=== PATIENT | female | born 1930 | race American Indian/Alaskan Native ===

== ENCOUNTER 2016-06-10 20:42 | Inpatient (IN) | payer MEDICARE ==
[2016-06-10] MEDS ORDERED: CATAPRES PO ONE (21:16)
[2016-06-10 22:54] LABS: Basophils % (Auto) 0.4 % (0.0-1.8); Eosinophils % (Auto) 1.1 % (0.0-4.3); Hematocrit 33.8 % (30.3-42.9); Hemoglobin 10.7 gm/dl (10.1-14.3); Mean Corpuscular HGB Conc 32 % (30-34); Mean Corpuscular Hemoglobin 29 pg (28-32); Mean Corpuscular Volume 91 fl (79-97); Platelet Count 465 K/mm3 (140-440); Red Cell Distribution Width 13.7 % (13.2-15.2); White Blood Count 15.8 K/mm3 (4.5-11.0)
[2016-06-10] MEDS ORDERED: NORCO 5/325 PO ONE (23:03)
--- NOTE | 2016-06-10 23:24 | Emergency Department Report ---
HPI - General Chief Complaint: Fall Time Seen by Provider: 06/10/16 22:55 - HPI HPI: Room 5 The patient is an 85-year-old female presenting with a chief complaint pain. The patient states she slipped and fell from standing 3 days ago. The patient was informed that she should not use slippers since her previous stroke. However 2 days ago the patient use slippers and lost her footing and fell landing on her left side. There was no loss of consciousness. Patient continues to complain of left back pain patient denies headache, neck pain, abdominal pain or chest pain. Patient denies pain in her extremities. The patient gives her pain a score of 8.5/10 Location: Left Back Duration: 3 days Quality: Pain Severity: 8.5/10 Modifying factors: Movement increases pain Context: [see above] Mode of transportation: [not driving] ED Past Medical Hx - Past Medical History Previous Medical History?: Yes Hx Hypertension: Yes Hx CVA: Yes (2012) - Surgical History Past Surgical History?: No - Family History Family history: no significant - Social History Smoking Status: Former Smoker (none 45 years) Substance Use Type: None ED Review of Systems ROS: Stated complaint: BACK PAIN Other details as noted in HPI Comment: All other systems reviewed and negative Constitutional: denies: chills, fever Eyes: denies: eye pain, eye discharge, vision change ENT: denies: ear pain, throat pain Respiratory: denies: cough, shortness of breath, wheezing Cardiovascular: denies: chest pain, palpitations Endocrine: no symptoms reported Gastrointestinal: denies: abdominal pain, nausea, diarrhea Genitourinary: denies: urgency, dysuria, discharge Musculoskeletal: back pain Skin: denies: rash, lesions Neurological: denies: headache, weakness, paresthesias Psychiatric: denies: anxiety, depression Hematological/Lymphatic: denies: easy bleeding, easy bruising Physical Exam - Physical Exam Vital Signs: Vital Signs 06/10/16 06/10/16 20:59 22:32 Temperature 98.4 F Pulse Rate 86 76 Respiratory 22 Rate Blood Pressure 201/86 181/70 O2 Sat by Pulse 96 Oximetry Physical Exam: GENERAL: The patient is well-developed well-nourished elderly female lying in the right lateral decubitus position appearing to be in moderate discomfort. [] HEENT: Normocephalic. Atraumatic. Extraocular motions are intact. Patient has moist mucous membranes. NECK: Supple. No cervical accident tenderness to palpation. No step-offs. CHEST/LUNGS: Clear to auscultation. There is no respiratory distress noted. HEART/CARDIOVASCULAR: Regular. There is no tachycardia. There is no gallop rub or murmur. ABDOMEN: Abdomen is soft, nontender. Patient has normal bowel sounds. There is no abdominal distention. SKIN: There is no rash. There is no edema. There is no diaphoresis. NEURO: The patient is awake, alert, and oriented. The patient is cooperative. The patient has normal speech MUSCULOSKELETAL: There is no axial thoracic tenderness to palpation. There is trace axial lumbar tenderness to palpation. Moderate left paraspinous low back tenderness to palpation. ED Course Vital Signs 06/10/16 06/10/16 20:59 22:32 Temperature 98.4 F Pulse Rate 86 76 Respiratory 22 Rate Blood Pressure 201/86 181/70 O2 Sat by Pulse 96 Oximetry - Reevaluation(s) Reevaluation #1: 06/11/16 01:48 Family states that they are unable to take care of the patient in this condition at home the patient's son who lives with her has to leave during the day for work and there is no one else able to care for her. - Consultations Consultation #1: 06/11/16 01:[address] Abebe- surgical intervention needed at this time. Patient needs bed rest and to be fitted for TLSO brace ED Medical Decision Making - Lab Data Result diagrams: 06/10/16 22:41 06/10/16 22:41 Laboratory Tests 06/10/16 06/10/16 22:41 22:41 WBC 15.8 H RBC 3.70 Hgb 10.7 Hct 33.8 MCV 91 MCH 29 MCHC 32 RDW 13.7 Plt Count 465 H Lymph % (Auto) 7.3 L Bacon % (Auto) 8.3 H Eos % (Auto) 1.1 Baso % (Auto) 0.4 Lymph # 1.1 L Bacon # 1.3 H Eos # 0.2 Baso # 0.1 Seg Neutrophils % 82.9 H Seg Neutrophils # 13.1 H Sodium 138 Potassium 4.1 Chloride 97.0 L Carbon Dioxide 21 L Anion Gap 24 BUN 41 H Creatinine 1.3 H Estimated GFR 47 BUN/Creatinine Ratio 31.53 Glucose 160 H Calcium 8.9 - Radiology Data Radiology results: report reviewed (lumbar spine x-ray, lt hip xray), image reviewed (lumbar spine x-ray, lt hip xray) interpreted by me: lumbar spine x-ray- severe degen changes lt hip xray- no acute fractures seen lumbar spine x-ray- her compression fractures of T12 and L1, Age indeterminate lt hip xray- no evidence of acute fractures - Differential Diagnosis lumbar strain, lumbar fracture Critical care attestation.: If time is entered above; I have spent that time in minutes in the direct care of this critically ill patient, excluding procedure time. ED Disposition Clinical Impression: Compression fracture of L1 lumbar vertebra, T12 compression fracture, Back pain , Inability to perform activities of daily living Disposition: OP ADMITTED IP TO THIS HOSP Is pt being admited?: Yes Does the pt Need Aspirin: Yes Condition: Fair Referrals: PRIMARY CARE, [Primary Care Provider] - 3-5 Days Time of Disposition: 01:52 (hospitalist notified)
[2016-06-11 01:06] LABS: BUN/Creatinine Ratio 31.53; Calcium 8.9 mg/dL (8.4-10.2); Potassium 4.1 mmol/L (3.6-5.0)
[2016-06-11] MEDS ORDERED: TORADOL IM ONE (01:07)
--- NOTE | 2016-06-11 01:23 | XRay Report ---
FINAL REPORT EXAM: XR HIP 2-3V LT HISTORY: pain after fall TECHNIQUE: AP view of the pelvis and additional coned view the left hip PRIORS: None. FINDINGS: The bones are diffusely demineralized. The left hip is normally aligned and there is no evidence of acute fracture or subluxation. Pelvic bones are intact. The right hip is normally aligned. There is degenerative disc disease of lower lumbar spine. The soft tissues are IMPRESSION: No evidence of acute fracture.
--- NOTE | 2016-06-11 01:27 | XRay Report ---
FINAL REPORT EXAM: XR SPINE LUMBOSACRAL 2-3V HISTORY: pain after fall TECHNIQUE: Three views of the lumbar spine PRIORS: None. FINDINGS: Bones are diffusely demineralized. There is multilevel advanced degenerative disc disease involving all lumbar levels. There is moderate loss of height of the T12 and L1 vertebral bodies consistent with age indeterminate compression fractures. The soft tissues are unremarkable. IMPRESSION: Moderate compression fractures of T12 and L1, age indeterminate.
[2016-06-11 02:21] LABS: Bacteria,Urine 2+ /HPF (Negative); Bilirubin,Urine NEG (Negative); Blood,Urine SM (Negative); Ketones,Urine TR mg/dL (Negative); Leukocyte Esterase,Urine LG (Negative); Mucus,Urine FEW /HPF; Nitrite,Urine NEG (Negative)
[2016-06-11] MEDS ORDERED: MILK OF MAGNESIA PO PRN (02:24)
[2016-06-11] MEDS ORDERED: DULCOLAX PR PRN (02:24)
[2016-06-11] MEDS ORDERED: TYLENOL PO PRN (02:24)
[2016-06-11] MEDS ORDERED: ZOFRAN IV PRN (02:24)
[2016-06-11 02:27] LABS: WBC,Urine > 182.0 /HPF (0.0-6.0)
[2016-06-11] MEDS ORDERED: APRESOLINE IV PRN (02:36)
--- NOTE | 2016-06-11 02:37 | History and Physical Report ---
History of Present Illness Date of examination: 06/11/16 History of present illness: 85-year-old woman with a history of hypertension, CVA comes emergency room status post fall on Tuesday. Patient now complains of back pain Daughter at bedside stated that she is having difficulty doing her ADLs and they're unable to care for her Patient denies chest pain, palpitation, shortness of breath, cough, abdominal pain, hematochezia, dysuria, frequency, focal weakness, dysarthria, fever chills , polydipsia polyuria, hot or cold intolerance, easy bruisability, or rash or bleeding from mucosal membrane, rhinorrhea, epistaxis, earache, tinnitus, blurry vision, eye discharge, anxiety, depression. Other review of systems negative PAST SURGICAL HISTORY:None SOCIAL HISTORY:Denies alcohol, tobacco and drugs FAMILY HISTORY:Hypertension Medications and Allergies Allergies Allergy/AdvReac Type Severity Reaction Status Date / Time No Known Allergies Allergy Verified 06/10/16 20:59 Home Medications Medication Instructions Recorded Confirmed Last Taken Type Amlodipine Bes/Olmesartan Med 1 tab PO DAILY 06/11/16 06/11/16 Unknown History [Arnaldo 10-20 mg] Oxybutynin [Ditropan] 5 mg PO DAILY 06/11/16 06/11/16 Unknown History Active Meds: Active Medications Acetaminophen (Tylenol) 650 mg PO Q4H PRN PRN Reason: Pain MILD(1-3)/Fever >100.5/ISAAC Bisacodyl (Dulcolax) 10 mg [place] QDAY PRN PRN Reason: Constipation unrelieved by MOM Enoxaparin Sodium (Lovenox) 30 mg SUB-Q QDAY PAULA Hydralazine HCl (Apresoline) 5 mg IV Q6HR PRN PRN Reason: Hypertension Magnesium Hydroxide (Milk Of Magnesia) 30 ml PO Q4H PRN PRN Reason: Constipation Ondansetron HCl (Zofran) 4 mg IV Q8H PRN PRN Reason: N/V unrelieved by Reglan Oxycodone/Acetaminophen (Percocet 5/325) 1 tab PO Q6H PRN PRN Reason: Pain, Moderate (4-6) Exam - Physical Exam Narrative exam: Gen. appearance: Patient lying in bed, no apparent distress HEENT: Normocephalic, atraumatic, pupils equally round and reactive to light, extraocular movement intact, and no sclericterus,. No JVD or thyromegaly or nodule,neck supple, no carotid bruit ,mucous membranes moist, no exudate or erythema Heart: S1, S2, regular rate and rhythm Lungs: Clear to auscultation bilaterally, breathing comfortable Abdomen: Positive bowel sounds, nontender, nondistended, no organomegaly Extremity: No edema, cyanosis, clubbing Skin: No rash, nodules, warm, dry Neuro: Oriented 3, uncoperative - Constitutional Vitals: Temp Pulse Resp BP Pulse Ox 98.4 F 85 20 124/43 97 06/10/16 20:59 06/11/16 01:30 06/11/16 02:23 06/11/16 01:30 06/11/16 02:23 Results - Labs CBC & Chem 7: 06/10/16 22:41 06/10/16 22:41 Labs: Abnormal lab results 06/10/16 06/10/16 06/11/16 Range/Units 22:41 22:41 01:06 WBC 15.8 H (4.5-11.0) K/mm3 Plt Count 465 H (140-440) K/mm3 Lymph % (Auto) 7.3 L (13.4-35.0) % [place] % (Auto) 8.3 H (0.0-7.3) % Lymph # 1.1 L (1.2-5.4) K/mm3 [place] # 1.3 H (0.0-0.8) K/mm3 Seg Neutrophils % 82.9 H (40.0-70.0) % Seg Neutrophils # 13.1 H (1.8-7.7) K/mm3 Chloride 97.0 L (98-107) mmol/L Carbon Dioxide 21 L (22-30) mmol/L BUN 41 H (7-17) mg/dL Creatinine 1.3 H (0.7-1.2) mg/dL Glucose 160 H (65-100) mg/dL Urine WBC (Auto) > 182.0 H (0.0-6.0) /HPF Assessment and Plan lumbar, hip xray T12/L1 compression fracture Acute fracture of of T!2/L1 UTI Renal insufficiency Hypertension uncontrolled H/o CVA Admit to medicine Start percocet, consult interventional radiology for possible kyphoplasty Start IV fluid, IV rocephin Start IV hydralazine as needed for blood pressure control Start dvt prophalaxis
[2016-06-11 08:17] LABS: Hematocrit 29.9 % (30.3-42.9); Hemoglobin 9.7 gm/dl (10.1-14.3); Mean Corpuscular HGB Conc 33 % (30-34); Mean Corpuscular Hemoglobin 29 pg (28-32); Mean Corpuscular Volume 90 fl (79-97); Platelet Count 430 K/mm3 (140-440); Red Blood Count 3.31 M/mm3 (3.65-5.03); Red Cell Distribution Width 14.3 % (13.2-15.2)
--- NOTE | 2016-06-11 08:26 | Admit Criteria Form ---
Admission Criteria Documentation: BACK PAIN Clinical Indications for Admission to Inpatient Care (Place 'X' for any and all applicable criteria): Admission is indicated for ANY ONE of the following (1)(2)(3)(4)(5)(6): [ X]I. Inpatient admission required rather than observation care (Also use Back Pain: Observation Care as appropriate) because of ANY ONE of the following [X ]a) Severe pain requiring acute inpatient management [ ]b) Immediate inpatient surgery [ ]c) Other condition, treatment or monitoring requiring inpatient admission [ ]II. Spine fracture with significant damage or threat of damage to vertebral column or spinal cord [ ]III. Progressive or severe neurologic deficit [ ]IV. Suspected spinal infection (e.g., epidural abscess, vertebral osteomyelitis)(10) [ ]V. Suspected cause requires inpatient treatment (eg, aortic dissection) [ ]. Cauda equina syndrome as indicated by ANY ONE of the following (9): [ ]a) Bowel dysfunction [ ]b) Bladder dysfunction [ ]c) Saddle anesthesia [ ]d) Neurologic abnormality suggesting cauda equina impingement Extended stay beyond goal length of stay may be needed for (3)(25): [ ]a) Spinal cord compression from stenosis, disk, or tumor (8)(9) [ ]b) Traumatic or pathologic vertebral fracture (33) [ ]c) Vertebral infection(10) [ ]d) Severe pain that is difficult to control [ ]e) Older patients(65 years or older) The original [facility] [employer] content created by [employer] has been revised. The portions of the content which have been revised are identified through the use of italic text or in bold, and [employer] [employer] [employer] has neither reviewed nor approved the modified material. All other unmodified content is copyright [employer]. Please see references footnoted in the original [facility] [employer] edition 2016 Admission Criteria Met: Yes
--- NOTE | 2016-06-11 09:56 | Progress Note ---
Assessment and Plan Assessment and plan: 1. Acute traumatic fracture of T12/L1 post fall- will consult orthopedics for further evaluation; cotn percocet for pain manx 2. Cystitis with microscopic hematuria with leukocytosis- will cont rocephin; urine c/s 3. Acute renal failure due to vasomotor nephropathy- cont IVF and monitor lytes and renal function 4. OLD CVA- supportive care; ASA 5. Benign HTN - fair controll- start home meds- amlodipine 6.DVT prophylaxis- lovenox History Interval history: f/u fracture T2/L1 post fall Patient seen at the bedside; no complaints; no pain in the lower back Hospitalist Physical - Constitutional Vitals: Temp Pulse Resp BP Pulse Ox 98.2 F 78 20 148/63 96 06/11/16 08:00 06/11/16 08:00 06/11/16 08:00 06/11/16 08:00 06/11/16 09:02 General appearance: Present: no acute distress, well-nourished - EENT Eyes: Present: PERRL, EOM intact. Absent: scleral icterus, conjunctival injection ENT: hearing intact, clear oral mucosa, no oropharyngeal erythema, no poor dentition - Neck Neck: Present: supple, normal ROM - Respiratory Respiratory effort: normal Respiratory: negative: diminished, rales, rhonchi, wheezing - Cardiovascular Rhythm: regular Heart Sounds: Present: S1 & S2. Absent: gallop - Extremities Extremities: no ischemia, pulses intact, pulses symmetrical, No edema Peripheral Pulses: within normal limits - Abdominal General gastrointestinal: soft, non-tender, non-distended, normal bowel sounds - Psychiatric Psychiatric: appropriate mood/affect, intact judgment & insight, cooperative - Neurologic Neurologic: CNII-XII intact, moves all extremities Results - Labs CBC & Chem 7: 06/11/16 08:09 06/10/16 22:41 Labs: Laboratory Last Values WBC 13.0 K/mm3 (4.5-11.0) H 06/11/16 08:09 RBC 3.31 M/mm3 (3.65-5.03) L 06/11/16 08:09 Hgb 9.7 gm/dl (10.1-14.3) L 06/11/16 08:09 Hct 29.9 % (30.3-42.9) L 06/11/16 08:09 MCV 90 fl (79-97) 06/11/16 08:09 MCH 29 pg (28-32) 06/11/16 08:09 MCHC 33 % (30-34) 06/11/16 08:09 RDW 14.3 % (13.2-15.2) 06/11/16 08:09 Plt Count 430 K/mm3 (140-440) 06/11/16 08:09 Lymph % (Auto) 7.3 % (13.4-35.0) L 06/10/16 22:41 Ward % (Auto) 8.3 % (0.0-7.3) H 06/10/16 22:41 Eos % (Auto) 1.1 % (0.0-4.3) 06/10/16 22:41 Baso % (Auto) 0.4 % (0.0-1.8) 06/10/16 22:41 Lymph # 1.1 K/mm3 (1.2-5.4) L 06/10/16 22:41 Ward # 1.3 K/mm3 (0.0-0.8) H 06/10/16 22:41 Eos # 0.2 K/mm3 (0.0-0.4) 06/10/16 22:41 Baso # 0.1 K/mm3 (0.0-0.1) 06/10/16 22:41 Seg Neutrophils % 82.9 % (40.0-70.0) H 06/10/16 22:41 Seg Neutrophils # 13.1 K/mm3 (1.8-7.7) H 06/10/16 22:41 Sodium 138 mmol/L (137-145) 06/10/16 22:41 Potassium 4.1 mmol/L (3.6-5.0) 06/10/16 22:41 Chloride 97.0 mmol/L (98-107) L 06/10/16 22:41 Carbon Dioxide 21 mmol/L (22-30) L 06/10/16 22:41 Anion Gap 24 mmol/L 06/10/16 22:41 BUN 41 mg/dL (7-17) H 06/10/16 22:41 Creatinine 1.3 mg/dL (0.7-1.2) H 06/10/16 22:41 Estimated GFR 47 ml/min 06/10/16 22:41 BUN/Creatinine Ratio 31.53 % 06/10/16 22:41 Glucose 160 mg/dL (65-100) H 06/10/16 22:41 Calcium 8.9 mg/dL (8.4-10.2) 06/10/16 22:41 Urine Color Jennifer (Yellow) 06/11/16 01:06 Urine Turbidity Turbid (Clear) 06/11/16 01:06 Urine pH 5.0 (5.0-7.0) 06/11/16 01:06 Ur Specific Nitro 1.023 (1.003-1.030) 06/11/16 01:06 Urine Protein 30 mg/dl mg/dL (Negative) 06/11/16 01:06 Urine Glucose (UA) Neg mg/dL (Negative) 06/11/16 01:06 Urine Ketones Tr mg/dL (Negative) 06/11/16 01:06 Urine Blood Sm (Negative) 06/11/16 01:06 Urine Nitrite Neg (Negative) 06/11/16 01:06 Urine Bilirubin Neg (Negative) 06/11/16 01:06 Urine Urobilinogen 2.0 mg/dL (<2.0) 06/11/16 01:06 Ur Leukocyte Esterase Lg (Negative) 06/11/16 01:06 Urine WBC (Auto) > 182.0 /HPF (0.0-6.0) H 06/11/16 01:06 Urine RBC (Auto) 26.0 /HPF (0.0-6.0) 06/11/16 01:06 U Epithel Cells (Auto) 5.0 /HPF (0-13.0) 06/11/16 01:06 Urine Bacteria (Auto) 2+ /HPF (Negative) 06/11/16 01:06 Urine WBC Clumps 3+ /HPF 06/11/16 01:06 Amorphous Crystals 1+ 06/11/16 01:06 Hyaline Casts 5 /LPF 06/11/16 01:06 Urine Mucus Few /HPF 06/11/16 01:06
[2016-06-11] MEDS ORDERED: NON-FORMULARY (Amlodipine Bes/Olmesartan Med [Azor 10-20 Mg] 1 TAB) PO SCH (10:15)
[2016-06-11] MEDS: D5/0.45NS 1,000 ML IV SCH (11:00)
--- NOTE | 2016-06-11 12:10 | Consultation ---
History of Present Illness - Reason for Consult Consult date: 06/11/16 T12/L1 compression fracture Requesting physician: YASEMIN MELVIN - History of Present Illness 85-year-old female who reports that she had a stroke 4 weeks ago resulting in severe right upper extremity paresis and mild right lower extremity weakness who presented to the emergency room and was found to have an age-indeterminate compression deformity with pain. According to the patient, she reports she fell 2 weeks ago and has been slowly improving over the course of the last 2 weeks with no pain currently. According to the emergency room note, he reports that she has had multiple falls recently and complained of pain when she was in the emergency room. Currently, the patient denies any back pain. On physical exam, when her spine is palpated, she reports no pain. Past History Past Medical History: hypertension, stroke Past Surgical History: Other (denies) Social history: denies: smoking, alcohol abuse, IV drug use Family history: hypertension Medications and Allergies Allergies Allergy/AdvReac Type Severity Reaction Status Date / Time No Known Allergies Allergy Verified 06/10/16 20:59 Home Medications Medication Instructions Recorded Confirmed Last Taken Type Amlodipine Bes/Olmesartan Med 1 tab PO DAILY 06/11/16 06/11/16 Unknown History [Arnaldo 10-20 mg] Oxybutynin [Ditropan] 5 mg PO DAILY 06/11/16 06/11/16 Unknown History Active Meds: Active Medications Acetaminophen (Tylenol) 650 mg PO Q4H PRN PRN Reason: Pain MILD(1-3)/Fever >100.5/ISAAC Bisacodyl (Dulcolax) 10 mg [place] QDAY PRN PRN Reason: Constipation unrelieved by MOM Enoxaparin Sodium (Lovenox) 30 mg SUB-Q QDAY PAULA Hydralazine HCl (Apresoline) 5 mg IV Q6HR PRN PRN Reason: Hypertension Ceftriaxone Sodium (Rocephin/Ns 1 Gm/50 Ml) 1 gm in 50 mls @ 100 mls/hr IV Q24H PAULA Dextrose/Sodium Chloride (D5/0.45ns) 1,000 mls @ 75 mls/hr IV DIRECT PAULA Magnesium Hydroxide (Milk Of Magnesia) 30 ml PO Q4H PRN PRN Reason: Constipation Miscellaneous Medication (Amlodipine Bes/Olmesartan Med [Arnaldo 10-20 Mg]) 1 tab PO DAILY [facility] Ondansetron HCl (Zofran) 4 mg IV Q8H PRN PRN Reason: N/V unrelieved by Reglan Oxybutynin Chloride (Ditropan) 5 mg PO DAILY [facility] Oxycodone/Acetaminophen (Percocet 5/325) 1 tab PO Q6H PRN PRN Reason: Pain, Moderate (4-6) Review of Systems All systems: negative (see HPI) Exam - Constitutional Vitals: Temp Pulse Resp BP Pulse Ox 98.2 F 78 20 148/63 96 06/11/16 08:00 06/11/16 08:00 06/11/16 08:00 06/11/16 08:00 06/11/16 09:02 General appearance: Present: no acute distress - Respiratory Respiratory effort: normal - Extremities Extremity abnormal: other (no tenderness along the cervical, thoracic, lumbar) - Abdominal General gastrointestinal: Present: soft - Musculoskeletal Musculoskeletal: right sided weakness, other (no pain when the spine is palpated ) - Neurologic Neurologic: focal deficits (RUE paralysis ; RLE mild paresis (4+/5)) Results - Labs CBC & Chem 7: 06/11/16 08:09 06/10/16 22:41 Labs: Abnormal lab results 06/11/16 Range/Units 08:09 WBC 13.0 H (4.5-11.0) K/mm3 RBC 3.31 L (3.65-5.03) M/mm3 Hgb 9.7 L (10.1-14.3) gm/dl Hct 29.9 L (30.3-42.9) % - Imaging and Cardiology Abdominal x-ray: report reviewed, image reviewed (lumbar) Assessment and Plan 85-year-old female with right-sided CVA and multiple falls since then with presentation to the emergency room with back pain which has since resolved. No pain on palpation of the spine. She has age indeterminate compression deformity noted on thoraco-lumbar spine films. Suspect compression deformity may be old given the lack of patient's symptoms on physical exam. Consider MRI of the lower thoracic and lumbar spine for further evaluation to determine acuity of compression fracture. Given her lack of pain, patient is not a candidate for kyphoplasty.
[2016-06-11] MEDS: PERCOCET 5/325 PO PRN ×2 (14:00→19:00)
[2016-06-11] MEDS: DITROPAN PO SCH (15:00)
[2016-06-11] MEDS: ROCEPHIN/NS 1 GM/50 ML 1 GM/50 ML BAG IV SCH (15:00)
[2016-06-11] MEDS: LOVENOX SUB-Q SCH (15:00)
--- NOTE | 2016-06-11 15:13 | Consultation ---
History of Present Illness - [facility] Consult date: 06/11/16 Consult reason: fracture History of present illness: 85 years old with mid back, upper lumbar pain. Family report she fell down several days ago, had been getting around at home after the fall with minimal discomfort, and had been slowly improving. She was seen in emergency room because of "pain" admitted with a diagnosis of compression fracture T12, L1. Past History Past Medical History: hypertension, stroke Past Surgical History: Other (denies) Social history: denies: smoking, alcohol abuse, IV drug use Family history: hypertension Medications and Allergies Allergies Allergy/AdvReac Type Severity Reaction Status Date / Time No Known Allergies Allergy Verified 06/10/16 20:59 Home Medications Medication Instructions Recorded Confirmed Last Taken Type Amlodipine Bes/Olmesartan Med 1 tab PO DAILY 06/11/16 06/11/16 Unknown History [Arnaldo 10-20 mg] Oxybutynin [Ditropan] 5 mg PO DAILY 06/11/16 06/11/16 Unknown History Active Meds: Active Medications Acetaminophen (Tylenol) 650 mg PO Q4H PRN PRN Reason: Pain MILD(1-3)/Fever >100.5/ISAAC Amlodipine Besylate (Norvasc) 10 mg PO DAILY PAULA Bisacodyl (Dulcolax) 10 mg [place] QDAY PRN PRN Reason: Constipation unrelieved by MOM Enoxaparin Sodium (Lovenox) 30 mg SUB-Q QDAY PAULA Hydralazine HCl (Apresoline) 5 mg IV Q6HR PRN PRN Reason: Hypertension Ceftriaxone Sodium (Rocephin/Ns 1 Gm/50 Ml) 1 gm in 50 mls @ 100 mls/hr IV Q24H PAULA Dextrose/Sodium Chloride (D5/0.45ns) 1,000 mls @ 75 mls/hr IV DIRECT PAULA Losartan Potassium (Cozaar) 50 mg PO QDAY PAULA Magnesium Hydroxide (Milk Of Magnesia) 30 ml PO Q4H PRN PRN Reason: Constipation Ondansetron HCl (Zofran) 4 mg IV Q8H PRN PRN Reason: N/V unrelieved by Reglan Oxybutynin Chloride (Ditropan) 5 mg PO DAILY PAULA Oxycodone/Acetaminophen (Percocet 5/325) 1 tab PO Q6H PRN PRN Reason: Pain, Moderate (4-6) Physical Examination - Fracture vertebral column Appearance: other (Increased thoracic kyphosis, degenerative scoliosis. No definite ecchymosis, discoloration of the thoracolumbar area. No definite point tenderness. Range of motion is severely limited and neurological examination is unremarkable. She moves around of bed without much expressed discomfort.) Assessment and Plan - Patient Problems (1) Compression fracture of L1 lumbar vertebra Current Visit: Yes Status: Acute Qualifiers: Encounter type: initial encounter Fracture type: F Fracture healing: F Plan to address problem: Decompression fracture may be few weeks old, as per family she had been getting around at home, gradually improving. Treatment options continue with symptomatic treatment, progressive amputation as tolerated and pain management, bracing, kyphoplasty discussed with. As symptoms are clinically improving family have decided to continue with nonoperative management. Because of her scoliosis and increased kyphosis she will not tolerate orthosis well. After discussion of fall distractors, the family has elected for symptomatic treatment , patient may be discharged with pain management, activities as tolerated, possibly will need LLUI/SNF placement. Wound (2) T12 compression fracture Current Visit: Yes Status: Acute Qualifiers: Encounter type: E Fracture healing: F
[2016-06-12] MEDS: PERCOCET 5/325 PO PRN ×3 (03:20→17:08)
[2016-06-12] MEDS ORDERED: ATIVAN IV ONE (03:56)
[2016-06-12 05:04] LABS: Basophils % (Auto) 0.6 % (0.0-1.8); Eosinophils % (Auto) 3.5 % (0.0-4.3); Hematocrit 32.1 % (30.3-42.9); Hemoglobin 10.3 gm/dl (10.1-14.3); Mean Corpuscular HGB Conc 32 % (30-34); Mean Corpuscular Hemoglobin 29 pg (28-32); Mean Corpuscular Volume 91 fl (79-97); Platelet Count 507 K/mm3 (140-440); Red Blood Count 3.54 M/mm3 (3.65-5.03); Red Cell Distribution Width 14.2 % (13.2-15.2); White Blood Count 10.8 K/mm3 (4.5-11.0)
[2016-06-12 05:07] LABS: Anion Gap 18 mmol/L; Blood Urea Nitrogen 33 mg/dL (7-17); Calcium 8.2 mg/dL (8.4-10.2); Carbon Dioxide 24 mmol/L (22-30); Glucose 188 mg/dL (65-100); Potassium 3.2 mmol/L (3.6-5.0); Sodium 139 mmol/L (137-145)
[2016-06-12] MEDS: ROCEPHIN/NS 1 GM/50 ML 1 GM/50 ML BAG IV SCH (07:35)
[2016-06-12] MEDS: D5/0.45NS 1,000 ML IV SCH (07:36)
[2016-06-12] MEDS: DITROPAN PO SCH ×2 (08:38→10:00)
[2016-06-12] MEDS: LOVENOX SUB-Q SCH ×2 (08:38→10:00)
--- NOTE | 2016-06-12 11:19 | Progress Note ---
Assessment and Plan Assessment and plan: 1. Acute traumatic fracture of T12/L1 post fall-ortho / IR consults noted; will cotn symptomatic [place]; for discharge to SNF when bed available, cotn percocet for pain manx 2. Cystitis with microscopic hematuria with resolving leukocytosis-cont IV rocephin; no urine c/s sent 3. Acute renal failure due to vasomotor nephropathy- improving; cont IVF and monitor lytes and renal function 4. OLD CVA- supportive care; ASA 5. Benign HTN - fair controll; cotn; amlodipine 6. DVT prophylaxis- lovenox For d/c SNF when bed available History Interval history: f/u fracture T2/L1 post fall Patient seen at the bedside; no complaints; no pain in the lower back Hospitalist Physical - Constitutional Vitals: Temp Pulse Resp BP Pulse Ox 97.4 F L 68 18 171/53 98 06/12/16 07:30 06/12/16 07:30 06/12/16 07:30 06/12/16 07:30 06/12/16 07:30 General appearance: Present: no acute distress - EENT Eyes: Present: PERRL, EOM intact. Absent: scleral icterus, conjunctival injection ENT: hearing intact, clear oral mucosa, no oropharyngeal erythema, no poor dentition - Neck Neck: Present: supple, normal ROM. Absent: enlarged thyroid, masses or JVD - Respiratory Respiratory effort: normal Respiratory: negative: diminished, rales, rhonchi, wheezing - Cardiovascular Rhythm: regular Heart Sounds: Present: S1 & S2. Absent: gallop - Extremities Extremities: no ischemia, pulses intact, pulses symmetrical, No edema Peripheral Pulses: within normal limits - Abdominal General gastrointestinal: soft, non-tender, non-distended, normal bowel sounds - Integumentary Integumentary: Present: clear - Psychiatric Psychiatric: appropriate mood/affect, intact judgment & insight, cooperative - Neurologic Neurologic: CNII-XII intact Results - Labs CBC & Chem 7: 06/12/16 04:22 06/12/16 04:22 Labs: Laboratory Last Values WBC 10.8 K/mm3 (4.5-11.0) 06/12/16 04:22 RBC 3.54 M/mm3 (3.65-5.03) L 06/12/16 04:22 Hgb 10.3 gm/dl (10.1-14.3) 06/12/16 04:22 Hct 32.1 % (30.3-42.9) 06/12/16 04:22 MCV 91 fl (79-97) 06/12/16 04:22 MCH 29 pg (28-32) 06/12/16 04:22 MCHC 32 % (30-34) 06/12/16 04:22 RDW 14.2 % (13.2-15.2) 06/12/16 04:22 Plt Count 507 K/mm3 (140-440) H 06/12/16 04:22 Lymph % (Auto) 13.2 % (13.4-35.0) L 06/12/16 04:22 [place] % (Auto) 9.3 % (0.0-7.3) H 06/12/16 04:22 Eos % (Auto) 3.5 % (0.0-4.3) 06/12/16 04:22 Baso % (Auto) 0.6 % (0.0-1.8) 06/12/16 04:22 Lymph # 1.4 K/mm3 (1.2-5.4) 06/12/16 04:22 [place] # 1.0 K/mm3 (0.0-0.8) H 06/12/16 04:22 Eos # 0.4 K/mm3 (0.0-0.4) 06/12/16 04:22 Baso # 0.1 K/mm3 (0.0-0.1) 06/12/16 04:22 Seg Neutrophils % 73.4 % (40.0-70.0) H 06/12/16 04:22 Seg Neutrophils # 7.9 K/mm3 (1.8-7.7) H 06/12/16 04:22 Sodium 139 mmol/L (137-145) 06/12/16 04:22 Potassium 3.2 mmol/L (3.6-5.0) L D 06/12/16 04:22 Chloride 100.0 mmol/L (98-107) 06/12/16 04:22 Carbon Dioxide 24 mmol/L (22-30) 06/12/16 04:22 Anion Gap 18 mmol/L 06/12/16 04:22 BUN 33 mg/dL (7-17) H 06/12/16 04:22 Creatinine 0.5 mg/dL (0.7-1.2) L D 06/12/16 04:22 Estimated GFR > 60 ml/min 06/12/16 04:22 BUN/Creatinine Ratio 66.00 % 06/12/16 04:22 Glucose 188 mg/dL (65-100) H 06/12/16 04:22 Calcium 8.2 mg/dL (8.4-10.2) L 06/12/16 04:22 Urine Color [place] (Yellow) 06/11/16 01:06 Urine Turbidity Turbid (Clear) 06/11/16 01:06 Urine pH 5.0 (5.0-7.0) 06/11/16 01:06 Ur Specific [place] 1.023 (1.003-1.030) 06/11/16 01:06 Urine Protein 30 mg/dl mg/dL (Negative) 06/11/16 01:06 Urine Glucose (UA) Neg mg/dL (Negative) 06/11/16 01:06 Urine Ketones Tr mg/dL (Negative) 06/11/16 01:06 Urine Blood Sm (Negative) 06/11/16 01:06 Urine Nitrite Neg (Negative) 06/11/16 01:06 Urine Bilirubin Neg (Negative) 06/11/16 01:06 Urine Urobilinogen 2.0 mg/dL (<2.0) 06/11/16 01:06 Ur Leukocyte Esterase Lg (Negative) 06/11/16 01:06 Urine WBC (Auto) > 182.0 /HPF (0.0-6.0) H 06/11/16 01:06 Urine RBC (Auto) 26.0 /HPF (0.0-6.0) 06/11/16 01:06 U Epithel Cells (Auto) 5.0 /HPF (0-13.0) 06/11/16 01:06 Urine Bacteria (Auto) 2+ /HPF (Negative) 06/11/16 01:06 Urine WBC Clumps 3+ /HPF 06/11/16 01:06 Amorphous Crystals 1+ 06/11/16 01:06 Hyaline Casts 5 /LPF 06/11/16 01:06 Urine Mucus Few /HPF 06/11/16 01:06
[2016-06-12] MEDS ORDERED: K-DUR PO ONE ×2 (11:22→15:00)
--- NOTE | 2016-06-12 12:06 | Consultation ---
History of Present Illness - HPI Consult date: 06/12/16 Past History Past Medical History: hypertension, stroke Past Surgical History: Other (denies) Social history: denies: smoking, alcohol abuse, IV drug use Family history: hypertension Medications and Allergies Allergies Allergy/AdvReac Type Severity Reaction Status Date / Time No Known Allergies Allergy Verified 06/10/16 20:59 Home Medications Medication Instructions Recorded Confirmed Last Taken Type Amlodipine Bes/Olmesartan Med 1 tab PO DAILY 06/11/16 06/11/16 Unknown History [Arnaldo 10-20 mg] Oxybutynin [Ditropan] 5 mg PO DAILY 06/11/16 06/11/16 Unknown History Active Meds: Active Medications Acetaminophen (Tylenol) 650 mg PO Q4H PRN PRN Reason: Pain MILD(1-3)/Fever >100.5/ISAAC Amlodipine Besylate (Norvasc) 10 mg PO DAILY [facility] Bisacodyl (Dulcolax) 10 mg SC QDAY PRN PRN Reason: Constipation unrelieved by MOM Enoxaparin Sodium (Lovenox) 30 mg SUB-Q QDAY [facility] Last Admin: 06/12/16 10:00 Dose: Not Given Hydralazine HCl (Apresoline) 5 mg IV Q6HR PRN PRN Reason: Hypertension Ceftriaxone Sodium (Rocephin/Ns 1 Gm/50 Ml) 1 gm in 50 mls @ 100 mls/hr IV Q24H [facility] Last Admin: 06/12/16 07:35 Dose: Not Given Dextrose/Sodium Chloride (D5/0.45ns) 1,000 mls @ 75 mls/hr IV DIRECT [facility] Last Admin: 06/12/16 07:36 Dose: 75 mls/hr Losartan Potassium (Cozaar) 50 mg PO QDAY [facility] Magnesium Hydroxide (Milk Of Magnesia) 30 ml PO Q4H PRN PRN Reason: Constipation Ondansetron HCl (Zofran) 4 mg IV Q8H PRN PRN Reason: N/V unrelieved by Reglan Oxybutynin Chloride (Ditropan) 5 mg PO DAILY [facility] Last Admin: 06/12/16 10:00 Dose: Not Given Oxycodone/Acetaminophen (Percocet 5/325) 1 tab PO Q6H PRN PRN Reason: Pain, Moderate (4-6) Last Admin: 06/12/16 11:45 Dose: 1 tab Assessment and Plan - Patient Problems (1) Compression fracture of L1 lumbar vertebra Current Visit: Yes Status: Acute Qualifiers: Encounter type: initial encounter Fracture type: F Fracture healing: F Plan to address problem: Compression fracture T12, L1, age undetermined. Patient's family report a fall in a possibly 2 weeks ago. Following this she was been getting around with minimal discomfort and had been progressively getting better.(As per the ER physician pain has been severe, unable to get around) In the hospital she appears comfortable, frequently changes position. This is because of the kyphotic deformity. Treatment options of continuing with nonoperative management,? Bracing discussed with. Because of kyphosis he may not be able to tolerate a brace. After kyphoplasty also discussed with, patient's family is not in agreement with the same. We'll continue with symptomatic treatment as she is clinically improving, she may be discharged to [facility]/SNF when bed available when medically stable. (2) T12 compression fracture Current Visit: Yes Status: Acute Qualifiers: Encounter type: E Fracture healing: F
[2016-06-12] MEDS: NORVASC PO SCH (17:45)
[2016-06-12] MEDS: COZAAR PO SCH (17:46)
[2016-06-13 04:49] LABS: Anion Gap 17 mmol/L; Blood Urea Nitrogen 17 mg/dL (7-17); Calcium 8.4 mg/dL (8.4-10.2); Carbon Dioxide 25 mmol/L (22-30); Chloride 99.7 mmol/L (98-107); Glucose 174 mg/dL (65-100); Potassium 4.2 mmol/L (3.6-5.0); Sodium 137 mmol/L (137-145)
[2016-06-13] MEDS: ROCEPHIN/NS 1 GM/50 ML 1 GM/50 ML BAG IV SCH (05:00)
[2016-06-13] MEDS: PERCOCET 5/325 PO PRN ×2 (11:45→17:45)
[2016-06-13] MEDS: NORVASC PO SCH (11:45)
[2016-06-13] MEDS: COZAAR PO SCH (11:45)
[2016-06-13] MEDS: LOVENOX SUB-Q SCH (11:45)
[2016-06-13] MEDS: DITROPAN PO SCH (11:45)
--- NOTE | 2016-06-13 13:27 | Progress Note ---
Assessment and Plan Assessment and plan: 1. Acute traumatic fracture of T12/L1 post fall-ortho / IR consults noted; will cotn symptomatic [place]; for discharge to SNF when bed available, cotn percocet for pain manx 2. Cystitis with microscopic hematuria with resolve leukocytosis-d/c IV rocephin- has received 3 days of therapy; no growth on urine c/s 3. Acute renal failure due to vasomotor nephropathy- resolved' d/c IVF 4. OLD CVA- supportive care; ASA 5. Benign HTN - fair controll; cotn; amlodipine 6. DVT prophylaxis- lovenox For d/c SNF when bed available History Interval history: f/u fracture T2/L1 post fall Patient seen at the bedside; c/o pain in the back Hospitalist Physical - Constitutional Vitals: Temp Pulse Resp BP Pulse Ox 98.1 F 83 16 201/80 98 06/13/16 08:00 06/13/16 08:00 06/13/16 08:00 06/13/16 08:00 06/13/16 08:00 General appearance: Present: no acute distress - EENT Eyes: Present: PERRL, EOM intact. Absent: scleral icterus, conjunctival injection ENT: hearing intact, clear oral mucosa, no oropharyngeal erythema, no poor dentition - Neck Neck: Present: supple, normal ROM. Absent: enlarged thyroid, masses or JVD - Respiratory Respiratory effort: normal Respiratory: negative: diminished, rales, rhonchi, wheezing - Cardiovascular Rhythm: regular Heart Sounds: Present: S1 & S2. Absent: gallop - Extremities Extremities: no ischemia, pulses intact, pulses symmetrical, No edema Peripheral Pulses: within normal limits - Abdominal General gastrointestinal: soft, non-tender, non-distended, normal bowel sounds - Integumentary Integumentary: Present: clear - Psychiatric Psychiatric: appropriate mood/affect, intact judgment & insight, cooperative - Neurologic Neurologic: CNII-XII intact, moves all extremities Results - Labs CBC & Chem 7: 06/12/16 04:22 06/13/16 03:42 Labs: Laboratory Last Values WBC 10.8 K/mm3 (4.5-11.0) 06/12/16 04:22 RBC 3.54 M/mm3 (3.65-5.03) L 06/12/16 04:22 Hgb 10.3 gm/dl (10.1-14.3) 06/12/16 04:22 Hct 32.1 % (30.3-42.9) 06/12/16 04:22 MCV 91 fl (79-97) 06/12/16 04:22 MCH 29 pg (28-32) 06/12/16 04:22 MCHC 32 % (30-34) 06/12/16 04:22 RDW 14.2 % (13.2-15.2) 06/12/16 04:22 Plt Count 507 K/mm3 (140-440) H 06/12/16 04:22 Lymph % (Auto) 13.2 % (13.4-35.0) L 06/12/16 04:22 [place] % (Auto) 9.3 % (0.0-7.3) H 06/12/16 04:22 Eos % (Auto) 3.5 % (0.0-4.3) 06/12/16 04:22 Baso % (Auto) 0.6 % (0.0-1.8) 06/12/16 04:22 Lymph # 1.4 K/mm3 (1.2-5.4) 06/12/16 04:22 [place] # 1.0 K/mm3 (0.0-0.8) H 06/12/16 04:22 Eos # 0.4 K/mm3 (0.0-0.4) 06/12/16 04:22 Baso # 0.1 K/mm3 (0.0-0.1) 06/12/16 04:22 Seg Neutrophils % 73.4 % (40.0-70.0) H 06/12/16 04:22 Seg Neutrophils # 7.9 K/mm3 (1.8-7.7) H 06/12/16 04:22 Sodium 137 mmol/L (137-145) 06/13/16 03:42 Potassium 4.2 mmol/L (3.6-5.0) D 06/13/16 03:42 Chloride 99.7 mmol/L (98-107) 06/13/16 03:42 Carbon Dioxide 25 mmol/L (22-30) 06/13/16 03:42 Anion Gap 17 mmol/L 06/13/16 03:42 BUN 17 mg/dL (7-17) 06/13/16 03:42 Creatinine 0.4 mg/dL (0.7-1.2) L 06/13/16 03:42 Estimated GFR > 60 ml/min 06/13/16 03:42 BUN/Creatinine Ratio 42.50 % 06/13/16 03:42 Glucose 174 mg/dL (65-100) H 06/13/16 03:42 Calcium 8.4 mg/dL (8.4-10.2) 06/13/16 03:42 Urine Color [place] (Yellow) 06/11/16 01:06 Urine Turbidity Turbid (Clear) 06/11/16 01:06 Urine pH 5.0 (5.0-7.0) 06/11/16 01:06 Ur Specific [place] 1.023 (1.003-1.030) 06/11/16 01:06 Urine Protein 30 mg/dl mg/dL (Negative) 06/11/16 01:06 Urine Glucose (UA) Neg mg/dL (Negative) 06/11/16 01:06 Urine Ketones Tr mg/dL (Negative) 06/11/16 01:06 Urine Blood Sm (Negative) 06/11/16 01:06 Urine Nitrite Neg (Negative) 06/11/16 01:06 Urine Bilirubin Neg (Negative) 06/11/16 01:06 Urine Urobilinogen 2.0 mg/dL (<2.0) 06/11/16 01:06 Ur Leukocyte Esterase Lg (Negative) 06/11/16 01:06 Urine WBC (Auto) > 182.0 /HPF (0.0-6.0) H 06/11/16 01:06 Urine RBC (Auto) 26.0 /HPF (0.0-6.0) 06/11/16 01:06 U Epithel Cells (Auto) 5.0 /HPF (0-13.0) 06/11/16 01:06 Urine Bacteria (Auto) 2+ /HPF (Negative) 06/11/16 01:06 Urine WBC Clumps 3+ /HPF 06/11/16 01:06 Amorphous Crystals 1+ 06/11/16 01:06 Hyaline Casts 5 /LPF 06/11/16 01:06 Urine Mucus Few /HPF 06/11/16 01:06
[2016-06-14] MEDS: LOVENOX SUB-Q SCH ×2 (08:47→10:00)
[2016-06-14] MEDS: NORVASC PO SCH ×2 (08:48→10:00)
[2016-06-14] MEDS: DITROPAN PO SCH ×2 (08:48→10:00)
[2016-06-14] MEDS: COZAAR PO SCH ×2 (08:49→10:00)
[2016-06-14] MEDS: PERCOCET 5/325 PO PRN ×2 (08:49→18:40)
--- NOTE | 2016-06-14 11:22 | Progress Note ---
Assessment and Plan Assessment and plan: 1. Acute traumatic fracture of T12/L1 post fall-ortho / IR consults noted; will cotn symptomatic [place]; for discharge to SNF when bed available, cotn percocet for pain manx 2. OLD CVA- supportive care; ASA 3. Benign HTN - fair controll; cotn; amlodipine 4. DVT prophylaxis- lovenox For d/c SNF when bed available History Interval history: f/u fracture T2/L1 post fall Patient seen at the bedside; c/o pain in the back Hospitalist Physical - Constitutional Vitals: Temp Pulse Resp BP Pulse Ox 98.2 F 79 18 191/77 99 06/14/16 08:05 06/14/16 08:49 06/14/16 08:05 06/14/16 08:49 06/14/16 08:05 General appearance: Present: no acute distress - EENT Eyes: Present: PERRL, EOM intact. Absent: scleral icterus, conjunctival injection ENT: hearing intact, clear oral mucosa, no oropharyngeal erythema, no poor dentition - Neck Neck: Present: supple, normal ROM. Absent: enlarged thyroid, masses or JVD - Respiratory Respiratory effort: normal Respiratory: negative: diminished, rales, rhonchi, wheezing - Cardiovascular Rhythm: regular Heart Sounds: Present: S1 & S2. Absent: gallop - Extremities Extremities: no ischemia, pulses intact, pulses symmetrical, No edema Peripheral Pulses: within normal limits - Abdominal General gastrointestinal: soft, non-tender, non-distended - Integumentary Integumentary: Present: clear - Psychiatric Psychiatric: appropriate mood/affect, cooperative - Neurologic Neurologic: CNII-XII intact, moves all extremities Results - Labs CBC & Chem 7: 06/12/16 04:22 06/13/16 03:42 Labs: Laboratory Last Values WBC 10.8 K/mm3 (4.5-11.0) 06/12/16 04:22 RBC 3.54 M/mm3 (3.65-5.03) L 06/12/16 04:22 Hgb 10.3 gm/dl (10.1-14.3) 06/12/16 04:22 Hct 32.1 % (30.3-42.9) 06/12/16 04:22 MCV 91 fl (79-97) 06/12/16 04:22 MCH 29 pg (28-32) 06/12/16 04:22 MCHC 32 % (30-34) 06/12/16 04:22 RDW 14.2 % (13.2-15.2) 06/12/16 04:22 Plt Count 507 K/mm3 (140-440) H 06/12/16 04:22 Lymph % (Auto) 13.2 % (13.4-35.0) L 06/12/16 04:22 [place] % (Auto) 9.3 % (0.0-7.3) H 06/12/16 04:22 Eos % (Auto) 3.5 % (0.0-4.3) 06/12/16 04:22 Baso % (Auto) 0.6 % (0.0-1.8) 06/12/16 04:22 Lymph # 1.4 K/mm3 (1.2-5.4) 06/12/16 04:22 [place] # 1.0 K/mm3 (0.0-0.8) H 06/12/16 04:22 Eos # 0.4 K/mm3 (0.0-0.4) 06/12/16 04:22 Baso # 0.1 K/mm3 (0.0-0.1) 06/12/16 04:22 Seg Neutrophils % 73.4 % (40.0-70.0) H 06/12/16 04:22 Seg Neutrophils # 7.9 K/mm3 (1.8-7.7) H 06/12/16 04:22 Sodium 137 mmol/L (137-145) 06/13/16 03:42 Potassium 4.2 mmol/L (3.6-5.0) D 06/13/16 03:42 Chloride 99.7 mmol/L (98-107) 06/13/16 03:42 Carbon Dioxide 25 mmol/L (22-30) 06/13/16 03:42 Anion Gap 17 mmol/L 06/13/16 03:42 BUN 17 mg/dL (7-17) 06/13/16 03:42 Creatinine 0.4 mg/dL (0.7-1.2) L 06/13/16 03:42 Estimated GFR > 60 ml/min 06/13/16 03:42 BUN/Creatinine Ratio 42.50 % 06/13/16 03:42 Glucose 174 mg/dL (65-100) H 06/13/16 03:42 Calcium 8.4 mg/dL (8.4-10.2) 06/13/16 03:42 Urine Color [place] (Yellow) 06/11/16 01:06 Urine Turbidity Turbid (Clear) 06/11/16 01:06 Urine pH 5.0 (5.0-7.0) 06/11/16 01:06 Ur Specific [place] 1.023 (1.003-1.030) 06/11/16 01:06 Urine Protein 30 mg/dl mg/dL (Negative) 06/11/16 01:06 Urine Glucose (UA) Neg mg/dL (Negative) 06/11/16 01:06 Urine Ketones Tr mg/dL (Negative) 06/11/16 01:06 Urine Blood Sm (Negative) 06/11/16 01:06 Urine Nitrite Neg (Negative) 06/11/16 01:06 Urine Bilirubin Neg (Negative) 06/11/16 01:06 Urine Urobilinogen 2.0 mg/dL (<2.0) 06/11/16 01:06 Ur Leukocyte Esterase Lg (Negative) 06/11/16 01:06 Urine WBC (Auto) > 182.0 /HPF (0.0-6.0) H 06/11/16 01:06 Urine RBC (Auto) 26.0 /HPF (0.0-6.0) 06/11/16 01:06 U Epithel Cells (Auto) 5.0 /HPF (0-13.0) 06/11/16 01:06 Urine Bacteria (Auto) 2+ /HPF (Negative) 06/11/16 01:06 Urine WBC Clumps 3+ /HPF 06/11/16 01:06 Amorphous Crystals 1+ 06/11/16 01:06 Hyaline Casts 5 /LPF 06/11/16 01:06 Urine Mucus Few /HPF 06/11/16 01:06
[2016-06-15] MEDS: PERCOCET 5/325 PO PRN ×4 (06:20→20:20)
--- NOTE | 2016-06-15 07:20 | Progress Note ---
Assessment and Plan alert orientated in mild pain s/p comp fx T12-L1 Waiting for disposition follow up as outpatient. Subjective Date of service: 06/15/16 Objective Vital signs: Vital Signs - 12hr 06/14/16 06/15/16 20:00 00:00 Temperature 98.7 F 98.8 F Pulse Rate 85 Pulse Rate [ 90 85 Left] Respiratory 20 20 Rate Blood Pressure 198/68 Blood Pressure 194/79 196/68 [Right Arm] O2 Sat by Pulse 97 98 Oximetry - Labs CBC & BMP: 06/12/16 04:22 06/13/16 03:42
[2016-06-15] MEDS: COZAAR PO SCH (10:25)
[2016-06-15] MEDS: NORVASC PO SCH (10:28)
[2016-06-15] MEDS: DITROPAN PO SCH (10:28)
[2016-06-15] MEDS: LOVENOX SUB-Q SCH (10:28)
--- NOTE | 2016-06-15 11:00 | Progress Note ---
Assessment and Plan Assessment and plan: 1. Acute traumatic fracture of T12/L1 post fall-ortho / IR consults noted; will cotn symptomatic [place]; for discharge to SNF when bed available, cotn percocet for pain manx 2. OLD CVA- supportive care; ASA 3. Benign HTN - fair controll; cotn; amlodipine 4. DVT prophylaxis- lovenox 5. Disposition. For d/c SNF when bed available History Interval history: Patient states her back pain is better. Hospitalist Physical - Constitutional Vitals: Temp Pulse Resp BP Pulse Ox 98 F 85 16 157/85 97 06/15/16 07:00 06/15/16 07:00 06/15/16 07:00 06/15/16 07:00 06/15/16 07:00 General appearance: Present: no acute distress - EENT Eyes: Present: PERRL, EOM intact ENT: hearing intact, clear oral mucosa, dentition normal - Neck Neck: Present: supple, normal ROM - Respiratory Respiratory effort: normal Respiratory: bilateral: CTA - Cardiovascular Rhythm: regular Heart Sounds: Present: S1 & S2. Absent: gallop, rub - Extremities Extremities: no ischemia, No edema, Full ROM - Abdominal General gastrointestinal: soft, non-tender, non-distended, normal bowel sounds - Integumentary Integumentary: Present: clear, warm, dry - Neurologic Neurologic: CNII-XII intact, moves all extremities Results - Labs CBC & Chem 7: 06/12/16 04:22 06/13/16 03:42 Labs: Laboratory Last Values WBC 10.8 K/mm3 (4.5-11.0) 06/12/16 04:22 RBC 3.54 M/mm3 (3.65-5.03) L 06/12/16 04:22 Hgb 10.3 gm/dl (10.1-14.3) 06/12/16 04:22 Hct 32.1 % (30.3-42.9) 06/12/16 04:22 MCV 91 fl (79-97) 06/12/16 04:22 MCH 29 pg (28-32) 06/12/16 04:22 MCHC 32 % (30-34) 06/12/16 04:22 RDW 14.2 % (13.2-15.2) 06/12/16 04:22 Plt Count 507 K/mm3 (140-440) H 06/12/16 04:22 Lymph % (Auto) 13.2 % (13.4-35.0) L 06/12/16 04:22 [place] % (Auto) 9.3 % (0.0-7.3) H 06/12/16 04:22 Eos % (Auto) 3.5 % (0.0-4.3) 06/12/16 04:22 Baso % (Auto) 0.6 % (0.0-1.8) 06/12/16 04:22 Lymph # 1.4 K/mm3 (1.2-5.4) 06/12/16 04:22 [place] # 1.0 K/mm3 (0.0-0.8) H 06/12/16 04:22 Eos # 0.4 K/mm3 (0.0-0.4) 06/12/16 04:22 Baso # 0.1 K/mm3 (0.0-0.1) 06/12/16 04:22 Seg Neutrophils % 73.4 % (40.0-70.0) H 06/12/16 04:22 Seg Neutrophils # 7.9 K/mm3 (1.8-7.7) H 06/12/16 04:22 Sodium 137 mmol/L (137-145) 06/13/16 03:42 Potassium 4.2 mmol/L (3.6-5.0) D 06/13/16 03:42 Chloride 99.7 mmol/L (98-107) 06/13/16 03:42 Carbon Dioxide 25 mmol/L (22-30) 06/13/16 03:42 Anion Gap 17 mmol/L 06/13/16 03:42 BUN 17 mg/dL (7-17) 06/13/16 03:42 Creatinine 0.4 mg/dL (0.7-1.2) L 06/13/16 03:42 Estimated GFR > 60 ml/min 06/13/16 03:42 BUN/Creatinine Ratio 42.50 % 06/13/16 03:42 Glucose 174 mg/dL (65-100) H 06/13/16 03:42 Calcium 8.4 mg/dL (8.4-10.2) 06/13/16 03:42 Urine Color [place] (Yellow) 06/11/16 01:06 Urine Turbidity Turbid (Clear) 06/11/16 01:06 Urine pH 5.0 (5.0-7.0) 06/11/16 01:06 Ur Specific [place] 1.023 (1.003-1.030) 06/11/16 01:06 Urine Protein 30 mg/dl mg/dL (Negative) 06/11/16 01:06 Urine Glucose (UA) Neg mg/dL (Negative) 06/11/16 01:06 Urine Ketones Tr mg/dL (Negative) 06/11/16 01:06 Urine Blood Sm (Negative) 06/11/16 01:06 Urine Nitrite Neg (Negative) 06/11/16 01:06 Urine Bilirubin Neg (Negative) 06/11/16 01:06 Urine Urobilinogen 2.0 mg/dL (<2.0) 06/11/16 01:06 Ur Leukocyte Esterase Lg (Negative) 06/11/16 01:06 Urine WBC (Auto) > 182.0 /HPF (0.0-6.0) H 06/11/16 01:06 Urine RBC (Auto) 26.0 /HPF (0.0-6.0) 06/11/16 01:06 U Epithel Cells (Auto) 5.0 /HPF (0-13.0) 06/11/16 01:06 Urine Bacteria (Auto) 2+ /HPF (Negative) 06/11/16 01:06 Urine WBC Clumps 3+ /HPF 06/11/16 01:06 Amorphous Crystals 1+ 06/11/16 01:06 Hyaline Casts 5 /LPF 06/11/16 01:06 Urine Mucus Few /HPF 06/11/16 01:06
[2016-06-15] MEDS: ATIVAN PO PRN (14:30)
[2016-06-16] MEDS: ATIVAN PO PRN (04:05)
[2016-06-16] MEDS: PERCOCET 5/325 PO PRN ×2 (04:25→19:45)
[2016-06-16] MEDS: NORVASC PO SCH (10:54)
[2016-06-16] MEDS: DITROPAN PO SCH (10:54)
[2016-06-16] MEDS: LOVENOX SUB-Q SCH (10:54)
[2016-06-16] MEDS: COZAAR PO SCH (10:54)
--- NOTE | 2016-06-16 12:19 | Discharge Summary ---
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 Family report she fell down several days ago, had been getting around at home after the fall with minimal discomfort, and had been slowly improving. She was seen in emergency room because of "pain" admitted with a diagnosis of compression fracture T12, L1. Patient was seen by orthopedists in consultation. Recommendations were for supportive care and rehabilitation placement. Other couple cases hospital stay include a cystitis with microscopic hematuria with leukocytosis that resolved. Patient received IV Rocephin and urine culture was found to be negative. Patient also had acute renal failure due to vasomotor nephropathy which resolved with IV fluid hydration. Case management was consulted and arranged for SNF placement. Patient will be discharged. Dedicated discharge time 35 minutes. [facility] Time spent for discharge: 35 - Discharge Diagnoses (1) Vasomotor nephropathy Status: Resolved (2) UTI (urinary tract infection) Status: Resolved Qualifiers: Urinary tract infection type: U Hematuria presence: H Indwelling urinary catheter type: I Encounter type: E (3) Back pain Status: Acute Qualifiers: Back pain location: B Chronicity: C Back pain laterality: B Sciatica presence: S Sciatica laterality: S (4) Compression fracture of L1 lumbar vertebra Status: Acute Qualifiers: Encounter type: initial encounter Fracture type: F Fracture healing: F (5) T12 compression fracture Status: Acute Qualifiers: Encounter type: E Fracture healing: F Core Measure Documentation - Palliative Care Palliative Care/ Comfort Measures: Not Applicable - Core Measures Any of the following diagnoses?: none Exam - Constitutional Vitals: Temp Pulse Resp BP Pulse Ox 97.9 F 87 18 144/63 98 06/16/16 08:00 06/16/16 08:00 06/16/16 08:00 06/16/16 08:00 06/16/16 08:00 General appearance: Present: no acute distress, well-nourished - EENT Eyes: Present: PERRL ENT: hearing intact, clear oral mucosa - Neck Neck: Present: supple, normal ROM - Respiratory Respiratory effort: normal Respiratory: bilateral: CTA - Cardiovascular Heart Sounds: Present: S1 & S2. Absent: rub, click - Extremities Extremities: pulses symmetrical, No edema Peripheral Pulses: within normal limits - Abdominal General gastrointestinal: Present: soft, non-tender, non-distended, normal bowel sounds Female genitourinary: Present: normal - Integumentary Integumentary: Present: clear, warm, dry - Musculoskeletal Musculoskeletal: gait normal, strength equal bilaterally - Psychiatric Psychiatric: appropriate mood/affect, intact judgment & insight - Neurologic Neurologic: CNII-XII intact, moves all extremities Plan Activity: no restrictions Weight Bearing Status: Weight Bear as Tolerated Diet: regular Follow up with: PRIMARY CARE, [Primary Care Provider] - 3-5 Days
[2016-06-16 16:53] VITALS: BP 120/60
== END 2016-06-16 19:50 | DRG 542 ==
LOC: ED 20:42 → 3A 06-11 02:24 → 2B-SURG 06-11 04:27
PROVIDERS: ADMIT Internal Medicine; ATTEND Hospitalist
DX: M80.08XA Age-related osteoporosis with current pathological fracture, vertebra(e), initial encounter for fracture (principal); N17.0 Acute kidney failure with tubular necrosis; I10 Essential (primary) hypertension; N30.91 Cystitis, unspecified with hematuria; W19.XXXA Unspecified fall, initial encounter; Y93.89 Activity, other specified; Y92.89 Other specified places as the place of occurrence of the external cause; Y99.8 Other external cause status; Z79.899 Other long term (current) drug therapy; Z86.73 Personal history of transient ischemic attack (TIA), and cerebral infarction without residual deficits; Z87.891 Personal history of nicotine dependence; Z82.49 Family history of ischemic heart disease and other diseases of the circulatory system
CPT/HCPCS: 36415; 72100; 80048; 81001; 85025; 85027; 87086; 96372; G8978-GP; G8979-GP; J0360; J0696; J1650; J1885; J2060

== ENCOUNTER 2016-07-09 20:05 | Inpatient (IN) | payer MEDICARE ==
[2016-07-09] MEDS ORDERED: NARCAN 2 MG/2 ML IV ONE ×2 (20:20→21:36)
[2016-07-09 20:52] LABS: Basophils % (Auto) 0.6 % (0.0-1.8); Eosinophils % (Auto) 3.5 % (0.0-4.3); Hemoglobin 11.3 gm/dl (10.1-14.3); Mean Corpuscular HGB Conc 31 % (30-34); Mean Corpuscular Hemoglobin 28 pg (28-32); Mean Corpuscular Volume 90 fl (79-97); Platelet Count 531 K/mm3 (140-440); Red Blood Count 3.99 M/mm3 (3.65-5.03); Red Cell Distribution Width 14.6 % (13.2-15.2)
[2016-07-09 21:03] LABS: INR 1.03 (0.87-1.13)
--- NOTE | 2016-07-09 21:13 | Cat Scan Report ---
FINAL REPORT PROCEDURE: CT HEAD/BRAIN WO CON TECHNIQUE: Computerized tomography of the head was performed without contrast material. HISTORY: ams COMPARISON: No prior studies are available for comparison. FINDINGS: Skull and scalp: Normal. Paranasal sinuses: Normal. Ventricles and subarachnoid spaces: Are prominent appropriate for patient's age. Cerebrum: No evidence of hemorrhage, acute infarction or mass . Cerebellum and brainstem: No evidence of hemorrhage, acute infarction or mass. Vasculature: Normal. Comments: None. IMPRESSION: Cerebral atrophy appropriate for patient's age No acute intracranial abnormality
[2016-07-09 21:14] LABS: Creatine Kinase MB 3.3 ng/mL (0.0-4.0)
[2016-07-09 21:16] LABS: Alanine Aminotransferase 8 units/L (7-56); Albumin 2.8 g/dL (3.9-5); Albumin/Globulin Ratio 0.7 %; Alkaline Phosphatase 101 units/L (35-129); Anion Gap 21 mmol/L; Bilirubin,Total 0.2 mg/dL (0.1-1.2); Blood Urea Nitrogen 30 mg/dL (7-17); Calcium 9.4 mg/dL (8.4-10.2); Carbon Dioxide 23 mmol/L (22-30); Chloride 101.7 mmol/L (98-107); Creatine Kinase 106 units/L (30-135); Glucose 142 mg/dL (65-100); Potassium 4.6 mmol/L (3.6-5.0); Sodium 141 mmol/L (137-145); Total Protein 7.1 g/dL (6.3-8.2)
--- NOTE | 2016-07-09 21:58 | Emergency Department Report ---
ED Altered Mental Status HPI - General Chief Complaint: Altered Mental Status Stated Complaint: UNRESPONSIVE/RESPIRATORY DISTRESS Time Seen by Provider: 07/09/16 20:20 Source: EMS, RN notes reviewed, old records reviewed Mode of arrival: Stretcher Limitations: Altered Mental Status, Physical Limitation - History of Present Illness Initial Comments: 86 female yo with a past medical history of CVA and hypertension presents to the hospital complaints of altered mental status. Patient was unresponsive at [facility] and therefore transported to the ER. Patient does not respond but is breathing without difficulty. She spontaneously moves all extremities. Narcan given upon patient arrival after medication review indicated that she takes morphine ER 15 mg twice a day last dose 9 AM patient also takes benzos chronically. After receiving 1 mg of Narcan patient was more responsive and sneezing intermittently. Still not alert enough to follow commands. Upon family arrival they state the patient has been diagnosed with a UTI and was placed on Cipro for the past 6 days. They also report decreased by mouth intake - Related Data Home Medications Medication Instructions Recorded Confirmed Last Taken Oxybutynin [Ditropan] 5 mg PO DAILY 06/11/16 06/11/16 Unknown Previous Rx's Medication Instructions Recorded Last Taken Type Losartan [Cozaar] 50 mg PO QDAY tablet 06/16/16 Unknown Rx amLODIPine [Norvasc] 10 mg PO DAILY tablet 06/16/16 Unknown Rx oxyCODONE /ACETAMINOPHEN [Percocet 1 tab PO Q4HR #20 tab 06/16/16 Unknown Rx 5/325] Allergies Allergy/AdvReac Type Severity Reaction Status Date / Time No Known Allergies Allergy Verified 06/10/16 20:59 ED Review of Systems ROS: Stated complaint: UNRESPONSIVE/RESPIRATORY DISTRESS Other details as noted in HPI ED Past Medical Hx - Past Medical History Previous Medical History?: Yes Hx Hypertension: Yes Hx CVA: Yes (2012) - Surgical History Past Surgical History?: No - Social History Smoking Status: Unknown if ever smoked - Medications Home Medications: Home Medications Medication Instructions Recorded Confirmed Last Taken Type Oxybutynin [Ditropan] 5 mg PO DAILY 06/11/16 06/11/16 Unknown History Losartan [Cozaar] 50 mg PO QDAY tablet 06/16/16 Unknown Rx amLODIPine [Norvasc] 10 mg PO DAILY tablet 06/16/16 Unknown Rx oxyCODONE /ACETAMINOPHEN [Percocet 1 tab PO Q4HR #20 tab 06/16/16 Unknown Rx 5/325] ED Physical Exam - General Limitations: Altered Mental Status, Physical Limitation - Other Other exam information: General: Limited by diminished mental status Head exam: Atraumatic, normocephalic Eyes exam: 2 mm pupils, left pupil irregular, minimally reactive ENT: Significant HI tongue and mucous membrane Neck exam: Normal inspection Respiratory exam: Clear to auscultation bilateral, no wheezes, rales, crackles Cardiovascular: Regular rate and rhythm Abdomen: Soft, nondistended, and nontender, with normal bowel sounds, no rebound, or guarding Extremity: Spontaneous movement of extremities Back: Normal Inspection Neurologic: Lethargic, moves all extremities, withdraws to pain, snoring Skin: Warm, dry, intact ED Course Vital Signs 07/09/16 07/09/16 20:16 22:19 Pulse Rate 88 58 L Respiratory 18 16 Rate Blood Pressure 118/61 Blood Pressure 118/61 108/38 [Right] O2 Sat by Pulse 99 95 Oximetry - Reevaluation(s) Reevaluation #1: 07/09/16 22:00 Patient received repeat dose of Narcan at this time because became more lethargic. Once again patient has repeated dose of sneezing with increased arousal after Narcan 1 mg however, mental status has not improved to baseline. ABG performed and does not reveal any acute abnormality. - Lab Data Result diagrams: 07/09/16 20:31 07/09/16 20:31 Lab Results 07/09/16 07/09/16 07/09/16 Range/Units 20:31 20:31 20:31 WBC 15.0 H (4.5-11.0) K/mm3 RBC 3.99 (3.65-5.03) M/mm3 Hgb 11.3 (10.1-14.3) gm/dl Hct 36.0 (30.3-42.9) % MCV 90 (79-97) fl MCH 28 (28-32) pg MCHC 31 (30-34) % RDW 14.6 (13.2-15.2) % Plt Count 531 H (140-440) K/mm3 Lymph % (Auto) 9.0 L (13.4-35.0) % [place] % (Auto) 5.9 (0.0-7.3) % Eos % (Auto) 3.5 (0.0-4.3) % Baso % (Auto) 0.6 (0.0-1.8) % Lymph # 1.4 (1.2-5.4) K/mm3 [place] # 0.9 H (0.0-0.8) K/mm3 Eos # 0.5 H (0.0-0.4) K/mm3 Baso # 0.1 (0.0-0.1) K/mm3 Seg Neutrophils % 81.0 H (40.0-70.0) % Seg Neutrophils # 12.2 H (1.8-7.7) K/mm3 PT 13.4 (12.2-14.9) Sec. INR 1.03 (0.87-1.13) Sodium 141 (137-145) mmol/L Potassium 4.6 (3.6-5.0) mmol/L Chloride 101.7 (98-107) mmol/L Carbon Dioxide 23 (22-30) mmol/L Anion Gap 21 mmol/L BUN 30 H (7-17) mg/dL Creatinine 2.4 H (0.7-1.2) mg/dL Estimated GFR 23 ml/min BUN/Creatinine Ratio 12.50 % Glucose 142 H (65-100) mg/dL Calcium 9.4 (8.4-10.2) mg/dL Total Bilirubin 0.2 (0.1-1.2) mg/dL AST 14 (5-40) units/L ALT 8 (7-56) units/L Alkaline Phosphatase 101 (35-129) units/L Ammonia (25-60) umol/L Total Creatine Kinase 106 (30-135) units/L CK-MB (CK-2) 3.3 (0.0-4.0) ng/mL CK-MB (CK-2) Rel Index 3.1 (0-4) Troponin T < 0.010 (0.00-0.029) ng/mL Total Protein 7.1 (6.3-8.2) g/dL Albumin 2.8 L (3.9-5) g/dL Albumin/Globulin Ratio 0.7 % TSH (0.270-4.200) mlU/mL Free T4 (0.76-1.46) ng/dL Urine Color (Yellow) Urine Turbidity (Clear) Urine pH (5.0-7.0) Ur Specific [place] (1.003-1.030) Urine Protein (Negative) mg/dL Urine Glucose (UA) (Negative) mg/dL Urine Ketones (Negative) mg/dL Urine Blood (Negative) Urine Nitrite (Negative) Urine Bilirubin (Negative) Urine Urobilinogen (<2.0) mg/dL Ur Leukocyte Esterase (Negative) Urine WBC (Auto) (0.0-6.0) /HPF Urine RBC (Auto) (0.0-6.0) /HPF U Epithel Cells (Auto) (0-13.0) /HPF Urine Bacteria (Auto) (Negative) /HPF Urine Mucus /HPF 07/09/16 07/09/16 07/09/16 Range/Units 20:31 20:31 22:19 WBC (4.5-11.0) K/mm3 RBC (3.65-5.03) M/mm3 Hgb (10.1-14.3) gm/dl Hct (30.3-42.9) % MCV (79-97) fl MCH (28-32) pg MCHC (30-34) % RDW (13.2-15.2) % Plt Count (140-440) K/mm3 Lymph % (Auto) (13.4-35.0) % [place] % (Auto) (0.0-7.3) % Eos % (Auto) (0.0-4.3) % Baso % (Auto) (0.0-1.8) % Lymph # (1.2-5.4) K/mm3 [place] # (0.0-0.8) K/mm3 Eos # (0.0-0.4) K/mm3 Baso # (0.0-0.1) K/mm3 Seg Neutrophils % (40.0-70.0) % Seg Neutrophils # (1.8-7.7) K/mm3 PT (12.2-14.9) Sec. INR (0.87-1.13) Sodium (137-145) mmol/L Potassium (3.6-5.0) mmol/L Chloride (98-107) mmol/L Carbon Dioxide (22-30) mmol/L Anion Gap mmol/L BUN (7-17) mg/dL Creatinine (0.7-1.2) mg/dL Estimated GFR ml/min BUN/Creatinine Ratio % Glucose (65-100) mg/dL Calcium (8.4-10.2) mg/dL Total Bilirubin (0.1-1.2) mg/dL AST (5-40) units/L ALT (7-56) units/L Alkaline Phosphatase (35-129) units/L Ammonia 48.0 (25-60) umol/L Total Creatine Kinase (30-135) units/L CK-MB (CK-2) (0.0-4.0) ng/mL CK-MB (CK-2) Rel Index (0-4) Troponin T (0.00-0.029) ng/mL Total Protein (6.3-8.2) g/dL Albumin (3.9-5) g/dL Albumin/Globulin Ratio % TSH 1.240 (0.270-4.200) mlU/mL Free T4 1.40 (0.76-1.46) ng/dL Urine Color Jennifer (Yellow) Urine Turbidity Turbid (Clear) Urine pH 6.0 (5.0-7.0) Ur Specific [place] 1.016 (1.003-1.030) Urine Protein 30 mg/dl (Negative) mg/dL Urine Glucose (UA) 50 (Negative) mg/dL Urine Ketones Neg (Negative) mg/dL Urine Blood Sm (Negative) Urine Nitrite Neg (Negative) Urine Bilirubin Neg (Negative) Urine Urobilinogen < 2.0 (<2.0) mg/dL Ur Leukocyte Esterase Lg (Negative) Urine WBC (Auto) 164.0 H (0.0-6.0) /HPF Urine RBC (Auto) 33.0 (0.0-6.0) /HPF U Epithel Cells (Auto) 5.0 (0-13.0) /HPF Urine Bacteria (Auto) 4+ (Negative) /HPF Urine Mucus 3+ /HPF - EKG Data -: EKG Interpreted by Me (nsr lat t wve inv rate 75) When compared to previous EKG there are: no significant change (comnpared to 04/04) - Radiology Data Radiology results: image reviewed - Medical Decision Making Plan to admit patient to hospital for further treatment of UTI and acute renal sufficiency. Rocephin and IV fluids initiated she received multiple doses of Narcan with temporary increase in squeezing and activity however, patient does not wake up to baseline - Differential Diagnosis UTI, encephalopathy, opiate overdose, CVA, ICH Critical Care Time: No Critical care attestation.: If time is entered above; I have spent that time in minutes in the direct care of this critically ill patient, excluding procedure time. ED Disposition Clinical Impression: UTI (urinary tract infection), Acute renal insufficiency, Altered mental status , Chronic narcotic use Disposition: OP ADMITTED IP TO THIS HOSP Is pt being admited?: Yes Condition: Stable Time of Disposition: 22:28 (Dr. Rodriguez/hospitalist)
[2016-07-09 22:05] LABS: Bacteria,Urine 4+ /HPF (Negative); Bilirubin,Urine NEG (Negative); Blood,Urine SM (Negative); Ketones,Urine NEG (Negative); Leukocyte Esterase,Urine LG (Negative); Mucus,Urine 3+ /HPF; Nitrite,Urine NEG (Negative); Urobilinogen,Urine < 2.0 mg/dL (<2.0)
[2016-07-09] MEDS ORDERED: ROCEPHIN/NS 1 GM/50 ML 1 GM/50 ML BAG IV ONE (22:18)
[2016-07-09] MEDS ORDERED: NACL 0.9% 1000 ML 1,000 ML IV ONE (22:18)
--- NOTE | 2016-07-09 22:28 | XRay Report ---
FINAL REPORT PROCEDURE: XR CHEST 1V AP TECHNIQUE: Chest radiograph anteroposterior view. CPT 73584 HISTORY: resp depression COMPARISON: No prior studies are available for comparison. FINDINGS: This study is limited due to suboptimal inspiration. Heart: Cardiac size is upper limit of normal. Mediastinum/Vessels: Normal. Lungs/Pleural space: There is moderate elevation of right hemidiaphragm with atelectatic changes in the right middle lobe. Bilateral pleural spaces are clear. Bony thorax: No acute osseous abnormality. Life support devices: None. IMPRESSION: Atelectatic changes right middle lobe. Any underlying infiltrates cannot be excluded. A two view chest study is recommended whenever the patient's condition permits.
--- NOTE | 2016-07-09 22:50 | History and Physical Report ---
History of Present Illness Date of examination: 07/09/16 History of present illness: 85-year-old woman with a history of hypertension, CVA with right sode weakness, chronuic back pain was sent from the [facility] for unresponsiveness. Family at bedside states that the patient has been on antibiotic for UTI. The patient is on morphine for pain, she was given narcan X2 without any change in mental status. A review of system is unavailable PAST SURGICAL HISTORY:bladder tack, cataract SOCIAL HISTORY:Denies alcohol, tobacco and drugs FAMILY HISTORY:Hypertension Medications and Allergies Allergies Allergy/AdvReac Type Severity Reaction Status Date / Time No Known Allergies Allergy Verified 06/10/16 20:59 Home Medications Medication Instructions Recorded Confirmed Last Taken Type Oxybutynin [Ditropan] 5 mg PO DAILY 06/11/16 07/09/16 Unknown History Famotidine [Pepcid] 20 mg PO DAILY tablet 07/21/16 Unknown Rx Insulin NPH/Regular [NovoLIN 70/30] 12 unit SUB-Q BIDDIAB units 07/21/16 Unknown Rx Ipratropium/Albuterol Sulfate 1 ampul IH Q6HRT ampul.neb 07/21/16 Unknown Rx [Duoneb 0.5 mg-3 mg/3 ml Soln] amLODIPine [Norvasc] 10 mg FEEDTUBE QDAY tablet 07/21/16 Unknown Rx Active Meds: Active Medications Sodium Chloride (Nacl 0.9% 1000 Ml) 1,000 mls @ 125 mls/hr IV ONCE ONE Stop: 07/10/16 06:17 Last Admin: 07/09/16 22:36 Dose: 125 mls/hr Exam - Physical Exam Narrative exam: Gen. appearance: Patient lying in bed, no apparent distress HEENT: Normocephalic, atraumatic, pupils equally round and reactive to light, unable to do do extraocular movement, and no sclericterus,. No JVD or thyromegaly or nodule,neck supple, no carotid bruit ,mucous membranes dry, no exudate or erythema Heart: S1, S2, regular rate and rhythm Lungs: Clear to auscultation bilaterally, breathing comfortable Abdomen: Positive bowel sounds, nontender, nondistended, no organomegaly Extremity: No edema, cyanosis, clubbing Skin: No rash, nodules, warm, dry Neuro: - Constitutional Vitals: Temp Pulse Resp BP Pulse Ox 58 L 16 111/41 95 07/09/16 22:19 07/09/16 22:46 07/09/16 22:46 07/09/16 22:46 Results - Labs CBC & Chem 7: 07/20/16 06:06 07/20/16 06:06 Labs: Abnormal lab results 07/09/16 07/09/16 07/09/16 Range/Units 20:31 20:31 22:19 WBC 15.0 H (4.5-11.0) K/mm3 Plt Count 531 H (140-440) K/mm3 Lymph % (Auto) 9.0 L (13.4-35.0) % [place] # 0.9 H (0.0-0.8) K/mm3 Eos # 0.5 H (0.0-0.4) K/mm3 Seg Neutrophils % 81.0 H (40.0-70.0) % Seg Neutrophils # 12.2 H (1.8-7.7) K/mm3 BUN 30 H (7-17) mg/dL Creatinine 2.4 H (0.7-1.2) mg/dL Glucose 142 H (65-100) mg/dL Albumin 2.8 L (3.9-5) g/dL Urine WBC (Auto) 164.0 H (0.0-6.0) /HPF - Imaging and Cardiology EKG: image reviewed Chest x-ray: report reviewed CT Scan - head: report reviewed Assessment and Plan Altered mental Status UTI ARF H/o CVA BAck pain, chronic Admit to medicine Start IV fluid, Rocephin Follow cultures, start dvt prophalaxi Continue appropiate outpatient medications
[2016-07-09] MEDS ORDERED: TYLENOL PO PRN (23:05)
[2016-07-09] MEDS ORDERED: DULCOLAX PR PRN (23:05)
[2016-07-09] MEDS ORDERED: ZOFRAN IV PRN (23:05)
[2016-07-09] MEDS ORDERED: NACL 0.9% 1000 ML 1,000 ML IV SCH (23:45)
[2016-07-10 08:05] LABS: Basophils % (Auto) 0.3 % (0.0-1.8); Eosinophils % (Auto) 2.9 % (0.0-4.3); Hematocrit 31.6 % (30.3-42.9); Mean Corpuscular HGB Conc 32 % (30-34); Mean Corpuscular Hemoglobin 28 pg (28-32); Mean Corpuscular Volume 89 fl (79-97); Platelet Count 484 K/mm3 (140-440); Red Blood Count 3.53 M/mm3 (3.65-5.03); Red Cell Distribution Width 14.3 % (13.2-15.2); White Blood Count 14.5 K/mm3 (4.5-11.0)
[2016-07-10 08:31] LABS: BUN/Creatinine Ratio 10.64; Calcium 8.7 mg/dL (8.4-10.2); Chloride 109.2 mmol/L (98-107); Potassium 4.6 mmol/L (3.6-5.0)
--- NOTE | 2016-07-10 08:53 | Progress Note ---
Assessment and Plan Assessment and plan: --Acute respiratory distress With the irregular breathing pattern Slightly improved, will obtain chest x-ray, BiPAP, ABG Pulmonary consultation, transfer to ICU for close observation --Unresponsiveness/metabolic encephalopathy Multifactorial, probably medication induced, received Narcan in the ER Additional Narcan if needed, neuro checks, CT head negative for acute intracranial abnormality neuro workup if no improvement Also check serial cardiac enzymes and EKG to rule out cardiac causes --Acute renal failure probably secondary to acute tubular necrosis IV hydration, closely monitor renal function, avoid nephrotoxic medications, consider nephrology evaluation if needed --Hypernatremia, We'll change IV fluids to D5W and closely monitor --Sepsis secondary to urinary tract infection Patient has history of recurrent UTI, IV antibiotics, IV fluids, follow cultures --Hypertension Well-controlled, continue current management --History of CVA with right-sided residual weakness Supportive care, physical therapy occupational therapy when patient is more stable --DVT prophylaxis, with Lovenox --CODE STATUS; I discussed extensively with the son patient's condition treatment plan and recent events, requested full CODE STATUS Will transfer the patient to ICU for close observation and further evaluation and management as needed I discussed the case with track production engineer Dr. Ye, patient's nurse as well as the charge nurse Critical care time 32 minutes History Interval history: Patient was admitted last night with unresponsiveness status post Narcan 2 with no improvement, urinary tract infection and recent history of compression fracture of spine, in halfway for rehabilitation Today patient was unresponsive, with irregular breathing and bradycardia, rapid response was called, patient was placed on BiPAP Respirations slightly improved, remained unresponsive to deep stimuli. I discussed the case with her son about advanced directives and plan of care, he requested full CODE STATUS On examination, asymptomatic unresponsive Vital signs reviewed, breathing slightly improved Hospitalist Physical - Constitutional Vitals: Temp Pulse Resp BP Pulse Ox 98.0 F 55 L 14 104/46 97 07/10/16 07:40 07/10/16 07:40 07/10/16 07:40 07/10/16 07:40 07/10/16 07:40 General appearance: Present: mild distress, other (unresponsive to deep stimuli) - EENT Eyes: Present: PERRL, EOM intact - Neck Neck: Present: supple. Absent: enlarged thyroid, masses or JVD - Respiratory Respiratory effort: other (irregular) Respiratory: bilateral: diminished, negative: rales, rhonchi, wheezing - Cardiovascular Rhythm: regular Heart Sounds: Present: S1 & S2 - Extremities Extremities: no ischemia, pulses intact, No edema - Abdominal General gastrointestinal: soft, non-tender, non-distended, normal bowel sounds - Integumentary Integumentary: Present: clear, warm - Psychiatric Psychiatric: other (unresponsive) - Neurologic Neurologic: other (unresponsive) Results - Labs CBC & Chem 7: 07/10/16 06:48 07/10/16 06:48 Labs: Laboratory Last Values WBC 14.5 K/mm3 (4.5-11.0) H 07/10/16 06:48 RBC 3.53 M/mm3 (3.65-5.03) L 07/10/16 06:48 Hgb 10.0 gm/dl (10.1-14.3) L 07/10/16 06:48 Hct 31.6 % (30.3-42.9) 07/10/16 06:48 MCV 89 fl (79-97) 07/10/16 06:48 MCH 28 pg (28-32) 07/10/16 06:48 MCHC 32 % (30-34) 07/10/16 06:48 RDW 14.3 % (13.2-15.2) 07/10/16 06:48 Plt Count 484 K/mm3 (140-440) H 07/10/16 06:48 Lymph % (Auto) 12.0 % (13.4-35.0) L 07/10/16 06:48 [place] % (Auto) 7.4 % (0.0-7.3) H 07/10/16 06:48 Eos % (Auto) 2.9 % (0.0-4.3) 07/10/16 06:48 Baso % (Auto) 0.3 % (0.0-1.8) 07/10/16 06:48 Lymph # 1.7 K/mm3 (1.2-5.4) 07/10/16 06:48 [place] # 1.1 K/mm3 (0.0-0.8) H 07/10/16 06:48 Eos # 0.4 K/mm3 (0.0-0.4) 07/10/16 06:48 Baso # 0.0 K/mm3 (0.0-0.1) 07/10/16 06:48 Seg Neutrophils % 77.4 % (40.0-70.0) H 07/10/16 06:48 Seg Neutrophils # 11.2 K/mm3 (1.8-7.7) H 07/10/16 06:48 PT 13.4 Sec. (12.2-14.9) 07/09/16 20:31 INR 1.03 (0.87-1.13) 07/09/16 20:31 Sodium 148 mmol/L (137-145) H 07/10/16 06:48 Potassium 4.6 mmol/L (3.6-5.0) 07/10/16 06:48 Chloride 109.2 mmol/L (98-107) H 07/10/16 06:48 Carbon Dioxide 25 mmol/L (22-30) 07/10/16 06:48 Anion Gap 18 mmol/L 07/10/16 06:48 BUN 33 mg/dL (7-17) H 07/10/16 06:48 Creatinine 3.1 mg/dL (0.7-1.2) H 07/10/16 06:48 Estimated GFR 17 ml/min 07/10/16 06:48 BUN/Creatinine Ratio 10.64 % 07/10/16 06:48 Glucose 111 mg/dL (65-100) H 07/10/16 06:48 Calcium 8.7 mg/dL (8.4-10.2) 07/10/16 06:48 Total Bilirubin 0.2 mg/dL (0.1-1.2) 07/09/16 20:31 AST 14 units/L (5-40) 07/09/16 20:31 ALT 8 units/L (7-56) 07/09/16 20:31 Alkaline Phosphatase 101 units/L (35-129) 07/09/16 20:31 Ammonia 48.0 umol/L (25-60) 07/09/16 20:31 Total Creatine Kinase 106 units/L (30-135) 07/09/16 20:31 CK-MB (CK-2) 3.3 ng/mL (0.0-4.0) 07/09/16 20:31 CK-MB (CK-2) Rel Index 3.1 (0-4) 07/09/16 20:31 Troponin T < 0.010 ng/mL (0.00-0.029) 07/09/16 20:31 Total Protein 7.1 g/dL (6.3-8.2) 07/09/16 20:31 Albumin 2.8 g/dL (3.9-5) L 07/09/16 20: Albumin/Globulin Ratio 0.7 % 07/09/16 20: TSH 1.240 mlU/mL (0.270-4.200) 07/09/16 20: Free T4 1.40 ng/dL (0.76-1.46) 07/09/16 20:31 Urine Color Jennifer (Yellow) 07/09/16 22:19 Urine Turbidity Turbid (Clear) 07/09/16 22: Urine pH 6.0 (5.0-7.0) 07/09/16 22: Ur Specific [place] 1.016 (1.003-1.030) 07/09/16 22: Urine Protein 30 mg/dl mg/dL (Negative) 07/09/16 22:19 Urine Glucose (UA) 50 mg/dL (Negative) 07/09/16 22: Urine Ketones Neg mg/dL (Negative) 07/09/16 22: Urine Blood Sm (Negative) 07/09/16 22: Urine Nitrite Neg (Negative) 07/09/16 22:19 Urine Bilirubin Neg (Negative) 07/09/16 22: Urine Urobilinogen < 2.0 mg/dL (<2.0) 07/09/16 22: Ur Leukocyte Esterase Lg (Negative) 07/09/16 22: Urine WBC (Auto) 164.0 /HPF (0.0-6.0) H 07/09/16 22: Urine RBC (Auto) 33.0 /HPF (0.0-6.0) 07/09/16 22: U Epithel Cells (Auto) 5.0 /HPF (0-13.0) 07/09/16 22:19 Urine Bacteria (Auto) 4+ /HPF (Negative) 07/09/16 22:19 Urine Mucus 3+ /HPF 07/09/16 22:19
[2016-07-10] MEDS: LOVENOX SUB-Q SCH (09:10)
--- NOTE | 2016-07-10 09:26 | XRay Report ---
Single view chest: Compared to 07/09/16. History: Respiratory distress. Unresponsiveness. Findings: Cardiomegaly. Trachea is midline. The skull or segmental atelectasis right mid/lower lobe. No significant interval change. Impression: No significant abnormality
[2016-07-10] MEDS: D5/0.45NS 1,000 ML IV SCH ×2 (10:15→20:15)
[2016-07-10 10:36] LABS: Creatine Kinase MB 5.6 ng/mL (0.0-4.0)
[2016-07-10] MEDS ORDERED: NARCAN 0.4 MG/1 ML ONE (11:24)
[2016-07-10] MEDS ORDERED: SUBLIMAZE ONE (11:42)
[2016-07-10] MEDS ORDERED: AMIDATE IV ONE ×2 (11:53→12:00)
[2016-07-10] MEDS ORDERED: VASELINE LIP THERAPY TP PRN (11:56)
[2016-07-10] MEDS ORDERED: ARTIFICIAL TEARS OPHTH OINT OU PRN (11:56)
[2016-07-10] MEDS ORDERED: VERSED IV ONE (12:00)
[2016-07-10] MEDS ORDERED: NACL 0.9% 500 ML IV SCH (12:00)
[2016-07-10] MEDS ORDERED: SIMPLE SYRUP FEEDTUBE PRN ×2 (12:16)
[2016-07-10] MEDS ORDERED: PANCREAZE DR 10,500 UNIT FEEDTUBE PRN (12:16)
[2016-07-10] MEDS ORDERED: SODIUM BICARBONATE FEEDTUBE PRN (12:16)
--- NOTE | 2016-07-10 12:21 | Consultation ---
History of Present Illness Consult date: 07/10/16 Requesting physician: WES PIRES Reason for consult: other (acute respiratory failure) History of present illness: 86 female, admitted from a snf secondary to altered mental status and difficulty in breathing. Documented by EMS GCS of 6. Was on floor til this am when she required bipap therapy. Brought to ICU and is currently stuporous to comatose. Requires intubation. Called Son and He conferenced in her sister and they agree with intubation. Attempted narcan prior to intubation but no response. Family feels that patient is this way from over medication from snf. She is also in renal failure. Past History Past Medical History: other (unable to obtain secondary to mental status) Past Surgical History: Other (unable to obtain) Social history: other (unable to obtain) Family history: other (unable to obtain) Medications and Allergies Allergies Allergy/AdvReac Type Severity Reaction Status Date / Time No Known Allergies Allergy Verified 06/10/16 20:59 Home Medications Medication Instructions Recorded Confirmed Last Taken Type Oxybutynin [Ditropan] 5 mg PO DAILY 06/11/16 07/09/16 Unknown History Losartan [Cozaar] 50 mg PO QDAY tablet 06/16/16 07/09/16 Unknown Rx amLODIPine [Norvasc] 10 mg PO DAILY tablet 06/16/16 07/09/16 Unknown Rx Morphine 15 mg PO BID 07/09/16 07/09/16 Unknown History Active Meds: Active Medications Acetaminophen (Tylenol) 650 mg PO Q4H PRN PRN Reason: Pain MILD(1-3)/Fever >100.5/ISAAC Bisacodyl (Dulcolax) 10 mg UT QDAY PRN PRN Reason: Constipation unrelieved by MOM Enoxaparin Sodium (Lovenox) 30 mg SUB-Q QDAY PAULA Last Admin: 07/10/16 09:10 Dose: 30 mg Hydrophilic Ointment (Vaseline Lip Therapy) 1 applic TP Q2HR PRN PRN Reason: Dry Lips Ceftriaxone Sodium (Rocephin/Ns 1 Gm/50 Ml) 1 gm in 50 mls @ 100 mls/hr IV Q24H PAULA Dextrose/Sodium Chloride (D5/0.45ns) 1,000 mls @ 100 mls/hr IV DIRECT PAULA Last Admin: 07/10/16 10:15 Dose: 100 mls/hr Multi-Ingred Cream/Lotion/Oil/Oint (Artificial Tears Ophth Oint) 1 applic OU Q4HR PRN PRN Reason: Dry Eye(s) Ondansetron HCl (Zofran) 4 mg IV Q8H PRN PRN Reason: N/V unrelieved by Reglan Sodium Chloride (Nacl 0.9% 500 Ml) 1 ml IV DIRECT PAULA Review of Systems ROS unobtainable: due to endotracheal tube, due to mental status Physical Examination Vital signs: Vital Signs Pulse Resp BP Pulse Ox 88 20 118/61 99 07/09/16 20:16 07/09/16 20:16 07/09/16 20:16 07/09/16 20:16 General appearance: no acute distress, comatose Eyes: non-icteric ENT: other (dry, mouth open, edentuolus) Neck: supple Ascultation: Bilateral: clear Percussion: Bilateral: not dull Tactile fremitus: Bilateral: normal Cardiovascular: regular rate and rhythm Gastrointestinal: normoactive bowel sounds Extremities: no cyanosis, no edema, other (contracted) Results - Laboratory Findings CBC and BMP: 07/10/16 06:48 07/10/16 06:48 PT/INR, D-dimer PT 13.4 Sec. (12.2-14.9) 07/09/16 20:31 INR 1.03 (0.87-1.13) 07/09/16 20:31 Abnormal lab findings: Abnormal Labs 07/10/16 07/10/16 07/10/16 06:48 06:48 08:55 WBC 14.5 H RBC 3.53 L Hgb 10.0 L Plt Count 484 H Lymph % (Auto) 12.0 L [place] % (Auto) 7.4 H [place] # 1.1 H Seg Neutrophils % 77.4 H Seg Neutrophils # 11.2 H Sodium 148 H Chloride 109.2 H BUN 33 H Creatinine 3.1 H Glucose 111 H Total Creatine Kinase 334 H CK-MB (CK-2) 5.6 H - Diagnostic Findings Chest x-ray: image reviewed (small lung volumes but clear) Assessment and Plan 86 y/o female with prolonged encephalopathy, now with acute renal failure and acute respiratory failure requiring mechanical ventilation. 1. Elective intubation, successful, CXR done and ET tube adequate. ABG in 30 minutes. 2. No sedation 3. Needs renal consult for renal failure, and likely more hydration 4. Dirty urine, could have UTI. Agree with empiric therapy and will continue to monitor. Overall prognosis is guarded to poor given advanced age and multisystem organ failure. CCT 31 minutes.
--- NOTE | 2016-07-10 13:17 | XRay Report ---
Flatplate of abdomen: History: Dobbhoff placement. Findings: The distal Dobbhoff feeding tube is coiled up in the stomach with the tip pointing in the fundus pointing at the GE junction. The feeding tube should be withdrawn approximately 5-6 cm. Impression: Findings as detailed above.
--- NOTE | 2016-07-10 13:19 | XRay Report ---
Single view chest: Compared to 07/10/16. History: ET tube placement. Findings: Borderline cardiomegaly. Trachea is midline. Tip of endotracheal tube is just above the level of the edis. Should be withdrawn approximately 1.5 cm. Right basilar/segmental middle lobe atelectasis or infiltrate. No pneumothorax. Impression: Findings as detailed above.
[2016-07-10] MEDS: ROCEPHIN/NS 1 GM/50 ML 1 GM/50 ML BAG IV SCH (21:24)
[2016-07-10] MEDS: NORVASC FEEDTUBE SCH (21:24)
[2016-07-10] MEDS: COZAAR FEEDTUBE SCH (21:25)
[2016-07-11 05:12] LABS: Basophils % (Auto) 0.4 % (0.0-1.8); Eosinophils % (Auto) 5.2 % (0.0-4.3); Hematocrit 30.6 % (30.3-42.9); Hemoglobin 9.7 gm/dl (10.1-14.3); Mean Corpuscular HGB Conc 32 % (30-34); Mean Corpuscular Hemoglobin 28 pg (28-32); Mean Corpuscular Volume 88 fl (79-97); Platelet Count 442 K/mm3 (140-440); Red Blood Count 3.49 M/mm3 (3.65-5.03); Red Cell Distribution Width 14.5 % (13.2-15.2); White Blood Count 11.6 K/mm3 (4.5-11.0)
[2016-07-11 05:36] LABS: Alanine Aminotransferase 9 units/L (7-56); Albumin 2.3 g/dL (3.9-5); Albumin/Globulin Ratio 0.7 %; Alkaline Phosphatase 80 units/L (35-129); Anion Gap 18 mmol/L; BUN/Creatinine Ratio 9.72; Bilirubin,Total 0.2 mg/dL (0.1-1.2); Blood Urea Nitrogen 36 mg/dL (7-17); Carbon Dioxide 20 mmol/L (22-30); Chloride 105.2 mmol/L (98-107); Glucose 238 mg/dL (65-100); Magnesium 1.7 mg/dL (1.7-2.3); Potassium 4.1 mmol/L (3.6-5.0); Sodium 139 mmol/L (137-145); Total Protein 5.8 g/dL (6.3-8.2)
[2016-07-11 05:39] LABS: Bilirubin,Direct < 0.2 mg/dL (0-0.2)
[2016-07-11] MEDS: D5/0.45NS 1,000 ML IV SCH ×2 (06:27→17:16)
--- NOTE | 2016-07-11 10:05 | XRay Report ---
AP CHEST: HISTORY: Followup respiratory failure Lines and support devices are unchanged since yesterday's exam. Heart size and pulmonary vascularity remain within normal limits. Atelectatic changes at the right lung base are again noted. Otherwise, the lungs are clear. No new acute process is appreciated. IMPRESSION: No change.
[2016-07-11] MEDS: NOVOLOG SUB-Q SCH ×3 (10:15→17:14)
[2016-07-11] MEDS: LOVENOX SUB-Q SCH (10:15)
[2016-07-11] MEDS: NORVASC FEEDTUBE SCH (10:16)
[2016-07-11] MEDS: COZAAR FEEDTUBE SCH (10:16)
--- NOTE | 2016-07-11 11:48 | Progress Note ---
Assessment and Plan 86 y/o female with prolonged encephalopathy, now with acute renal failure and acute respiratory failure requiring mechanical ventilation. 1. Continue mechanical ventilatory support 2. No sedation 3. Consulted renal today. Ordered ultrasound and urine sodium as well as urine cr 4. Can continue empiric abx. Need to address hard stop date. Total of 7 days. Overall prognosis is guarded to poor given advanced age and multisystem organ failure. CCT 31 minutes. Subjective Date of service: 07/11/16 Interval history: No acute events. slightly, only slightly more awake. Opens eyes at least to tactile stimuli. Breathes over the vent at times. No family at bedside. Cr is worse today. Objective Vital Signs - 12hr 07/10/16 07/11/16 07/11/16 23:50 00:00 00:10 Temperature 99.6 F Pulse Rate 62 62 61 Respiratory 18 18 18 Rate Blood Pressure 159/55 159/55 162/54 O2 Sat by Pulse 100 100 100 Oximetry 07/11/16 07/11/16 07/11/16 00:14 00:20 00:30 Temperature Pulse Rate 62 62 61 Respiratory 18 18 18 Rate Blood Pressure 162/54 162/54 162/54 O2 Sat by Pulse 100 100 100 Oximetry 07/11/16 07/11/16 07/11/16 00:40 00:50 01:00 Temperature Pulse Rate 62 62 63 Respiratory 18 18 18 Rate Blood Pressure 157/52 157/52 157/52 O2 Sat by Pulse 100 100 100 Oximetry 07/11/16 07/11/16 07/11/16 01:05 01:10 01:20 Temperature Pulse Rate 62 62 63 Respiratory 18 18 Rate Blood Pressure 151/53 151/53 O2 Sat by Pulse 100 100 100 Oximetry 07/11/16 07/11/16 07/11/16 01:21 01:30 01:40 Temperature Pulse Rate 63 63 62 Respiratory 18 18 Rate Blood Pressure 151/53 151/53 151/53 O2 Sat by Pulse 100 100 100 Oximetry 07/11/16 07/11/16 07/11/16 01:50 02:00 02:10 Temperature Pulse Rate 63 62 62 Respiratory 18 18 18 Rate Blood Pressure 151/53 156/53 156/53 O2 Sat by Pulse 100 99 100 Oximetry 07/11/16 07/11/16 07/11/16 02:20 02:30 02:40 Temperature Pulse Rate 75 64 65 Respiratory 22 16 18 Rate Blood Pressure 156/53 168/72 168/72 O2 Sat by Pulse 99 96 99 Oximetry 07/11/16 07/11/16 07/11/16 02:50 03:00 03:10 Temperature Pulse Rate 63 63 63 Respiratory 18 18 18 Rate Blood Pressure 168/72 168/72 162/57 O2 Sat by Pulse 100 100 100 Oximetry 07/11/16 07/11/16 07/11/16 03:20 03:30 03:40 Temperature Pulse Rate 62 61 61 Respiratory 18 18 18 Rate Blood Pressure 162/57 162/57 161/60 O2 Sat by Pulse 100 100 100 Oximetry 07/11/16 07/11/16 07/11/16 03:50 04:00 04:10 Temperature 100.1 F H Pulse Rate 61 60 61 Respiratory 18 18 18 Rate Blood Pressure 161/60 156/58 156/58 O2 Sat by Pulse 100 100 100 Oximetry 07/11/16 07/11/16 07/11/16 04:15 04:20 04:30 Temperature Pulse Rate 61 67 64 Respiratory 18 18 Rate Blood Pressure 156/58 156/58 O2 Sat by Pulse 100 100 100 Oximetry 07/11/16 07/11/16 07/11/16 04:40 04:50 05:00 Temperature Pulse Rate 63 63 63 Respiratory 18 18 18 Rate Blood Pressure 167/60 167/60 167/60 O2 Sat by Pulse 100 100 100 Oximetry 07/11/16 07/11/16 07/11/16 05:10 05:20 05:23 Temperature Pulse Rate 62 63 61 Respiratory 18 18 Rate Blood Pressure 157/54 157/54 157/54 O2 Sat by Pulse 100 100 100 Oximetry 07/11/16 07/11/16 07/11/16 05:30 05:40 05:50 Temperature Pulse Rate 61 62 62 Respiratory 16 16 16 Rate Blood Pressure 154/56 154/56 154/56 O2 Sat by Pulse 99 100 100 Oximetry 07/11/16 07/11/16 07/11/16 06:00 06:10 06:20 Temperature Pulse Rate 61 62 62 Respiratory 16 16 16 Rate Blood Pressure 154/54 154/54 154/54 O2 Sat by Pulse 99 100 100 Oximetry 07/11/16 07/11/16 07/11/16 06:30 06:40 08:00 Temperature 99.8 F H Pulse Rate 61 60 Respiratory 16 16 Rate Blood Pressure 155/55 155/55 O2 Sat by Pulse 99 100 Oximetry 07/11/16 07/11/16 09:38 10:16 Temperature Pulse Rate 60 74 Respiratory Rate Blood Pressure 157/54 157/57 O2 Sat by Pulse 99 Oximetry Constitutional: no acute distress, comatose Eyes: non-icteric ENT: other (dry, mouth open, edentuolus, orally intubated) Neck: supple Ascultation: Bilateral: clear Percussion: Bilateral: not dull Cardiovascular: regular rate and rhythm Gastrointestinal: normoactive bowel sounds Extremities: no cyanosis, no edema, other (contracted) Neurologic: unable to assess CBC and BMP: 07/11/16 04:31 07/11/16 04:31 ABG, PT/INR, D-dimer: PT/INR, D-dimer PT 13.4 Sec. (12.2-14.9) 07/09/16 20:31 INR 1.03 (0.87-1.13) 07/09/16 20:31 Abnormal lab findings: Abnormal Labs 07/10/16 07/10/16 07/10/16 06:48 06:48 08:55 WBC 14.5 H RBC 3.53 L Hgb 10.0 L Plt Count 484 H Lymph % (Auto) 12.0 L Mcdonald % (Auto) 7.4 H Eos % (Auto) Lymph # Mcdonald # 1.1 H Eos # Seg Neutrophils % 77.4 H Seg Neutrophils # 11.2 H Sodium 148 H Chloride 109.2 H Carbon Dioxide BUN 33 H Creatinine 3.1 H Glucose 111 H Hemoglobin A1c Calcium Total Creatine Kinase 334 H CK-MB (CK-2) 5.6 H Total Protein Albumin Urine WBC (Auto) 07/10/16 07/11/16 07/11/16 13:10 04:31 04:31 WBC 11.6 H RBC 3.49 L Hgb 9.7 L Plt Count 442 H Lymph % (Auto) 9.8 L Mcdonald % (Auto) 9.5 H Eos % (Auto) 5.2 H Lymph # 1.1 L Mcdonald # 1.1 H Eos # 0.6 H Seg Neutrophils % 75.1 H Seg Neutrophils # 8.7 H Sodium Chloride Carbon Dioxide 20 L BUN 36 H Creatinine 3.7 H Glucose 238 H Hemoglobin A1c Calcium 8.0 L Total Creatine Kinase CK-MB (CK-2) Total Protein 5.8 L Albumin 2.3 L Urine WBC (Auto) 164.0 H 07/11/16 04:31 WBC RBC Hgb Plt Count Lymph % (Auto) Mcdonald % (Auto) Eos % (Auto) Lymph # Mcdonald # Eos # Seg Neutrophils % Seg Neutrophils # Sodium Chloride Carbon Dioxide BUN Creatinine Glucose Hemoglobin A1c 8.8 H Calcium Total Creatine Kinase CK-MB (CK-2) Total Protein Albumin Urine WBC (Auto) Chest x-ray: image reviewed (clear, no acute disease)
--- NOTE | 2016-07-11 12:51 | Consultation ---
History of Present Illness - Reason for Consult Consult date: 07/11/16 acute renal failure Requesting physician: SAROJ LILLY - History of Present Illness 86 female, admitted from a longterm secondary to altered mental status and difficulty in breathing. Documented by EMS GCS of 6. Was on floor till yesterday am when she required bipap therapy. Brought to ICU and intubated. Renal consultation is requested because of worsening renal function. Patient is currently intubated. On 25% FiO2. Unable to get any history from her Past History Past Medical History: other (unable to obtain ) Past Surgical History: Other (unable to obtain) Social history: other (unable to obtain) Family history: other (unable to obtain) Medications and Allergies Allergies Allergy/AdvReac Type Severity Reaction Status Date / Time No Known Allergies Allergy Verified 06/10/16 20:59 Home Medications Medication Instructions Recorded Confirmed Last Taken Type Oxybutynin [Ditropan] 5 mg PO DAILY 06/11/16 07/09/16 Unknown History Losartan [Cozaar] 50 mg PO QDAY tablet 06/16/16 07/09/16 Unknown Rx amLODIPine [Norvasc] 10 mg PO DAILY tablet 06/16/16 07/09/16 Unknown Rx Morphine 15 mg PO BID 07/09/16 07/09/16 Unknown History Active Meds: Active Medications Acetaminophen (Tylenol) 650 mg PO Q4H PRN PRN Reason: Pain MILD(1-3)/Fever >100.5/ISAAC Amlodipine Besylate (Norvasc) 10 mg FEEDTUBE QDAY [facility] Last Admin: 07/11/16 10:16 Dose: 10 mg Lipase/Protease/Amylase (Pancrebassem Dr 10,500 Unit) 1 each FEEDTUBE PRN PRN PRN Reason: For Clogged Feeding Tube Bisacodyl (Dulcolax) 10 mg [place] QDAY PRN PRN Reason: Constipation unrelieved by MOM Enoxaparin Sodium (Lovenox) 30 mg SUB-Q QDAY [facility] Last Admin: 07/11/16 10:15 Dose: 30 mg Hydrophilic Ointment (Vaseline Lip Therapy) 1 applic TP Q2HR PRN PRN Reason: Dry Lips Ceftriaxone Sodium (Rocephin/Ns 1 Gm/50 Ml) 1 gm in 50 mls @ 100 mls/hr IV Q24H [facility] Stop: 07/16/16 22:29 Last Admin: 07/10/16 21:24 Dose: 100 mls/hr Dextrose/Sodium Chloride (D5/0.45ns) 1,000 mls @ 150 mls/hr IV DIRECT PAULA Last Infusion: 07/11/16 11:00 Dose: 150 mls/hr Insulin Aspart (Novolog) 0 units SUB-Q Q6HR PAUL[facility] PRN Reason: Protocol Last Admin: 07/11/16 12:37 Dose: 4 units Multi-Ingred Cream/Lotion/Oil/Oint (Artificial Tears Ophth Oint) 1 applic OU Q4HR PRN PRN Reason: Dry Eye(s) Ondansetron HCl (Zofran) 4 mg IV Q8H PRN PRN Reason: N/V unrelieved by Reglan Simple Syrup (Simple Syrup) 15 ml FEEDTUBE PRN PRN PRN Reason: Hypoglycemia Simple Syrup (Simple Syrup) 30 ml FEEDTUBE PRN PRN PRN Reason: Hypoglycemia Sodium Bicarbonate (Sodium Bicarbonate) 325 mg FEEDTUBE PRN PRN PRN Reason: For Clogged Feeding Tube Sodium Chloride (Nacl 0.9% 500 Ml) 1 ml IV DIRECT PAULA Review of Systems ROS unobtainable: due to mental status Exam - Vital Signs Vital signs: Vital Signs Pulse Resp BP Pulse Ox 88 20 118/61 99 07/09/16 20:16 07/09/16 20:16 07/09/16 20:16 07/09/16 20:16 - General Appearance General appearance: well-developed, well-nourished, appears stated age, intubated EENT: PERRL, mucous membranes moist Neck: Present: neck supple, trachea midline. Absent: JVD/HJR, Masses Respiratory: Clear to Ascultation Heart: regular, normal heart rate Gastrointestinal: Present: normal, normoactive bowel sounds Integumentary: no rash, warm and dry Neurologic: no focal deficit, alert and oriented x3 Results - Lab Results 07/11/16 04:31 07/11/16 04:31 Most recent lab results Calcium 8.0 mg/dL (8.4-10.2) L 07/11/16 04:31 Magnesium 1.7 mg/dL (1.7-2.3) 07/11/16 04:31 Assessment and Plan Impression * Acute renal failure. May be prerenal. However due need to consider progression to ATN * Respiratory failure * Hypertension * Chronic back pain * Diabetes * Pyuria Recommendations * Patient's urine shows 1+ dipstick protein as well as pyuria * Agree with checking a fractional excretion of sodium as well as a renal ultrasound * Continue IV hydration * Shall check urine for eosinophils also * Continue empiric antibiotics * Patient's renal function was normal last month. However her creatinine was 2.4 on admission and it has gone up to 3.7 now * Monitor patient's fluid status and electrolytes closely * Avoid nephrotoxins * Shall continue her lisinopril for now * Thank you very much for the consultation. Shall follow along with you
[2016-07-11 13:20] LABS: Sodium, Urine 10 mEq/L
--- NOTE | 2016-07-11 16:16 | Progress Note ---
Assessment and Plan Assessment and plan: --Acute respiratory failure, status post intubation Continue ventilatory support, nebulizers, IV steroids, IV antibiotics Pulmonary following --Sepsis secondary to urinary tract infection New current antibiotics, follow cultures --Acute renal failure probably prerenal versus ATN Gentle hydration closely monitor renal function, avoid nephrotoxic medications Nephrology consultation --Hypertension: Moderate control, continue current antihypertensives and when necessary medications --Toxic metabolic encephalopathy at the time of admission Multifactorial, continue supportive care --Multiorgan failure, advanced age, poor prognosis Discussed with family requested full code --full CODE STATUS --Type 2 diabetes mellitus moderate control Accu-Chek sliding scale coverage and ADA diet and insulin, hemoglobin A1c 8.8 We will add 7030 Novolin long-acting insulin --DVT prophylaxis with Lovenox Closely monitor the patient and adjust the management as needed, consults noted and appreciated Critical care time 31 minutes History Interval history: Patient seen and evaluated medical records reviewed No new events reported by the nursing staff, labs revealed worsening renal function Patient is orally intubated on ventilator support and sedated Not in acute distress, vital signs reviewed Hospitalist Physical - Constitutional Vitals: Temp Pulse Resp BP Pulse Ox 99.8 F H 64 16 155/56 97 07/11/16 08:00 07/11/16 11:44 07/11/16 11:40 07/11/16 11:44 07/11/16 12:01 General appearance: Present: no acute distress, well-nourished, other (orally intubated on ventilatory support) - EENT Eyes: Present: PERRL - Neck Neck: Present: supple - Respiratory Respiratory effort: normal Respiratory: bilateral: diminished, rhonchi (occasional), negative: rales, wheezing - Cardiovascular Rhythm: regular Heart Sounds: Present: S1 & S2 - Extremities Extremities: no ischemia, pulses intact, pulses symmetrical Peripheral Pulses: within normal limits - Abdominal General gastrointestinal: soft, non-tender, non-distended, normal bowel sounds - Integumentary Integumentary: Present: clear, warm - Psychiatric Psychiatric: appropriate mood/affect, cooperative - Neurologic Neurologic: CNII-XII intact, moves all extremities Results - Labs CBC & Chem 7: 07/12/16 04:00 07/12/16 04:00 Labs: Laboratory Last Values WBC 11.6 K/mm3 (4.5-11.0) H 07/11/16 04:31 RBC 3.49 M/mm3 (3.65-5.03) L 07/11/16 04:31 Hgb 9.7 gm/dl (10.1-14.3) L 07/11/16 04:31 Hct 30.6 % (30.3-42.9) 07/11/16 04:31 MCV 88 fl (79-97) 07/11/16 04:31 MCH 28 pg (28-32) 07/11/16 04:31 MCHC 32 % (30-34) 07/11/16 04:31 RDW 14.5 % (13.2-15.2) 07/11/16 04:31 Plt Count 442 K/mm3 (140-440) H 07/11/16 04:31 Lymph % (Auto) 9.8 % (13.4-35.0) L 07/11/16 04:31 Lucas % (Auto) 9.5 % (0.0-7.3) H 07/11/16 04:31 Eos % (Auto) 5.2 % (0.0-4.3) H 07/11/16 04:31 Baso % (Auto) 0.4 % (0.0-1.8) 07/11/16 04:31 Lymph # 1.1 K/mm3 (1.2-5.4) L 07/11/16 04:31 Lucas # 1.1 K/mm3 (0.0-0.8) H 07/11/16 04:31 Eos # 0.6 K/mm3 (0.0-0.4) H 07/11/16 04:31 Baso # 0.1 K/mm3 (0.0-0.1) 07/11/16 04:31 Seg Neutrophils % 75.1 % (40.0-70.0) H 07/11/16 04:31 Seg Neutrophils # 8.7 K/mm3 (1.8-7.7) H 07/11/16 04:31 PT 13.4 Sec. (12.2-14.9) 07/09/16 20:31 INR 1.03 (0.87-1.13) 07/09/16 20:31 Sodium 139 mmol/L (137-145) D 07/11/16 04:31 Potassium 4.1 mmol/L (3.6-5.0) 07/11/16 04:31 Chloride 105.2 mmol/L (98-107) 07/11/16 04:31 Carbon Dioxide 20 mmol/L (22-30) L 07/11/16 04:31 Anion Gap 18 mmol/L 07/11/16 04:31 BUN 36 mg/dL (7-17) H 07/11/16 04:31 Creatinine 3.7 mg/dL (0.7-1.2) H 07/11/16 04:31 Estimated GFR 14 ml/min 07/11/16 04:31 BUN/Creatinine Ratio 9.72 % 07/11/16 04:31 Glucose 238 mg/dL (65-100) H 07/11/16 04:31 Hemoglobin A1c 8.8 % (4-6) H 07/11/16 04:31 Calcium 8.0 mg/dL (8.4-10.2) L 07/11/16 04:31 Magnesium 1.7 mg/dL (1.7-2.3) 07/11/16 04:31 Total Bilirubin 0.2 mg/dL (0.1-1.2) 07/11/16 04:31 Direct Bilirubin < 0.2 mg/dL (0-0.2) 07/11/16 04:31 Indirect Bilirubin 0.0 mg/dL 07/11/16 04:31 AST 21 units/L (5-40) 07/11/16 04:31 ALT 9 units/L (7-56) 07/11/16 04:31 Alkaline Phosphatase 80 units/L (35-129) 07/11/16 04:31 Ammonia 48.0 umol/L (25-60) 07/09/16 20:31 Total Creatine Kinase 334 units/L (30-135) H 07/10/16 08:55 CK-MB (CK-2) 5.6 ng/mL (0.0-4.0) H 07/10/16 08:55 CK-MB (CK-2) Rel Index 1.6 (0-4) 07/10/16 08:55 Troponin T 0.016 ng/mL (0.00-0.029) 07/10/16 08:55 Total Protein 5.8 g/dL (6.3-8.2) L 07/11/16 04:31 Albumin 2.3 g/dL (3.9-5) L 07/11/16 04:31 Albumin/Globulin Ratio 0.7 % 07/11/16 04:31 TSH 1.240 mlU/mL (0.270-4.200) 07/09/16 20:31 Free T4 1.40 ng/dL (0.76-1.46) 07/09/16 20:31 Urine Color Jennifer (Yellow) 07/10/16 13:10 Urine Turbidity Turbid (Clear) 07/10/16 13:10 Urine pH 6.0 (5.0-7.0) 07/10/16 13:10 Ur Specific [place] 1.016 (1.003-1.030) 07/10/16 13:10 Urine Protein 30 mg/dl mg/dL (Negative) 07/10/16 13:10 Urine Glucose (UA) 50 mg/dL (Negative) 07/10/16 13:10 Urine Ketones Neg mg/dL (Negative) 07/10/16 13:10 Urine Blood Sm (Negative) 07/10/16 13:10 Urine Nitrite Neg (Negative) 07/10/16 13:10 Urine Bilirubin Neg (Negative) 07/10/16 13:10 Urine Urobilinogen < 2.0 mg/dL (<2.0) 07/10/16 13:10 Ur Leukocyte Esterase Lg (Negative) 07/10/16 13:10 Urine WBC (Auto) 164.0 /HPF (0.0-6.0) H 07/10/16 13:10 Urine RBC (Auto) 33.0 /HPF (0.0-6.0) 07/10/16 13:10 U Epithel Cells (Auto) 5.0 /HPF (0-13.0) 07/10/16 13:10 Urine Bacteria (Auto) 4+ /HPF (Negative) 07/10/16 13:10 Urine Mucus 3+ /HPF 07/10/16 13:10 Urine Creatinine < 4.2 mg/dL (0.1-20.0) 07/11/16 13:03 Urine Sodium 10 mEq/L 07/11/16 13:03
[2016-07-11] MEDS: ROCEPHIN/NS 1 GM/50 ML 1 GM/50 ML BAG IV SCH (21:57)
[2016-07-12] MEDS: D5/0.45NS 1,000 ML IV SCH ×3 (00:20→18:28)
[2016-07-12] MEDS: NOVOLOG SUB-Q SCH ×4 (01:11→18:39)
[2016-07-12] MEDS ORDERED: VERSED/NS 100MG/100ML 100 MG/100 ML BAG IV SCH (02:00)
[2016-07-12 06:03] LABS: Basophils % (Auto) 0.3 % (0.0-1.8); Eosinophils % (Auto) 0.4 % (0.0-4.3); Hematocrit 28.9 % (30.3-42.9); Hemoglobin 9.3 gm/dl (10.1-14.3); Mean Corpuscular HGB Conc 32 % (30-34); Mean Corpuscular Hemoglobin 28 pg (28-32); Mean Corpuscular Volume 86 fl (79-97); Platelet Count 437 K/mm3 (140-440); Red Blood Count 3.36 M/mm3 (3.65-5.03); Red Cell Distribution Width 14.2 % (13.2-15.2); White Blood Count 15.9 K/mm3 (4.5-11.0)
[2016-07-12 06:06] LABS: BUN/Creatinine Ratio 10.57; Calcium 8.4 mg/dL (8.4-10.2); Chloride 101.4 mmol/L (98-107); Potassium 4.1 mmol/L (3.6-5.0)
--- NOTE | 2016-07-12 08:38 | XRay Report ---
AP CHEST: HISTORY: Followup respiratory failure. Lines and tubes remain in good position since yesterday's exam. No significant change in the bibasilar atelectatic changes is demonstrated. The upper lung zones remain clear. Heart and mediastinal structures are within normal limits. No new acute process. IMPRESSION: No change.
[2016-07-12] MEDS: NORVASC FEEDTUBE SCH (09:00)
[2016-07-12] MEDS ORDERED: APRESOLINE IV ONE (09:30)
--- NOTE | 2016-07-12 09:39 | Progress Note ---
Assessment and Plan Impression * Acute renal failure. May be prerenal. However due need to consider progression to ATN * Respiratory failure * Hypertension * Chronic back pain * Diabetes * Pyuria Recommendations * She most likely has a prerenal component. Her urine sodium is 10 * Patient's urine shows 1+ dipstick protein as well as pyuria * Continue IV hydration. Her renal function seems to be improving. Urine output is also picking up * Follow-up results of urine for eosinophils also * Continue empiric antibiotics * Patient's renal function was normal last month. However her creatinine was 2.4 on admission * Monitor patient's fluid status and electrolytes closely * Avoid nephrotoxins * Shall keep her off her lisinopril for now Subjective Date of service: 07/12/16 Interval history: Patient remains on the ventilator. Currently on 30% FiO2. Opens eyes. Objective - Vital Signs Vital signs: Vital Signs - 12hr 07/11/16 07/11/16 07/11/16 21:36 21:40 21:50 Temperature Pulse Rate 132 H 114 H 121 H Pulse Rate [ From Monitor] Respiratory 16 15 Rate Blood Pressure 143/89 143/89 143/89 O2 Sat by Pulse 97 96 96 Oximetry 07/11/16 07/11/16 07/11/16 22:00 22:10 22:20 Temperature Pulse Rate 90 136 H 115 H Pulse Rate [ From Monitor] Respiratory 16 29 H 23 Rate Blood Pressure 118/49 118/49 118/49 O2 Sat by Pulse 97 98 97 Oximetry 07/11/16 07/11/16 07/11/16 22:30 22:40 22:50 Temperature Pulse Rate 80 123 H 140 H Pulse Rate [ From Monitor] Respiratory 16 22 30 H Rate Blood Pressure 115/48 115/48 115/48 O2 Sat by Pulse 98 98 97 Oximetry 07/11/16 07/11/16 07/11/16 23:00 23:10 23:20 Temperature Pulse Rate 128 H 109 H 130 H Pulse Rate [ From Monitor] Respiratory 19 15 31 H Rate Blood Pressure 115/48 170/106 170/106 O2 Sat by Pulse 95 97 97 Oximetry 07/11/16 07/11/16 07/11/16 23:30 23:40 23:50 Temperature Pulse Rate 130 H 121 H 84 Pulse Rate [ From Monitor] Respiratory 27 H 29 H 16 Rate Blood Pressure 179/87 179/87 179/87 O2 Sat by Pulse 97 96 97 Oximetry 07/12/16 07/12/16 07/12/16 00:00 00:10 00:20 Temperature Pulse Rate 119 H 130 H 111 H Pulse Rate [ 95 H From Monitor] Respiratory 18 30 H 20 Rate Blood Pressure 179/73 179/73 179/73 O2 Sat by Pulse 98 98 96 Oximetry 07/12/16 07/12/16 07/12/16 00:30 00:40 00:50 Temperature Pulse Rate 81 114 H 116 H Pulse Rate [ From Monitor] Respiratory 16 23 26 H Rate Blood Pressure 118/51 118/51 118/51 O2 Sat by Pulse 97 97 97 Oximetry 07/12/16 07/12/16 07/12/16 01:00 01:10 01:20 Temperature Pulse Rate 107 H 114 H 89 Pulse Rate [ From Monitor] Respiratory 23 23 16 Rate Blood Pressure 118/51 161/67 161/67 O2 Sat by Pulse 97 96 96 Oximetry 07/12/16 07/12/16 07/12/16 01:30 01:40 01:50 Temperature Pulse Rate 87 105 H 105 H Pulse Rate [ From Monitor] Respiratory 16 21 26 H Rate Blood Pressure 150/52 150/52 150/52 O2 Sat by Pulse 96 97 97 Oximetry 07/12/16 07/12/16 07/12/16 02:00 02:10 02:20 Temperature Pulse Rate 111 H 114 H 115 H Pulse Rate [ From Monitor] Respiratory 24 33 H 26 H Rate Blood Pressure 150/52 147/45 147/45 O2 Sat by Pulse 96 97 97 Oximetry 07/12/16 07/12/16 07/12/16 02:30 02:40 02:50 Temperature Pulse Rate 78 113 H 103 H Pulse Rate [ From Monitor] Respiratory 16 30 H 24 Rate Blood Pressure 159/51 159/51 159/51 O2 Sat by Pulse 97 97 98 Oximetry 07/12/16 07/12/16 07/12/16 03:00 03:10 03:20 Temperature Pulse Rate 142 H 102 H 96 H Pulse Rate [ From Monitor] Respiratory 26 H 37 H 25 H Rate Blood Pressure 159/51 161/53 161/53 O2 Sat by Pulse 97 97 96 Oximetry 07/12/16 07/12/16 07/12/16 03:30 03:40 03:50 Temperature Pulse Rate 71 72 77 Pulse Rate [ From Monitor] Respiratory 16 16 16 Rate Blood Pressure 161/53 120/50 120/50 O2 Sat by Pulse 99 100 Oximetry 07/12/16 07/12/16 07/12/16 04:00 04:10 04:20 Temperature Pulse Rate 81 75 76 Pulse Rate [ 82 From Monitor] Respiratory 16 16 16 Rate Blood Pressure 160/66 160/66 160/66 O2 Sat by Pulse 99 100 100 Oximetry 07/12/16 07/12/16 07/12/16 04:30 04:40 04:50 Temperature Pulse Rate 85 84 79 Pulse Rate [ From Monitor] Respiratory 27 H 15 22 Rate Blood Pressure 158/66 158/66 158/66 O2 Sat by Pulse 99 100 Oximetry 07/12/16 07/12/16 07/12/16 05:00 05:10 05:20 Temperature Pulse Rate 80 78 75 Pulse Rate [ From Monitor] Respiratory 18 20 18 Rate Blood Pressure 160/66 152/53 152/53 O2 Sat by Pulse 99 99 100 Oximetry 07/12/16 07/12/16 07/12/16 05:22 05:30 05:40 Temperature Pulse Rate 76 71 71 Pulse Rate [ From Monitor] Respiratory 16 16 Rate Blood Pressure 152/53 129/46 129/46 O2 Sat by Pulse 98 100 Oximetry 07/12/16 07/12/16 07/12/16 05:50 06:00 06:10 Temperature Pulse Rate 72 89 98 H Pulse Rate [ From Monitor] Respiratory 16 15 25 H Rate Blood Pressure 129/46 159/95 159/95 O2 Sat by Pulse 100 100 100 Oximetry 07/12/16 07/12/16 07/12/16 06:20 06:30 06:40 Temperature Pulse Rate 96 H 91 H 96 H Pulse Rate [ From Monitor] Respiratory 26 H 23 20 Rate Blood Pressure 159/95 159/95 180/58 O2 Sat by Pulse 100 100 100 Oximetry 07/12/16 07/12/16 07/12/16 06:50 07:00 07:10 Temperature Pulse Rate 80 85 94 H Pulse Rate [ From Monitor] Respiratory 20 20 18 Rate Blood Pressure 180/58 183/58 154/71 O2 Sat by Pulse 100 100 100 Oximetry 07/12/16 07/12/16 07/12/16 07:20 07:30 07:37 Temperature Pulse Rate 91 H 80 80 Pulse Rate [ From Monitor] Respiratory 18 19 Rate Blood Pressure 154/71 159/55 159/55 O2 Sat by Pulse 100 100 100 Oximetry 07/12/16 07/12/16 07/12/16 07:42 07:49 07:54 Temperature 99.8 F H Pulse Rate 80 Pulse Rate [ 79 From Monitor] Respiratory 23 26 H Rate Blood Pressure 159/55 O2 Sat by Pulse 100 Oximetry 07/12/16 09:01 Temperature Pulse Rate 91 H Pulse Rate [ From Monitor] Respiratory 21 Rate Blood Pressure 169/68 O2 Sat by Pulse 95 Oximetry - General Appearance General appearance: well-developed, well-nourished, appears stated age, intubated EENT: PERRL, mucous membranes moist Neck: no JVD, no thyromegaly, no carotid bruit, supple Respiratory: Present: Clear to Ascultation Cardiology: regular, normal heart rate, S1S2, no murmurs Gastrointestinal: normal, normoactive bowel sounds Integumentary: other (no edema) - Lab 07/12/16 04:00 07/12/16 04:00 Most recent lab results Calcium 8.4 mg/dL (8.4-10.2) 07/12/16 04:00 Magnesium 1.7 mg/dL (1.7-2.3) 07/11/16 04:31 Urine Creatinine < 4.2 mg/dL (0.1-20.0) 07/11/16 13:03 Urine Sodium 10 mEq/L 07/11/16 13:03
[2016-07-12] MEDS: PEPCID IV SCH (09:47)
[2016-07-12] MEDS: LOVENOX SUB-Q SCH (09:47)
--- NOTE | 2016-07-12 09:50 | Ultrasound Report ---
ULTRASOUND RENAL INDICATION: Renal failure. COMPARISON: None similar. FINDINGS: Renal sonography suggests top normal/borderline increased renal cortical echogenicity. Grossly preserved contours. No hydronephrosis. Right kidney measures 11.2 x 4.4 x 5.5 cm with cortical thickness of 1.3 cm. A 1.5 x 1.3 x 1.7 cm right renal cortical hypoechoic focus noted, image 14. A 1.1 cm right upper renal simple appearing cortical cyst was also noted on February 2009 CT. Left kidney estimated at 10.9 x 5.2 x 4.6 cm with cortical thickness of 1.6 cm. Urinary bladder decompressed by an indwelling Echevarria catheter, suboptimally assessed. CONCLUSION: No acute renal sonographic abnormality with findings, as above. Thank you for the opportunity to participate in this patient's care.
[2016-07-12] MEDS ORDERED: PEPCID PO SCH (10:00)
[2016-07-12 10:13] LABS: ISTAT Base Excess -1; ISTAT HCO3 24.5; ISTAT PCO2 46.6 (35-45); ISTAT PO2 142 (80-105); ISTAT SO2 99; ISTAT TCO2 26
[2016-07-12 10:13] LABS: ISTAT Base Excess -2; ISTAT HCO3 21.2; ISTAT PCO2 28.3 (35-45); ISTAT PH 7.482 (7.35-7.45); ISTAT PO2 102 (80-105); ISTAT SO2 98; ISTAT TCO2 22
[2016-07-12 10:15] LABS: ISTAT Base Excess 1; ISTAT HCO3 26.2; ISTAT PCO2 45.6 (35-45); ISTAT PH 7.367 (7.35-7.45); ISTAT PO2 121 (80-105); ISTAT SO2 99; ISTAT TCO2 28
[2016-07-12 10:18] LABS: ISTAT Base Excess -4; ISTAT HCO3 23.7; ISTAT PCO2 54.1 (35-45); ISTAT PH 7.249 (7.35-7.45); ISTAT PO2 91 (80-105); ISTAT SO2 95; ISTAT TCO2 25
[2016-07-12 10:19] LABS: ISTAT Base Excess -4; ISTAT HCO3 20.4; ISTAT PCO2 29.5 (35-45); ISTAT PH 7.449 (7.35-7.45); ISTAT PO2 67 (80-105); ISTAT SO2 94; ISTAT TCO2 21
[2016-07-12 10:20] LABS: ISTAT Base Excess -1; ISTAT HCO3 23.2; ISTAT PCO2 33.2 (35-45); ISTAT PH 7.452 (7.35-7.45); ISTAT PO2 74 (80-105); ISTAT SO2 96; ISTAT TCO2 24
--- NOTE | 2016-07-12 10:42 | XRay Report ---
SUPINE KUB: History: High residuals, pain. Findings: Limited exam with motion. A feeding tube is coiled in the proximal stomach with its tip near the GE junction. The bowel gas pattern is nonspecific. There is no evidence for obstruction or large free air. Normal stool in the colon. IMPRESSION: Unremarkable exam.
--- NOTE | 2016-07-12 11:52 | Progress Note ---
Assessment and Plan 86 y/o female with prolonged encephalopathy, now with acute renal failure and acute respiratory failure requiring mechanical ventilation. 1. attempt extubation 2. No sedation should be ordered until seen by family. Patient was intubated for airway protection and hypercapnea secondary to hypoventilation from encephalopathy. I have discontinued the versed that was ordered. 3. Abx for a total of 7 days 4. With successful extubation, can transfer back to the floor later this afternoon. 5. Renal function being monitored by nephrology. Appears to be prerenal CCT 31 minutes. Subjective Date of service: 07/12/16 Interval history: patient more awake today. Not following commands but awake enough it appears to be extubated Objective Vital Signs - 12hr 07/11/16 07/12/16 07/12/16 23:50 00:00 00:10 Temperature Pulse Rate 84 119 H 130 H Pulse Rate [ 95 H From Monitor] Respiratory 16 18 30 H Rate Blood Pressure 179/87 179/73 179/73 O2 Sat by Pulse 97 98 98 Oximetry 07/12/16 07/12/16 07/12/16 00:20 00:30 00:40 Temperature Pulse Rate 111 H 81 114 H Pulse Rate [ From Monitor] Respiratory 20 16 23 Rate Blood Pressure 179/73 118/51 118/51 O2 Sat by Pulse 96 97 97 Oximetry 07/12/16 07/12/16 07/12/16 00:50 01:00 01:10 Temperature Pulse Rate 116 H 107 H 114 H Pulse Rate [ From Monitor] Respiratory 26 H 23 23 Rate Blood Pressure 118/51 118/51 161/67 O2 Sat by Pulse 97 97 96 Oximetry 07/12/16 07/12/16 07/12/16 01:20 01:30 01:40 Temperature Pulse Rate 89 87 105 H Pulse Rate [ From Monitor] Respiratory 16 16 21 Rate Blood Pressure 161/67 150/52 150/52 O2 Sat by Pulse 96 96 97 Oximetry 07/12/16 07/12/16 07/12/16 01:50 02:00 02:10 Temperature Pulse Rate 105 H 111 H 114 H Pulse Rate [ From Monitor] Respiratory 26 H 24 33 H Rate Blood Pressure 150/52 150/52 147/45 O2 Sat by Pulse 97 96 97 Oximetry 07/12/16 07/12/16 07/12/16 02:20 02:30 02:40 Temperature Pulse Rate 115 H 78 113 H Pulse Rate [ From Monitor] Respiratory 26 H 16 30 H Rate Blood Pressure 147/45 159/51 159/51 O2 Sat by Pulse 97 97 97 Oximetry 07/12/16 07/12/16 07/12/16 02:50 03:00 03:10 Temperature Pulse Rate 103 H 142 H 102 H Pulse Rate [ From Monitor] Respiratory 24 26 H 37 H Rate Blood Pressure 159/51 159/51 161/53 O2 Sat by Pulse 98 97 97 Oximetry 07/12/16 07/12/16 07/12/16 03:20 03:30 03:40 Temperature Pulse Rate 96 H 71 72 Pulse Rate [ From Monitor] Respiratory 25 H 16 16 Rate Blood Pressure 161/53 161/53 120/50 O2 Sat by Pulse 96 99 Oximetry 07/12/16 07/12/16 07/12/16 03:50 04:00 04:10 Temperature Pulse Rate 77 81 75 Pulse Rate [ 82 From Monitor] Respiratory 16 16 16 Rate Blood Pressure 120/50 160/66 160/66 O2 Sat by Pulse 100 99 100 Oximetry 07/12/16 07/12/16 07/12/16 04:20 04:30 04:40 Temperature Pulse Rate 76 85 84 Pulse Rate [ From Monitor] Respiratory 16 27 H 15 Rate Blood Pressure 160/66 158/66 158/66 O2 Sat by Pulse 100 99 Oximetry 07/12/16 07/12/16 07/12/16 04:50 05:00 05:10 Temperature Pulse Rate 79 80 78 Pulse Rate [ From Monitor] Respiratory 22 18 20 Rate Blood Pressure 158/66 160/66 152/53 O2 Sat by Pulse 100 99 99 Oximetry 07/12/16 07/12/16 07/12/16 05:20 05:22 05:30 Temperature Pulse Rate 75 76 71 Pulse Rate [ From Monitor] Respiratory 18 16 Rate Blood Pressure 152/53 152/53 129/46 O2 Sat by Pulse 100 98 Oximetry 07/12/16 07/12/16 07/12/16 05:40 05:50 06:00 Temperature Pulse Rate 71 72 89 Pulse Rate [ From Monitor] Respiratory 16 16 15 Rate Blood Pressure 129/46 129/46 159/95 O2 Sat by Pulse 100 100 100 Oximetry 07/12/16 07/12/16 07/12/16 06:10 06:20 06:30 Temperature Pulse Rate 98 H 96 H 91 H Pulse Rate [ From Monitor] Respiratory 25 H 26 H 23 Rate Blood Pressure 159/95 159/95 159/95 O2 Sat by Pulse 100 100 100 Oximetry 07/12/16 07/12/16 07/12/16 06:40 06:50 07:00 Temperature Pulse Rate 96 H 80 85 Pulse Rate [ From Monitor] Respiratory 20 20 20 Rate Blood Pressure 180/58 180/58 183/58 O2 Sat by Pulse 100 100 100 Oximetry 07/12/16 07/12/16 07/12/16 07:10 07:20 07:30 Temperature Pulse Rate 94 H 91 H 80 Pulse Rate [ From Monitor] Respiratory 18 18 19 Rate Blood Pressure 154/71 154/71 159/55 O2 Sat by Pulse 100 100 100 Oximetry 07/12/16 07/12/16 07/12/16 07:37 07:40 07:42 Temperature Pulse Rate 80 79 Pulse Rate [ 79 From Monitor] Respiratory 16 23 Rate Blood Pressure 159/55 159/55 O2 Sat by Pulse 100 100 Oximetry 07/12/16 07/12/16 07/12/16 07:49 07:50 07:54 Temperature 99.8 F H Pulse Rate 80 78 Pulse Rate [ From Monitor] Respiratory 26 H 27 H Rate Blood Pressure 159/55 159/55 O2 Sat by Pulse 100 100 Oximetry 07/12/16 07/12/16 07/12/16 08:00 08:10 08:20 Temperature Pulse Rate 82 87 102 H Pulse Rate [ From Monitor] Respiratory 13 17 26 H Rate Blood Pressure 164/57 164/57 164/57 O2 Sat by Pulse 98 97 99 Oximetry 07/12/16 07/12/16 07/12/16 08:30 08:40 08:50 Temperature Pulse Rate 117 H 110 H 98 H Pulse Rate [ From Monitor] Respiratory 32 H 34 H 20 Rate Blood Pressure 164/57 164/54 164/54 O2 Sat by Pulse 99 98 97 Oximetry 07/12/16 07/12/16 07/12/16 09:00 09:01 09:10 Temperature Pulse Rate 93 H 91 H 92 H Pulse Rate [ From Monitor] Respiratory 14 21 21 Rate Blood Pressure 164/54 169/68 164/54 O2 Sat by Pulse 97 95 97 Oximetry 07/12/16 07/12/16 07/12/16 09:20 09:26 09:30 Temperature Pulse Rate 108 H 116 H Pulse Rate [ From Monitor] Respiratory 28 H 23 Rate Blood Pressure 164/54 164/54 O2 Sat by Pulse 96 96 100 Oximetry 07/12/16 07/12/16 07/12/16 09:40 09:48 09:50 Temperature Pulse Rate 100 H 91 H 117 H Pulse Rate [ From Monitor] Respiratory 20 25 H Rate Blood Pressure 167/53 167/53 167/53 O2 Sat by Pulse 97 95 Oximetry 07/12/16 07/12/16 07/12/16 10:00 10:10 10:20 Temperature Pulse Rate 97 H 110 H 99 H Pulse Rate [ From Monitor] Respiratory 14 22 18 Rate Blood Pressure 167/53 156/70 156/70 O2 Sat by Pulse 92 93 89 Oximetry 07/12/16 07/12/16 07/12/16 10:30 10:40 10:50 Temperature Pulse Rate 105 H 103 H 108 H Pulse Rate [ From Monitor] Respiratory 19 22 20 Rate Blood Pressure 156/70 158/69 158/69 O2 Sat by Pulse 92 91 94 Oximetry 07/12/16 07/12/16 11:00 11:10 Temperature Pulse Rate 114 H Pulse Rate [ From Monitor] Respiratory 29 H Rate Blood Pressure 158/69 182/68 O2 Sat by Pulse 93 92 Oximetry Constitutional: no acute distress, appears uncomfortable Eyes: non-icteric ENT: other (dry, mouth open, edentuolus, orally intubated) Neck: supple Ascultation: Bilateral: clear Percussion: Bilateral: not dull Tactile fremitus: Bilateral: normal Cardiovascular: regular rate and rhythm Gastrointestinal: normoactive bowel sounds Extremities: no cyanosis, no edema, other (contracted) Neurologic: unable to assess CBC and BMP: 07/12/16 04:00 07/12/16 04:00 ABG, PT/INR, D-dimer: ABG POC ABG pH 7.452 (7.35-7.45) H 07/12/16 09:10 POC ABG pCO2 33.2 (35-45) L 07/12/16 09:10 POC ABG pO2 74 (80-105) L 07/12/16 09:10 POC ABG HCO3 23.2 07/12/16 09:10 POC ABG Total CO2 24 07/12/16 09:10 POC ABG O2 Sat 96 07/12/16 09:10 PT/INR, D-dimer PT 13.4 Sec. (12.2-14.9) 07/09/16 20:31 INR 1.03 (0.87-1.13) 07/09/16 20:31 Abnormal lab findings: Abnormal Labs 07/10/16 07/10/16 07/10/16 06:22 06:48 06:48 WBC 14.5 H RBC 3.53 L Hgb 10.0 L Hct Plt Count 484 H Lymph % (Auto) 12.0 L [place] % (Auto) 7.4 H Eos % (Auto) Lymph # [place] # 1.1 H Eos # Seg Neutrophils % 77.4 H Seg Neutrophils # 11.2 H POC ABG pH POC ABG pCO2 POC ABG pO2 Sodium 148 H Chloride 109.2 H Carbon Dioxide BUN 33 H Creatinine 3.1 H Glucose 111 H POC Glucose 132 H Hemoglobin A1c Calcium Total Creatine Kinase CK-MB (CK-2) Total Protein Albumin Urine WBC (Auto) 07/10/16 07/10/16 07/10/16 08:06 08:18 08:55 WBC RBC Hgb Hct Plt Count Lymph % (Auto) [place] % (Auto) Eos % (Auto) Lymph # [place] # Eos # Seg Neutrophils % Seg Neutrophils # POC ABG pH 7.249 L POC ABG pCO2 54.1 H POC ABG pO2 Sodium Chloride Carbon Dioxide BUN Creatinine Glucose POC Glucose 141 H Hemoglobin A1c Calcium Total Creatine Kinase 334 H CK-MB (CK-2) 5.6 H Total Protein Albumin Urine WBC (Auto) 07/10/16 07/10/16 07/11/16 13:03 13:10 04:31 WBC 11.6 H RBC 3.49 L Hgb 9.7 L Hct Plt Count 442 H Lymph % (Auto) 9.8 L [place] % (Auto) 9.5 H Eos % (Auto) 5.2 H Lymph # 1.1 L [place] # 1.1 H Eos # 0.6 H Seg Neutrophils % 75.1 H Seg Neutrophils # 8.7 H POC ABG pH 7.330 L POC ABG pCO2 46.6 H POC ABG pO2 142 H Sodium Chloride Carbon Dioxide BUN Creatinine Glucose POC Glucose Hemoglobin A1c Calcium Total Creatine Kinase CK-MB (CK-2) Total Protein Albumin Urine WBC (Auto) 164.0 H 07/11/16 07/11/16 07/11/16 04:31 04:31 05:21 WBC RBC Hgb Hct Plt Count Lymph % (Auto) [place] % (Auto) Eos % (Auto) Lymph # [place] # Eos # Seg Neutrophils % Seg Neutrophils # POC ABG pH 7.482 H POC ABG pCO2 28.3 L POC ABG pO2 Sodium Chloride Carbon Dioxide 20 L BUN 36 H Creatinine 3.7 H Glucose 238 H POC Glucose Hemoglobin A1c 8.8 H Calcium 8.0 L Total Creatine Kinase CK-MB (CK-2) Total Protein 5.8 L Albumin 2.3 L Urine WBC (Auto) 07/11/16 07/11/16 07/11/16 08:19 11:51 17:04 WBC RBC Hgb Hct Plt Count Lymph % (Auto) [place] % (Auto) Eos % (Auto) Lymph # [place] # Eos # Seg Neutrophils % Seg Neutrophils # POC ABG pH POC ABG pCO2 POC ABG pO2 Sodium Chloride Carbon Dioxide BUN Creatinine Glucose POC Glucose 375 H 247 H 134 H Hemoglobin A1c Calcium Total Creatine Kinase CK-MB (CK-2) Total Protein Albumin Urine WBC (Auto) 07/11/16 07/12/16 07/12/16 20:24 00:36 04:00 WBC 15.9 H RBC 3.36 L Hgb 9.3 L Hct 28.9 L Plt Count Lymph % (Auto) 6.6 L [place] % (Auto) 10.2 H Eos % (Auto) Lymph # 1.1 L [place] # 1.6 H Eos # Seg Neutrophils % 82.5 H Seg Neutrophils # 13.1 H POC ABG pH POC ABG pCO2 POC ABG pO2 Sodium Chloride Carbon Dioxide BUN Creatinine Glucose POC Glucose 262 H 183 H Hemoglobin A1c Calcium Total Creatine Kinase CK-MB (CK-2) Total Protein Albumin Urine WBC (Auto) 07/12/16 07/12/16 07/12/16 04:00 05:22 06:18 WBC RBC Hgb Hct Plt Count Lymph % (Auto) [place] % (Auto) Eos % (Auto) Lymph # [place] # Eos # Seg Neutrophils % Seg Neutrophils # POC ABG pH POC ABG pCO2 29.5 L POC ABG pO2 67 L Sodium Chloride Carbon Dioxide 20 L BUN 37 H Creatinine 3.5 H Glucose 112 H POC Glucose 124 H Hemoglobin A1c Calcium Total Creatine Kinase CK-MB (CK-2) Total Protein Albumin Urine WBC (Auto) 07/12/16 09:10 WBC RBC Hgb Hct Plt Count Lymph % (Auto) [place] % (Auto) Eos % (Auto) Lymph # [place] # Eos # Seg Neutrophils % Seg Neutrophils # POC ABG pH 7.452 H POC ABG pCO2 33.2 L POC ABG pO2 74 L Sodium Chloride Carbon Dioxide BUN Creatinine Glucose POC Glucose Hemoglobin A1c Calcium Total Creatine Kinase CK-MB (CK-2) Total Protein Albumin Urine WBC (Auto)
--- NOTE | 2016-07-12 14:55 | Admit Criteria Form ---
Admission Criteria Documentation: URINARY COMPLICATIONS Clinical Indications for Inpatient Care (Place 'X' for any and all applicable criteria): Ongoing inpatient care may be indicated for urinary complications with ANY ONE of the following: [ ]I. Urinary tract infection requiring inpatient care as indicated by ANY ONE of the following(8)(19)(20): [ ]a) Severe symptoms (eg, high fever, severe pain) [ ]b) Vomiting or dehydration requiring ongoing inpatient care [ ]c) IV antibiotic needs that cannot be managed at lower level of care [ ]d) Hemodynamic instability [ ]e) Obstruction of collecting system by stone or tumor [ ]II. Urinary retention requiring drainage or surgery (3)(4)(5)(17)(18) [X ]III. Renal failure (Use Renal Failure Criteria for further information.) [ ]IV. Oliguria(30) [ ]V. Post obstructive diuresis requiring close monitoring of urine output and intravenous compensation for excessive fluid losses(33) Extended stay beyond goal length of stay for primary condition may be needed until ALL of the following are present(3)(4)(5)(8): [ ]a) Renal function (creatinine) at baseline, or daily decreases in creatinine consistent with renal function return [ ]b) Voiding adequately or with urinary catheter or percutaneous suprapubic tube and management regimen in place that is performable at lower level of care. [ ]c) Urine output adequate [ ]d) Fever absent or resolving [ ]e) Infection absent or treatable at next level of care The original [employer] content created by [employer] has been revised. The portions of the content which have been revised are identified through the use of italic text or in bold, and [facility] has neither reviewed nor approved the modified material. All other unmodified content is copyright [employer] Please see references footnoted in the original [facility] edition 2016 Admission Criteria Met: Yes
--- NOTE | 2016-07-12 15:47 | XRay Report ---
SUPINE KUB: History: feeding tube placement. The abdominal gas pattern is unremarkable. No masses or organomegaly is identified and there is no gross evidence of free air or fluid. No significant soft tissue calcifications are noted. The feeding tube is coiled in the fundus of the stomach. No change since earlier today at 1031 hours. IMPRESSION: Normal study.
--- NOTE | 2016-07-12 16:14 | Progress Note ---
Assessment and Plan Assessment and plan: --Acute respiratory failure, status post intubation Successfully extubated, continue oxygen titrated to O2 sats more than 90% nebulizers, IV antibiotics supportive care Continue tube feeding --Sepsis secondary to urinary tract infection Stress negative to date, continue antibiotics total 7 days --Acute renal failure probably prerenal versus ATN Creatinine level is trending down, nephrology following Gentle hydration closely monitor renal function, avoid nephrotoxic medications --Type 2 diabetes mellitus moderate control Accu-Chek sliding scale coverage and ADA diet and insulin, hemoglobin A1c 8.8 We will add 7030 Novolin long-acting insulin --Hypertension: Moderate control, continue current antihypertensives and when necessary medications --Toxic metabolic encephalopathy at the time of admission Multifactorial, continue supportive care --Multiorgan failure, advanced age, poor prognosis Patient's symptoms significantly improved now extubated --full CODE STATUS --DVT prophylaxis with Lovenox Physical therapy occupational therapy, DC planning. Case management We'll transfer the patient out of ICU late this evening or a.m. if stable Critical care time 31 minutes History Interval history: Patient seen and evaluated medical records reviewed Patient was successfully extubated, receiving [place] feeds Mild agitation, not in acute distress Vital signs reviewed Hospitalist Physical - Constitutional Vitals: Temp Pulse Resp BP Pulse Ox 98.5 F 115 H 16 191/51 94 07/12/16 15:56 07/12/16 14:10 07/12/16 14:10 07/12/16 14:10 07/12/16 14:10 General appearance: Present: no acute distress, well-nourished, other ( extubated / mild agitation) - EENT Eyes: Present: PERRL, EOM intact - Neck Neck: Present: supple, normal ROM - Respiratory Respiratory effort: normal Respiratory: bilateral: diminished, rhonchi (occasional), negative: rales, wheezing - Cardiovascular Rhythm: regular Heart Sounds: Present: S1 & S2 - Extremities Extremities: no ischemia, pulses intact, pulses symmetrical Peripheral Pulses: within normal limits - Abdominal General gastrointestinal: soft, non-tender, non-distended, normal bowel sounds - Integumentary Integumentary: Present: clear, warm - Psychiatric Psychiatric: agitated, other (confused) - Neurologic Neurologic: moves all extremities Results - Labs CBC & Chem 7: 07/12/16 04:00 07/12/16 04:00 Labs: Laboratory Last Values WBC 15.9 K/mm3 (4.5-11.0) H 07/12/16 04:00 RBC 3.36 M/mm3 (3.65-5.03) L 07/12/16 04:00 Hgb 9.3 gm/dl (10.1-14.3) L 07/12/16 04:00 Hct 28.9 % (30.3-42.9) L 07/12/16 04:00 MCV 86 fl (79-97) 07/12/16 04:00 MCH 28 pg (28-32) 07/12/16 04:00 MCHC 32 % (30-34) 07/12/16 04:00 RDW 14.2 % (13.2-15.2) 07/12/16 04:00 Plt Count 437 K/mm3 (140-440) 07/12/16 04:00 Lymph % (Auto) 6.6 % (13.4-35.0) L 07/12/16 04:00 [place] % (Auto) 10.2 % (0.0-7.3) H 07/12/16 04:00 Eos % (Auto) 0.4 % (0.0-4.3) 07/12/16 04:00 Baso % (Auto) 0.3 % (0.0-1.8) 07/12/16 04:00 Lymph # 1.1 K/mm3 (1.2-5.4) L 07/12/16 04:00 [place] # 1.6 K/mm3 (0.0-0.8) H 07/12/16 04:00 Eos # 0.1 K/mm3 (0.0-0.4) 07/12/16 04:00 Baso # 0.1 K/mm3 (0.0-0.1) 07/12/16 04:00 Seg Neutrophils % 82.5 % (40.0-70.0) H 07/12/16 04:00 Seg Neutrophils # 13.1 K/mm3 (1.8-7.7) H 07/12/16 04:00 PT 13.4 Sec. (12.2-14.9) 07/09/16 20:31 INR 1.03 (0.87-1.13) 07/09/16 20:31 POC ABG pH 7.452 (7.35-7.45) H 07/12/16 09:10 POC ABG pCO2 33.2 (35-45) L 07/12/16 09:10 POC ABG pO2 74 (80-105) L 07/12/16 09:10 POC ABG HCO3 23.2 07/12/16 09:10 POC ABG Total CO2 24 07/12/16 09:10 POC ABG O2 Sat 96 07/12/16 09:10 POC ABG Base Excess -1 07/12/16 09:10 FiO2 30 % 07/12/16 09:10 Sodium 137 mmol/L (137-145) 07/12/16 04:00 Potassium 4.1 mmol/L (3.6-5.0) 07/12/16 04:00 Chloride 101.4 mmol/L (98-107) 07/12/16 04:00 Carbon Dioxide 20 mmol/L (22-30) L 07/12/16 04:00 Anion Gap 20 mmol/L 07/12/16 04:00 BUN 37 mg/dL (7-17) H 07/12/16 04:00 Creatinine 3.5 mg/dL (0.7-1.2) H 07/12/16 04:00 Estimated GFR 15 ml/min 07/12/16 04:00 BUN/Creatinine Ratio 10.57 % 07/12/16 04:00 Glucose 112 mg/dL (65-100) H 07/12/16 04:00 POC Glucose 209 (70-105) H 07/12/16 11:49 Hemoglobin A1c 8.8 % (4-6) H 07/11/16 04:31 Calcium 8.4 mg/dL (8.4-10.2) 07/12/16 04:00 Magnesium 1.7 mg/dL (1.7-2.3) 07/11/16 04:31 Total Bilirubin 0.2 mg/dL (0.1-1.2) 07/11/16 04:31 Direct Bilirubin < 0.2 mg/dL (0-0.2) 07/11/16 04:31 Indirect Bilirubin 0.0 mg/dL 07/11/16 04:31 AST 21 units/L (5-40) 07/11/16 04:31 ALT 9 units/L (7-56) 07/11/16 04:31 Alkaline Phosphatase 80 units/L (35-129) 07/11/16 04:31 Ammonia 48.0 umol/L (25-60) 07/09/16 20:31 Total Creatine Kinase 334 units/L (30-135) H 07/10/16 08:55 CK-MB (CK-2) 5.6 ng/mL (0.0-4.0) H 07/10/16 08:55 CK-MB (CK-2) Rel Index 1.6 (0-4) 07/10/16 08:55 Troponin T 0.016 ng/mL (0.00-0.029) 07/10/16 08:55 Total Protein 5.8 g/dL (6.3-8.2) L 07/11/16 04:31 Albumin 2.3 g/dL (3.9-5) L 07/11/16 04:31 Albumin/Globulin Ratio 0.7 % 07/11/16 04:31 TSH 1.240 mlU/mL (0.270-4.200) 07/09/16 20:31 Free T4 1.40 ng/dL (0.76-1.46) 07/09/16 20:31 Urine Color [place] (Yellow) 07/10/16 13:10 Urine Turbidity Turbid (Clear) 07/10/16 13:10 Urine pH 6.0 (5.0-7.0) 07/10/16 13:10 Ur Specific [place] 1.016 (1.003-1.030) 07/10/16 13:10 Urine Protein 30 mg/dl mg/dL (Negative) 07/10/16 13:10 Urine Glucose (UA) 50 mg/dL (Negative) 07/10/16 13:10 Urine Ketones Neg mg/dL (Negative) 07/10/16 13:10 Urine Blood Sm (Negative) 07/10/16 13:10 Urine Nitrite Neg (Negative) 07/10/16 13:10 Urine Bilirubin Neg (Negative) 07/10/16 13:10 Urine Urobilinogen < 2.0 mg/dL (<2.0) 07/10/16 13:10 Ur Leukocyte Esterase Lg (Negative) 07/10/16 13:10 Urine WBC (Auto) 164.0 /HPF (0.0-6.0) H 07/10/16 13:10 Urine RBC (Auto) 33.0 /HPF (0.0-6.0) 07/10/16 13:10 U Epithel Cells (Auto) 5.0 /HPF (0-13.0) 07/10/16 13:10 Urine Bacteria (Auto) 4+ /HPF (Negative) 07/10/16 13:10 Urine Mucus 3+ /HPF 07/10/16 13:10 Urine Creatinine < 4.2 mg/dL (0.1-20.0) 07/11/16 13:03 Urine Sodium 10 mEq/L 07/11/16 13:03
[2016-07-12] MEDS: APRESOLINE IV PRN (18:39)
[2016-07-13] MEDS: D5/0.45NS 1,000 ML IV SCH (01:07)
[2016-07-13 05:28] LABS: Hematocrit 30.3 % (30.3-42.9); Hemoglobin 9.7 gm/dl (10.1-14.3); Mean Corpuscular HGB Conc 32 % (30-34); Mean Corpuscular Hemoglobin 28 pg (28-32); Mean Corpuscular Volume 86 fl (79-97); Platelet Count 529 K/mm3 (140-440); Red Blood Count 3.52 M/mm3 (3.65-5.03); Red Cell Distribution Width 14.7 % (13.2-15.2)
[2016-07-13] MEDS: ROCEPHIN/NS 1 GM/50 ML 1 GM/50 ML BAG IV SCH ×2 (05:49→23:16)
[2016-07-13] MEDS: NOVOLOG SUB-Q SCH ×5 (05:49→19:30)
[2016-07-13 05:57] LABS: BUN/Creatinine Ratio 14.09; Calcium 7.9 mg/dL (8.4-10.2); Chloride 99.4 mmol/L (98-107); Magnesium 1.3 mg/dL (1.7-2.3); Potassium 3.7 mmol/L (3.6-5.0)
[2016-07-13 06:01] LABS: White Blood Count 21.1 K/mm3 (4.5-11.0)
[2016-07-13 07:19] LABS: Basophils % (Manual) 0 % (0.0-1.8); Blastocytes % (Manual) 0 %; Eosinophils % (Manual) 0 % (0.0-4.3)
[2016-07-13 07:20] LABS: Anisocytosis 1+; Diff Status Complete; Hypersegmented Neutrophils Few; Platelet Estimate Appears Increased
--- NOTE | 2016-07-13 08:33 | Progress Note ---
Assessment and Plan Impression * Acute renal failure. May be prerenal. However due need to consider progression to ATN * Respiratory failure * Hypertension * Chronic back pain * Diabetes * Pyuria Recommendations * She most likely has a prerenal component. Her urine sodium is 10 * Patient's urine shows 1+ dipstick protein as well as pyuria * Renal function is improving. Urine output is better. Continue IV hydration. Shall reduce the rate of IV fluid * Follow-up results of urine for eosinophils also * Continue empiric antibiotics * Patient's renal function was normal last month. However her creatinine was 2.4 on admission * Monitor patient's fluid status and electrolytes closely * Avoid nephrotoxins * Shall keep her off her lisinopril for now Subjective Date of service: 07/13/16 Interval history: Patient has been extubated. Currently on a face mask. Objective - Vital Signs Vital signs: Vital Signs - 12hr 07/12/16 07/12/16 07/12/16 20:40 20:50 21:00 Temperature Pulse Rate 137 H 118 H 112 H Respiratory 15 13 20 Rate Blood Pressure 143/66 143/66 143/66 O2 Sat by Pulse 93 91 91 Oximetry 07/12/16 07/12/16 07/12/16 21:10 21:20 21:30 Temperature Pulse Rate 129 H 124 H 111 H Respiratory 22 15 20 Rate Blood Pressure 170/90 170/90 170/90 O2 Sat by Pulse 95 94 94 Oximetry 07/12/16 07/12/16 07/12/16 21:35 21:40 21:50 Temperature Pulse Rate 122 H 111 H Respiratory 19 22 Rate Blood Pressure 129/62 129/62 O2 Sat by Pulse 95 94 93 Oximetry 07/12/16 07/12/16 07/12/16 22:00 22:10 22:20 Temperature Pulse Rate 140 H 117 H 122 H Respiratory 16 14 24 Rate Blood Pressure 129/62 129/49 129/49 O2 Sat by Pulse 93 93 93 Oximetry 07/12/16 07/12/16 07/12/16 22:30 22:40 22:50 Temperature Pulse Rate 106 H 116 H 101 H Respiratory 17 20 32 H Rate Blood Pressure 144/55 144/55 144/55 O2 Sat by Pulse 91 90 92 Oximetry 07/12/16 07/12/16 07/12/16 23:00 23:10 23:20 Temperature Pulse Rate 101 H 112 H 103 H Respiratory 25 H 27 H 21 Rate Blood Pressure 144/55 129/46 129/46 O2 Sat by Pulse 91 92 92 Oximetry 07/12/16 07/12/16 07/12/16 23:30 23:40 23:42 Temperature 99.2 F Pulse Rate 103 H 101 H Respiratory 22 23 Rate Blood Pressure 129/46 127/60 O2 Sat by Pulse 94 95 Oximetry 07/12/16 07/13/16 07/13/16 23:50 00:00 00:10 Temperature Pulse Rate 103 H 102 H 103 H Respiratory 24 23 22 Rate Blood Pressure 127/60 127/60 145/58 O2 Sat by Pulse 95 95 94 Oximetry 07/13/16 07/13/16 07/13/16 00:20 00:30 00:40 Temperature Pulse Rate 100 H 112 H 107 H Respiratory 13 20 19 Rate Blood Pressure 145/58 145/58 152/61 O2 Sat by Pulse 93 94 94 Oximetry 07/13/16 07/13/16 07/13/16 00:50 01:00 01:10 Temperature Pulse Rate 105 H 115 H 102 H Respiratory 19 23 21 Rate Blood Pressure 152/61 152/61 153/64 O2 Sat by Pulse 96 96 96 Oximetry 07/13/16 07/13/16 07/13/16 01:20 01:30 01:40 Temperature Pulse Rate 101 H 114 H 107 H Respiratory 14 19 15 Rate Blood Pressure 153/64 153/64 162/58 O2 Sat by Pulse 97 97 97 Oximetry 07/13/16 07/13/16 07/13/16 01:50 02:00 02:10 Temperature Pulse Rate 122 H 106 H 101 H Respiratory 19 13 18 Rate Blood Pressure 162/58 162/58 169/70 O2 Sat by Pulse 97 97 97 Oximetry 07/13/16 07/13/16 07/13/16 02:20 02:30 02:40 Temperature Pulse Rate 111 H 123 H 114 H Respiratory 26 H 25 H 18 Rate Blood Pressure 169/70 169/70 169/70 O2 Sat by Pulse 97 94 94 Oximetry 07/13/16 07/13/16 07/13/16 02:50 03:00 03:10 Temperature Pulse Rate 113 H 120 H 123 H Respiratory 20 20 18 Rate Blood Pressure 169/70 169/70 149/57 O2 Sat by Pulse 94 95 96 Oximetry 03/07/13/16 07/13/16 03:20 03:30 03:40 Temperature Pulse Rate 111 H 105 H 133 H Respiratory 23 23 19 Rate Blood Pressure 149/57 149/57 153/49 O2 Sat by Pulse 95 95 95 Oximetry 07/13/16 07/13/16 07/13/16 03:50 04:00 04:10 Temperature Pulse Rate 124 H 115 H 114 H Respiratory 15 19 19 Rate Blood Pressure 153/49 150/75 154/62 O2 Sat by Pulse 95 95 96 Oximetry 07/13/16 07/13/16 07/13/16 04:20 04:25 04:30 Temperature 98.4 F Pulse Rate 100 H 107 H Respiratory 23 20 Rate Blood Pressure 154/62 154/59 O2 Sat by Pulse 96 95 Oximetry 07/13/16 07/13/16 07/13/16 04:40 04:50 05:00 Temperature Pulse Rate 139 H 119 H 120 H Respiratory 19 22 24 Rate Blood Pressure 154/59 154/59 154/59 O2 Sat by Pulse 95 93 Oximetry - General Appearance General appearance: well-developed, well-nourished, appears stated age EENT: PERRL, mucous membranes moist Neck: no JVD, no thyromegaly, no carotid bruit, supple Respiratory: Present: Ronchi (bilateral scattered rhonchi) Cardiology: regular, normal heart rate Gastrointestinal: normal, normoactive bowel sounds Integumentary: other (no edema) - Lab 07/13/16 04:45 07/13/16 04:45 Most recent lab results Calcium 7.9 mg/dL (8.4-10.2) L 07/13/16 04:45 Magnesium 1.3 mg/dL (1.7-2.3) L 07/13/16 04:45 Urine Creatinine < 4.2 mg/dL (0.1-20.0) 07/11/16 13:03 Urine Sodium 10 mEq/L 07/11/16 13:03
[2016-07-13] MEDS ORDERED: XANAX PO ONE (08:58)
[2016-07-13] MEDS ORDERED: MAGNESIUM SULFATE 4GM/100ML 4 GM/100 ML BAG IV ONE (09:00)
--- NOTE | 2016-07-13 09:50 | XRay Report ---
AP CHEST: HISTORY: Followup respiratory failure The patient has been extubated. Mild bibasilar atelectatic changes have nearly resolved. The lungs are generally clear. No pleural effusion or pneumothorax. Heart size is within normal limits The feeding tube is unchanged since yesterday's exam. IMPRESSION: No acute process.
[2016-07-13] MEDS: LOVENOX SUB-Q SCH (10:30)
--- NOTE | 2016-07-13 11:29 | Progress Note ---
Assessment and Plan Acute respiratory failure. Patient extubated yesterday and currently on oxygen support Chest congestion, possibly aspiration bronchitis at this point. X-ray showed elevation of the right hemidiaphragm may be minimal infiltrate at left base. Report pending. WBC still high Narcotic overdose. Some tachycardia. Pupillary reflex adequate. Need to monitor for withdrawal symptoms Recommendations Continue broad-spectrum antibiotics. Nebulizer treatment Mild sedation with narcotics as needed No family available for case discussion. Critical care time with 31 minutes in [id number] evaluation and coordination of care Subjective Date of service: 07/13/16 Principal diagnosis: acute respiratory failure, narcotic overdose, AMS Interval history: No shortness of breath at this time. Still confused Objective Vital Signs - 12hr 07/12/16 07/12/16 07/12/16 23:30 23:40 23:42 Temperature 99.2 F Pulse Rate 103 H 101 H Respiratory 22 23 Rate Blood Pressure 129/46 127/60 O2 Sat by Pulse 94 95 Oximetry 07/12/16 07/13/16 07/13/16 23:50 00:00 00:10 Temperature Pulse Rate 103 H 102 H 103 H Respiratory 24 23 22 Rate Blood Pressure 127/60 127/60 145/58 O2 Sat by Pulse 95 95 94 Oximetry 07/13/16 07/13/16 07/13/16 00:20 00:30 00:40 Temperature Pulse Rate 100 H 112 H 107 H Respiratory 13 20 19 Rate Blood Pressure 145/58 145/58 152/61 O2 Sat by Pulse 93 94 94 Oximetry 07/13/16 07/13/16 07/13/16 00:50 01:00 01:10 Temperature Pulse Rate 105 H 115 H 102 H Respiratory 19 23 21 Rate Blood Pressure 152/61 152/61 153/64 O2 Sat by Pulse 96 96 96 Oximetry 07/13/16 07/13/16 07/13/16 01:20 01:30 01:40 Temperature Pulse Rate 101 H 114 H 107 H Respiratory 14 19 15 Rate Blood Pressure 153/64 153/64 162/58 O2 Sat by Pulse 97 97 97 Oximetry 07/13/16 07/13/16 07/13/16 01:50 02:00 02:10 Temperature Pulse Rate 122 H 106 H 101 H Respiratory 19 13 18 Rate Blood Pressure 162/58 162/58 169/70 O2 Sat by Pulse 97 97 97 Oximetry 07/13/16 07/13/16 07/13/16 02:20 02:30 02:40 Temperature Pulse Rate 111 H 123 H 114 H Respiratory 26 H 25 H 18 Rate Blood Pressure 169/70 169/70 169/70 O2 Sat by Pulse 97 94 94 Oximetry 07/13/16 07/13/16 07/13/16 02:50 03:00 03:10 Temperature Pulse Rate 113 H 120 H 123 H Respiratory 20 20 18 Rate Blood Pressure 169/70 169/70 149/57 O2 Sat by Pulse 94 95 96 Oximetry 07/13/16 07/13/16 07/13/16 03:20 03:30 03:40 Temperature Pulse Rate 111 H 105 H 133 H Respiratory 23 23 19 Rate Blood Pressure 149/57 149/57 153/49 O2 Sat by Pulse 95 95 95 Oximetry 07/13/16 07/13/16 07/13/16 03:50 04:00 04:10 Temperature Pulse Rate 124 H 115 H 114 H Respiratory 15 19 19 Rate Blood Pressure 153/49 150/75 154/62 O2 Sat by Pulse 95 95 96 Oximetry 07/13/16 07/13/16 07/13/16 04:20 04:25 04:30 Temperature 98.4 F Pulse Rate 100 H 107 H Respiratory 23 20 Rate Blood Pressure 154/62 154/59 O2 Sat by Pulse 96 95 Oximetry 07/13/16 07/13/16 07/13/16 04:40 04:50 05:00 Temperature Pulse Rate 139 H 119 H 120 H Respiratory 19 22 24 Rate Blood Pressure 154/59 154/59 154/59 O2 Sat by Pulse 95 93 Oximetry 07/13/16 07/13/16 07/13/16 05:10 05:20 05:30 Temperature Pulse Rate 126 H 112 H 118 H Respiratory 20 22 23 Rate Blood Pressure 155/56 155/56 155/56 O2 Sat by Pulse 94 95 97 Oximetry 07/13/16 07/13/16 07/13/16 05:40 05:50 06:00 Temperature Pulse Rate 122 H 132 H 131 H Respiratory 22 17 23 Rate Blood Pressure 150/63 150/63 150/63 O2 Sat by Pulse 97 97 97 Oximetry 07/13/16 07/13/16 07/13/16 06:10 06:20 06:30 Temperature Pulse Rate 118 H 115 H 124 H Respiratory 23 20 22 Rate Blood Pressure 176/65 176/65 176/65 O2 Sat by Pulse 97 97 Oximetry 07/13/16 07/13/16 07/13/16 06:40 06:50 07:00 Temperature Pulse Rate 119 H 131 H 125 H Respiratory 26 H 27 H 28 H Rate Blood Pressure 154/85 154/85 154/85 O2 Sat by Pulse 96 96 96 Oximetry 07/13/16 07/13/16 07/13/16 07:10 07:20 07:30 Temperature Pulse Rate 114 H 131 H 140 H Respiratory 24 30 H 30 H Rate Blood Pressure 178/76 178/76 178/76 O2 Sat by Pulse 95 95 96 Oximetry 07/13/16 07/13/16 07/13/16 07:40 07:50 08:00 Temperature Pulse Rate 130 H 110 H 115 H Respiratory 30 H 25 H 26 H Rate Blood Pressure 136/71 136/71 136/71 O2 Sat by Pulse 97 97 97 Oximetry 07/13/16 07/13/16 07/13/16 08:10 08:20 08:30 Temperature Pulse Rate 133 H 134 H 121 H Respiratory 23 24 24 Rate Blood Pressure 148/55 148/55 148/55 O2 Sat by Pulse 98 98 98 Oximetry 07/13/16 09:00 Temperature 98.4 F Pulse Rate Respiratory Rate Blood Pressure O2 Sat by Pulse Oximetry Constitutional: no acute distress, alert, appears uncomfortable Eyes: non-icteric Neck: supple Ascultation: Bilateral: rhonchi (sporadic otherwise clear) Percussion: Bilateral: not dull Tactile fremitus: Bilateral: normal Cardiovascular: regular rate and rhythm, other (tachycardic) Gastrointestinal: normoactive bowel sounds Extremities: no cyanosis, no edema, other (contracted) Neurologic: unable to assess CBC and BMP: 07/13/16 04:45 07/13/16 04:45 ABG, PT/INR, D-dimer: ABG POC ABG pH 7.452 (7.35-7.45) H 07/12/16 09:10 POC ABG pCO2 33.2 (35-45) L 07/12/16 09:10 POC ABG pO2 74 (80-105) L 07/12/16 09:10 POC ABG HCO3 23.2 07/12/16 09:10 POC ABG Total CO2 24 07/12/16 09:10 POC ABG O2 Sat 96 07/12/16 09:10 PT/INR, D-dimer PT 13.4 Sec. (12.2-14.9) 07/09/16 20:31 INR 1.03 (0.87-1.13) 07/09/16 20:31 Abnormal lab findings: Abnormal Labs 07/10/16 07/10/16 07/10/16 06:22 06:48 06:48 WBC 14.5 H RBC 3.53 L Hgb 10.0 L Hct Plt Count 484 H Lymph % (Auto) 12.0 L [place] % (Auto) 7.4 H Eos % (Auto) Lymph # [place] # 1.1 H Eos # Seg Neutrophils % 77.4 H Seg Neuts % (Manual) Lymphocytes % (Manual) Monocytes % (Manual) Seg Neutrophils # 11.2 H Seg Neutrophils # Man Monocytes # (Manual) POC ABG pH POC ABG pCO2 POC ABG pO2 Sodium 148 H Chloride 109.2 H Carbon Dioxide BUN 33 H Creatinine 3.1 H Glucose 111 H POC Glucose 132 H Hemoglobin A1c Calcium Magnesium Total Creatine Kinase CK-MB (CK-2) Total Protein Albumin Urine WBC (Auto) 07/10/16 07/10/16 07/10/16 08:06 08:18 08:55 WBC RBC Hgb Hct Plt Count Lymph % (Auto) [place] % (Auto) Eos % (Auto) Lymph # [place] # Eos # Seg Neutrophils % Seg Neuts % (Manual) Lymphocytes % (Manual) Monocytes % (Manual) Seg Neutrophils # Seg Neutrophils # Man Monocytes # (Manual) POC ABG pH 7.249 L POC ABG pCO2 54.1 H POC ABG pO2 Sodium Chloride Carbon Dioxide BUN Creatinine Glucose POC Glucose 141 H Hemoglobin A1c Calcium Magnesium Total Creatine Kinase 334 H CK-MB (CK-2) 5.6 H Total Protein Albumin Urine WBC (Auto) 07/10/16 07/10/16 07/11/16 13:03 13:10 04:31 WBC 11.6 H RBC 3.49 L Hgb 9.7 L Hct Plt Count 442 H Lymph % (Auto) 9.8 L [place] % (Auto) 9.5 H Eos % (Auto) 5.2 H Lymph # 1.1 L [place] # 1.1 H Eos # 0.6 H Seg Neutrophils % 75.1 H Seg Neuts % (Manual) Lymphocytes % (Manual) Monocytes % (Manual) Seg Neutrophils # 8.7 H Seg Neutrophils # Man Monocytes # (Manual) POC ABG pH 7.330 L POC ABG pCO2 46.6 H POC ABG pO2 142 H Sodium Chloride Carbon Dioxide BUN Creatinine Glucose POC Glucose Hemoglobin A1c Calcium Magnesium Total Creatine Kinase CK-MB (CK-2) Total Protein Albumin Urine WBC (Auto) 164.0 H 07/11/16 07/11/16 07/11/16 04:31 04:31 05:21 WBC RBC Hgb Hct Plt Count Lymph % (Auto) [place] % (Auto) Eos % (Auto) Lymph # [place] # Eos # Seg Neutrophils % Seg Neuts % (Manual) Lymphocytes % (Manual) Monocytes % (Manual) Seg Neutrophils # Seg Neutrophils # Man Monocytes # (Manual) POC ABG pH 7.482 H POC ABG pCO2 28.3 L POC ABG pO2 Sodium Chloride Carbon Dioxide 20 L BUN 36 H Creatinine 3.7 H Glucose 238 H POC Glucose Hemoglobin A1c 8.8 H Calcium 8.0 L Magnesium Total Creatine Kinase CK-MB (CK-2) Total Protein 5.8 L Albumin 2.3 L Urine WBC (Auto) 07/11/16 07/11/16 07/11/16 08:19 11:51 17:04 WBC RBC Hgb Hct Plt Count Lymph % (Auto) [place] % (Auto) Eos % (Auto) Lymph # [place] # Eos # Seg Neutrophils % Seg Neuts % (Manual) Lymphocytes % (Manual) Monocytes % (Manual) Seg Neutrophils # Seg Neutrophils # Man Monocytes # (Manual) POC ABG pH POC ABG pCO2 POC ABG pO2 Sodium Chloride Carbon Dioxide BUN Creatinine Glucose POC Glucose 375 H 247 H 134 H Hemoglobin A1c Calcium Magnesium Total Creatine Kinase CK-MB (CK-2) Total Protein Albumin Urine WBC (Auto) 07/11/16 07/12/16 07/12/16 20:24 00:36 04:00 WBC 15.9 H RBC 3.36 L Hgb 9.3 L Hct 28.9 L Plt Count Lymph % (Auto) 6.6 L [place] % (Auto) 10.2 H Eos % (Auto) Lymph # 1.1 L [place] # 1.6 H Eos # Seg Neutrophils % 82.5 H Seg Neuts % (Manual) Lymphocytes % (Manual) Monocytes % (Manual) Seg Neutrophils # 13.1 H Seg Neutrophils # Man Monocytes # (Manual) POC ABG pH POC ABG pCO2 POC ABG pO2 Sodium Chloride Carbon Dioxide BUN Creatinine Glucose POC Glucose 262 H 183 H Hemoglobin A1c Calcium Magnesium Total Creatine Kinase CK-MB (CK-2) Total Protein Albumin Urine WBC (Auto) 07/12/16 07/12/16 07/12/16 04:00 05:22 06:18 WBC RBC Hgb Hct Plt Count Lymph % (Auto) [place] % (Auto) Eos % (Auto) Lymph # [place] # Eos # Seg Neutrophils % Seg Neuts % (Manual) Lymphocytes % (Manual) Monocytes % (Manual) Seg Neutrophils # Seg Neutrophils # Man Monocytes # (Manual) POC ABG pH POC ABG pCO2 29.5 L POC ABG pO2 67 L Sodium Chloride Carbon Dioxide 20 L BUN 37 H Creatinine 3.5 H Glucose 112 H POC Glucose 124 H Hemoglobin A1c Calcium Magnesium Total Creatine Kinase CK-MB (CK-2) Total Protein Albumin Urine WBC (Auto) 07/12/16 07/12/16 07/12/16 09:10 09:23 11:49 WBC RBC Hgb Hct Plt Count Lymph % (Auto) [place] % (Auto) Eos % (Auto) Lymph # [place] # Eos # Seg Neutrophils % Seg Neuts % (Manual) Lymphocytes % (Manual) Monocytes % (Manual) Seg Neutrophils # Seg Neutrophils # Man Monocytes # (Manual) POC ABG pH 7.452 H POC ABG pCO2 33.2 L POC ABG pO2 74 L Sodium Chloride Carbon Dioxide BUN Creatinine Glucose POC Glucose 162 H 209 H Hemoglobin A1c Calcium Magnesium Total Creatine Kinase CK-MB (CK-2) Total Protein Albumin Urine WBC (Auto) 07/12/16 07/12/16 07/13/16 17:45 23:25 04:45 WBC 21.1 H RBC 3.52 L Hgb 9.7 L Hct Plt Count 529 H Lymph % (Auto) [place] % (Auto) Eos % (Auto) Lymph # [place] # Eos # Seg Neutrophils % Seg Neuts % (Manual) 75.0 H Lymphocytes % (Manual) 11.0 L Monocytes % (Manual) 8.0 H Seg Neutrophils # Seg Neutrophils # Man 15.8 H Monocytes # (Manual) 1.7 H POC ABG pH POC ABG pCO2 POC ABG pO2 Sodium Chloride Carbon Dioxide BUN Creatinine Glucose POC Glucose 126 H 151 H Hemoglobin A1c Calcium Magnesium Total Creatine Kinase CK-MB (CK-2) Total Protein Albumin Urine WBC (Auto) 07/13/16 07/13/16 07/13/16 04:45 06:02 06:09 WBC RBC Hgb Hct Plt Count Lymph % (Auto) [place] % (Auto) Eos % (Auto) Lymph # [place] # Eos # Seg Neutrophils % Seg Neuts % (Manual) Lymphocytes % (Manual) Monocytes % (Manual) Seg Neutrophils # Seg Neutrophils # Man Monocytes # (Manual) POC ABG pH POC ABG pCO2 POC ABG pO2 Sodium 134 L Chloride Carbon Dioxide 21 L BUN 31 H Creatinine 2.2 H Glucose 230 H POC Glucose 267 H 257 H Hemoglobin A1c Calcium 7.9 L Magnesium 1.3 L Total Creatine Kinase CK-MB (CK-2) Total Protein Albumin Urine WBC (Auto)
[2016-07-13] MEDS: NORVASC FEEDTUBE SCH (11:31)
[2016-07-13] MEDS: PEPCID IV SCH (11:31)
--- NOTE | 2016-07-13 13:21 | Progress Note ---
Assessment and Plan Assessment and plan: --Metabolic encephalopathy Severe confusion and agitation Haldol as needed, supportive care --Leukocytosis; Patient has recurrent UTI, chest x-ray suspicious for pneumonia Add Levaquin to the regimen Follow cultures --Acute respiratory failure, status post intubation Continue nebulizers ,oxygen titrated to O2 sats to 1 than 90% --Sepsis secondary to urinary tract infection Cultures negative to date, continue antibiotics total 7 days --Acute renal failure probably prerenal versus ATN Trending down, management per nephrology --Type 2 diabetes mellitus moderate control Accu-Chek sliding scale coverage and ADA diet and insulin, hemoglobin A1c 8.8 We will add 7030 Novolin long-acting insulin --Hypertension: Moderate control, continue current antihypertensives and when necessary medications --Dementia, supportive care --full CODE STATUS --DVT prophylaxis with Lovenox Physical therapy occupational therapy, We'll transfer the patient out of ICU to telemetry DC planning. Case management History Interval history: Patient seen and evaluated in her room in ICU medical records reviewed Was extubated yesterday, has been agitated and confused, on Ventimask oxygen saturating well Receiving [place]obbhoff feeding No new events reported by the nursing staff Patient is afebrile in mild distress secondary to agitation and confusion Hospitalist Physical - Constitutional Vitals: Temp Pulse Resp BP Pulse Ox 99.3 F 145 H 24 148/55 96 07/13/16 12:00 07/13/16 11:31 07/13/16 08:30 07/13/16 08:30 07/13/16 12:20 General appearance: Present: no acute distress, well-nourished, other (agitated and confused) - EENT Eyes: Present: PERRL, EOM intact - Neck Neck: Present: supple, normal ROM - Respiratory Respiratory effort: normal Respiratory: bilateral: diminished, rhonchi, negative: rales, wheezing - Cardiovascular Rhythm: regular Heart Sounds: Present: S1 & S2 (tachycardia) - Extremities Extremities: no ischemia, pulses intact Peripheral Pulses: within normal limits - Abdominal General gastrointestinal: soft, non-tender, non-distended, normal bowel sounds - Integumentary Integumentary: Present: clear, warm - Psychiatric Psychiatric: other (confused noncommunicative) - Neurologic Neurologic: moves all extremities Results - Labs CBC & Chem 7: 07/13/16 04:45 07/13/16 04:45 Labs: Laboratory Last Values WBC 21.1 K/mm3 (4.5-11.0) H 07/13/16 04:45 RBC 3.52 M/mm3 (3.65-5.03) L 07/13/16 04:45 Hgb 9.7 gm/dl (10.1-14.3) L 07/13/16 04:45 Hct 30.3 % (30.3-42.9) 07/13/16 04:45 MCV 86 fl (79-97) 07/13/16 04:45 MCH 28 pg (28-32) 07/13/16 04:45 MCHC 32 % (30-34) 07/13/16 04:45 RDW 14.7 % (13.2-15.2) 07/13/16 04:45 Plt Count 529 K/mm3 (140-440) H 07/13/16 04:45 Lymph % (Auto) 6.6 % (13.4-35.0) L 07/12/16 04:00 [place] % (Auto) 10.2 % (0.0-7.3) H 07/12/16 04:00 Eos % (Auto) 0.4 % (0.0-4.3) 07/12/16 04:00 Baso % (Auto) 0.3 % (0.0-1.8) 07/12/16 04:00 Lymph # 1.1 K/mm3 (1.2-5.4) L 07/12/16 04:00 [place] # 1.6 K/mm3 (0.0-0.8) H 07/12/16 04:00 Eos # 0.1 K/mm3 (0.0-0.4) 07/12/16 04:00 Baso # 0.1 K/mm3 (0.0-0.1) 07/12/16 04:00 Add Manual Diff Complete 07/13/16 04:45 Total Counted 100 07/13/16 04:45 Seg Neutrophils % 82.5 % (40.0-70.0) H 07/12/16 04:00 Seg Neuts % (Manual) 75.0 % (40.0-70.0) H 07/13/16 04:45 Band Neutrophils % 3.0 % 07/13/16 04:45 Lymphocytes % (Manual) 11.0 % (13.4-35.0) L 07/13/16 04:45 Reactive Lymphs % (Man) 0 % 07/13/16 04:45 Monocytes % (Manual) 8.0 % (0.0-7.3) H 07/13/16 04:45 Eosinophils % (Manual) 0 % (0.0-4.3) 07/13/16 04:45 Basophils % (Manual) 0 % (0.0-1.8) 07/13/16 04:45 Metamyelocytes % 3.0 % 07/13/16 04:45 Myelocytes % 0 % 07/13/16 04:45 Promyelocytes % 0 % 07/13/16 04:45 Blast Cells % 0 % 07/13/16 04:45 Nucleated RBC % Not Reportable 07/13/16 04:45 Seg Neutrophils # 13.1 K/mm3 (1.8-7.7) H 07/12/16 04:00 Seg Neutrophils # Man 15.8 K/mm3 (1.8-7.7) H 07/13/16 04:45 Band Neutrophils # 0.6 K/mm3 07/13/16 04:45 Lymphocytes # (Manual) 2.3 K/mm3 (1.2-5.4) 07/13/16 04:45 Abs React Lymphs (Man) 0.0 K/mm3 07/13/16 04:45 Monocytes # (Manual) 1.7 K/mm3 (0.0-0.8) H 07/13/16 04:45 Eosinophils # (Manual) 0.0 K/mm3 (0.0-0.4) 07/13/16 04:45 Basophils # (Manual) 0.0 K/mm3 (0.0-0.1) 07/13/16 04:45 Metamyelocytes # 0.6 K/mm3 07/13/16 04:45 Myelocytes # 0.0 K/mm3 07/13/16 04:45 Promyelocytes # 0.0 K/mm3 07/13/16 04:45 Blast Cells # 0.0 K/mm3 07/13/16 04:45 WBC Morphology Not Reportable 07/13/16 04:45 Hypersegmented Neuts Few 07/13/16 04:45 Hyposegmented Neuts Not Reportable 07/13/16 04:45 Hypogranular Neuts Not Reportable 07/13/16 04:45 Smudge Cells Not Reportable 07/13/16 04:45 Toxic Granulation Not Reportable 07/13/16 04:45 Toxic Vacuolation Not Reportable 07/13/16 04:45 Dohle Bodies Not Reportable 07/13/16 04:45 Pelger-Huet Anomaly Not Reportable 07/13/16 04:45 James Rods Not Reportable 07/13/16 04:45 Platelet Estimate Appears increased 07/13/16 04:45 Clumped Platelets Not Reportable 07/13/16 04:45 Plt Clumps, EDTA Not Reportable 07/13/16 04:45 Large Platelets Not Reportable 07/13/16 04:45 Giant Platelets Not Reportable 07/13/16 04:45 Platelet Satelliting Not Reportable 07/13/16 04:45 Plt Morphology Comment Not Reportable 07/13/16 04:45 RBC Morphology Not Reportable 07/13/16 04:45 Dimorphic RBCs Not Reportable 07/13/16 04:45 Polychromasia Not Reportable 07/13/16 04:45 Hypochromasia Not Reportable 07/13/16 04:45 Poikilocytosis Not Reportable 07/13/16 04:45 Anisocytosis 1+ 07/13/16 04:45 Microcytosis Not Reportable 07/13/16 04:45 Macrocytosis Not Reportable 07/13/16 04:45 Spherocytes Not Reportable 07/13/16 04:45 Pappenheimer Bodies Not Reportable 07/13/16 04:45 Sickle Cells Not Reportable 07/13/16 04:45 Target Cells Not Reportable 07/13/16 04:45 Tear Drop Cells Not Reportable 07/13/16 04:45 Ovalocytes Not Reportable 07/13/16 04:45 Helmet Cells Not Reportable 07/13/16 04:45 [place] Bodies Not Reportable 07/13/16 04:45 [place] Rings Not Reportable 07/13/16 04:45 Yolanda Cells Not Reportable 07/13/16 04:45 Bite Cells Not Reportable 07/13/16 04:45 Crenated Cell Not Reportable 07/13/16 04:45 Elliptocytes Not Reportable 07/13/16 04:45 Acanthocytes (Spur) Not Reportable 07/13/16 04:45 Rouleaux Not Reportable 07/13/16 04:45 Hemoglobin C Crystals Not Reportable 07/13/16 04:45 Schistocytes Not Reportable 07/13/16 04:45 Malaria parasites Not Reportable 07/13/16 04:45 [place] Bodies Not Reportable 07/13/16 04:45 Hem Pathologist Commnt No 07/13/16 04:45 PT 13.4 Sec. (12.2-14.9) 07/09/16 20:31 INR 1.03 (0.87-1.13) 07/09/16 20:31 POC ABG pH 7.452 (7.35-7.45) H 07/12/16 09:10 POC ABG pCO2 33.2 (35-45) L 07/12/16 09:10 POC ABG pO2 74 (80-105) L 07/12/16 09:10 POC ABG HCO3 23.2 07/12/16 09:10 POC ABG Total CO2 24 07/12/16 09:10 POC ABG O2 Sat 96 07/12/16 09:10 POC ABG Base Excess -1 07/12/16 09:10 FiO2 30 % 07/12/16 09:10 Sodium 134 mmol/L (137-145) L 07/13/16 04:45 Potassium 3.7 mmol/L (3.6-5.0) 07/13/16 04:45 Chloride 99.4 mmol/L (98-107) 07/13/16 04:45 Carbon Dioxide 21 mmol/L (22-30) L 07/13/16 04:45 Anion Gap 17 mmol/L 07/13/16 04:45 BUN 31 mg/dL (7-17) H 07/13/16 04:45 Creatinine 2.2 mg/dL (0.7-1.2) H 07/13/16 04:45 Estimated GFR 26 ml/min 07/13/16 04:45 BUN/Creatinine Ratio 14.09 % 07/13/16 04:45 Glucose 230 mg/dL (65-100) H 07/13/16 04:45 POC Glucose 257 (70-105) H 07/13/16 06:09 Hemoglobin A1c 8.8 % (4-6) H 07/11/16 04:31 Calcium 7.9 mg/dL (8.4-10.2) L 07/13/16 04:45 Magnesium 1.3 mg/dL (1.7-2.3) L 07/13/16 04:45 Total Bilirubin 0.2 mg/dL (0.1-1.2) 07/11/16 04:31 Direct Bilirubin < 0.2 mg/dL (0-0.2) 07/11/16 04:31 Indirect Bilirubin 0.0 mg/dL 07/11/16 04:31 AST 21 units/L (5-40) 07/11/16 04:31 ALT 9 units/L (7-56) 07/11/16 04:31 Alkaline Phosphatase 80 units/L (35-129) 07/11/16 04:31 Ammonia 48.0 umol/L (25-60) 07/09/16 20:31 Total Creatine Kinase 334 units/L (30-135) H 07/10/16 08:55 CK-MB (CK-2) 5.6 ng/mL (0.0-4.0) H 07/10/16 08:55 CK-MB (CK-2) Rel Index 1.6 (0-4) 07/10/16 08:55 Troponin T 0.016 ng/mL (0.00-0.029) 07/10/16 08:55 Total Protein 5.8 g/dL (6.3-8.2) L 07/11/16 04:31 Albumin 2.3 g/dL (3.9-5) L 07/11/16 04:31 Albumin/Globulin Ratio 0.7 % 07/11/16 04:31 TSH 1.240 mlU/mL (0.270-4.200) 07/09/16 20:31 Free T4 1.40 ng/dL (0.76-1.46) 07/09/16 20:31 Urine Color [place] (Yellow) 07/10/16 13:10 Urine Turbidity Turbid (Clear) 07/10/16 13:10 Urine pH 6.0 (5.0-7.0) 07/10/16 13:10 Ur Specific [place] 1.016 (1.003-1.030) 07/10/16 13:10 Urine Protein 30 mg/dl mg/dL (Negative) 07/10/16 13:10 Urine Glucose (UA) 50 mg/dL (Negative) 07/10/16 13:10 Urine Ketones Neg mg/dL (Negative) 07/10/16 13:10 Urine Blood Sm (Negative) 07/10/16 13:10 Urine Nitrite Neg (Negative) 07/10/16 13:10 Urine Bilirubin Neg (Negative) 07/10/16 13:10 Urine Urobilinogen < 2.0 mg/dL (<2.0) 07/10/16 13:10 Ur Leukocyte Esterase Lg (Negative) 07/10/16 13:10 Urine WBC (Auto) 164.0 /HPF (0.0-6.0) H 07/10/16 13:10 Urine RBC (Auto) 33.0 /HPF (0.0-6.0) 07/10/16 13:10 U Epithel Cells (Auto) 5.0 /HPF (0-13.0) 07/10/16 13:10 Urine Bacteria (Auto) 4+ /HPF (Negative) 07/10/16 13:10 Urine Mucus 3+ /HPF 07/10/16 13:10 Urine Creatinine < 4.2 mg/dL (0.1-20.0) 07/11/16 13:03 Urine Sodium 10 mEq/L 07/11/16 13:03
[2016-07-13] MEDS: LEVAQUIN 500MG/100ML 500 MG/100 ML BAG IV SCH (14:00)
[2016-07-14] MEDS: NOVOLOG SUB-Q SCH ×3 (00:55→17:46)
[2016-07-14] MEDS: D5/0.45NS 1,000 ML IV SCH (03:21)
[2016-07-14] MEDS: HALDOL IM PRN (05:00)
[2016-07-14 05:59] LABS: Basophils % (Auto) 0.2 % (0.0-1.8); Eosinophils % (Auto) 3.6 % (0.0-4.3); Hematocrit 30.6 % (30.3-42.9); Mean Corpuscular HGB Conc 33 % (30-34); Mean Corpuscular Hemoglobin 28 pg (28-32); Mean Corpuscular Volume 85 fl (79-97); Platelet Count 556 K/mm3 (140-440); Red Blood Count 3.61 M/mm3 (3.65-5.03); Red Cell Distribution Width 14.6 % (13.2-15.2); White Blood Count 16.9 K/mm3 (4.5-11.0)
[2016-07-14 06:13] LABS: BUN/Creatinine Ratio 16.92; Chloride 99.4 mmol/L (98-107)
[2016-07-14 06:14] LABS: Magnesium 1.9 mg/dL (1.7-2.3); Phosphorous 2.7 mg/dL (2.5-4.5)
--- NOTE | 2016-07-14 09:09 | Progress Note ---
Assessment and Plan Acute respiratory failure. On oxygen support,no distress or hypoxia.Controlled Pneumonia. f/u X-ray today with more ill define infiltrate Rt base +/_ diaphragm elevation. Report pending.On Levaquin Narcotic overdose. Recommendations Continue broad-spectrum antibiotics. Nebulizer treatment Aspiration precautions f/u WBC No family available for case discussion. Subjective Date of service: 07/14/16 Principal diagnosis: acute respiratory failure, narcotic overdose, AMS Interval history: Confused.No SOB.No cough? Objective Vital Signs - 12hr 07/13/16 07/13/16 07/13/16 21:06 22:00 23:00 Temperature Pulse Rate 122 H 92 H 113 H Respiratory 21 17 14 Rate Blood Pressure 156/124 97/60 158/59 O2 Sat by Pulse 98 97 99 Oximetry 07/14/16 07/14/16 07/14/16 00:00 01:00 02:00 Temperature 99.1 F Pulse Rate 101 H 89 89 Respiratory 22 20 20 Rate Blood Pressure 124/60 123/57 131/53 O2 Sat by Pulse 100 100 98 Oximetry 07/14/16 07/14/16 07/14/16 03:00 04:00 04:01 Temperature 98.9 F Pulse Rate 91 H 101 H Respiratory 13 24 Rate Blood Pressure 134/68 120/72 O2 Sat by Pulse 99 100 Oximetry 07/14/16 05:01 Temperature Pulse Rate Respiratory 17 Rate Blood Pressure 153/72 O2 Sat by Pulse 97 Oximetry Constitutional: no acute distress, alert, appears uncomfortable Eyes: non-icteric ENT: other (NGT in place) Neck: supple Ascultation: Bilateral: clear, rhonchi (sporadic otherwise clear) Percussion: Bilateral: not dull Tactile fremitus: Bilateral: normal Cardiovascular: regular rate and rhythm Gastrointestinal: normoactive bowel sounds, non-tender Extremities: no cyanosis, no edema Neurologic: other (talking,confused,not agitated) CBC and BMP: 07/14/16 05:28 07/14/16 05:28 ABG, PT/INR, D-dimer: ABG POC ABG pH 7.452 (7.35-7.45) H 07/12/16 09:10 POC ABG pCO2 33.2 (35-45) L 07/12/16 09:10 POC ABG pO2 74 (80-105) L 07/12/16 09:10 POC ABG HCO3 23.2 07/12/16 09:10 POC ABG Total CO2 24 07/12/16 09:10 POC ABG O2 Sat 96 07/12/16 09:10 PT/INR, D-dimer PT 13.4 Sec. (12.2-14.9) 07/09/16 20:31 INR 1.03 (0.87-1.13) 07/09/16 20:31 Abnormal lab findings: Abnormal Labs 07/10/16 07/10/16 07/10/16 06:22 06:48 06:48 WBC 14.5 H RBC 3.53 L Hgb 10.0 L Hct Plt Count 484 H Lymph % (Auto) 12.0 L [place] % (Auto) 7.4 H Eos % (Auto) Lymph # [place] # 1.1 H Eos # Seg Neutrophils % 77.4 H Seg Neuts % (Manual) Lymphocytes % (Manual) Monocytes % (Manual) Seg Neutrophils # 11.2 H Seg Neutrophils # Man Monocytes # (Manual) POC ABG pH POC ABG pCO2 POC ABG pO2 Sodium 148 H Chloride 109.2 H Carbon Dioxide BUN 33 H Creatinine 3.1 H Glucose 111 H POC Glucose 132 H Hemoglobin A1c Calcium Magnesium Total Creatine Kinase CK-MB (CK-2) Total Protein Albumin Urine WBC (Auto) 07/10/16 07/10/16 07/10/16 08:06 08:18 08:55 WBC RBC Hgb Hct Plt Count Lymph % (Auto) [place] % (Auto) Eos % (Auto) Lymph # [place] # Eos # Seg Neutrophils % Seg Neuts % (Manual) Lymphocytes % (Manual) Monocytes % (Manual) Seg Neutrophils # Seg Neutrophils # Man Monocytes # (Manual) POC ABG pH 7.249 L POC ABG pCO2 54.1 H POC ABG pO2 Sodium Chloride Carbon Dioxide BUN Creatinine Glucose POC Glucose 141 H Hemoglobin A1c Calcium Magnesium Total Creatine Kinase 334 H CK-MB (CK-2) 5.6 H Total Protein Albumin Urine WBC (Auto) 07/10/16 07/10/16 07/11/16 13:03 13:10 04:31 WBC 11.6 H RBC 3.49 L Hgb 9.7 L Hct Plt Count 442 H Lymph % (Auto) 9.8 L [place] % (Auto) 9.5 H Eos % (Auto) 5.2 H Lymph # 1.1 L [place] # 1.1 H Eos # 0.6 H Seg Neutrophils % 75.1 H Seg Neuts % (Manual) Lymphocytes % (Manual) Monocytes % (Manual) Seg Neutrophils # 8.7 H Seg Neutrophils # Man Monocytes # (Manual) POC ABG pH 7.330 L POC ABG pCO2 46.6 H POC ABG pO2 142 H Sodium Chloride Carbon Dioxide BUN Creatinine Glucose POC Glucose Hemoglobin A1c Calcium Magnesium Total Creatine Kinase CK-MB (CK-2) Total Protein Albumin Urine WBC (Auto) 164.0 H 07/11/16 07/11/16 07/11/16 04:31 04:31 05:21 WBC RBC Hgb Hct Plt Count Lymph % (Auto) [place] % (Auto) Eos % (Auto) Lymph # [place] # Eos # Seg Neutrophils % Seg Neuts % (Manual) Lymphocytes % (Manual) Monocytes % (Manual) Seg Neutrophils # Seg Neutrophils # Man Monocytes # (Manual) POC ABG pH 7.482 H POC ABG pCO2 28.3 L POC ABG pO2 Sodium Chloride Carbon Dioxide 20 L BUN 36 H Creatinine 3.7 H Glucose 238 H POC Glucose Hemoglobin A1c 8.8 H Calcium 8.0 L Magnesium Total Creatine Kinase CK-MB (CK-2) Total Protein 5.8 L Albumin 2.3 L Urine WBC (Auto) 07/11/16 07/11/16 07/11/16 08:19 11:51 17:04 WBC RBC Hgb Hct Plt Count Lymph % (Auto) [place] % (Auto) Eos % (Auto) Lymph # [place] # Eos # Seg Neutrophils % Seg Neuts % (Manual) Lymphocytes % (Manual) Monocytes % (Manual) Seg Neutrophils # Seg Neutrophils # Man Monocytes # (Manual) POC ABG pH POC ABG pCO2 POC ABG pO2 Sodium Chloride Carbon Dioxide BUN Creatinine Glucose POC Glucose 375 H 247 H 134 H Hemoglobin A1c Calcium Magnesium Total Creatine Kinase CK-MB (CK-2) Total Protein Albumin Urine WBC (Auto) 07/11/16 07/12/16 07/12/16 20:24 00:36 04:00 WBC 15.9 H RBC 3.36 L Hgb 9.3 L Hct 28.9 L Plt Count Lymph % (Auto) 6.6 L [place] % (Auto) 10.2 H Eos % (Auto) Lymph # 1.1 L [place] # 1.6 H Eos # Seg Neutrophils % 82.5 H Seg Neuts % (Manual) Lymphocytes % (Manual) Monocytes % (Manual) Seg Neutrophils # 13.1 H Seg Neutrophils # Man Monocytes # (Manual) POC ABG pH POC ABG pCO2 POC ABG pO2 Sodium Chloride Carbon Dioxide BUN Creatinine Glucose POC Glucose 262 H 183 H Hemoglobin A1c Calcium Magnesium Total Creatine Kinase CK-MB (CK-2) Total Protein Albumin Urine WBC (Auto) 07/12/16 07/12/16 07/12/16 04:00 05:22 06:18 WBC RBC Hgb Hct Plt Count Lymph % (Auto) [place] % (Auto) Eos % (Auto) Lymph # [place] # Eos # Seg Neutrophils % Seg Neuts % (Manual) Lymphocytes % (Manual) Monocytes % (Manual) Seg Neutrophils # Seg Neutrophils # Man Monocytes # (Manual) POC ABG pH POC ABG pCO2 29.5 L POC ABG pO2 67 L Sodium Chloride Carbon Dioxide 20 L BUN 37 H Creatinine 3.5 H Glucose 112 H POC Glucose 124 H Hemoglobin A1c Calcium Magnesium Total Creatine Kinase CK-MB (CK-2) Total Protein Albumin Urine WBC (Auto) 07/12/16 07/12/16 07/12/16 09:10 09:23 11:49 WBC RBC Hgb Hct Plt Count Lymph % (Auto) [place] % (Auto) Eos % (Auto) Lymph # [place] # Eos # Seg Neutrophils % Seg Neuts % (Manual) Lymphocytes % (Manual) Monocytes % (Manual) Seg Neutrophils # Seg Neutrophils # Man Monocytes # (Manual) POC ABG pH 7.452 H POC ABG pCO2 33.2 L POC ABG pO2 74 L Sodium Chloride Carbon Dioxide BUN Creatinine Glucose POC Glucose 162 H 209 H Hemoglobin A1c Calcium Magnesium Total Creatine Kinase CK-MB (CK-2) Total Protein Albumin Urine WBC (Auto) 07/12/16 07/12/16 07/13/16 17:45 23:25 04:45 WBC 21.1 H RBC 3.52 L Hgb 9.7 L Hct Plt Count 529 H Lymph % (Auto) [place] % (Auto) Eos % (Auto) Lymph # [place] # Eos # Seg Neutrophils % Seg Neuts % (Manual) 75.0 H Lymphocytes % (Manual) 11.0 L Monocytes % (Manual) 8.0 H Seg Neutrophils # Seg Neutrophils # Man 15.8 H Monocytes # (Manual) 1.7 H POC ABG pH POC ABG pCO2 POC ABG pO2 Sodium Chloride Carbon Dioxide BUN Creatinine Glucose POC Glucose 126 H 151 H Hemoglobin A1c Calcium Magnesium Total Creatine Kinase CK-MB (CK-2) Total Protein Albumin Urine WBC (Auto) 07/13/16 07/13/16 07/13/16 04:45 06:02 06:09 WBC RBC Hgb Hct Plt Count Lymph % (Auto) [place] % (Auto) Eos % (Auto) Lymph # [place] # Eos # Seg Neutrophils % Seg Neuts % (Manual) Lymphocytes % (Manual) Monocytes % (Manual) Seg Neutrophils # Seg Neutrophils # Man Monocytes # (Manual) POC ABG pH POC ABG pCO2 POC ABG pO2 Sodium 134 L Chloride Carbon Dioxide 21 L BUN 31 H Creatinine 2.2 H Glucose 230 H POC Glucose 267 H 257 H Hemoglobin A1c Calcium 7.9 L Magnesium 1.3 L Total Creatine Kinase CK-MB (CK-2) Total Protein Albumin Urine WBC (Auto) 07/13/16 07/13/16 07/13/16 07:31 11:51 18:17 WBC RBC Hgb Hct Plt Count Lymph % (Auto) [place] % (Auto) Eos % (Auto) Lymph # [place] # Eos # Seg Neutrophils % Seg Neuts % (Manual) Lymphocytes % (Manual) Monocytes % (Manual) Seg Neutrophils # Seg Neutrophils # Man Monocytes # (Manual) POC ABG pH POC ABG pCO2 POC ABG pO2 Sodium Chloride Carbon Dioxide BUN Creatinine Glucose POC Glucose 223 H 245 H 222 H Hemoglobin A1c Calcium Magnesium Total Creatine Kinase CK-MB (CK-2) Total Protein Albumin Urine WBC (Auto) 07/13/16 07/14/16 07/14/16 23:02 05:28 05:28 WBC 16.9 H RBC 3.61 L Hgb 10.0 L Hct Plt Count 556 H Lymph % (Auto) 6.6 L [place] % (Auto) 11.8 H Eos % (Auto) Lymph # 1.1 L [place] # 2.0 H Eos # 0.6 H Seg Neutrophils % 77.8 H Seg Neuts % (Manual) Lymphocytes % (Manual) Monocytes % (Manual) Seg Neutrophils # 13.2 H Seg Neutrophils # Man Monocytes # (Manual) POC ABG pH POC ABG pCO2 POC ABG pO2 Sodium Chloride Carbon Dioxide 21 L BUN 22 H Creatinine 1.3 H Glucose 145 H POC Glucose 221 H Hemoglobin A1c Calcium 8.0 L Magnesium Total Creatine Kinase CK-MB (CK-2) Total Protein Albumin Urine WBC (Auto) 07/14/16 05:48 WBC RBC Hgb Hct Plt Count Lymph % (Auto) [place] % (Auto) Eos % (Auto) Lymph # [place] # Eos # Seg Neutrophils % Seg Neuts % (Manual) Lymphocytes % (Manual) Monocytes % (Manual) Seg Neutrophils # Seg Neutrophils # Man Monocytes # (Manual) POC ABG pH POC ABG pCO2 POC ABG pO2 Sodium Chloride Carbon Dioxide BUN Creatinine Glucose POC Glucose 156 H Hemoglobin A1c Calcium Magnesium Total Creatine Kinase CK-MB (CK-2) Total Protein Albumin Urine WBC (Auto)
--- NOTE | 2016-07-14 09:13 | Progress Note ---
Assessment and Plan Impression * Acute renal failure. May be prerenal. However due need to consider progression to ATN * Respiratory failure * Hypertension * Chronic back pain * Diabetes * Pyuria Recommendations * She most likely has a prerenal component. Her urine sodium is 10 * Patient's urine shows 1+ dipstick protein as well as pyuria * Renal function is much better. Serum creatinine is down to 1.3. Urine output seems to be improving as well. Shall reduce the rate of IV fluid * Continue empiric antibiotics * Patient's renal function was normal last month. However her creatinine was 2.4 on admission * Monitor patient's fluid status and electrolytes closely * Avoid nephrotoxins * Shall keep her off her lisinopril for now * Today's electrolytes are still pending Subjective Date of service: 07/14/16 Principal diagnosis: acute respiratory failure, narcotic overdose, AMS Interval history: Patient is out of the ICU. It appears comfortable today. Receiving tube feeds via Dobbhoff tube. Continues to have a Echevarria at this time Objective - Vital Signs Vital signs: Vital Signs - 12hr 07/13/16 07/13/16 07/14/16 22:00 23:00 00:00 Temperature 99.1 F Pulse Rate 92 H 113 H 101 H Respiratory 17 14 22 Rate Blood Pressure 97/60 158/59 124/60 O2 Sat by Pulse 97 99 100 Oximetry 07/14/16 07/14/16 07/14/16 01:00 02:00 03:00 Temperature Pulse Rate 89 89 91 H Respiratory 20 20 13 Rate Blood Pressure 123/57 131/53 134/68 O2 Sat by Pulse 100 98 99 Oximetry 07/14/16 07/14/16 07/14/16 04:00 04:01 05:01 Temperature 98.9 F Pulse Rate 101 H Respiratory 24 17 Rate Blood Pressure 120/72 153/72 O2 Sat by Pulse 100 97 Oximetry - General Appearance General appearance: well-developed, well-nourished, appears stated age, other ( facemask in place) EENT: PERRL, mucous membranes moist Neck: no JVD, no thyromegaly, no carotid bruit, supple Respiratory: Present: Ronchi (bilateral scattered rhonchi) Cardiology: regular, normal heart rate Gastrointestinal: normal, normoactive bowel sounds Integumentary: other (no edema) - Lab 07/14/16 05:28 07/14/16 05:28 Most recent lab results Calcium 8.0 mg/dL (8.4-10.2) L 07/14/16 05:28 Phosphorus 2.7 mg/dL (2.5-4.5) 07/14/16 05:28 Magnesium 1.9 mg/dL (1.7-2.3) 07/14/16 05:28 Urine Creatinine < 4.2 mg/dL (0.1-20.0) 07/11/16 13:03 Urine Sodium 10 mEq/L 07/11/16 13:03
--- NOTE | 2016-07-14 10:12 | XRay Report ---
AP CHEST: HISTORY: Follow up respiratory failure Partial atelectasis has developed in the right middle and lower lobes. The right upper lobe and left lung remain generally clear. Heart size is stable. No large pleural effusion or pneumothorax has developed. Feeding tube remains in the same position. IMPRESSION: Increased atelectatic changes at the right lung base.
[2016-07-14] MEDS ORDERED: FLUARIX QUAD 2016-2017(36 MOS+) IM ONE (12:00)
[2016-07-14] MEDS ORDERED: PNEUMOVAX 23 IM ONE (12:00)
[2016-07-14] MEDS: PEPCID PO SCH (12:02)
[2016-07-14] MEDS: NORVASC FEEDTUBE SCH (12:02)
[2016-07-14] MEDS: LOVENOX SUB-Q SCH (12:03)
--- NOTE | 2016-07-14 17:15 | Progress Note ---
Assessment and Plan Assessment and plan: --Acute respiratory failure, status post extubation Continue nebulizers ,oxygen titrated to O2 sats to more than 90% --Metabolic encephalopathy significantly improved, mild confusion probably baseline --Leukocytosis; Patient has recurrent UTI, and pneumonia trending down --Sepsis secondary to urinary tract infection Cultures negative to date, continue antibiotics total 7 days --Dementia, supportive care --Acute renal failure probably prerenal versus ATN Trending down, management per nephrology --Type 2 diabetes mellitus moderate control Accu-Chek sliding scale coverage and ADA diet and insulin, hemoglobin A1c 8.8 We will add 7030 Novolin long-acting insulin --Hypertension: Moderate control, continue current antihypertensives and when necessary medications --full CODE STATUS --DVT prophylaxis with Lovenox Physical therapy occupational therapy, Possible discharge and transfer to snf facility in 1-2 days History Interval history: Patient seen and evaluated this morning in her room, medical records reviewed No new events reported by the nursing staff Patient is more alert, confused probably her baseline Not in acute distress, receiving Dobbhoff feeds Hospitalist Physical - Constitutional Vitals: Temp Pulse Resp BP Pulse Ox 99.2 F 20 L 20 164/68 95 07/14/16 08:35 07/14/16 08:35 07/14/16 08:35 07/14/16 08:35 07/14/16 08:35 General appearance: Present: no acute distress, well-nourished, other ( confused ) - EENT Eyes: Present: PERRL, EOM intact - Neck Neck: Present: supple, normal ROM - Respiratory Respiratory effort: normal Respiratory: bilateral: diminished, negative: rales, rhonchi, wheezing - Cardiovascular Rhythm: regular Heart Sounds: Present: S1 & S2 - Extremities Extremities: no ischemia, pulses intact, pulses symmetrical - Abdominal General gastrointestinal: soft, non-tender, non-distended, normal bowel sounds - Integumentary Integumentary: Present: clear, warm - Psychiatric Psychiatric: other (minimally communicative confused) - Neurologic Neurologic: moves all extremities Results - Labs CBC & Chem 7: 07/14/16 05:28 07/14/16 05:28 Labs: Laboratory Last Values WBC 16.9 K/mm3 (4.5-11.0) H 07/14/16 05:28 RBC 3.61 M/mm3 (3.65-5.03) L 07/14/16 05:28 Hgb 10.0 gm/dl (10.1-14.3) L 07/14/16 05:28 Hct 30.6 % (30.3-42.9) 07/14/16 05:28 MCV 85 fl (79-97) 07/14/16 05:28 MCH 28 pg (28-32) 07/14/16 05:28 MCHC 33 % (30-34) 07/14/16 05:28 RDW 14.6 % (13.2-15.2) 07/14/16 05:28 Plt Count 556 K/mm3 (140-440) H 07/14/16 05:28 Lymph % (Auto) 6.6 % (13.4-35.0) L 07/14/16 05:28 [place] % (Auto) 11.8 % (0.0-7.3) H 07/14/16 05:28 Eos % (Auto) 3.6 % (0.0-4.3) 07/14/16 05:28 Baso % (Auto) 0.2 % (0.0-1.8) 07/14/16 05:28 Lymph # 1.1 K/mm3 (1.2-5.4) L 07/14/16 05:28 [place] # 2.0 K/mm3 (0.0-0.8) H 07/14/16 05:28 Eos # 0.6 K/mm3 (0.0-0.4) H 07/14/16 05:28 Baso # 0.0 K/mm3 (0.0-0.1) 07/14/16 05:28 Add Manual Diff Complete 07/13/16 04:45 Total Counted 100 07/13/16 04:45 Seg Neutrophils % 77.8 % (40.0-70.0) H 07/14/16 05:28 Seg Neuts % (Manual) 75.0 % (40.0-70.0) H 07/13/16 04:45 Band Neutrophils % 3.0 % 07/13/16 04:45 Lymphocytes % (Manual) 11.0 % (13.4-35.0) L 07/13/16 04:45 Reactive Lymphs % (Man) 0 % 07/13/16 04:45 Monocytes % (Manual) 8.0 % (0.0-7.3) H 07/13/16 04:45 Eosinophils % (Manual) 0 % (0.0-4.3) 07/13/16 04:45 Basophils % (Manual) 0 % (0.0-1.8) 07/13/16 04:45 Metamyelocytes % 3.0 % 07/13/16 04:45 Myelocytes % 0 % 07/13/16 04:45 Promyelocytes % 0 % 07/13/16 04:45 Blast Cells % 0 % 07/13/16 04:45 Nucleated RBC % Not Reportable 07/13/16 04:45 Seg Neutrophils # 13.2 K/mm3 (1.8-7.7) H 07/14/16 05:28 Seg Neutrophils # Man 15.8 K/mm3 (1.8-7.7) H 07/13/16 04:45 Band Neutrophils # 0.6 K/mm3 07/13/16 04:45 Lymphocytes # (Manual) 2.3 K/mm3 (1.2-5.4) 07/13/16 04:45 Abs React Lymphs (Man) 0.0 K/mm3 07/13/16 04:45 Monocytes # (Manual) 1.7 K/mm3 (0.0-0.8) H 07/13/16 04:45 Eosinophils # (Manual) 0.0 K/mm3 (0.0-0.4) 07/13/16 04:45 Basophils # (Manual) 0.0 K/mm3 (0.0-0.1) 07/13/16 04:45 Metamyelocytes # 0.6 K/mm3 07/13/16 04:45 Myelocytes # 0.0 K/mm3 07/13/16 04:45 Promyelocytes # 0.0 K/mm3 07/13/16 04:45 Blast Cells # 0.0 K/mm3 07/13/16 04:45 WBC Morphology Not Reportable 07/13/16 04:45 Hypersegmented Neuts Few 07/13/16 04:45 Hyposegmented Neuts Not Reportable 07/13/16 04:45 Hypogranular Neuts Not Reportable 07/13/16 04:45 Smudge Cells Not Reportable 07/13/16 04:45 Toxic Granulation Not Reportable 07/13/16 04:45 Toxic Vacuolation Not Reportable 07/13/16 04:45 Dohle Bodies Not Reportable 07/13/16 04:45 Pelger-Huet Anomaly Not Reportable 07/13/16 04:45 James Rods Not Reportable 07/13/16 04:45 Platelet Estimate Appears increased 07/13/16 04:45 Clumped Platelets Not Reportable 07/13/16 04:45 Plt Clumps, EDTA Not Reportable 07/13/16 04:45 Large Platelets Not Reportable 07/13/16 04:45 Giant Platelets Not Reportable 07/13/16 04:45 Platelet Satelliting Not Reportable 07/13/16 04:45 Plt Morphology Comment Not Reportable 07/13/16 04:45 RBC Morphology Not Reportable 07/13/16 04:45 Dimorphic RBCs Not Reportable 07/13/16 04:45 Polychromasia Not Reportable 07/13/16 04:45 Hypochromasia Not Reportable 07/13/16 04:45 Poikilocytosis Not Reportable 07/13/16 04:45 Anisocytosis 1+ 07/13/16 04:45 Microcytosis Not Reportable 07/13/16 04:45 Macrocytosis Not Reportable 07/13/16 04:45 Spherocytes Not Reportable 07/13/16 04:45 Pappenheimer Bodies Not Reportable 07/13/16 04:45 Sickle Cells Not Reportable 07/13/16 04:45 Target Cells Not Reportable 07/13/16 04:45 Tear Drop Cells Not Reportable 07/13/16 04:45 Ovalocytes Not Reportable 07/13/16 04:45 Helmet Cells Not Reportable 07/13/16 04:[address] [place] Bodies Not Reportable 07/13/16 04:45 [place] Rings Not Reportable 07/13/16 04:45 Sophia Cells Not Reportable 07/13/16 04:45 Bite Cells Not Reportable 07/13/16 04:45 Crenated Cell Not Reportable 07/13/16 04:45 Elliptocytes Not Reportable 07/13/16 04:45 Acanthocytes (Spur) Not Reportable 07/13/16 04:45 Rouleaux Not Reportable 07/13/16 04:45 Hemoglobin C Crystals Not Reportable 07/13/16 04:45 Schistocytes Not Reportable 07/13/16 04:45 Malaria parasites Not Reportable 07/13/16 04:45 [place] Bodies Not Reportable 07/13/16 04:45 Hem Pathologist Commnt No 07/13/16 04:45 PT 13.4 Sec. (12.2-14.9) 07/09/16 20:31 INR 1.03 (0.87-1.13) 07/09/16 20:31 POC ABG pH 7.452 (7.35-7.45) H 07/12/16 09:10 POC ABG pCO2 33.2 (35-45) L 07/12/16 09:10 POC ABG pO2 74 (80-105) L 07/12/16 09:10 POC ABG HCO3 23.2 07/12/16 09:10 POC ABG Total CO2 24 07/12/16 09:10 POC ABG O2 Sat 96 07/12/16 09:10 POC ABG Base Excess -1 07/12/16 09:10 FiO2 30 % 07/12/16 09:10 Sodium 134 mmol/L (137-145) L 07/13/16 04:45 Potassium 3.7 mmol/L (3.6-5.0) 07/13/16 04:45 Chloride 99.4 mmol/L (98-107) 07/13/16 04:45 Carbon Dioxide 21 mmol/L (22-30) L 07/14/16 05:28 Anion Gap 18 mmol/L 07/14/16 05:28 BUN 22 mg/dL (7-17) H 07/14/16 05:28 Creatinine 1.3 mg/dL (0.7-1.2) H 07/14/16 05:28 Estimated GFR 47 ml/min 07/14/16 05:28 BUN/Creatinine Ratio 16.92 % 07/14/16 05:28 Glucose 145 mg/dL (65-100) H 07/14/16 05:28 POC Glucose 156 (70-105) H 07/14/16 05:48 Hemoglobin A1c 8.8 % (4-6) H 07/11/16 04:31 Calcium 8.0 mg/dL (8.4-10.2) L 07/14/16 05:28 Phosphorus 2.7 mg/dL (2.5-4.5) 07/14/16 05:28 Magnesium 1.9 mg/dL (1.7-2.3) 07/14/16 05:28 Total Bilirubin 0.2 mg/dL (0.1-1.2) 07/11/16 04:31 Direct Bilirubin < 0.2 mg/dL (0-0.2) 07/11/16 04:31 Indirect Bilirubin 0.0 mg/dL 07/11/16 04:31 AST 21 units/L (5-40) 07/11/16 04:31 ALT 9 units/L (7-56) 07/11/16 04:31 Alkaline Phosphatase 80 units/L (35-129) 07/11/16 04:31 Ammonia 48.0 umol/L (25-60) 07/09/16 20:31 Total Creatine Kinase 334 units/L (30-135) H 07/10/16 08:55 CK-MB (CK-2) 5.6 ng/mL (0.0-4.0) H 07/10/16 08:55 CK-MB (CK-2) Rel Index 1.6 (0-4) 07/10/16 08:55 Troponin T 0.016 ng/mL (0.00-0.029) 07/10/16 08:55 Total Protein 5.8 g/dL (6.3-8.2) L 07/11/16 04:31 Albumin 2.3 g/dL (3.9-5) L 07/11/16 04:31 Albumin/Globulin Ratio 0.7 % 07/11/16 04:31 TSH 1.240 mlU/mL (0.270-4.200) 07/09/16 20:31 Free T4 1.40 ng/dL (0.76-1.46) 07/09/16 20:31 Urine Color Jennifer (Yellow) 07/10/16 13:10 Urine Turbidity Turbid (Clear) 07/10/16 13:10 Urine pH 6.0 (5.0-7.0) 07/10/16 13:10 Ur Specific [place] 1.016 (1.003-1.030) 07/10/16 13:10 Urine Protein 30 mg/dl mg/dL (Negative) 07/10/16 13:10 Urine Glucose (UA) 50 mg/dL (Negative) 07/10/16 13:10 Urine Ketones Neg mg/dL (Negative) 07/10/16 13:10 Urine Blood Sm (Negative) 07/10/16 13:10 Urine Nitrite Neg (Negative) 07/10/16 13:10 Urine Bilirubin Neg (Negative) 07/10/16 13:10 Urine Urobilinogen < 2.0 mg/dL (<2.0) 07/10/16 13:10 Ur Leukocyte Esterase Lg (Negative) 07/10/16 13:10 Urine WBC (Auto) 164.0 /HPF (0.0-6.0) H 07/10/16 13:10 Urine RBC (Auto) 33.0 /HPF (0.0-6.0) 07/10/16 13:10 U Epithel Cells (Auto) 5.0 /HPF (0-13.0) 07/10/16 13:10 Urine Bacteria (Auto) 4+ /HPF (Negative) 07/10/16 13:10 Urine Mucus 3+ /HPF 07/10/16 13:10 Urine Eosinophils 1 (None Seen) 07/11/16 12:50 Urine Creatinine < 4.2 mg/dL (0.1-20.0) 07/11/16 13:03 Urine Sodium 10 mEq/L 07/11/16 13:03
[2016-07-14] MEDS: ROCEPHIN/NS 1 GM/50 ML 1 GM/50 ML BAG IV SCH (22:12)
[2016-07-15] MEDS: NOVOLOG SUB-Q SCH ×4 (02:53→19:33)
[2016-07-15] MEDS: D5/0.45NS 1,000 ML IV SCH (04:01)
[2016-07-15 07:49] LABS: Basophils % (Auto) 0.4 % (0.0-1.8); Hematocrit 29.1 % (30.3-42.9); Hemoglobin 9.2 gm/dl (10.1-14.3); Mean Corpuscular HGB Conc 32 % (30-34); Mean Corpuscular Hemoglobin 27 pg (28-32); Mean Corpuscular Volume 86 fl (79-97); Platelet Count 520 K/mm3 (140-440); Red Blood Count 3.39 M/mm3 (3.65-5.03); Red Cell Distribution Width 14.7 % (13.2-15.2); White Blood Count 13.3 K/mm3 (4.5-11.0)
[2016-07-15] MEDS: APRESOLINE IV PRN (07:50)
[2016-07-15 07:58] LABS: Anion Gap 16 mmol/L; BUN/Creatinine Ratio 26.25; Blood Urea Nitrogen 21 mg/dL (7-17); Calcium 7.8 mg/dL (8.4-10.2); Carbon Dioxide 21 mmol/L (22-30); Chloride 99.9 mmol/L (98-107); Glucose 162 mg/dL (65-100); Sodium 134 mmol/L (137-145)
[2016-07-15 08:07] LABS: Potassium 2.6 mmol/L (3.6-5.0)
--- NOTE | 2016-07-15 08:20 | Progress Note ---
Assessment and Plan Assessment and plan: --dysphagia/aspiration risk continue tube feeding, swallowing evaluation by speech and swallow Possible GI evaluation for possible pink Continue tube feeding per protocol --Severe hypokalemia Replenish per protocol and monitor levels, normal magnesium levels --Acute respiratory failure, status post extubation Continue nebulizers ,oxygen titrated to O2 sats to more than 90% --Metabolic encephalopathy significantly improved, mild confusion probably baseline --Leukocytosis; Patient has recurrent UTI, and pneumonia trending down --Sepsis secondary to urinary tract infection Cultures negative to date, continue antibiotics total 7 days --Dementia, supportive care --Acute renal failure probably prerenal versus ATN Resolved --Type 2 diabetes mellitus moderate control Accu-Chek sliding scale coverage and ADA diet and insulin, hemoglobin A1c 8.8 We will add 7030 Novolin long-acting insulin --Hypertension: Moderate control, continue current antihypertensives and when necessary medications --full CODE STATUS --DVT prophylaxis with Lovenox Follow swallow evaluation, possible GI consultation for possible PEG Physical therapy occupational therapy, DC planning once patient's nutrition access is secured History Interval history: Patient seen and evaluated medical records reviewed Patient is more alert, confused, on Dobbhoff feedings Awaiting speech and swallowing evaluation No new events reported by the nursing staff Hospitalist Physical - Constitutional Vitals: Temp Pulse Resp BP Pulse Ox 98.2 F 94 H 22 187/75 97 07/15/16 05:00 07/15/16 07:50 07/15/16 05:00 07/15/16 07:50 07/15/16 05:00 General appearance: Present: no acute distress, well-nourished, other ( confused ) - EENT Eyes: Present: PERRL, EOM intact - Neck Neck: Present: supple, normal ROM - Respiratory Respiratory effort: normal Respiratory: bilateral: diminished, negative: rales, rhonchi, wheezing - Cardiovascular Rhythm: regular Heart Sounds: Present: S1 & S2 - Extremities Extremities: no ischemia, pulses intact, pulses symmetrical Peripheral Pulses: within normal limits - Abdominal General gastrointestinal: soft, non-tender, non-distended, normal bowel sounds - Integumentary Integumentary: Present: clear, warm - Psychiatric Psychiatric: other (noncommunicative and confused) - Neurologic Neurologic: other (noncommunicative and confused) Results - Labs CBC & Chem 7: 07/15/16 06:34 07/15/16 06:34 Labs: Laboratory Last Values WBC 13.3 K/mm3 (4.5-11.0) H 07/15/16 06:34 RBC 3.39 M/mm3 (3.65-5.03) L 07/15/16 06:34 Hgb 9.2 gm/dl (10.1-14.3) L 07/15/16 06:34 Hct 29.1 % (30.3-42.9) L 07/15/16 06:34 MCV 86 fl (79-97) 07/15/16 06:34 MCH 27 pg (28-32) L 07/15/16 06:34 MCHC 32 % (30-34) 07/15/16 06:34 RDW 14.7 % (13.2-15.2) 07/15/16 06:34 Plt Count 520 K/mm3 (140-440) H 07/15/16 06:34 Lymph % (Auto) 9.0 % (13.4-35.0) L 07/15/16 06:34 [place] % (Auto) 10.9 % (0.0-7.3) H 07/15/16 06:34 Eos % (Auto) 6.0 % (0.0-4.3) H 07/15/16 06:34 Baso % (Auto) 0.4 % (0.0-1.8) 07/15/16 06:34 Lymph # 1.2 K/mm3 (1.2-5.4) 07/15/16 06:34 [place] # 1.5 K/mm3 (0.0-0.8) H 07/15/16 06:34 Eos # 0.8 K/mm3 (0.0-0.4) H 07/15/16 06:34 Baso # 0.1 K/mm3 (0.0-0.1) 07/15/16 06:34 Add Manual Diff Complete 07/13/16 04:45 Total Counted 100 07/13/16 04:45 Seg Neutrophils % 73.7 % (40.0-70.0) H 07/15/16 06:34 Seg Neuts % (Manual) 75.0 % (40.0-70.0) H 07/13/16 04:45 Band Neutrophils % 3.0 % 07/13/16 04:45 Lymphocytes % (Manual) 11.0 % (13.4-35.0) L 07/13/16 04:45 Reactive Lymphs % (Man) 0 % 07/13/16 04:45 Monocytes % (Manual) 8.0 % (0.0-7.3) H 07/13/16 04:45 Eosinophils % (Manual) 0 % (0.0-4.3) 07/13/16 04:45 Basophils % (Manual) 0 % (0.0-1.8) 07/13/16 04:45 Metamyelocytes % 3.0 % 07/13/16 04:45 Myelocytes % 0 % 07/13/16 04:45 Promyelocytes % 0 % 07/13/16 04:45 Blast Cells % 0 % 07/13/16 04:45 Nucleated RBC % Not Reportable 07/13/16 04:45 Seg Neutrophils # 9.8 K/mm3 (1.8-7.7) H 07/15/16 06:34 Seg Neutrophils # Man 15.8 K/mm3 (1.8-7.7) H 07/13/16 04:45 Band Neutrophils # 0.6 K/mm3 07/13/16 04:45 Lymphocytes # (Manual) 2.3 K/mm3 (1.2-5.4) 07/13/16 04:45 Abs React Lymphs (Man) 0.0 K/mm3 07/13/16 04:45 Monocytes # (Manual) 1.7 K/mm3 (0.0-0.8) H 07/13/16 04:45 Eosinophils # (Manual) 0.0 K/mm3 (0.0-0.4) 07/13/16 04:45 Basophils # (Manual) 0.0 K/mm3 (0.0-0.1) 07/13/16 04:45 Metamyelocytes # 0.6 K/mm3 07/13/16 04:45 Myelocytes # 0.0 K/mm3 07/13/16 04:45 Promyelocytes # 0.0 K/mm3 07/13/16 04:45 Blast Cells # 0.0 K/mm3 07/13/16 04:45 WBC Morphology Not Reportable 07/13/16 04:45 Hypersegmented Neuts Few 07/13/16 04:45 Hyposegmented Neuts Not Reportable 07/13/16 04:45 Hypogranular Neuts Not Reportable 07/13/16 04:45 Smudge Cells Not Reportable 07/13/16 04:45 Toxic Granulation Not Reportable 07/13/16 04:45 Toxic Vacuolation Not Reportable 07/13/16 04:45 Dohle Bodies Not Reportable 07/13/16 04:45 Pelger-Huet Anomaly Not Reportable 07/13/16 04:45 James Rods Not Reportable 07/13/16 04:45 Platelet Estimate Appears increased 07/13/16 04:45 Clumped Platelets Not Reportable 07/13/16 04:45 Plt Clumps, EDTA Not Reportable 07/13/16 04:45 Large Platelets Not Reportable 07/13/16 04:45 Giant Platelets Not Reportable 07/13/16 04:45 Platelet Satelliting Not Reportable 07/13/16 04:45 Plt Morphology Comment Not Reportable 07/13/16 04:45 RBC Morphology Not Reportable 07/13/16 04:45 Dimorphic RBCs Not Reportable 07/13/16 04:45 Polychromasia Not Reportable 07/13/16 04:45 Hypochromasia Not Reportable 07/13/16 04:45 Poikilocytosis Not Reportable 07/13/16 04:45 Anisocytosis 1+ 07/13/16 04:45 Microcytosis Not Reportable 07/13/16 04:45 Macrocytosis Not Reportable 07/13/16 04:45 Spherocytes Not Reportable 07/13/16 04:45 Pappenheimer Bodies Not Reportable 07/13/16 04:45 Sickle Cells Not Reportable 07/13/16 04:45 Target Cells Not Reportable 07/13/16 04:45 Tear Drop Cells Not Reportable 07/13/16 04:45 Ovalocytes Not Reportable 07/13/16 04:45 Helmet Cells Not Reportable 07/13/16 04:45 Mendoza-Escobares Bodies Not Reportable 07/13/16 04:45 [place] Rings Not Reportable 07/13/16 04:45 Casa Cells Not Reportable 07/13/16 04:45 Bite Cells Not Reportable 07/13/16 04:45 Crenated Cell Not Reportable 07/13/16 04:45 Elliptocytes Not Reportable 07/13/16 04:45 Acanthocytes (Spur) Not Reportable 07/13/16 04:45 Rouleaux Not Reportable 07/13/16 04:45 Hemoglobin C Crystals Not Reportable 07/13/16 04:45 Schistocytes Not Reportable 07/13/16 04:45 Malaria parasites Not Reportable 07/13/16 04:45 [place] Bodies Not Reportable 07/13/16 04:45 Hem Pathologist Commnt No 07/13/16 04:45 PT 13.4 Sec. (12.2-14.9) 07/09/16 20:31 INR 1.03 (0.87-1.13) 07/09/16 20:31 POC ABG pH 7.452 (7.35-7.45) H 07/12/16 09:10 POC ABG pCO2 33.2 (35-45) L 07/12/16 09:10 POC ABG pO2 74 (80-105) L 07/12/16 09:10 POC ABG HCO3 23.2 07/12/16 09:10 POC ABG Total CO2 24 07/12/16 09:10 POC ABG O2 Sat 96 07/12/16 09:10 POC ABG Base Excess -1 07/12/16 09:10 FiO2 30 % 07/12/16 09:10 Sodium 134 mmol/L (137-145) L 07/15/16 06:34 Potassium 2.6 mmol/L (3.6-5.0) L* 07/15/16 06:34 Chloride 99.9 mmol/L (98-107) 07/15/16 06:34 Carbon Dioxide 21 mmol/L (22-30) L 07/15/16 06:34 Anion Gap 16 mmol/L 07/15/16 06:34 BUN 21 mg/dL (7-17) H 07/15/16 06:34 Creatinine 0.8 mg/dL (0.7-1.2) 07/15/16 06:34 Estimated GFR > 60 ml/min 07/15/16 06:34 BUN/Creatinine Ratio 26.25 % 07/15/16 06:34 Glucose 162 mg/dL (65-100) H 07/15/16 06:34 POC Glucose 204 (70-105) H 07/15/16 02:45 Hemoglobin A1c 8.8 % (4-6) H 07/11/16 04:31 Calcium 7.8 mg/dL (8.4-10.2) L 07/15/16 06:34 Phosphorus 2.7 mg/dL (2.5-4.5) 07/14/16 05:28 Magnesium 1.7 mg/dL (1.7-2.3) 07/15/16 06:34 Total Bilirubin 0.2 mg/dL (0.1-1.2) 07/11/16 04:31 Direct Bilirubin < 0.2 mg/dL (0-0.2) 07/11/16 04:31 Indirect Bilirubin 0.0 mg/dL 07/11/16 04:31 AST 21 units/L (5-40) 07/11/16 04:31 ALT 9 units/L (7-56) 07/11/16 04:31 Alkaline Phosphatase 80 units/L (35-129) 07/11/16 04:31 Ammonia 48.0 umol/L (25-60) 07/09/16 20:31 Total Creatine Kinase 334 units/L (30-135) H 07/10/16 08:55 CK-MB (CK-2) 5.6 ng/mL (0.0-4.0) H 07/10/16 08:55 CK-MB (CK-2) Rel Index 1.6 (0-4) 07/10/16 08:55 Troponin T 0.016 ng/mL (0.00-0.029) 07/10/16 08:55 Total Protein 5.8 g/dL (6.3-8.2) L 07/11/16 04:31 Albumin 2.3 g/dL (3.9-5) L 07/11/16 04:31 Albumin/Globulin Ratio 0.7 % 07/11/16 04:31 TSH 1.240 mlU/mL (0.270-4.200) 07/09/16 20:31 Free T4 1.40 ng/dL (0.76-1.46) 07/09/16 20:31 Urine Color Jennifer (Yellow) 07/10/16 13:10 Urine Turbidity Turbid (Clear) 07/10/16 13:10 Urine pH 6.0 (5.0-7.0) 07/10/16 13:10 Ur Specific [place] 1.016 (1.003-1.030) 07/10/16 13:10 Urine Protein 30 mg/dl mg/dL (Negative) 07/10/16 13:10 Urine Glucose (UA) 50 mg/dL (Negative) 07/10/16 13:10 Urine Ketones Neg mg/dL (Negative) 07/10/16 13:10 Urine Blood Sm (Negative) 07/10/16 13:10 Urine Nitrite Neg (Negative) 07/10/16 13:10 Urine Bilirubin Neg (Negative) 07/10/16 13:10 Urine Urobilinogen < 2.0 mg/dL (<2.0) 07/10/16 13:10 Ur Leukocyte Esterase Lg (Negative) 07/10/16 13:10 Urine WBC (Auto) 164.0 /HPF (0.0-6.0) H 07/10/16 13:10 Urine RBC (Auto) 33.0 /HPF (0.0-6.0) 07/10/16 13:10 U Epithel Cells (Auto) 5.0 /HPF (0-13.0) 07/10/16 13:10 Urine Bacteria (Auto) 4+ /HPF (Negative) 07/10/16 13:10 Urine Mucus 3+ /HPF 07/10/16 13:10 Urine Eosinophils 1 (None Seen) 07/11/16 12:50 Urine Creatinine < 4.2 mg/dL (0.1-20.0) 07/11/16 13:03 Urine Sodium 10 mEq/L 07/11/16 13:03
--- NOTE | 2016-07-15 09:30 | XRay Report ---
Single view chest: Compared to 07/14/16. History: Followup respiratory failure. Findings: Normal cardiomediastinal silhouette. Trachea is midline. Pulmonary venous congestion with right pleural effusion. No significant interval change. Impression: No significant interval change.
--- NOTE | 2016-07-15 11:17 | Progress Note ---
Assessment and Plan Acute respiratory failure. On oxygen support,no distress .Some rhonchi Pneumonia. .Completing ABX Narcotic overdose. Dementia Recommendations Complete antibiotics. Nebulizer treatment Aspiration precautions Chest PT IS q 2-4 hr K+ replacement No family available for case discussion. Subjective Date of service: 07/15/16 Principal diagnosis: acute respiratory failure, narcotic overdose, AMS Interval history: No complains Objective Vital Signs - 12hr 07/15/16 07/15/16 07/15/16 00:00 05:00 07:50 Temperature 100.5 F H 98.2 F Pulse Rate 94 H Pulse Rate [ 56 L 94 H From Monitor] Respiratory 22 22 Rate Blood Pressure 187/75 Blood Pressure 156/66 187/75 [Right Arm] O2 Sat by Pulse 96 97 Oximetry Constitutional: no acute distress, alert Eyes: non-icteric Neck: supple Ascultation: Bilateral: clear, rhonchi (sporadic otherwise clear) Percussion: Bilateral: not dull Tactile fremitus: Bilateral: normal Cardiovascular: regular rate and rhythm Gastrointestinal: normoactive bowel sounds, non-tender Extremities: no cyanosis, no edema Neurologic: other (mildly confused,not agitated) CBC and BMP: 07/15/16 06:34 07/15/16 06:34 ABG, PT/INR, D-dimer: ABG POC ABG pH 7.452 (7.35-7.45) H 07/12/16 09:10 POC ABG pCO2 33.2 (35-45) L 07/12/16 09:10 POC ABG pO2 74 (80-105) L 07/12/16 09:10 POC ABG HCO3 23.2 07/12/16 09:10 POC ABG Total CO2 24 07/12/16 09:10 POC ABG O2 Sat 96 07/12/16 09:10 PT/INR, D-dimer PT 13.4 Sec. (12.2-14.9) 07/09/16 20:31 INR 1.03 (0.87-1.13) 07/09/16 20:31 Abnormal lab findings: Abnormal Labs 07/10/16 07/10/16 07/10/16 06:22 06:48 06:48 WBC 14.5 H RBC 3.53 L Hgb 10.0 L Hct MCH Plt Count 484 H Lymph % (Auto) 12.0 L [place] % (Auto) 7.4 H Eos % (Auto) Lymph # [place] # 1.1 H Eos # Seg Neutrophils % 77.4 H Seg Neuts % (Manual) Lymphocytes % (Manual) Monocytes % (Manual) Seg Neutrophils # 11.2 H Seg Neutrophils # Man Monocytes # (Manual) POC ABG pH POC ABG pCO2 POC ABG pO2 Sodium 148 H Potassium Chloride 109.2 H Carbon Dioxide BUN 33 H Creatinine 3.1 H Glucose 111 H POC Glucose 132 H Hemoglobin A1c Calcium Magnesium Total Creatine Kinase CK-MB (CK-2) Total Protein Albumin Urine WBC (Auto) 07/10/16 07/10/16 07/10/16 08:06 08:18 08:55 WBC RBC Hgb Hct MCH Plt Count Lymph % (Auto) [place] % (Auto) Eos % (Auto) Lymph # [place] # Eos # Seg Neutrophils % Seg Neuts % (Manual) Lymphocytes % (Manual) Monocytes % (Manual) Seg Neutrophils # Seg Neutrophils # Man Monocytes # (Manual) POC ABG pH 7.249 L POC ABG pCO2 54.1 H POC ABG pO2 Sodium Potassium Chloride Carbon Dioxide BUN Creatinine Glucose POC Glucose 141 H Hemoglobin A1c Calcium Magnesium Total Creatine Kinase 334 H CK-MB (CK-2) 5.6 H Total Protein Albumin Urine WBC (Auto) 07/10/16 07/10/16 07/11/16 13:03 13:10 04:31 WBC 11.6 H RBC 3.49 L Hgb 9.7 L Hct MCH Plt Count 442 H Lymph % (Auto) 9.8 L [place] % (Auto) 9.5 H Eos % (Auto) 5.2 H Lymph # 1.1 L [place] # 1.1 H Eos # 0.6 H Seg Neutrophils % 75.1 H Seg Neuts % (Manual) Lymphocytes % (Manual) Monocytes % (Manual) Seg Neutrophils # 8.7 H Seg Neutrophils # Man Monocytes # (Manual) POC ABG pH 7.330 L POC ABG pCO2 46.6 H POC ABG pO2 142 H Sodium Potassium Chloride Carbon Dioxide BUN Creatinine Glucose POC Glucose Hemoglobin A1c Calcium Magnesium Total Creatine Kinase CK-MB (CK-2) Total Protein Albumin Urine WBC (Auto) 164.0 H 07/11/16 07/11/16 07/11/16 04:31 04:31 05:21 WBC RBC Hgb Hct MCH Plt Count Lymph % (Auto) [place] % (Auto) Eos % (Auto) Lymph # [place] # Eos # Seg Neutrophils % Seg Neuts % (Manual) Lymphocytes % (Manual) Monocytes % (Manual) Seg Neutrophils # Seg Neutrophils # Man Monocytes # (Manual) POC ABG pH 7.482 H POC ABG pCO2 28.3 L POC ABG pO2 Sodium Potassium Chloride Carbon Dioxide 20 L BUN 36 H Creatinine 3.7 H Glucose 238 H POC Glucose Hemoglobin A1c 8.8 H Calcium 8.0 L Magnesium Total Creatine Kinase CK-MB (CK-2) Total Protein 5.8 L Albumin 2.3 L Urine WBC (Auto) 07/11/16 07/11/16 07/11/16 08:19 11:51 17:04 WBC RBC Hgb Hct MCH Plt Count Lymph % (Auto) [place] % (Auto) Eos % (Auto) Lymph # [place] # Eos # Seg Neutrophils % Seg Neuts % (Manual) Lymphocytes % (Manual) Monocytes % (Manual) Seg Neutrophils # Seg Neutrophils # Man Monocytes # (Manual) POC ABG pH POC ABG pCO2 POC ABG pO2 Sodium Potassium Chloride Carbon Dioxide BUN Creatinine Glucose POC Glucose 375 H 247 H 134 H Hemoglobin A1c Calcium Magnesium Total Creatine Kinase CK-MB (CK-2) Total Protein Albumin Urine WBC (Auto) 07/11/16 07/12/16 07/12/16 20:24 00:36 04:00 WBC 15.9 H RBC 3.36 L Hgb 9.3 L Hct 28.9 L MCH Plt Count Lymph % (Auto) 6.6 L [place] % (Auto) 10.2 H Eos % (Auto) Lymph # 1.1 L [place] # 1.6 H Eos # Seg Neutrophils % 82.5 H Seg Neuts % (Manual) Lymphocytes % (Manual) Monocytes % (Manual) Seg Neutrophils # 13.1 H Seg Neutrophils # Man Monocytes # (Manual) POC ABG pH POC ABG pCO2 POC ABG pO2 Sodium Potassium Chloride Carbon Dioxide BUN Creatinine Glucose POC Glucose 262 H 183 H Hemoglobin A1c Calcium Magnesium Total Creatine Kinase CK-MB (CK-2) Total Protein Albumin Urine WBC (Auto) 07/12/16 07/12/16 07/12/16 04:00 05:22 06:18 WBC RBC Hgb Hct MCH Plt Count Lymph % (Auto) [place] % (Auto) Eos % (Auto) Lymph # [place] # Eos # Seg Neutrophils % Seg Neuts % (Manual) Lymphocytes % (Manual) Monocytes % (Manual) Seg Neutrophils # Seg Neutrophils # Man Monocytes # (Manual) POC ABG pH POC ABG pCO2 29.5 L POC ABG pO2 67 L Sodium Potassium Chloride Carbon Dioxide 20 L BUN 37 H Creatinine 3.5 H Glucose 112 H POC Glucose 124 H Hemoglobin A1c Calcium Magnesium Total Creatine Kinase CK-MB (CK-2) Total Protein Albumin Urine WBC (Auto) 07/12/16 07/12/16 07/12/16 09:10 09:23 11:49 WBC RBC Hgb Hct MCH Plt Count Lymph % (Auto) [place] % (Auto) Eos % (Auto) Lymph # [place] # Eos # Seg Neutrophils % Seg Neuts % (Manual) Lymphocytes % (Manual) Monocytes % (Manual) Seg Neutrophils # Seg Neutrophils # Man Monocytes # (Manual) POC ABG pH 7.452 H POC ABG pCO2 33.2 L POC ABG pO2 74 L Sodium Potassium Chloride Carbon Dioxide BUN Creatinine Glucose POC Glucose 162 H 209 H Hemoglobin A1c Calcium Magnesium Total Creatine Kinase CK-MB (CK-2) Total Protein Albumin Urine WBC (Auto) 07/12/16 07/12/16 07/13/16 17:45 23:25 04:45 WBC 21.1 H RBC 3.52 L Hgb 9.7 L Hct MCH Plt Count 529 H Lymph % (Auto) [place] % (Auto) Eos % (Auto) Lymph # [place] # Eos # Seg Neutrophils % Seg Neuts % (Manual) 75.0 H Lymphocytes % (Manual) 11.0 L Monocytes % (Manual) 8.0 H Seg Neutrophils # Seg Neutrophils # Man 15.8 H Monocytes # (Manual) 1.7 H POC ABG pH POC ABG pCO2 POC ABG pO2 Sodium Potassium Chloride Carbon Dioxide BUN Creatinine Glucose POC Glucose 126 H 151 H Hemoglobin A1c Calcium Magnesium Total Creatine Kinase CK-MB (CK-2) Total Protein Albumin Urine WBC (Auto) 07/13/16 07/13/16 07/13/16 04:45 06:02 06:09 WBC RBC Hgb Hct MCH Plt Count Lymph % (Auto) [place] % (Auto) Eos % (Auto) Lymph # [place] # Eos # Seg Neutrophils % Seg Neuts % (Manual) Lymphocytes % (Manual) Monocytes % (Manual) Seg Neutrophils # Seg Neutrophils # Man Monocytes # (Manual) POC ABG pH POC ABG pCO2 POC ABG pO2 Sodium 134 L Potassium Chloride Carbon Dioxide 21 L BUN 31 H Creatinine 2.2 H Glucose 230 H POC Glucose 267 H 257 H Hemoglobin A1c Calcium 7.9 L Magnesium 1.3 L Total Creatine Kinase CK-MB (CK-2) Total Protein Albumin Urine WBC (Auto) 07/13/16 07/13/16 07/13/16 07:31 11:51 18:17 WBC RBC Hgb Hct MCH Plt Count Lymph % (Auto) [place] % (Auto) Eos % (Auto) Lymph # [place] # Eos # Seg Neutrophils % Seg Neuts % (Manual) Lymphocytes % (Manual) Monocytes % (Manual) Seg Neutrophils # Seg Neutrophils # Man Monocytes # (Manual) POC ABG pH POC ABG pCO2 POC ABG pO2 Sodium Potassium Chloride Carbon Dioxide BUN Creatinine Glucose POC Glucose 223 H 245 H 222 H Hemoglobin A1c Calcium Magnesium Total Creatine Kinase CK-MB (CK-2) Total Protein Albumin Urine WBC (Auto) 07/13/16 07/14/16 07/14/16 23:02 05:28 05:28 WBC 16.9 H RBC 3.61 L Hgb 10.0 L Hct MCH Plt Count 556 H Lymph % (Auto) 6.6 L [place] % (Auto) 11.8 H Eos % (Auto) Lymph # 1.1 L [place] # 2.0 H Eos # 0.6 H Seg Neutrophils % 77.8 H Seg Neuts % (Manual) Lymphocytes % (Manual) Monocytes % (Manual) Seg Neutrophils # 13.2 H Seg Neutrophils # Man Monocytes # (Manual) POC ABG pH POC ABG pCO2 POC ABG pO2 Sodium Potassium Chloride Carbon Dioxide 21 L BUN 22 H Creatinine 1.3 H Glucose 145 H POC Glucose 221 H Hemoglobin A1c Calcium 8.0 L Magnesium Total Creatine Kinase CK-MB (CK-2) Total Protein Albumin Urine WBC (Auto) 07/14/16 07/14/16 07/14/16 05:48 17:42 22:47 WBC RBC Hgb Hct MCH Plt Count Lymph % (Auto) [place] % (Auto) Eos % (Auto) Lymph # [place] # Eos # Seg Neutrophils % Seg Neuts % (Manual) Lymphocytes % (Manual) Monocytes % (Manual) Seg Neutrophils # Seg Neutrophils # Man Monocytes # (Manual) POC ABG pH POC ABG pCO2 POC ABG pO2 Sodium Potassium Chloride Carbon Dioxide BUN Creatinine Glucose POC Glucose 156 H 362 H 171 H Hemoglobin A1c Calcium Magnesium Total Creatine Kinase CK-MB (CK-2) Total Protein Albumin Urine WBC (Auto) 07/15/16 07/15/16 07/15/16 02:45 06:34 06:34 WBC 13.3 H RBC 3.39 L Hgb 9.2 L Hct 29.1 L MCH 27 L Plt Count 520 H Lymph % (Auto) 9.0 L [place] % (Auto) 10.9 H Eos % (Auto) 6.0 H Lymph # [place] # 1.5 H Eos # 0.8 H Seg Neutrophils % 73.7 H Seg Neuts % (Manual) Lymphocytes % (Manual) Monocytes % (Manual) Seg Neutrophils # 9.8 H Seg Neutrophils # Man Monocytes # (Manual) POC ABG pH POC ABG pCO2 POC ABG pO2 Sodium 134 L Potassium 2.6 L* Chloride Carbon Dioxide 21 L BUN 21 H Creatinine Glucose 162 H POC Glucose 204 H Hemoglobin A1c Calcium 7.8 L Magnesium Total Creatine Kinase CK-MB (CK-2) Total Protein Albumin Urine WBC (Auto) 07/15/16 06:42 WBC RBC Hgb Hct MCH Plt Count Lymph % (Auto) [place] % (Auto) Eos % (Auto) Lymph # [place] # Eos # Seg Neutrophils % Seg Neuts % (Manual) Lymphocytes % (Manual) Monocytes % (Manual) Seg Neutrophils # Seg Neutrophils # Man Monocytes # (Manual) POC ABG pH POC ABG pCO2 POC ABG pO2 Sodium Potassium Chloride Carbon Dioxide BUN Creatinine Glucose POC Glucose 164 H Hemoglobin A1c Calcium Magnesium Total Creatine Kinase CK-MB (CK-2) Total Protein Albumin Urine WBC (Auto)
[2016-07-15] MEDS: PEPCID PO SCH (11:52)
[2016-07-15] MEDS: NORVASC FEEDTUBE SCH (11:52)
[2016-07-15] MEDS: POTASSIUM CHLORIDE FEEDTUBE SCH ×2 (11:58→13:50)
[2016-07-15] MEDS: KCL 10MEQ/100ML 10 MEQ/100 ML BAG IV SCH ×2 (12:00→13:51)
[2016-07-15] MEDS: LOVENOX SUB-Q SCH (12:08)
[2016-07-15] MEDS: LEVAQUIN 500MG/100ML 500 MG/100 ML BAG IV SCH (13:49)
--- NOTE | 2016-07-15 16:42 | Progress Note ---
Assessment and Plan Impression * Acute renal failure. May be prerenal. However due need to consider progression to ATN * Respiratory failure * Hypertension * Chronic back pain * Diabetes * Pyuria Recommendations * She most likely has a prerenal component. Her urine sodium is 10 * Her renal function has improved significantly. Shall discontinue her IV fluid for now * Continue empiric antibiotics * Patient's renal function was normal last month. * Monitor patient's fluid status and electrolytes closely * Avoid nephrotoxins * Shall keep her off her lisinopril for now * Her serum potassium noted to be low. Shall replace. Her magnesium level is 1.7 * Shall follow her PRN * Discussed with patient's son at bedside Subjective Date of service: 07/15/16 Principal diagnosis: acute respiratory failure, narcotic overdose, AMS Interval history: Patient is comfortable today. It appears more alert. Currently receiving Dobbhoff tube feeding Objective - Vital Signs Vital signs: Vital Signs - 12hr 07/15/16 07/15/16 07/15/16 05:00 07:50 08:00 Temperature 98.2 F 99.3 F Pulse Rate 94 H Pulse Rate [ 94 H 77 From Monitor] Respiratory 22 16 Rate Blood Pressure 187/75 Blood Pressure 187/75 129/58 [Right Arm] O2 Sat by Pulse 97 98 Oximetry 07/15/16 07/15/16 11:30 11:52 Temperature 99.4 F Pulse Rate 72 Pulse Rate [ 141 H From Monitor] Respiratory 18 Rate Blood Pressure 134/88 Blood Pressure 124/75 [Right Arm] O2 Sat by Pulse 96 Oximetry - General Appearance General appearance: well-developed, well-nourished, appears stated age EENT: PERRL, mucous membranes moist Neck: no JVD Respiratory: Present: Ronchi (few scattered rhonchi) Cardiology: regular, normal heart rate, S1S2, no murmurs Gastrointestinal: normal, normoactive bowel sounds Integumentary: no rash, other (no edema) - Lab 07/15/16 06:34 07/15/16 06:34 Most recent lab results Calcium 7.8 mg/dL (8.4-10.2) L 07/15/16 06:34 Phosphorus 2.7 mg/dL (2.5-4.5) 07/14/16 05:28 Magnesium 1.7 mg/dL (1.7-2.3) 07/15/16 06:34 Urine Creatinine < 4.2 mg/dL (0.1-20.0) 07/11/16 13:03 Urine Sodium 10 mEq/L 07/11/16 13:03
[2016-07-15] MEDS: ROCEPHIN/NS 1 GM/50 ML 1 GM/50 ML BAG IV SCH (21:52)
[2016-07-16] MEDS: NOVOLOG SUB-Q SCH ×4 (01:03→19:47)
[2016-07-16 06:53] LABS: Anion Gap 16 mmol/L; BUN/Creatinine Ratio 25.71; Blood Urea Nitrogen 18 mg/dL (7-17); Calcium 8.3 mg/dL (8.4-10.2); Carbon Dioxide 22 mmol/L (22-30); Chloride 104.2 mmol/L (98-107); Glucose 156 mg/dL (65-100); Sodium 138 mmol/L (137-145)
--- NOTE | 2016-07-16 09:56 | Progress Note ---
Assessment and Plan acute kidney injury currently in remission monitor intake and output avoid nephrotoxic medication Monitor renal function periodically We will sign off the case please call if needed Subjective Principal diagnosis: acute respiratory failure, narcotic overdose, AMS Interval history: patient was seen today for follow-up on multiple renal related issues Does not appear to be in any acute distress renal function has improved Events of this hospitalization noted Objective - Vital Signs Vital signs: Vital Signs - 12hr 07/16/16 07/16/16 00:35 04:45 Temperature 98.5 F 99.5 F Pulse Rate [ 137 H 126 H Right Radial] Respiratory 18 20 Rate Blood Pressure 185/105 128/58 [Right Arm] O2 Sat by Pulse 98 97 Oximetry - General Appearance General appearance: appears stated age (elderly appearing female weak frail) EENT: mucous membranes moist Neck: no JVD Cardiology: regular (S1-S2 normal no S3-S4) Gastrointestinal: other (soft nontender abdomen) Integumentary: other (dry skin minimal edema) - Lab 07/17/16 00:48 07/17/16 05:28 Most recent lab results Calcium 8.3 mg/dL (8.4-10.2) L 07/16/16 06:03 Phosphorus 2.7 mg/dL (2.5-4.5) 07/14/16 05:28 Magnesium 1.7 mg/dL (1.7-2.3) 07/15/16 06:34 Urine Creatinine < 4.2 mg/dL (0.1-20.0) 07/11/16 13:03 Urine Sodium 10 mEq/L 07/11/16 13:03
[2016-07-16] MEDS: LOVENOX SUB-Q SCH (10:46)
[2016-07-16] MEDS: NORVASC FEEDTUBE SCH (10:46)
[2016-07-16] MEDS: PEPCID PO SCH (10:47)
[2016-07-16] MEDS ORDERED: LASIX IV ONE (11:00)
--- NOTE | 2016-07-16 11:05 | Progress Note ---
Assessment and Plan Acute respiratory failure. More congested today with some increasing breathing. No vomiting reported by nursing. Pneumonia. .Completing ABX. Chest x-ray are yesterday were not revealing other than mild vascular congestion pleural effusions Narcotic overdose. Dementia Recommendations Complete antibiotics. Nebulizer treatment Aspiration precautions Chest PT BNP Lasix 40 mg 1 Discussed with nurse to check residuals and maintain aspiration precautions. Consider holding by mouth feedings if significant residuals noted No family available for case discussion. Subjective Date of service: 07/16/16 Principal diagnosis: acute respiratory failure, narcotic overdose, AMS Interval history: No complaints of cough. Objective Vital Signs - 12hr 07/16/16 07/16/16 07/16/16 00:35 04:45 08:00 Temperature 98.5 F 99.5 F 98.8 F Pulse Rate [ 131 H From Monitor] Pulse Rate [ 137 H 126 H Right Radial] Respiratory 18 20 20 Rate Blood Pressure 185/105 128/58 140/63 [Right Arm] O2 Sat by Pulse 98 97 Oximetry 07/16/16 09:00 Temperature Pulse Rate [ From Monitor] Pulse Rate [ Right Radial] Respiratory Rate Blood Pressure [Right Arm] O2 Sat by Pulse 96 Oximetry Constitutional: no acute distress, alert Eyes: non-icteric ENT: other (NGT in place) Neck: supple Ascultation: Bilateral: clear, rhonchi (bilateral coarse) Percussion: Bilateral: not dull Tactile fremitus: Bilateral: normal Cardiovascular: regular rate and rhythm Gastrointestinal: normoactive bowel sounds, non-tender Extremities: no cyanosis, no edema Neurologic: other ( confused,not agitated) CBC and BMP: 07/15/16 06:34 07/16/16 06:03 ABG, PT/INR, D-dimer: ABG POC ABG pH 7.452 (7.35-7.45) H 07/12/16 09:10 POC ABG pCO2 33.2 (35-45) L 07/12/16 09:10 POC ABG pO2 74 (80-105) L 07/12/16 09:10 POC ABG HCO3 23.2 07/12/16 09:10 POC ABG Total CO2 24 07/12/16 09:10 POC ABG O2 Sat 96 07/12/16 09:10 PT/INR, D-dimer PT 13.4 Sec. (12.2-14.9) 07/09/16 20:31 INR 1.03 (0.87-1.13) 07/09/16 20:31 Abnormal lab findings: Abnormal Labs 07/10/16 07/10/16 07/10/16 06:22 06:48 06:48 WBC 14.5 H RBC 3.53 L Hgb 10.0 L Hct MCH Plt Count 484 H Lymph % (Auto) 12.0 L [place] % (Auto) 7.4 H Eos % (Auto) Lymph # [place] # 1.1 H Eos # Seg Neutrophils % 77.4 H Seg Neuts % (Manual) Lymphocytes % (Manual) Monocytes % (Manual) Seg Neutrophils # 11.2 H Seg Neutrophils # Man Monocytes # (Manual) POC ABG pH POC ABG pCO2 POC ABG pO2 Sodium 148 H Potassium Chloride 109.2 H Carbon Dioxide BUN 33 H Creatinine 3.1 H Glucose 111 H POC Glucose 132 H Hemoglobin A1c Calcium Magnesium Total Creatine Kinase CK-MB (CK-2) Total Protein Albumin Urine WBC (Auto) 07/10/16 07/10/16 07/10/16 08:06 08:18 08:55 WBC RBC Hgb Hct MCH Plt Count Lymph % (Auto) [place] % (Auto) Eos % (Auto) Lymph # [place] # Eos # Seg Neutrophils % Seg Neuts % (Manual) Lymphocytes % (Manual) Monocytes % (Manual) Seg Neutrophils # Seg Neutrophils # Man Monocytes # (Manual) POC ABG pH 7.249 L POC ABG pCO2 54.1 H POC ABG pO2 Sodium Potassium Chloride Carbon Dioxide BUN Creatinine Glucose POC Glucose 141 H Hemoglobin A1c Calcium Magnesium Total Creatine Kinase 334 H CK-MB (CK-2) 5.6 H Total Protein Albumin Urine WBC (Auto) 07/10/16 07/10/16 07/11/16 13:03 13:10 04:31 WBC 11.6 H RBC 3.49 L Hgb 9.7 L Hct MCH Plt Count 442 H Lymph % (Auto) 9.8 L [place] % (Auto) 9.5 H Eos % (Auto) 5.2 H Lymph # 1.1 L [place] # 1.1 H Eos # 0.6 H Seg Neutrophils % 75.1 H Seg Neuts % (Manual) Lymphocytes % (Manual) Monocytes % (Manual) Seg Neutrophils # 8.7 H Seg Neutrophils # Man Monocytes # (Manual) POC ABG pH 7.330 L POC ABG pCO2 46.6 H POC ABG pO2 142 H Sodium Potassium Chloride Carbon Dioxide BUN Creatinine Glucose POC Glucose Hemoglobin A1c Calcium Magnesium Total Creatine Kinase CK-MB (CK-2) Total Protein Albumin Urine WBC (Auto) 164.0 H 07/11/16 07/11/16 07/11/16 04:31 04:31 05:21 WBC RBC Hgb Hct MCH Plt Count Lymph % (Auto) [place] % (Auto) Eos % (Auto) Lymph # [place] # Eos # Seg Neutrophils % Seg Neuts % (Manual) Lymphocytes % (Manual) Monocytes % (Manual) Seg Neutrophils # Seg Neutrophils # Man Monocytes # (Manual) POC ABG pH 7.482 H POC ABG pCO2 28.3 L POC ABG pO2 Sodium Potassium Chloride Carbon Dioxide 20 L BUN 36 H Creatinine 3.7 H Glucose 238 H POC Glucose Hemoglobin A1c 8.8 H Calcium 8.0 L Magnesium Total Creatine Kinase CK-MB (CK-2) Total Protein 5.8 L Albumin 2.3 L Urine WBC (Auto) 07/11/16 07/11/16 07/11/16 08:19 11:51 17:04 WBC RBC Hgb Hct MCH Plt Count Lymph % (Auto) [place] % (Auto) Eos % (Auto) Lymph # [place] # Eos # Seg Neutrophils % Seg Neuts % (Manual) Lymphocytes % (Manual) Monocytes % (Manual) Seg Neutrophils # Seg Neutrophils # Man Monocytes # (Manual) POC ABG pH POC ABG pCO2 POC ABG pO2 Sodium Potassium Chloride Carbon Dioxide BUN Creatinine Glucose POC Glucose 375 H 247 H 134 H Hemoglobin A1c Calcium Magnesium Total Creatine Kinase CK-MB (CK-2) Total Protein Albumin Urine WBC (Auto) 07/11/16 07/12/16 07/12/16 20:24 00:36 04:00 WBC 15.9 H RBC 3.36 L Hgb 9.3 L Hct 28.9 L MCH Plt Count Lymph % (Auto) 6.6 L [place] % (Auto) 10.2 H Eos % (Auto) Lymph # 1.1 L [place] # 1.6 H Eos # Seg Neutrophils % 82.5 H Seg Neuts % (Manual) Lymphocytes % (Manual) Monocytes % (Manual) Seg Neutrophils # 13.1 H Seg Neutrophils # Man Monocytes # (Manual) POC ABG pH POC ABG pCO2 POC ABG pO2 Sodium Potassium Chloride Carbon Dioxide BUN Creatinine Glucose POC Glucose 262 H 183 H Hemoglobin A1c Calcium Magnesium Total Creatine Kinase CK-MB (CK-2) Total Protein Albumin Urine WBC (Auto) 07/12/16 07/12/16 07/12/16 04:00 05:22 06:18 WBC RBC Hgb Hct MCH Plt Count Lymph % (Auto) [place] % (Auto) Eos % (Auto) Lymph # [place] # Eos # Seg Neutrophils % Seg Neuts % (Manual) Lymphocytes % (Manual) Monocytes % (Manual) Seg Neutrophils # Seg Neutrophils # Man Monocytes # (Manual) POC ABG pH POC ABG pCO2 29.5 L POC ABG pO2 67 L Sodium Potassium Chloride Carbon Dioxide 20 L BUN 37 H Creatinine 3.5 H Glucose 112 H POC Glucose 124 H Hemoglobin A1c Calcium Magnesium Total Creatine Kinase CK-MB (CK-2) Total Protein Albumin Urine WBC (Auto) 07/12/16 07/12/16 07/12/16 09:10 09:23 11:49 WBC RBC Hgb Hct MCH Plt Count Lymph % (Auto) [place] % (Auto) Eos % (Auto) Lymph # [place] # Eos # Seg Neutrophils % Seg Neuts % (Manual) Lymphocytes % (Manual) Monocytes % (Manual) Seg Neutrophils # Seg Neutrophils # Man Monocytes # (Manual) POC ABG pH 7.452 H POC ABG pCO2 33.2 L POC ABG pO2 74 L Sodium Potassium Chloride Carbon Dioxide BUN Creatinine Glucose POC Glucose 162 H 209 H Hemoglobin A1c Calcium Magnesium Total Creatine Kinase CK-MB (CK-2) Total Protein Albumin Urine WBC (Auto) 07/12/16 07/12/16 07/13/16 17:45 23:25 04:45 WBC 21.1 H RBC 3.52 L Hgb 9.7 L Hct MCH Plt Count 529 H Lymph % (Auto) [place] % (Auto) Eos % (Auto) Lymph # [place] # Eos # Seg Neutrophils % Seg Neuts % (Manual) 75.0 H Lymphocytes % (Manual) 11.0 L Monocytes % (Manual) 8.0 H Seg Neutrophils # Seg Neutrophils # Man 15.8 H Monocytes # (Manual) 1.7 H POC ABG pH POC ABG pCO2 POC ABG pO2 Sodium Potassium Chloride Carbon Dioxide BUN Creatinine Glucose POC Glucose 126 H 151 H Hemoglobin A1c Calcium Magnesium Total Creatine Kinase CK-MB (CK-2) Total Protein Albumin Urine WBC (Auto) 07/13/16 07/13/16 07/13/16 04:45 06:02 06:09 WBC RBC Hgb Hct MCH Plt Count Lymph % (Auto) [place] % (Auto) Eos % (Auto) Lymph # [place] # Eos # Seg Neutrophils % Seg Neuts % (Manual) Lymphocytes % (Manual) Monocytes % (Manual) Seg Neutrophils # Seg Neutrophils # Man Monocytes # (Manual) POC ABG pH POC ABG pCO2 POC ABG pO2 Sodium 134 L Potassium Chloride Carbon Dioxide 21 L BUN 31 H Creatinine 2.2 H Glucose 230 H POC Glucose 267 H 257 H Hemoglobin A1c Calcium 7.9 L Magnesium 1.3 L Total Creatine Kinase CK-MB (CK-2) Total Protein Albumin Urine WBC (Auto) 07/13/16 07/13/16 07/13/16 07:31 11:51 18:17 WBC RBC Hgb Hct MCH Plt Count Lymph % (Auto) [place] % (Auto) Eos % (Auto) Lymph # [place] # Eos # Seg Neutrophils % Seg Neuts % (Manual) Lymphocytes % (Manual) Monocytes % (Manual) Seg Neutrophils # Seg Neutrophils # Man Monocytes # (Manual) POC ABG pH POC ABG pCO2 POC ABG pO2 Sodium Potassium Chloride Carbon Dioxide BUN Creatinine Glucose POC Glucose 223 H 245 H 222 H Hemoglobin A1c Calcium Magnesium Total Creatine Kinase CK-MB (CK-2) Total Protein Albumin Urine WBC (Auto) 07/13/16 07/14/16 07/14/16 23:02 05:28 05:28 WBC 16.9 H RBC 3.61 L Hgb 10.0 L Hct MCH Plt Count 556 H Lymph % (Auto) 6.6 L [place] % (Auto) 11.8 H Eos % (Auto) Lymph # 1.1 L [place] # 2.0 H Eos # 0.6 H Seg Neutrophils % 77.8 H Seg Neuts % (Manual) Lymphocytes % (Manual) Monocytes % (Manual) Seg Neutrophils # 13.2 H Seg Neutrophils # Man Monocytes # (Manual) POC ABG pH POC ABG pCO2 POC ABG pO2 Sodium Potassium Chloride Carbon Dioxide 21 L BUN 22 H Creatinine 1.3 H Glucose 145 H POC Glucose 221 H Hemoglobin A1c Calcium 8.0 L Magnesium Total Creatine Kinase CK-MB (CK-2) Total Protein Albumin Urine WBC (Auto) 07/14/16 07/14/16 07/14/16 05:48 17:42 22:47 WBC RBC Hgb Hct MCH Plt Count Lymph % (Auto) [place] % (Auto) Eos % (Auto) Lymph # [place] # Eos # Seg Neutrophils % Seg Neuts % (Manual) Lymphocytes % (Manual) Monocytes % (Manual) Seg Neutrophils # Seg Neutrophils # Man Monocytes # (Manual) POC ABG pH POC ABG pCO2 POC ABG pO2 Sodium Potassium Chloride Carbon Dioxide BUN Creatinine Glucose POC Glucose 156 H 362 H 171 H Hemoglobin A1c Calcium Magnesium Total Creatine Kinase CK-MB (CK-2) Total Protein Albumin Urine WBC (Auto) 07/15/16 07/15/16 07/15/16 02:45 06:34 06:34 WBC 13.3 H RBC 3.39 L Hgb 9.2 L Hct 29.1 L MCH 27 L Plt Count 520 H Lymph % (Auto) 9.0 L [place] % (Auto) 10.9 H Eos % (Auto) 6.0 H Lymph # [place] # 1.5 H Eos # 0.8 H Seg Neutrophils % 73.7 H Seg Neuts % (Manual) Lymphocytes % (Manual) Monocytes % (Manual) Seg Neutrophils # 9.8 H Seg Neutrophils # Man Monocytes # (Manual) POC ABG pH POC ABG pCO2 POC ABG pO2 Sodium 134 L Potassium 2.6 L* Chloride Carbon Dioxide 21 L BUN 21 H Creatinine Glucose 162 H POC Glucose 204 H Hemoglobin A1c Calcium 7.8 L Magnesium Total Creatine Kinase CK-MB (CK-2) Total Protein Albumin Urine WBC (Auto) 07/15/16 07/15/16 07/15/16 06:42 12:25 16:44 WBC RBC Hgb Hct MCH Plt Count Lymph % (Auto) [place] % (Auto) Eos % (Auto) Lymph # [place] # Eos # Seg Neutrophils % Seg Neuts % (Manual) Lymphocytes % (Manual) Monocytes % (Manual) Seg Neutrophils # Seg Neutrophils # Man Monocytes # (Manual) POC ABG pH POC ABG pCO2 POC ABG pO2 Sodium Potassium Chloride Carbon Dioxide BUN Creatinine Glucose POC Glucose 164 H 203 H 130 H Hemoglobin A1c Calcium Magnesium Total Creatine Kinase CK-MB (CK-2) Total Protein Albumin Urine WBC (Auto) 07/16/16 07/16/16 00:33 06:03 WBC RBC Hgb Hct MCH Plt Count Lymph % (Auto) [place] % (Auto) Eos % (Auto) Lymph # [place] # Eos # Seg Neutrophils % Seg Neuts % (Manual) Lymphocytes % (Manual) Monocytes % (Manual) Seg Neutrophils # Seg Neutrophils # Man Monocytes # (Manual) POC ABG pH POC ABG pCO2 POC ABG pO2 Sodium Potassium Chloride Carbon Dioxide BUN 18 H Creatinine Glucose 156 H POC Glucose 219 H Hemoglobin A1c Calcium 8.3 L Magnesium Total Creatine Kinase CK-MB (CK-2) Total Protein Albumin Urine WBC (Auto)
[2016-07-16] MEDS: PROVENTIL IH SCH ×3 (13:31→21:02)
--- NOTE | 2016-07-16 18:10 | Progress Note ---
Assessment and Plan Assessment and plan: --Dysphagia, aspiration risk per swallow evaluation Consult GI for possible PEG placement Had discussed the possibility of PEG placement with the son who agreed for the procedure --Toxic metabolic encephalopathy at the time of admission Multifactorial, continue supportive care --Acute respiratory failure, status post extubation Continue nasal cannula oxygen, nebulizers, supportive care --Sepsis secondary to urinary tract infection Cultures negative to date, continue antibiotics for total 10 days --Acute renal failure probably prerenal versus ATN Resolved, nephrology following --Type 2 diabetes mellitus moderate control Accu-Chek sliding scale coverage and ADA diet and insulin, hemoglobin A1c 8.8 We will add 7030 Novolin long-acting insulin --Hypertension: Moderate control, continue current antihypertensives and when necessary medications --full CODE STATUS --DVT prophylaxis with Lovenox Physical therapy occupational therapy, DC planning. Case management Patient will be discharged back to long-term after PEG placement Time of care discussed with the patient's son, her nurse as well as GI History Interval history: Patient seen and evaluated in her room this morning medical records reviewed Swallow evaluation revealed high risk for aspiration Patient is alert noncommunicative receiving [place] feeds No new events reported by the nursing staff Patient is stable not in acute distress, vital signs reviewed Hospitalist Physical - Constitutional Vitals: Temp Pulse Resp BP Pulse Ox 99.1 F 113 H 18 152/77 97 07/16/16 16:00 07/16/16 16:46 07/16/16 16:46 07/16/16 16:00 07/16/16 16:00 General appearance: Present: no acute distress, well-nourished - EENT Eyes: Present: PERRL, EOM intact - Neck Neck: Present: supple, normal ROM - Respiratory Respiratory effort: normal Respiratory: bilateral: diminished, rhonchi (scanty), negative: rales, wheezing - Cardiovascular Rhythm: regular Heart Sounds: Present: S1 & S2 - Extremities Extremities: no ischemia, pulses intact, pulses symmetrical Peripheral Pulses: within normal limits - Abdominal General gastrointestinal: soft, non-tender, non-distended, normal bowel sounds - Integumentary Integumentary: Present: clear, warm - Psychiatric Psychiatric: appropriate mood/affect, cooperative - Neurologic Neurologic: CNII-XII intact, moves all extremities Results - Labs CBC & Chem 7: 07/15/16 06:34 07/16/16 06:03 Labs: Laboratory Last Values WBC 13.3 K/mm3 (4.5-11.0) H 07/15/16 06:34 RBC 3.39 M/mm3 (3.65-5.03) L 07/15/16 06:34 Hgb 9.2 gm/dl (10.1-14.3) L 07/15/16 06:34 Hct 29.1 % (30.3-42.9) L 07/15/16 06:34 MCV 86 fl (79-97) 07/15/16 06:34 MCH 27 pg (28-32) L 07/15/16 06:34 MCHC 32 % (30-34) 07/15/16 06:34 RDW 14.7 % (13.2-15.2) 07/15/16 06:34 Plt Count 520 K/mm3 (140-440) H 07/15/16 06:34 Lymph % (Auto) 9.0 % (13.4-35.0) L 07/15/16 06:34 [place] % (Auto) 10.9 % (0.0-7.3) H 07/15/16 06:34 Eos % (Auto) 6.0 % (0.0-4.3) H 07/15/16 06:34 Baso % (Auto) 0.4 % (0.0-1.8) 07/15/16 06:34 Lymph # 1.2 K/mm3 (1.2-5.4) 07/15/16 06:34 [place] # 1.5 K/mm3 (0.0-0.8) H 07/15/16 06:34 Eos # 0.8 K/mm3 (0.0-0.4) H 07/15/16 06:34 Baso # 0.1 K/mm3 (0.0-0.1) 07/15/16 06:34 Add Manual Diff Complete 07/13/16 04:45 Total Counted 100 07/13/16 04:45 Seg Neutrophils % 73.7 % (40.0-70.0) H 07/15/16 06:34 Seg Neuts % (Manual) 75.0 % (40.0-70.0) H 07/13/16 04:45 Band Neutrophils % 3.0 % 07/13/16 04:45 Lymphocytes % (Manual) 11.0 % (13.4-35.0) L 07/13/16 04:45 Reactive Lymphs % (Man) 0 % 07/13/16 04:45 Monocytes % (Manual) 8.0 % (0.0-7.3) H 07/13/16 04:45 Eosinophils % (Manual) 0 % (0.0-4.3) 07/13/16 04:45 Basophils % (Manual) 0 % (0.0-1.8) 07/13/16 04:45 Metamyelocytes % 3.0 % 07/13/16 04:45 Myelocytes % 0 % 07/13/16 04:45 Promyelocytes % 0 % 07/13/16 04:45 Blast Cells % 0 % 07/13/16 04:45 Nucleated RBC % Not Reportable 07/13/16 04:45 Seg Neutrophils # 9.8 K/mm3 (1.8-7.7) H 07/15/16 06:34 Seg Neutrophils # Man 15.8 K/mm3 (1.8-7.7) H 07/13/16 04:45 Band Neutrophils # 0.6 K/mm3 07/13/16 04:45 Lymphocytes # (Manual) 2.3 K/mm3 (1.2-5.4) 07/13/16 04:45 Abs React Lymphs (Man) 0.0 K/mm3 07/13/16 04:45 Monocytes # (Manual) 1.7 K/mm3 (0.0-0.8) H 07/13/16 04:45 Eosinophils # (Manual) 0.0 K/mm3 (0.0-0.4) 07/13/16 04:45 Basophils # (Manual) 0.0 K/mm3 (0.0-0.1) 07/13/16 04:45 Metamyelocytes # 0.6 K/mm3 07/13/16 04:45 Myelocytes # 0.0 K/mm3 07/13/16 04:45 Promyelocytes # 0.0 K/mm3 07/13/16 04:45 Blast Cells # 0.0 K/mm3 07/13/16 04:45 WBC Morphology Not Reportable 07/13/16 04:45 Hypersegmented Neuts Few 07/13/16 04:45 Hyposegmented Neuts Not Reportable 07/13/16 04:45 Hypogranular Neuts Not Reportable 07/13/16 04:45 Smudge Cells Not Reportable 07/13/16 04:45 Toxic Granulation Not Reportable 07/13/16 04:45 Toxic Vacuolation Not Reportable 07/13/16 04:45 Dohle Bodies Not Reportable 07/13/16 04:45 Pelger-Huet Anomaly Not Reportable 07/13/16 04:45 James Rods Not Reportable 07/13/16 04:45 Platelet Estimate Appears increased 07/13/16 04:45 Clumped Platelets Not Reportable 07/13/16 04:45 Plt Clumps, EDTA Not Reportable 07/13/16 04:45 Large Platelets Not Reportable 07/13/16 04:45 Giant Platelets Not Reportable 07/13/16 04:45 Platelet Satelliting Not Reportable 07/13/16 04:45 Plt Morphology Comment Not Reportable 07/13/16 04:45 RBC Morphology Not Reportable 07/13/16 04:45 Dimorphic RBCs Not Reportable 07/13/16 04:45 Polychromasia Not Reportable 07/13/16 04:45 Hypochromasia Not Reportable 07/13/16 04:45 Poikilocytosis Not Reportable 07/13/16 04:45 Anisocytosis 1+ 07/13/16 04:45 Microcytosis Not Reportable 07/13/16 04:45 Macrocytosis Not Reportable 07/13/16 04:45 Spherocytes Not Reportable 07/13/16 04:45 Pappenheimer Bodies Not Reportable 07/13/16 04:45 Sickle Cells Not Reportable 07/13/16 04:45 Target Cells Not Reportable 07/13/16 04:45 Tear Drop Cells Not Reportable 07/13/16 04:45 Ovalocytes Not Reportable 07/13/16 04:45 Helmet Cells Not Reportable 07/13/16 04:45 [place] Bodies Not Reportable 07/13/16 04:45 [place] Rings Not Reportable 07/13/16 04:45 [place] Cells Not Reportable 07/13/16 04:45 Bite Cells Not Reportable 07/13/16 04:45 Crenated Cell Not Reportable 07/13/16 04:45 Elliptocytes Not Reportable 07/13/16 04:45 Acanthocytes (Spur) Not Reportable 07/13/16 04:45 Rouleaux Not Reportable 07/13/16 04:45 Hemoglobin C Crystals Not Reportable 07/13/16 04:45 Schistocytes Not Reportable 07/13/16 04:45 Malaria parasites Not Reportable 07/13/16 04:45 [place] Bodies Not Reportable 07/13/16 04:45 Hem Pathologist Commnt No 07/13/16 04:45 PT 13.4 Sec. (12.2-14.9) 07/09/16 20:31 INR 1.03 (0.87-1.13) 07/09/16 20:31 POC ABG pH 7.452 (7.35-7.45) H 07/12/16 09:10 POC ABG pCO2 33.2 (35-45) L 07/12/16 09:10 POC ABG pO2 74 (80-105) L 07/12/16 09:10 POC ABG HCO3 23.2 07/12/16 09:10 POC ABG Total CO2 24 07/12/16 09:10 POC ABG O2 Sat 96 07/12/16 09:10 POC ABG Base Excess -1 07/12/16 09:10 FiO2 30 % 07/12/16 09:10 Sodium 138 mmol/L (137-145) 07/16/16 06:03 Potassium 4.0 mmol/L (3.6-5.0) D 07/16/16 06:03 Chloride 104.2 mmol/L (98-107) 07/16/16 06:03 Carbon Dioxide 22 mmol/L (22-30) 07/16/16 06:03 Anion Gap 16 mmol/L 07/16/16 06:03 BUN 18 mg/dL (7-17) H 07/16/16 06:03 Creatinine 0.7 mg/dL (0.7-1.2) 07/16/16 06:03 Estimated GFR > 60 ml/min 07/16/16 06:03 BUN/Creatinine Ratio 25.71 % 07/16/16 06:03 Glucose 156 mg/dL (65-100) H 07/16/16 06:03 POC Glucose 146 (70-105) H 07/16/16 16:13 Hemoglobin A1c 8.8 % (4-6) H 07/11/16 04:31 Calcium 8.3 mg/dL (8.4-10.2) L 07/16/16 06:03 Phosphorus 2.7 mg/dL (2.5-4.5) 07/14/16 05:28 Magnesium 1.7 mg/dL (1.7-2.3) 07/15/16 06:34 Total Bilirubin 0.2 mg/dL (0.1-1.2) 07/11/16 04:31 Direct Bilirubin < 0.2 mg/dL (0-0.2) 07/11/16 04:31 Indirect Bilirubin 0.0 mg/dL 07/11/16 04:31 AST 21 units/L (5-40) 07/11/16 04:31 ALT 9 units/L (7-56) 07/11/16 04:31 Alkaline Phosphatase 80 units/L (35-129) 07/11/16 04:31 Ammonia 48.0 umol/L (25-60) 07/09/16 20:31 Total Creatine Kinase 334 units/L (30-135) H 07/10/16 08:55 CK-MB (CK-2) 5.6 ng/mL (0.0-4.0) H 07/10/16 08:55 CK-MB (CK-2) Rel Index 1.6 (0-4) 07/10/16 08:55 Troponin T 0.016 ng/mL (0.00-0.029) 07/10/16 08:55 NT-Pro-B Natriuret Pep 2802 pg/mL (0-900) H 07/16/16 06:30 Total Protein 5.8 g/dL (6.3-8.2) L 07/11/16 04:31 Albumin 2.3 g/dL (3.9-5) L 07/11/16 04:31 Albumin/Globulin Ratio 0.7 % 07/11/16 04:31 TSH 1.240 mlU/mL (0.270-4.200) 07/09/16 20:31 Free T4 1.40 ng/dL (0.76-1.46) 07/09/16 20:31 Urine Color Jennifer (Yellow) 07/10/16 13:10 Urine Turbidity Turbid (Clear) 07/10/16 13:10 Urine pH 6.0 (5.0-7.0) 07/10/16 13:10 Ur Specific [place] 1.016 (1.003-1.030) 07/10/16 13:10 Urine Protein 30 mg/dl mg/dL (Negative) 07/10/16 13:10 Urine Glucose (UA) 50 mg/dL (Negative) 07/10/16 13:10 Urine Ketones Neg mg/dL (Negative) 07/10/16 13:10 Urine Blood Sm (Negative) 07/10/16 13:10 Urine Nitrite Neg (Negative) 07/10/16 13:10 Urine Bilirubin Neg (Negative) 07/10/16 13:10 Urine Urobilinogen < 2.0 mg/dL (<2.0) 07/10/16 13:10 Ur Leukocyte Esterase Lg (Negative) 07/10/16 13:10 Urine WBC (Auto) 164.0 /HPF (0.0-6.0) H 07/10/16 13:10 Urine RBC (Auto) 33.0 /HPF (0.0-6.0) 07/10/16 13:10 U Epithel Cells (Auto) 5.0 /HPF (0-13.0) 07/10/16 13:10 Urine Bacteria (Auto) 4+ /HPF (Negative) 07/10/16 13:10 Urine Mucus 3+ /HPF 07/10/16 13:10 Urine Eosinophils 1 (None Seen) 07/11/16 12:50 Urine Creatinine < 4.2 mg/dL (0.1-20.0) 07/11/16 13:03 Urine Sodium 10 mEq/L 07/11/16 13:03
--- NOTE | 2016-07-16 18:11 | Consultation ---
History of Present Illness - Reason for Consult Consult date: 07/16/16 - History of Present Illness See Dictated note. Past History Past Medical History: other (unable to obtain ) Past Surgical History: Other (unable to obtain) Social history: other (unable to obtain) Family history: other (unable to obtain) Medications and Allergies Allergies Allergy/AdvReac Type Severity Reaction Status Date / Time No Known Allergies Allergy Verified 06/10/16 20:59 Home Medications Medication Instructions Recorded Confirmed Last Taken Type Oxybutynin [Ditropan] 5 mg PO DAILY 06/11/16 07/09/16 Unknown History Losartan [Cozaar] 50 mg PO QDAY tablet 06/16/16 07/09/16 Unknown Rx amLODIPine [Norvasc] 10 mg PO DAILY tablet 06/16/16 07/09/16 Unknown Rx Morphine 15 mg PO BID 07/09/16 07/09/16 Unknown History Active Meds: Active Medications Acetaminophen (Tylenol) 650 mg PO Q4H PRN PRN Reason: Pain MILD(1-3)/Fever >100.5/ISAAC Last Admin: 07/14/16 22:11 Dose: 650 mg Albuterol (Proventil) 2.5 mg IH QIDRT [facility] Last Admin: 07/16/16 16:32 Dose: 2.5 mg Amlodipine Besylate (Norvasc) 10 mg FEEDTUBE QDAY [facility] Last Admin: 07/16/16 10:46 Dose: 10 mg Lipase/Protease/Amylase (Pancreaze Dr 10,500 Unit) 1 each FEEDTUBE PRN PRN PRN Reason: For Clogged Feeding Tube Bisacodyl (Dulcolax) 10 mg NE QDAY PRN PRN Reason: Constipation unrelieved by MOM Enoxaparin Sodium (Lovenox) 40 mg SUB-Q QDAY@1000 [facility] Last Admin: 07/16/16 10:46 Dose: 40 mg Famotidine (Pepcid) 20 mg PO DAILY [facility] Last Admin: 07/16/16 10:47 Dose: 20 mg Haloperidol Lactate (Haldol) 2 mg IM Q6H PRN PRN Reason: Agitation Last Admin: 07/14/16 05:00 Dose: 2 mg Hydralazine HCl (Apresoline) 10 mg IV Q4HR PRN PRN Reason: Hypertension Last Admin: 07/15/16 07:50 Dose: 10 mg Hydrophilic Ointment (Vaseline Lip Therapy) 1 applic TP Q2HR PRN PRN Reason: Dry Lips Ceftriaxone Sodium (Rocephin/Ns 1 Gm/50 Ml) 1 gm in 50 mls @ 100 mls/hr IV Q24H [facility] Stop: 07/16/16 22:29 Last Admin: 07/15/16 21:52 Dose: 100 mls/hr Levofloxacin/Dextrose (Levaquin 500mg/100ml) 500 mg in 100 mls @ 100 mls/hr IV Q48H [facility]UL[facility] PRN Reason: Protocol Last Admin: 07/15/16 13:49 Dose: 100 mls/hr Insulin Aspart (Novolog) 0 units SUB-Q Q6HR [facility] PRN Reason: Protocol Last Admin: 07/16/16 14:23 Dose: Not Given Insulin Human Isoph/Insulin Regular (Novolin 70/30) 12 unit SUB-Q BIDDIAB [facility] Last Admin: 07/16/16 12:39 Dose: 12 unit Multi-Ingred Cream/Lotion/Oil/Oint (Artificial Tears Ophth Oint) 1 applic OU Q4HR PRN PRN Reason: Dry Eye(s) Simple Syrup (Simple Syrup) 15 ml FEEDTUBE PRN PRN PRN Reason: Hypoglycemia Simple Syrup (Simple Syrup) 30 ml FEEDTUBE PRN PRN PRN Reason: Hypoglycemia Sodium Bicarbonate (Sodium Bicarbonate) 325 mg FEEDTUBE PRN PRN PRN Reason: For Clogged Feeding Tube Sodium Chloride (Nacl 0.9% 500 Ml) 1 ml IV DIRECT PAULA Exam - Constitutional Vitals: Temp Pulse Resp BP Pulse Ox 99.1 F 113 H 18 152/77 97 07/16/16 16:00 07/16/16 16:46 07/16/16 16:46 07/16/16 16:00 07/16/16 16:00 Results - Labs CBC & Chem 7: 07/15/16 06:34 07/16/16 06:03 Labs: Abnormal lab results 07/16/16 07/16/16 07/16/16 Range/Units 00:33 06:03 06:30 BUN 18 H (7-17) mg/dL Glucose 156 H (65-100) mg/dL POC Glucose 219 H (70-105) Calcium 8.3 L (8.4-10.2) mg/dL NT-Pro-B Natriuret Pep 2802 H (0-900) pg/mL 07/16/16 07/16/16 Range/Units 12:12 16:13 BUN (7-17) mg/dL Glucose (65-100) mg/dL POC Glucose 247 H 146 H (70-105) Calcium (8.4-10.2) mg/dL NT-Pro-B Natriuret Pep (0-900) pg/mL Assessment and Plan Pt adm with AMS and respiratory and renal failure, now extubated and improving. Per Speech Therapy yesterday, not currently a candidate for po feeding. Asked to see for possible G-tube placement. Plan - Will do PEG placement once pt stable from Respiratory standpoint. Also, awaiting final Speech Path recommendations.
[2016-07-16] MEDS: ROCEPHIN/NS 1 GM/50 ML 1 GM/50 ML BAG IV SCH (21:49)
[2016-07-17] MEDS: NOVOLOG SUB-Q SCH ×4 (01:14→18:19)
[2016-07-17 01:19] LABS: Basophils % (Auto) 0.9 % (0.0-1.8); Eosinophils % (Auto) 3.9 % (0.0-4.3); Hemoglobin 8.8 gm/dl (10.1-14.3); Mean Corpuscular HGB Conc 33 % (30-34); Mean Corpuscular Hemoglobin 28 pg (28-32); Mean Corpuscular Volume 85 fl (79-97); Platelet Count 590 K/mm3 (140-440); Red Blood Count 3.18 M/mm3 (3.65-5.03); Red Cell Distribution Width 14.6 % (13.2-15.2); White Blood Count 13.5 K/mm3 (4.5-11.0)
[2016-07-17 01:28] LABS: INR 1.1 (0.87-1.13)
[2016-07-17 01:40] LABS: Alanine Aminotransferase 12 units/L (7-56); Albumin 1.9 g/dL (3.9-5); Albumin/Globulin Ratio 0.5 %; Alkaline Phosphatase 73 units/L (35-129); Anion Gap 16 mmol/L; Bilirubin,Total < 0.2 mg/dL (0.1-1.2); Blood Urea Nitrogen 21 mg/dL (7-17); Calcium 8.2 mg/dL (8.4-10.2); Carbon Dioxide 24 mmol/L (22-30); Chloride 102.4 mmol/L (98-107); Glucose 95 mg/dL (65-100); Potassium 3.6 mmol/L (3.6-5.0); Sodium 139 mmol/L (137-145); Total Protein 5.8 g/dL (6.3-8.2)
--- NOTE | 2016-07-17 03:17 | Consultation ---
REASON FOR CONSULTATION: G-tube placement. REFERRING PHYSICIAN: Cyndee Singh MD HISTORY OF PRESENT ILLNESS: The patient is an 86-year-old group home resident with a past medical history of CVA, who was brought into the hospital unresponsive. She had been getting morphine as well as benzodiazepines apparently at the group home. Here in the hospital, she developed acute respiratory and renal failure and was intubated on 07/10/2016. She did well and was extubated on 07/12/2016. She has had diminished mental status, although with her dementia and was not able to pass a speech evaluation for safe swallowing, possibly due to the altered mental status. Because of this, GI consultation is obtained for G-tube placement. The patient's metabolic encephalopathy has improved and she had leukocytosis, which is improving. Her renal parameters have improved as well. Currently, she is on a Ventimask and responds to verbal stimuli and tries to answer, but speech is limited. ALLERGIES: No known drug allergies. MEDICATIONS: At the group home, was on morphine, amlodipine, oxybutynin, and losartan. Currently, she is on medications as reviewed in the chart including Lovenox. PAST MEDICAL HISTORY: She has a history of; 1. Dementia and CVA. 2. Hypertension. 3. Bladder tack. FAMILY HISTORY: Per chart is noncontributory. SOCIAL HISTORY: She lives in a group home. There is no history noted of tobacco or ethanol usage. REVIEW OF SYSTEMS: Unobtainable. PHYSICAL EXAMINATION: GENERAL: This is an elderly black female lying in bed with a Ventimask on, who looks to voice and is able to respond with a few words. She does not appear to admit to any distress. VITAL SIGNS: Her temperature is 99.1, pulse 113, blood pressure 152/77, respirations are labored. HEENT: Pupils are round and reactive. Oropharynx is clear. LUNGS: Show coarse fast breath sounds bilaterally. CARDIAC: Tachycardic with no extra heart sounds. ABDOMEN: Soft with good bowel sounds, no organomegaly or tenderness to palpation. RECTAL: Deferred. EXTREMITIES: Reveal no edema. LABORATORY DATA: White count is 13.3, hemoglobin 9.2, hematocrit 29.1, MCV of 86, platelet count of 520,000. Sodium 138, potassium 4.0, chloride 105, bicarbonate 22, BUN 18, creatinine 0.7, glucose 156. IMPRESSION: Oropharyngeal dysphagia -- based on speech path evaluation yesterday, notes that the patient exhibits severe oropharyngeal dysphagia. They saw no clear signs of aspiration, but they were concerned about silent aspiration. There was notation that patient may need a long-term means of nutrition. PLAN: We will plan on upper endoscopy with G-tube placement early next week if the patient remains stable from respiratory standpoint. I did attempt to call the son, but he did not answer, in order to explain the situation and get consent. JOB# [id number] HRC/NTS
[2016-07-17 06:41] LABS: Anion Gap 17 mmol/L; Blood Urea Nitrogen 21 mg/dL (7-17); Calcium 8.2 mg/dL (8.4-10.2); Carbon Dioxide 23 mmol/L (22-30); Chloride 102.4 mmol/L (98-107); Glucose 161 mg/dL (65-100); Sodium 138 mmol/L (137-145)
[2016-07-17] MEDS: PROVENTIL IH SCH ×2 (08:18→11:14)
[2016-07-17] MEDS: NORVASC FEEDTUBE SCH (10:32)
[2016-07-17] MEDS: LOVENOX SUB-Q SCH (10:32)
[2016-07-17] MEDS: PEPCID PO SCH (10:33)
--- NOTE | 2016-07-17 12:51 | Gastroenterology Progress Note ---
Assessment and Plan GI: for possible peg placement Tuesday if cleared per team - continue other meds and diet -will follow Subjective Date of service: 07/17/16 Principal diagnosis: acute respiratory failure, narcotic overdose, AMS Interval history: - no problems overnight per staff Objective - Constitutional Vitals: Temp Pulse Resp BP Pulse Ox 99.2 F 104 H 17 144/111 92 07/17/16 09:34 07/17/16 11:33 07/17/16 11:33 07/17/16 09:34 07/17/16 09:34 General appearance: no acute distress - EENT Eyes: PERRL - Respiratory Respiratory: bilateral: rhonchi - Cardiovascular Rhythm: regular Heart Sounds: Present: S1 & S2 - Gastrointestinal General gastrointestinal: Present: soft, non-tender - Labs CBC & Chem 7: 07/17/16 00:48 07/17/16 05:28 Labs: Laboratory Results - last 24 hr 07/16/16 07/16/16 07/17/16 12:12 16:13 00:48 WBC 13.5 H RBC 3.18 L Hgb 8.8 L Hct 27.0 L MCV 85 MCH 28 MCHC 33 RDW 14.6 Plt Count 590 H Lymph % (Auto) 9.0 L [place] % (Auto) 10.0 H Eos % (Auto) 3.9 Baso % (Auto) 0.9 Lymph # 1.2 [place] # 1.3 H Eos # 0.5 H Baso # 0.1 Seg Neutrophils % 76.2 H Seg Neutrophils # 10.3 H PT INR Sodium Potassium Chloride Carbon Dioxide Anion Gap BUN Creatinine Estimated GFR BUN/Creatinine Ratio Glucose POC Glucose 247 H 146 H Calcium Total Bilirubin AST ALT Alkaline Phosphatase Total Protein Albumin Albumin/Globulin Ratio 07/17/16 07/17/16 07/17/16 00:48 00:48 01:14 WBC RBC Hgb Hct MCV MCH MCHC RDW Plt Count Lymph % (Auto) [place] % (Auto) Eos % (Auto) Baso % (Auto) Lymph # [place] # Eos # Baso # Seg Neutrophils % Seg Neutrophils # PT 14.1 INR 1.10 Sodium 139 Potassium 3.6 Chloride 102.4 Carbon Dioxide 24 Anion Gap 16 BUN 21 H Creatinine 0.6 L Estimated GFR > 60 BUN/Creatinine Ratio 35.00 Glucose 95 POC Glucose 96 Calcium 8.2 L Total Bilirubin < 0.2 AST 20 ALT 12 Alkaline Phosphatase 73 Total Protein 5.8 L Albumin 1.9 L Albumin/Globulin Ratio 0.5 07/17/16 07/17/16 05:28 07:15 WBC RBC Hgb Hct MCV MCH MCHC RDW Plt Count Lymph % (Auto) [place] % (Auto) Eos % (Auto) Baso % (Auto) Lymph # [place] # Eos # Baso # Seg Neutrophils % Seg Neutrophils # PT INR Sodium 138 Potassium 4.0 Chloride 102.4 Carbon Dioxide 23 Anion Gap 17 BUN 21 H Creatinine 0.6 L Estimated GFR > 60 BUN/Creatinine Ratio 35.00 Glucose 161 H POC Glucose 176 H Calcium 8.2 L Total Bilirubin AST ALT Alkaline Phosphatase Total Protein Albumin Albumin/Globulin Ratio
[2016-07-17] MEDS: LEVAQUIN 500MG/100ML 500 MG/100 ML BAG IV SCH (15:00)
[2016-07-17] MEDS: DUONEB 0.5 MG-3 MG/3 ML SOLN IH SCH ×2 (15:02→20:46)
--- NOTE | 2016-07-17 15:37 | Progress Note ---
Assessment and Plan Assessment and plan: --Dysphagia/failed swallow evaluation PEG placement motto per GI Patient is medically stable for the procedure --Toxic metabolic encephalopathy Back to baseline --Recurrent UTI, cultures negative to date Continue current medications --Acute renal failure/resolved -- severe protein calorie malnutrition, nutrition supplements, supportive care --Type 2 diabetes mellitus, moderate control Continue Accu-Chek sliding scale coverage long-acting insulin A1c 8.8 --Hypertension well-controlled --DVT prophylaxis: Hold Lovenox for the procedure Will use SCDs --Full CODE STATUS DC planning. Case management, patient can be discharge and transfer to nursing home facility after PEG If stable Patient is medically stable, no contraindication for PEG I discussed patient's condition treatment plan with the patient's son over the phone yesterday History Interval history: No new events reported by the nursing staff Patient looks better alert and awake and noncommunicative Possible PEG placement tomorrow per GI Hospitalist Physical - Constitutional Vitals: Temp Pulse Resp BP Pulse Ox 97.6 F 103 H 18 143/65 99 07/17/16 13:42 07/17/16 13:42 07/17/16 13:42 07/17/16 13:42 07/17/16 13:42 General appearance: Present: no acute distress, well-nourished - EENT Eyes: Present: PERRL, EOM intact - Neck Neck: Present: supple, normal ROM - Respiratory Respiratory effort: normal Respiratory: bilateral: diminished, rhonchi (occasional), negative: wheezing - Cardiovascular Rhythm: regular Heart Sounds: Present: S1 & S2 - Extremities Extremities: no ischemia, pulses intact, pulses symmetrical Peripheral Pulses: within normal limits - Abdominal General gastrointestinal: soft, non-tender, non-distended, normal bowel sounds - Integumentary Integumentary: Present: clear, warm - Psychiatric Psychiatric: other (noncommunicative confused) - Neurologic Neurologic: other (noncommunicative confused) Results - Labs CBC & Chem 7: 07/17/16 00:48 07/17/16 05:28 Labs: Laboratory Last Values WBC 13.5 K/mm3 (4.5-11.0) H 07/17/16 00:48 RBC 3.18 M/mm3 (3.65-5.03) L 07/17/16 00:48 Hgb 8.8 gm/dl (10.1-14.3) L 07/17/16 00:48 Hct 27.0 % (30.3-42.9) L 07/17/16 00:48 MCV 85 fl (79-97) 07/17/16 00:48 MCH 28 pg (28-32) 07/17/16 00:48 MCHC 33 % (30-34) 07/17/16 00:48 RDW 14.6 % (13.2-15.2) 07/17/16 00:48 Plt Count 590 K/mm3 (140-440) H 07/17/16 00:48 Lymph % (Auto) 9.0 % (13.4-35.0) L 07/17/16 00:48 [place] % (Auto) 10.0 % (0.0-7.3) H 07/17/16 00:48 Eos % (Auto) 3.9 % (0.0-4.3) 07/17/16 00:48 Baso % (Auto) 0.9 % (0.0-1.8) 07/17/16 00:48 Lymph # 1.2 K/mm3 (1.2-5.4) 07/17/16 00:48 [place] # 1.3 K/mm3 (0.0-0.8) H 07/17/16 00:48 Eos # 0.5 K/mm3 (0.0-0.4) H 07/17/16 00:48 Baso # 0.1 K/mm3 (0.0-0.1) 07/17/16 00:48 Add Manual Diff Complete 07/13/16 04:45 Total Counted 100 07/13/16 04:45 Seg Neutrophils % 76.2 % (40.0-70.0) H 07/17/16 00:48 Seg Neuts % (Manual) 75.0 % (40.0-70.0) H 07/13/16 04:45 Band Neutrophils % 3.0 % 07/13/16 04:45 Lymphocytes % (Manual) 11.0 % (13.4-35.0) L 07/13/16 04:45 Reactive Lymphs % (Man) 0 % 07/13/16 04:45 Monocytes % (Manual) 8.0 % (0.0-7.3) H 07/13/16 04:45 Eosinophils % (Manual) 0 % (0.0-4.3) 07/13/16 04:45 Basophils % (Manual) 0 % (0.0-1.8) 07/13/16 04:45 Metamyelocytes % 3.0 % 07/13/16 04:45 Myelocytes % 0 % 07/13/16 04:45 Promyelocytes % 0 % 07/13/16 04:45 Blast Cells % 0 % 07/13/16 04:45 Nucleated RBC % Not Reportable 07/13/16 04:45 Seg Neutrophils # 10.3 K/mm3 (1.8-7.7) H 07/17/16 00:48 Seg Neutrophils # Man 15.8 K/mm3 (1.8-7.7) H 07/13/16 04:45 Band Neutrophils # 0.6 K/mm3 07/13/16 04:45 Lymphocytes # (Manual) 2.3 K/mm3 (1.2-5.4) 07/13/16 04:45 Abs React Lymphs (Man) 0.0 K/mm3 07/13/16 04:45 Monocytes # (Manual) 1.7 K/mm3 (0.0-0.8) H 07/13/16 04:45 Eosinophils # (Manual) 0.0 K/mm3 (0.0-0.4) 07/13/16 04:45 Basophils # (Manual) 0.0 K/mm3 (0.0-0.1) 07/13/16 04:45 Metamyelocytes # 0.6 K/mm3 07/13/16 04:45 Myelocytes # 0.0 K/mm3 07/13/16 04:45 Promyelocytes # 0.0 K/mm3 07/13/16 04:45 Blast Cells # 0.0 K/mm3 07/13/16 04:45 WBC Morphology Not Reportable 07/13/16 04:45 Hypersegmented Neuts Few 07/13/16 04:45 Hyposegmented Neuts Not Reportable 07/13/16 04:45 Hypogranular Neuts Not Reportable 07/13/16 04:45 Smudge Cells Not Reportable 07/13/16 04:45 Toxic Granulation Not Reportable 07/13/16 04:45 Toxic Vacuolation Not Reportable 07/13/16 04:45 Dohle Bodies Not Reportable 07/13/16 04:45 Pelger-Huet Anomaly Not Reportable 07/13/16 04:45 James Rods Not Reportable 07/13/16 04:45 Platelet Estimate Appears increased 07/13/16 04:45 Clumped Platelets Not Reportable 07/13/16 04:45 Plt Clumps, EDTA Not Reportable 07/13/16 04:45 Large Platelets Not Reportable 07/13/16 04:45 Giant Platelets Not Reportable 07/13/16 04:45 Platelet Satelliting Not Reportable 07/13/16 04:45 Plt Morphology Comment Not Reportable 07/13/16 04:45 RBC Morphology Not Reportable 07/13/16 04:45 Dimorphic RBCs Not Reportable 07/13/16 04:45 Polychromasia Not Reportable 07/13/16 04:45 Hypochromasia Not Reportable 07/13/16 04:45 Poikilocytosis Not Reportable 07/13/16 04:45 Anisocytosis 1+ 07/13/16 04:45 Microcytosis Not Reportable 07/13/16 04:45 Macrocytosis Not Reportable 07/13/16 04:45 Spherocytes Not Reportable 07/13/16 04:45 Pappenheimer Bodies Not Reportable 07/13/16 04:45 Sickle Cells Not Reportable 07/13/16 04:45 Target Cells Not Reportable 07/13/16 04:45 Tear Drop Cells Not Reportable 07/13/16 04:45 Ovalocytes Not Reportable 07/13/16 04:45 Helmet Cells Not Reportable 07/13/16 04:45 [place] Bodies Not Reportable 07/13/16 04:45 [place] Rings Not Reportable 07/13/16 04:45 [place] Cells Not Reportable 07/13/16 04:45 Bite Cells Not Reportable 07/13/16 04:45 Crenated Cell Not Reportable 07/13/16 04:45 Elliptocytes Not Reportable 07/13/16 04:45 Acanthocytes (Spur) Not Reportable 07/13/16 04:45 Rouleaux Not Reportable 07/13/16 04:45 Hemoglobin C Crystals Not Reportable 07/13/16 04:45 Schistocytes Not Reportable 07/13/16 04:45 Malaria parasites Not Reportable 07/13/16 04:45 [place] Bodies Not Reportable 07/13/16 04:45 Hem Pathologist Commnt No 07/13/16 04:45 PT 14.1 Sec. (12.2-14.9) 07/17/16 00:48 INR 1.10 (0.87-1.13) 07/17/16 00:48 POC ABG pH 7.452 (7.35-7.45) H 07/12/16 09:10 POC ABG pCO2 33.2 (35-45) L 07/12/16 09:10 POC ABG pO2 74 (80-105) L 07/12/16 09:10 POC ABG HCO3 23.2 07/12/16 09:10 POC ABG Total CO2 24 07/12/16 09:10 POC ABG O2 Sat 96 07/12/16 09:10 POC ABG Base Excess -1 07/12/16 09:10 FiO2 30 % 07/12/16 09:10 Sodium 138 mmol/L (137-145) 07/17/16 05:28 Potassium 4.0 mmol/L (3.6-5.0) 07/17/16 05:28 Chloride 102.4 mmol/L (98-107) 07/17/16 05:28 Carbon Dioxide 23 mmol/L (22-30) 07/17/16 05:28 Anion Gap 17 mmol/L 07/17/16 05:28 BUN 21 mg/dL (7-17) H 07/17/16 05:28 Creatinine 0.6 mg/dL (0.7-1.2) L 07/17/16 05:28 Estimated GFR > 60 ml/min 07/17/16 05:28 BUN/Creatinine Ratio 35.00 % 07/17/16 05:28 Glucose 161 mg/dL (65-100) H 07/17/16 05:28 POC Glucose 176 (70-105) H 07/17/16 07:15 Hemoglobin A1c 8.8 % (4-6) H 07/11/16 04:31 Calcium 8.2 mg/dL (8.4-10.2) L 07/17/16 05:28 Phosphorus 2.7 mg/dL (2.5-4.5) 07/14/16 05:28 Magnesium 1.7 mg/dL (1.7-2.3) 07/15/16 06:34 Total Bilirubin < 0.2 mg/dL (0.1-1.2) 07/17/16 00:48 Direct Bilirubin < 0.2 mg/dL (0-0.2) 07/11/16 04:31 Indirect Bilirubin 0.0 mg/dL 07/11/16 04:31 AST 20 units/L (5-40) 07/17/16 00:48 ALT 12 units/L (7-56) 07/17/16 00:48 Alkaline Phosphatase 73 units/L (35-129) 07/17/16 00:48 Ammonia 48.0 umol/L (25-60) 07/09/16 20:31 Total Creatine Kinase 334 units/L (30-135) H 07/10/16 08:55 CK-MB (CK-2) 5.6 ng/mL (0.0-4.0) H 07/10/16 08:55 CK-MB (CK-2) Rel Index 1.6 (0-4) 07/10/16 08:55 Troponin T 0.016 ng/mL (0.00-0.029) 07/10/16 08:55 NT-Pro-B Natriuret Pep 2802 pg/mL (0-900) H 07/16/16 06:30 Total Protein 5.8 g/dL (6.3-8.2) L 07/17/16 00:48 Albumin 1.9 g/dL (3.9-5) L 07/17/16 00:48 Albumin/Globulin Ratio 0.5 % 07/17/16 00:48 TSH 1.240 mlU/mL (0.270-4.200) 07/09/16 20:31 Free T4 1.40 ng/dL (0.76-1.46) 07/09/16 20:31 Urine Color Jennifer (Yellow) 07/10/16 13:10 Urine Turbidity Turbid (Clear) 07/10/16 13:10 Urine pH 6.0 (5.0-7.0) 07/10/16 13:10 Ur Specific [place] 1.016 (1.003-1.030) 07/10/16 13:10 Urine Protein 30 mg/dl mg/dL (Negative) 07/10/16 13:10 Urine Glucose (UA) 50 mg/dL (Negative) 07/10/16 13:10 Urine Ketones Neg mg/dL (Negative) 07/10/16 13:10 Urine Blood Sm (Negative) 07/10/16 13:10 Urine Nitrite Neg (Negative) 07/10/16 13:10 Urine Bilirubin Neg (Negative) 07/10/16 13:10 Urine Urobilinogen < 2.0 mg/dL (<2.0) 07/10/16 13:10 Ur Leukocyte Esterase Lg (Negative) 07/10/16 13:10 Urine WBC (Auto) 164.0 /HPF (0.0-6.0) H 07/10/16 13:10 Urine RBC (Auto) 33.0 /HPF (0.0-6.0) 07/10/16 13:10 U Epithel Cells (Auto) 5.0 /HPF (0-13.0) 07/10/16 13:10 Urine Bacteria (Auto) 4+ /HPF (Negative) 07/10/16 13:10 Urine Mucus 3+ /HPF 07/10/16 13:10 Urine Eosinophils 1 (None Seen) 07/11/16 12:50 Urine Creatinine < 4.2 mg/dL (0.1-20.0) 07/11/16 13:03 Urine Sodium 10 mEq/L 07/11/16 13:03
--- NOTE | 2016-07-17 17:30 | Progress Note ---
Assessment and Plan Imp: 1. Probable RLL aspiration pneumonia 2. Volume depletion 3. Metabolic encephalopathy, better 4. HARISH, better 5. Acute respiratory failure, hypoxia and hypercapnea 6. Oropharyngeal dysphagia Rec: 1. Cont. Levaquin given clinical improvement pulm-frost; f/u CXR periodically 2. HOB elevated/aspiration precautions 3. Replace NG or DHT 4. Awaiting PEG 5. Monitor closely No family present Subjective Date of service: 07/17/16 Principal diagnosis: acute respiratory failure, narcotic overdose, AMS Interval history: No events. NG tube came out. She is awake, alert, and conversant. Denies SOB, chest pain. Has an adequate cough. No other complaints. Active Medications Acetaminophen (Tylenol) 650 mg PO Q4H PRN PRN Reason: Pain MILD(1-3)/Fever >100.5/ISAAC Last Admin: 07/14/16 22:11 Dose: 650 mg Albuterol/Ipratropium (Duoneb 0.5 Mg-3 Mg/3 Ml Soln) 1 ampul IH Q6HRT [facility] Last Admin: 07/17/16 15:02 Dose: Not Given Amlodipine Besylate (Norvasc) 10 mg FEEDTUBE QDAY [facility] Last Admin: 07/17/16 10:32 Dose: 10 mg Lipase/Protease/Amylase (Pancreaze Dr 10,500 Unit) 1 each FEEDTUBE PRN PRN PRN Reason: For Clogged Feeding Tube Bisacodyl (Dulcolax) 10 mg UT QDAY PRN PRN Reason: Constipation unrelieved by MOM Famotidine (Pepcid) 20 mg PO DAILY [facility] Last Admin: 07/17/16 10:33 Dose: 20 mg Haloperidol Lactate (Haldol) 2 mg IM Q6H PRN PRN Reason: Agitation Last Admin: 07/14/16 05:00 Dose: 2 mg Hydralazine HCl (Apresoline) 10 mg IV Q4HR PRN PRN Reason: Hypertension Last Admin: 07/15/16 07:50 Dose: 10 mg Hydrophilic Ointment (Vaseline Lip Therapy) 1 applic TP Q2HR PRN PRN Reason: Dry Lips Levofloxacin/Dextrose (Levaquin 500mg/100ml) 500 mg in 100 mls @ 100 mls/hr IV Q48H PAULA PRN Reason: Protocol Last Admin: 07/15/16 13:49 Dose: 100 mls/hr Insulin Aspart (Novolog) 0 units SUB-Q Q6HR PAULA PRN Reason: Protocol Last Admin: 07/17/16 07:57 Dose: 3 units Insulin Human Isoph/Insulin Regular (Novolin 70/30) 12 unit SUB-Q BIDDIAB PAULA Last Admin: 07/17/16 10:38 Dose: 12 unit Multi-Ingred Cream/Lotion/Oil/Oint (Artificial Tears Ophth Oint) 1 applic OU Q4HR PRN PRN Reason: Dry Eye(s) Simple Syrup (Simple Syrup) 15 ml FEEDTUBE PRN PRN PRN Reason: Hypoglycemia Simple Syrup (Simple Syrup) 30 ml FEEDTUBE PRN PRN PRN Reason: Hypoglycemia Sodium Bicarbonate (Sodium Bicarbonate) 325 mg FEEDTUBE PRN PRN PRN Reason: For Clogged Feeding Tube Sodium Chloride (Nacl 0.9% 500 Ml) 1 ml IV DIRECT PAULA Objective Vital Signs - 12hr 07/17/16 07/17/16 07/17/16 08:18 08:28 08:36 Temperature Pulse Rate Pulse Rate [ 106 H 109 H Anterior Bilateral Throughout] Pulse Rate [ Left Radial] Pulse Rate [ Right Radial] Respiratory Rate Respiratory 18 18 Rate [Anterior Bilateral Throughout] Blood Pressure [Right Arm] O2 Sat by Pulse 96 Oximetry 07/17/16 07/17/16 07/17/16 09:34 10:32 11:16 Temperature 99.2 F Pulse Rate 124 H Pulse Rate [ 101 H Anterior Bilateral Throughout] Pulse Rate [ Left Radial] Pulse Rate [ 116 H Right Radial] Respiratory 18 Rate Respiratory 17 Rate [Anterior Bilateral Throughout] Blood Pressure 144/111 [Right Arm] O2 Sat by Pulse 92 Oximetry 07/17/16 07/17/16 11:33 13:42 Temperature 97.6 F Pulse Rate Pulse Rate [ 104 H Anterior Bilateral Throughout] Pulse Rate [ 103 H Left Radial] Pulse Rate [ Right Radial] Respiratory 18 Rate Respiratory 17 Rate [Anterior Bilateral Throughout] Blood Pressure 143/65 [Right Arm] O2 Sat by Pulse 99 Oximetry Constitutional: no acute distress, alert Eyes: non-icteric Neck: supple Effort: normal Ascultation: Bilateral: clear Cardiovascular: other (mildly tachy, RR; no mrg) Gastrointestinal: normoactive bowel sounds, non-tender Extremities: no cyanosis, no edema, pink and warm Neurologic: other (confused, not agitated, awake) Psychiatric: mood appropriate, affect normal CBC and BMP: 07/17/16 00:48 07/17/16 05:28 ABG, PT/INR, D-dimer: ABG POC ABG pH 7.452 (7.35-7.45) H 07/12/16 09:10 POC ABG pCO2 33.2 (35-45) L 07/12/16 09:10 POC ABG pO2 74 (80-105) L 07/12/16 09:10 POC ABG HCO3 23.2 07/12/16 09:10 POC ABG Total CO2 24 07/12/16 09:10 POC ABG O2 Sat 96 07/12/16 09:10 PT/INR, D-dimer PT 14.1 Sec. (12.2-14.9) 07/17/16 00:48 INR 1.10 (0.87-1.13) 07/17/16 00:48 Abnormal lab findings: Abnormal Labs 07/10/16 07/10/16 07/10/16 06:22 06:48 06:48 WBC 14.5 H RBC 3.53 L Hgb 10.0 L Hct MCH Plt Count 484 H Lymph % (Auto) 12.0 L Emmons % (Auto) 7.4 H Eos % (Auto) Lymph # Emmons # 1.1 H Eos # Seg Neutrophils % 77.4 H Seg Neuts % (Manual) Lymphocytes % (Manual) Monocytes % (Manual) Seg Neutrophils # 11.2 H Seg Neutrophils # Man Monocytes # (Manual) POC ABG pH POC ABG pCO2 POC ABG pO2 Sodium 148 H Potassium Chloride 109.2 H Carbon Dioxide BUN 33 H Creatinine 3.1 H Glucose 111 H POC Glucose 132 H Hemoglobin A1c Calcium Magnesium Total Creatine Kinase CK-MB (CK-2) NT-Pro-B Natriuret Pep Total Protein Albumin Urine WBC (Auto) 07/10/16 07/10/16 07/10/16 08:06 08:18 08:55 WBC RBC Hgb Hct MCH Plt Count Lymph % (Auto) Emmons % (Auto) Eos % (Auto) Lymph # Emmons # Eos # Seg Neutrophils % Seg Neuts % (Manual) Lymphocytes % (Manual) Monocytes % (Manual) Seg Neutrophils # Seg Neutrophils # Man Monocytes # (Manual) POC ABG pH 7.249 L POC ABG pCO2 54.1 H POC ABG pO2 Sodium Potassium Chloride Carbon Dioxide BUN Creatinine Glucose POC Glucose 141 H Hemoglobin A1c Calcium Magnesium Total Creatine Kinase 334 H CK-MB (CK-2) 5.6 H NT-Pro-B Natriuret Pep Total Protein Albumin Urine WBC (Auto) 07/10/16 07/10/16 07/11/16 13:03 13:10 04:31 WBC 11.6 H RBC 3.49 L Hgb 9.7 L Hct MCH Plt Count 442 H Lymph % (Auto) 9.8 L Emmons % (Auto) 9.5 H Eos % (Auto) 5.2 H Lymph # 1.1 L Emmons # 1.1 H Eos # 0.6 H Seg Neutrophils % 75.1 H Seg Neuts % (Manual) Lymphocytes % (Manual) Monocytes % (Manual) Seg Neutrophils # 8.7 H Seg Neutrophils # Man Monocytes # (Manual) POC ABG pH 7.330 L POC ABG pCO2 46.6 H POC ABG pO2 142 H Sodium Potassium Chloride Carbon Dioxide BUN Creatinine Glucose POC Glucose Hemoglobin A1c Calcium Magnesium Total Creatine Kinase CK-MB (CK-2) NT-Pro-B Natriuret Pep Total Protein Albumin Urine WBC (Auto) 164.0 H 07/11/16 07/11/16 07/11/16 04:31 04:31 05:21 WBC RBC Hgb Hct MCH Plt Count Lymph % (Auto) Emmons % (Auto) Eos % (Auto) Lymph # Emmons # Eos # Seg Neutrophils % Seg Neuts % (Manual) Lymphocytes % (Manual) Monocytes % (Manual) Seg Neutrophils # Seg Neutrophils # Man Monocytes # (Manual) POC ABG pH 7.482 H POC ABG pCO2 28.3 L POC ABG pO2 Sodium Potassium Chloride Carbon Dioxide 20 L BUN 36 H Creatinine 3.7 H Glucose 238 H POC Glucose Hemoglobin A1c 8.8 H Calcium 8.0 L Magnesium Total Creatine Kinase CK-MB (CK-2) NT-Pro-B Natriuret Pep Total Protein 5.8 L Albumin 2.3 L Urine WBC (Auto) 07/11/16 07/11/16 07/11/16 08:19 11:51 17:04 WBC RBC Hgb Hct MCH Plt Count Lymph % (Auto) Emmons % (Auto) Eos % (Auto) Lymph # Emmons # Eos # Seg Neutrophils % Seg Neuts % (Manual) Lymphocytes % (Manual) Monocytes % (Manual) Seg Neutrophils # Seg Neutrophils # Man Monocytes # (Manual) POC ABG pH POC ABG pCO2 POC ABG pO2 Sodium Potassium Chloride Carbon Dioxide BUN Creatinine Glucose POC Glucose 375 H 247 H 134 H Hemoglobin A1c Calcium Magnesium Total Creatine Kinase CK-MB (CK-2) NT-Pro-B Natriuret Pep Total Protein Albumin Urine WBC (Auto) 07/11/16 07/12/16 07/12/16 20:24 00:36 04:00 WBC 15.9 H RBC 3.36 L Hgb 9.3 L Hct 28.9 L MCH Plt Count Lymph % (Auto) 6.6 L Emmons % (Auto) 10.2 H Eos % (Auto) Lymph # 1.1 L Emmons # 1.6 H Eos # Seg Neutrophils % 82.5 H Seg Neuts % (Manual) Lymphocytes % (Manual) Monocytes % (Manual) Seg Neutrophils # 13.1 H Seg Neutrophils # Man Monocytes # (Manual) POC ABG pH POC ABG pCO2 POC ABG pO2 Sodium Potassium Chloride Carbon Dioxide BUN Creatinine Glucose POC Glucose 262 H 183 H Hemoglobin A1c Calcium Magnesium Total Creatine Kinase CK-MB (CK-2) NT-Pro-B Natriuret Pep Total Protein Albumin Urine WBC (Auto) 07/12/16 07/12/16 07/12/16 04:00 05:22 06:18 WBC RBC Hgb Hct MCH Plt Count Lymph % (Auto) Emmons % (Auto) Eos % (Auto) Lymph # Emmons # Eos # Seg Neutrophils % Seg Neuts % (Manual) Lymphocytes % (Manual) Monocytes % (Manual) Seg Neutrophils # Seg Neutrophils # Man Monocytes # (Manual) POC ABG pH POC ABG pCO2 29.5 L POC ABG pO2 67 L Sodium Potassium Chloride Carbon Dioxide 20 L BUN 37 H Creatinine 3.5 H Glucose 112 H POC Glucose 124 H Hemoglobin A1c Calcium Magnesium Total Creatine Kinase CK-MB (CK-2) NT-Pro-B Natriuret Pep Total Protein Albumin Urine WBC (Auto) 07/12/16 07/12/16 07/12/16 09:10 09:23 11:49 WBC RBC Hgb Hct MCH Plt Count Lymph % (Auto) Emmons % (Auto) Eos % (Auto) Lymph # Emmons # Eos # Seg Neutrophils % Seg Neuts % (Manual) Lymphocytes % (Manual) Monocytes % (Manual) Seg Neutrophils # Seg Neutrophils # Man Monocytes # (Manual) POC ABG pH 7.452 H POC ABG pCO2 33.2 L POC ABG pO2 74 L Sodium Potassium Chloride Carbon Dioxide BUN Creatinine Glucose POC Glucose 162 H 209 H Hemoglobin A1c Calcium Magnesium Total Creatine Kinase CK-MB (CK-2) NT-Pro-B Natriuret Pep Total Protein Albumin Urine WBC (Auto) 07/12/16 07/12/16 07/13/16 17:45 23:25 04:45 WBC 21.1 H RBC 3.52 L Hgb 9.7 L Hct MCH Plt Count 529 H Lymph % (Auto) Emmons % (Auto) Eos % (Auto) Lymph # Emmons # Eos # Seg Neutrophils % Seg Neuts % (Manual) 75.0 H Lymphocytes % (Manual) 11.0 L Monocytes % (Manual) 8.0 H Seg Neutrophils # Seg Neutrophils # Man 15.8 H Monocytes # (Manual) 1.7 H POC ABG pH POC ABG pCO2 POC ABG pO2 Sodium Potassium Chloride Carbon Dioxide BUN Creatinine Glucose POC Glucose 126 H 151 H Hemoglobin A1c Calcium Magnesium Total Creatine Kinase CK-MB (CK-2) NT-Pro-B Natriuret Pep Total Protein Albumin Urine WBC (Auto) 07/13/16 07/13/16 07/13/16 04:45 06:02 06:09 WBC RBC Hgb Hct MCH Plt Count Lymph % (Auto) Emmons % (Auto) Eos % (Auto) Lymph # Emmons # Eos # Seg Neutrophils % Seg Neuts % (Manual) Lymphocytes % (Manual) Monocytes % (Manual) Seg Neutrophils # Seg Neutrophils # Man Monocytes # (Manual) POC ABG pH POC ABG pCO2 POC ABG pO2 Sodium 134 L Potassium Chloride Carbon Dioxide 21 L BUN 31 H Creatinine 2.2 H Glucose 230 H POC Glucose 267 H 257 H Hemoglobin A1c Calcium 7.9 L Magnesium 1.3 L Total Creatine Kinase CK-MB (CK-2) NT-Pro-B Natriuret Pep Total Protein Albumin Urine WBC (Auto) 07/13/16 07/13/16 07/13/16 07:31 11:51 18:17 WBC RBC Hgb Hct MCH Plt Count Lymph % (Auto) Emmons % (Auto) Eos % (Auto) Lymph # Emmons # Eos # Seg Neutrophils % Seg Neuts % (Manual) Lymphocytes % (Manual) Monocytes % (Manual) Seg Neutrophils # Seg Neutrophils # Man Monocytes # (Manual) POC ABG pH POC ABG pCO2 POC ABG pO2 Sodium Potassium Chloride Carbon Dioxide BUN Creatinine Glucose POC Glucose 223 H 245 H 222 H Hemoglobin A1c Calcium Magnesium Total Creatine Kinase CK-MB (CK-2) NT-Pro-B Natriuret Pep Total Protein Albumin Urine WBC (Auto) 07/13/16 07/14/16 07/14/16 23:02 05:28 05:28 WBC 16.9 H RBC 3.61 L Hgb 10.0 L Hct MCH Plt Count 556 H Lymph % (Auto) 6.6 L Emmons % (Auto) 11.8 H Eos % (Auto) Lymph # 1.1 L Emmons # 2.0 H Eos # 0.6 H Seg Neutrophils % 77.8 H Seg Neuts % (Manual) Lymphocytes % (Manual) Monocytes % (Manual) Seg Neutrophils # 13.2 H Seg Neutrophils # Man Monocytes # (Manual) POC ABG pH POC ABG pCO2 POC ABG pO2 Sodium Potassium Chloride Carbon Dioxide 21 L BUN 22 H Creatinine 1.3 H Glucose 145 H POC Glucose 221 H Hemoglobin A1c Calcium 8.0 L Magnesium Total Creatine Kinase CK-MB (CK-2) NT-Pro-B Natriuret Pep Total Protein Albumin Urine WBC (Auto) 07/14/16 07/14/16 07/14/16 05:48 17:42 22:47 WBC RBC Hgb Hct MCH Plt Count Lymph % (Auto) Emmons % (Auto) Eos % (Auto) Lymph # Emmons # Eos # Seg Neutrophils % Seg Neuts % (Manual) Lymphocytes % (Manual) Monocytes % (Manual) Seg Neutrophils # Seg Neutrophils # Man Monocytes # (Manual) POC ABG pH POC ABG pCO2 POC ABG pO2 Sodium Potassium Chloride Carbon Dioxide BUN Creatinine Glucose POC Glucose 156 H 362 H 171 H Hemoglobin A1c Calcium Magnesium Total Creatine Kinase CK-MB (CK-2) NT-Pro-B Natriuret Pep Total Protein Albumin Urine WBC (Auto) 07/15/16 07/15/16 07/15/16 02:45 06:34 06:34 WBC 13.3 H RBC 3.39 L Hgb 9.2 L Hct 29.1 L MCH 27 L Plt Count 520 H Lymph % (Auto) 9.0 L Emmons % (Auto) 10.9 H Eos % (Auto) 6.0 H Lymph # Emmons # 1.5 H Eos # 0.8 H Seg Neutrophils % 73.7 H Seg Neuts % (Manual) Lymphocytes % (Manual) Monocytes % (Manual) Seg Neutrophils # 9.8 H Seg Neutrophils # Man Monocytes # (Manual) POC ABG pH POC ABG pCO2 POC ABG pO2 Sodium 134 L Potassium 2.6 L* Chloride Carbon Dioxide 21 L BUN 21 H Creatinine Glucose 162 H POC Glucose 204 H Hemoglobin A1c Calcium 7.8 L Magnesium Total Creatine Kinase CK-MB (CK-2) NT-Pro-B Natriuret Pep Total Protein Albumin Urine WBC (Auto) 07/15/16 07/15/16 07/15/16 06:42 12:25 16:44 WBC RBC Hgb Hct MCH Plt Count Lymph % (Auto) Emmons % (Auto) Eos % (Auto) Lymph # Emmons # Eos # Seg Neutrophils % Seg Neuts % (Manual) Lymphocytes % (Manual) Monocytes % (Manual) Seg Neutrophils # Seg Neutrophils # Man Monocytes # (Manual) POC ABG pH POC ABG pCO2 POC ABG pO2 Sodium Potassium Chloride Carbon Dioxide BUN Creatinine Glucose POC Glucose 164 H 203 H 130 H Hemoglobin A1c Calcium Magnesium Total Creatine Kinase CK-MB (CK-2) NT-Pro-B Natriuret Pep Total Protein Albumin Urine WBC (Auto) 07/16/16 07/16/16 07/16/16 00:33 06:03 06:30 WBC RBC Hgb Hct MCH Plt Count Lymph % (Auto) Emmons % (Auto) Eos % (Auto) Lymph # Emmons # Eos # Seg Neutrophils % Seg Neuts % (Manual) Lymphocytes % (Manual) Monocytes % (Manual) Seg Neutrophils # Seg Neutrophils # Man Monocytes # (Manual) POC ABG pH POC ABG pCO2 POC ABG pO2 Sodium Potassium Chloride Carbon Dioxide BUN 18 H Creatinine Glucose 156 H POC Glucose 219 H Hemoglobin A1c Calcium 8.3 L Magnesium Total Creatine Kinase CK-MB (CK-2) NT-Pro-B Natriuret Pep 2802 H Total Protein Albumin Urine WBC (Auto) 07/16/16 07/16/16 07/17/16 12:12 16:13 00:48 WBC 13.5 H RBC 3.18 L Hgb 8.8 L Hct 27.0 L MCH Plt Count 590 H Lymph % (Auto) 9.0 L Emmons % (Auto) 10.0 H Eos % (Auto) Lymph # Emmons # 1.3 H Eos # 0.5 H Seg Neutrophils % 76.2 H Seg Neuts % (Manual) Lymphocytes % (Manual) Monocytes % (Manual) Seg Neutrophils # 10.3 H Seg Neutrophils # Man Monocytes # (Manual) POC ABG pH POC ABG pCO2 POC ABG pO2 Sodium Potassium Chloride Carbon Dioxide BUN Creatinine Glucose POC Glucose 247 H 146 H Hemoglobin A1c Calcium Magnesium Total Creatine Kinase CK-MB (CK-2) NT-Pro-B Natriuret Pep Total Protein Albumin Urine WBC (Auto) 07/17/16 07/17/16 07/17/16 00:48 05:28 07:15 WBC RBC Hgb Hct MCH Plt Count Lymph % (Auto) Emmons % (Auto) Eos % (Auto) Lymph # Emmons # Eos # Seg Neutrophils % Seg Neuts % (Manual) Lymphocytes % (Manual) Monocytes % (Manual) Seg Neutrophils # Seg Neutrophils # Man Monocytes # (Manual) POC ABG pH POC ABG pCO2 POC ABG pO2 Sodium Potassium Chloride Carbon Dioxide BUN 21 H 21 H Creatinine 0.6 L 0.6 L Glucose 161 H POC Glucose 176 H Hemoglobin A1c Calcium 8.2 L 8.2 L Magnesium Total Creatine Kinase CK-MB (CK-2) NT-Pro-B Natriuret Pep Total Protein 5.8 L Albumin 1.9 L Urine WBC (Auto) Chest x-ray: report reviewed, image reviewed (RLL infiltrate)
--- NOTE | 2016-07-17 20:02 | XRay Report ---
FINAL REPORT PROCEDURE: Abdomen. TECHNIQUE: Portable AP view. HISTORY: New Dobhoff tube placement. COMPARISON: No prior studies are available for comparison. FINDINGS: The bowel gas pattern is normal. A Dobhoff feeding tube terminates near the 1st portion of the duodenum. The soft tissues are unremarkable. The regional skeleton appears intact. IMPRESSION: Satisfactory Dobhoff tube placement.
[2016-07-18] MEDS: DUONEB 0.5 MG-3 MG/3 ML SOLN IH SCH ×4 (01:18→20:07)
[2016-07-18] MEDS: NOVOLOG SUB-Q SCH ×3 (06:00→18:20)
[2016-07-18 07:04] LABS: Basophils % (Auto) 0.4 % (0.0-1.8); Eosinophils % (Auto) 5.9 % (0.0-4.3); Hematocrit 26.1 % (30.3-42.9); Hemoglobin 8.4 gm/dl (10.1-14.3); Mean Corpuscular HGB Conc 32 % (30-34); Mean Corpuscular Hemoglobin 28 pg (28-32); Mean Corpuscular Volume 85 fl (79-97); Platelet Count 566 K/mm3 (140-440); Red Blood Count 3.06 M/mm3 (3.65-5.03); Red Cell Distribution Width 14.9 % (13.2-15.2); White Blood Count 12.9 K/mm3 (4.5-11.0)
[2016-07-18 07:26] LABS: Anion Gap 16 mmol/L; Blood Urea Nitrogen 16 mg/dL (7-17); Calcium 8.1 mg/dL (8.4-10.2); Carbon Dioxide 27 mmol/L (22-30); Chloride 100.1 mmol/L (98-107); Glucose 163 mg/dL (65-100); Potassium 3.6 mmol/L (3.6-5.0); Sodium 139 mmol/L (137-145)
--- NOTE | 2016-07-18 08:15 | Progress Note ---
Assessment and Plan Assessment and plan: --Dysphagia/failed swallow evaluation PEG placement tomorrow per GI Medically stable for the procedure --Toxic metabolic encephalopathy Back to baseline --Recurrent UTI, cultures negative to date Continue current medications --Acute renal failure/resolved -- severe protein calorie malnutrition, nutrition supplements, supportive care --Type 2 diabetes mellitus, moderate control Continue Accu-Chek sliding scale coverage long-acting insulin A1c 8.8 --Hypertension well-controlled --DVT prophylaxis: Hold Lovenox for the procedure Will use SCDs --Full CODE STATUS DC planning. Case management, patient can be discharge and transfer to senior care facility after PEG If stable Patient is medically stable, no contraindication for PEG I discussed patient's condition treatment plan with the patient's son over the phone yesterday History Interval history: Patient seen and evaluated in her room this morning medical records reviewed Patient is alert and awake and noncommunicative not in acute distress Scheduled for PEG tube placement tomorrow No new events reported by the nursing staff Hospitalist Physical - Constitutional Vitals: Temp Pulse Resp BP Pulse Ox 98.1 F 76 18 157/68 98 07/18/16 04:00 07/18/16 07:12 07/18/16 07:12 07/18/16 04:00 07/18/16 04:00 General appearance: Present: no acute distress, well-nourished - EENT Eyes: Present: PERRL, EOM intact - Neck Neck: Present: supple, normal ROM - Respiratory Respiratory effort: normal Respiratory: bilateral: diminished, rhonchi (occasional), negative: rales - Cardiovascular Rhythm: regular Heart Sounds: Present: S1 & S2 - Extremities Extremities: no ischemia, pulses intact, pulses symmetrical Peripheral Pulses: within normal limits - Abdominal General gastrointestinal: soft, non-tender, non-distended, normal bowel sounds - Integumentary Integumentary: Present: clear, warm - Psychiatric Psychiatric: other (noncommunicative, confused) - Neurologic Neurologic: CNII-XII intact, moves all extremities Results - Labs CBC & Chem 7: 07/18/16 06:09 07/18/16 06:09 Labs: Laboratory Last Values WBC 12.9 K/mm3 (4.5-11.0) H 07/18/16 06:09 RBC 3.06 M/mm3 (3.65-5.03) L 07/18/16 06:09 Hgb 8.4 gm/dl (10.1-14.3) L 07/18/16 06:09 Hct 26.1 % (30.3-42.9) L 07/18/16 06:09 MCV 85 fl (79-97) 07/18/16 06:09 MCH 28 pg (28-32) 07/18/16 06:09 MCHC 32 % (30-34) 07/18/16 06:09 RDW 14.9 % (13.2-15.2) 07/18/16 06:09 Plt Count 566 K/mm3 (140-440) H 07/18/16 06:09 Lymph % (Auto) 7.1 % (13.4-35.0) L 07/18/16 06:09 [place] % (Auto) 8.5 % (0.0-7.3) H 07/18/16 06:09 Eos % (Auto) 5.9 % (0.0-4.3) H 07/18/16 06:09 Baso % (Auto) 0.4 % (0.0-1.8) 07/18/16 06:09 Lymph # 0.9 K/mm3 (1.2-5.4) L 07/18/16 06:09 [place] # 1.1 K/mm3 (0.0-0.8) H 07/18/16 06:09 Eos # 0.8 K/mm3 (0.0-0.4) H 07/18/16 06:09 Baso # 0.1 K/mm3 (0.0-0.1) 07/18/16 06:09 Add Manual Diff Complete 07/13/16 04:45 Total Counted 100 07/13/16 04:45 Seg Neutrophils % 78.1 % (40.0-70.0) H 07/18/16 06:09 Seg Neuts % (Manual) 75.0 % (40.0-70.0) H 07/13/16 04:45 Band Neutrophils % 3.0 % 07/13/16 04:45 Lymphocytes % (Manual) 11.0 % (13.4-35.0) L 07/13/16 04:45 Reactive Lymphs % (Man) 0 % 07/13/16 04:45 Monocytes % (Manual) 8.0 % (0.0-7.3) H 07/13/16 04:45 Eosinophils % (Manual) 0 % (0.0-4.3) 07/13/16 04:45 Basophils % (Manual) 0 % (0.0-1.8) 07/13/16 04:45 Metamyelocytes % 3.0 % 07/13/16 04:45 Myelocytes % 0 % 07/13/16 04:45 Promyelocytes % 0 % 07/13/16 04:45 Blast Cells % 0 % 07/13/16 04:45 Nucleated RBC % Not Reportable 07/13/16 04:45 Seg Neutrophils # 10.0 K/mm3 (1.8-7.7) H 07/18/16 06:09 Seg Neutrophils # Man 15.8 K/mm3 (1.8-7.7) H 07/13/16 04:45 Band Neutrophils # 0.6 K/mm3 07/13/16 04:45 Lymphocytes # (Manual) 2.3 K/mm3 (1.2-5.4) 07/13/16 04:45 Abs React Lymphs (Man) 0.0 K/mm3 07/13/16 04:45 Monocytes # (Manual) 1.7 K/mm3 (0.0-0.8) H 07/13/16 04:45 Eosinophils # (Manual) 0.0 K/mm3 (0.0-0.4) 07/13/16 04:45 Basophils # (Manual) 0.0 K/mm3 (0.0-0.1) 07/13/16 04:45 Metamyelocytes # 0.6 K/mm3 07/13/16 04:45 Myelocytes # 0.0 K/mm3 07/13/16 04:45 Promyelocytes # 0.0 K/mm3 07/13/16 04:45 Blast Cells # 0.0 K/mm3 07/13/16 04:45 WBC Morphology Not Reportable 07/13/16 04:45 Hypersegmented Neuts Few 07/13/16 04:45 Hyposegmented Neuts Not Reportable 07/13/16 04:45 Hypogranular Neuts Not Reportable 07/13/16 04:45 Smudge Cells Not Reportable 07/13/16 04:45 Toxic Granulation Not Reportable 07/13/16 04:45 Toxic Vacuolation Not Reportable 07/13/16 04:45 Dohle Bodies Not Reportable 07/13/16 04:45 Pelger-Huet Anomaly Not Reportable 07/13/16 04:45 James Rods Not Reportable 07/13/16 04:45 Platelet Estimate Appears increased 07/13/16 04:45 Clumped Platelets Not Reportable 07/13/16 04:45 Plt Clumps, EDTA Not Reportable 07/13/16 04:45 Large Platelets Not Reportable 07/13/16 04:45 Giant Platelets Not Reportable 07/13/16 04:45 Platelet Satelliting Not Reportable 07/13/16 04:45 Plt Morphology Comment Not Reportable 07/13/16 04:45 RBC Morphology Not Reportable 07/13/16 04:45 Dimorphic RBCs Not Reportable 07/13/16 04:45 Polychromasia Not Reportable 07/13/16 04:45 Hypochromasia Not Reportable 07/13/16 04:45 Poikilocytosis Not Reportable 07/13/16 04:45 Anisocytosis 1+ 07/13/16 04:45 Microcytosis Not Reportable 07/13/16 04:45 Macrocytosis Not Reportable 07/13/16 04:45 Spherocytes Not Reportable 07/13/16 04:45 Pappenheimer Bodies Not Reportable 07/13/16 04:45 Sickle Cells Not Reportable 07/13/16 04:45 Target Cells Not Reportable 07/13/16 04:45 Tear Drop Cells Not Reportable 07/13/16 04:45 Ovalocytes Not Reportable 07/13/16 04:45 Helmet Cells Not Reportable 07/13/16 04:45 [place] Bodies Not Reportable 07/13/16 04:45 [place] Rings Not Reportable 07/13/16 04:45 [place] Cells Not Reportable 07/13/16 04:45 Bite Cells Not Reportable 07/13/16 04:45 Crenated Cell Not Reportable 07/13/16 04:45 Elliptocytes Not Reportable 07/13/16 04:45 Acanthocytes (Spur) Not Reportable 07/13/16 04:45 Rouleaux Not Reportable 07/13/16 04:45 Hemoglobin C Crystals Not Reportable 07/13/16 04:45 Schistocytes Not Reportable 07/13/16 04:45 Malaria parasites Not Reportable 07/13/16 04:45 [place] Bodies Not Reportable 07/13/16 04:45 Hem Pathologist Commnt No 07/13/16 04:45 PT 14.1 Sec. (12.2-14.9) 07/17/16 00:48 INR 1.10 (0.87-1.13) 07/17/16 00:48 POC ABG pH 7.452 (7.35-7.45) H 07/12/16 09:10 POC ABG pCO2 33.2 (35-45) L 07/12/16 09:10 POC ABG pO2 74 (80-105) L 07/12/16 09:10 POC ABG HCO3 23.2 07/12/16 09:10 POC ABG Total CO2 24 07/12/16 09:10 POC ABG O2 Sat 96 07/12/16 09:10 POC ABG Base Excess -1 07/12/16 09:10 FiO2 30 % 07/12/16 09:10 Sodium 139 mmol/L (137-145) 07/18/16 06:09 Potassium 3.6 mmol/L (3.6-5.0) 07/18/16 06:09 Chloride 100.1 mmol/L (98-107) 07/18/16 06:09 Carbon Dioxide 27 mmol/L (22-30) 07/18/16 06:09 Anion Gap 16 mmol/L 07/18/16 06:09 BUN 16 mg/dL (7-17) 07/18/16 06:09 Creatinine 0.5 mg/dL (0.7-1.2) L 07/18/16 06:09 Estimated GFR > 60 ml/min 07/18/16 06:09 BUN/Creatinine Ratio 32.00 % 07/18/16 06:09 Glucose 163 mg/dL (65-100) H 07/18/16 06:09 POC Glucose 114 (70-105) H 07/17/16 23:29 Hemoglobin A1c 8.8 % (4-6) H 07/11/16 04:31 Calcium 8.1 mg/dL (8.4-10.2) L 07/18/16 06:09 Phosphorus 2.7 mg/dL (2.5-4.5) 07/14/16 05:28 Magnesium 1.7 mg/dL (1.7-2.3) 07/15/16 06:34 Total Bilirubin < 0.2 mg/dL (0.1-1.2) 07/17/16 00:48 Direct Bilirubin < 0.2 mg/dL (0-0.2) 07/11/16 04:31 Indirect Bilirubin 0.0 mg/dL 07/11/16 04:31 AST 20 units/L (5-40) 07/17/16 00:48 ALT 12 units/L (7-56) 07/17/16 00:48 Alkaline Phosphatase 73 units/L (35-129) 07/17/16 00:48 Ammonia 48.0 umol/L (25-60) 07/09/16 20:31 Total Creatine Kinase 334 units/L (30-135) H 07/10/16 08:55 CK-MB (CK-2) 5.6 ng/mL (0.0-4.0) H 07/10/16 08:55 CK-MB (CK-2) Rel Index 1.6 (0-4) 07/10/16 08:55 Troponin T 0.016 ng/mL (0.00-0.029) 07/10/16 08:55 NT-Pro-B Natriuret Pep 2802 pg/mL (0-900) H 07/16/16 06:30 Total Protein 5.8 g/dL (6.3-8.2) L 07/17/16 00:48 Albumin 1.9 g/dL (3.9-5) L 07/17/16 00:48 Albumin/Globulin Ratio 0.5 % 07/17/16 00:48 TSH 1.240 mlU/mL (0.270-4.200) 07/09/16 20:31 Free T4 1.40 ng/dL (0.76-1.46) 07/09/16 20:31 Urine Color Jennifer (Yellow) 07/10/16 13:10 Urine Turbidity Turbid (Clear) 07/10/16 13:10 Urine pH 6.0 (5.0-7.0) 07/10/16 13:10 Ur Specific [place] 1.016 (1.003-1.030) 07/10/16 13:10 Urine Protein 30 mg/dl mg/dL (Negative) 07/10/16 13:10 Urine Glucose (UA) 50 mg/dL (Negative) 07/10/16 13:10 Urine Ketones Neg mg/dL (Negative) 07/10/16 13:10 Urine Blood Sm (Negative) 07/10/16 13:10 Urine Nitrite Neg (Negative) 07/10/16 13:10 Urine Bilirubin Neg (Negative) 07/10/16 13:10 Urine Urobilinogen < 2.0 mg/dL (<2.0) 07/10/16 13:10 Ur Leukocyte Esterase Lg (Negative) 07/10/16 13:10 Urine WBC (Auto) 164.0 /HPF (0.0-6.0) H 07/10/16 13:10 Urine RBC (Auto) 33.0 /HPF (0.0-6.0) 07/10/16 13:10 U Epithel Cells (Auto) 5.0 /HPF (0-13.0) 07/10/16 13:10 Urine Bacteria (Auto) 4+ /HPF (Negative) 07/10/16 13:10 Urine Mucus 3+ /HPF 07/10/16 13:10 Urine Eosinophils 1 (None Seen) 07/11/16 12:50 Urine Creatinine < 4.2 mg/dL (0.1-20.0) 07/11/16 13:03 Urine Sodium 10 mEq/L 07/11/16 13:03
[2016-07-18] MEDS: PEPCID PO SCH (10:28)
[2016-07-18] MEDS: NORVASC FEEDTUBE SCH (10:28)
--- NOTE | 2016-07-18 12:11 | Event Note ---
Date: 07/18/16 - no changes overnight - will plan for EGD/PEG in am
--- NOTE | 2016-07-18 17:09 | Progress Note ---
Assessment and Plan Imp: 1. Probable RLL aspiration pneumonia 2. Volume depletion 3. Metabolic encephalopathy, better 4. HARISH, better 5. Acute respiratory failure, hypoxia and hypercapnea 6. Oropharyngeal dysphagia Rec: 1. Cont. Levaquin given clinical improvement pulm-frost; f/u CXR periodically 2. HOB elevated/aspiration precautions 3. NPO except per feeding tube; awaiting PEG 4. On 5L NC w/ sat of 97%; need to wean to keep 88% or above 5. Monitor closely No family present Subjective Date of service: 07/18/16 Principal diagnosis: acute respiratory failure, narcotic overdose, AMS Interval history: No events. DHT in place. She is awake, alert, and conversant. Denies SOB, chest pain. Has an adequate cough. No other complaints. Active Medications Acetaminophen (Tylenol) 650 mg PO Q4H PRN PRN Reason: Pain MILD(1-3)/Fever >100.5/ISAAC Last Admin: 07/14/16 22:11 Dose: 650 mg Albuterol/Ipratropium (Duoneb 0.5 Mg-3 Mg/3 Ml Soln) 1 ampul IH Q6HRT [facility] Last Admin: 07/18/16 13:43 Dose: 1 ampul Amlodipine Besylate (Norvasc) 10 mg FEEDTUBE QDAY [facility] Last Admin: 07/18/16 10:28 Dose: 10 mg Lipase/Protease/Amylase (Pancreaze Dr 10,500 Unit) 1 each FEEDTUBE PRN PRN PRN Reason: For Clogged Feeding Tube Bisacodyl (Dulcolax) 10 mg SD QDAY PRN PRN Reason: Constipation unrelieved by MOM Famotidine (Pepcid) 20 mg PO DAILY [facility] Last Admin: 07/18/16 10:28 Dose: 20 mg Haloperidol Lactate (Haldol) 2 mg IM Q6H PRN PRN Reason: Agitation Last Admin: 07/14/16 05:00 Dose: 2 mg Hydralazine HCl (Apresoline) 10 mg IV Q4HR PRN PRN Reason: Hypertension Last Admin: 07/15/16 07:50 Dose: 10 mg Hydrophilic Ointment (Vaseline Lip Therapy) 1 applic TP Q2HR PRN PRN Reason: Dry Lips Levofloxacin/Dextrose (Levaquin 500mg/100ml) 500 mg in 100 mls @ 100 mls/hr IV Q48H PAULA PRN Reason: Protocol Last Admin: 07/17/16 15:00 Dose: 100 mls/hr Insulin Aspart (Novolog) 0 units SUB-Q Q6HR PAULA PRN Reason: Protocol Last Admin: 07/18/16 00:00 Dose: Not Given Insulin Human Isoph/Insulin Regular (Novolin 70/30) 12 unit SUB-Q BIDDIAB PAULA Last Admin: 07/18/16 10:25 Dose: 12 unit Multi-Ingred Cream/Lotion/Oil/Oint (Artificial Tears Ophth Oint) 1 applic OU Q4HR PRN PRN Reason: Dry Eye(s) Simple Syrup (Simple Syrup) 15 ml FEEDTUBE PRN PRN PRN Reason: Hypoglycemia Simple Syrup (Simple Syrup) 30 ml FEEDTUBE PRN PRN PRN Reason: Hypoglycemia Sodium Bicarbonate (Sodium Bicarbonate) 325 mg FEEDTUBE PRN PRN PRN Reason: For Clogged Feeding Tube Sodium Chloride (Nacl 0.9% 500 Ml) 1 ml IV DIRECT PAULA Objective Vital Signs - 12hr 07/18/16 07/18/16 07/18/16 07:12 07:27 08:00 Temperature 98.1 F Pulse Rate [ 76 78 Anterior Bilateral Throughout] Pulse Rate [ 101 H Apical] Respiratory 18 Rate Respiratory 18 18 Rate [Anterior Bilateral Throughout] Blood Pressure 149/70 [Right Arm] O2 Sat by Pulse 96 Oximetry 07/18/16 07/18/16 07/18/16 08:59 13:44 13:59 Temperature Pulse Rate [ 94 H 96 H Anterior Bilateral Throughout] Pulse Rate [ Apical] Respiratory Rate Respiratory 20 20 Rate [Anterior Bilateral Throughout] Blood Pressure [Right Arm] O2 Sat by Pulse 97 Oximetry Constitutional: no acute distress, alert Eyes: non-icteric ENT: other (NGT in place) Neck: supple Effort: normal Ascultation: Bilateral: clear Cardiovascular: other (mildly tachy, RR; no mrg) Gastrointestinal: normoactive bowel sounds, non-tender Extremities: no cyanosis, no edema, pink and warm Neurologic: other (awake, alert, R hemiplegia) Psychiatric: mood appropriate, affect normal CBC and BMP: 07/18/16 06:09 07/18/16 06:09 ABG, PT/INR, D-dimer: ABG POC ABG pH 7.452 (7.35-7.45) H 07/12/16 09:10 POC ABG pCO2 33.2 (35-45) L 07/12/16 09:10 POC ABG pO2 74 (80-105) L 07/12/16 09:10 POC ABG HCO3 23.2 07/12/16 09:10 POC ABG Total CO2 24 07/12/16 09:10 POC ABG O2 Sat 96 07/12/16 09:10 PT/INR, D-dimer PT 14.1 Sec. (12.2-14.9) 07/17/16 00:48 INR 1.10 (0.87-1.13) 07/17/16 00:48 Abnormal lab findings: Abnormal Labs 07/10/16 07/10/16 07/10/16 06:22 06:48 06:48 WBC 14.5 H RBC 3.53 L Hgb 10.0 L Hct MCH Plt Count 484 H Lymph % (Auto) 12.0 L [place] % (Auto) 7.4 H Eos % (Auto) Lymph # [place] # 1.1 H Eos # Seg Neutrophils % 77.4 H Seg Neuts % (Manual) Lymphocytes % (Manual) Monocytes % (Manual) Seg Neutrophils # 11.2 H Seg Neutrophils # Man Monocytes # (Manual) POC ABG pH POC ABG pCO2 POC ABG pO2 Sodium 148 H Potassium Chloride 109.2 H Carbon Dioxide BUN 33 H Creatinine 3.1 H Glucose 111 H POC Glucose 132 H Hemoglobin A1c Calcium Magnesium Total Creatine Kinase CK-MB (CK-2) NT-Pro-B Natriuret Pep Total Protein Albumin Urine WBC (Auto) 07/10/16 07/10/16 07/10/16 08:06 08:18 08:55 WBC RBC Hgb Hct MCH Plt Count Lymph % (Auto) [place] % (Auto) Eos % (Auto) Lymph # [place] # Eos # Seg Neutrophils % Seg Neuts % (Manual) Lymphocytes % (Manual) Monocytes % (Manual) Seg Neutrophils # Seg Neutrophils # Man Monocytes # (Manual) POC ABG pH 7.249 L POC ABG pCO2 54.1 H POC ABG pO2 Sodium Potassium Chloride Carbon Dioxide BUN Creatinine Glucose POC Glucose 141 H Hemoglobin A1c Calcium Magnesium Total Creatine Kinase 334 H CK-MB (CK-2) 5.6 H NT-Pro-B Natriuret Pep Total Protein Albumin Urine WBC (Auto) 07/10/16 07/10/16 07/11/16 13:03 13:10 04:31 WBC 11.6 H RBC 3.49 L Hgb 9.7 L Hct MCH Plt Count 442 H Lymph % (Auto) 9.8 L [place] % (Auto) 9.5 H Eos % (Auto) 5.2 H Lymph # 1.1 L [place] # 1.1 H Eos # 0.6 H Seg Neutrophils % 75.1 H Seg Neuts % (Manual) Lymphocytes % (Manual) Monocytes % (Manual) Seg Neutrophils # 8.7 H Seg Neutrophils # Man Monocytes # (Manual) POC ABG pH 7.330 L POC ABG pCO2 46.6 H POC ABG pO2 142 H Sodium Potassium Chloride Carbon Dioxide BUN Creatinine Glucose POC Glucose Hemoglobin A1c Calcium Magnesium Total Creatine Kinase CK-MB (CK-2) NT-Pro-B Natriuret Pep Total Protein Albumin Urine WBC (Auto) 164.0 H 07/11/16 07/11/16 07/11/16 04:31 04:31 05:21 WBC RBC Hgb Hct MCH Plt Count Lymph % (Auto) [place] % (Auto) Eos % (Auto) Lymph # [place] # Eos # Seg Neutrophils % Seg Neuts % (Manual) Lymphocytes % (Manual) Monocytes % (Manual) Seg Neutrophils # Seg Neutrophils # Man Monocytes # (Manual) POC ABG pH 7.482 H POC ABG pCO2 28.3 L POC ABG pO2 Sodium Potassium Chloride Carbon Dioxide 20 L BUN 36 H Creatinine 3.7 H Glucose 238 H POC Glucose Hemoglobin A1c 8.8 H Calcium 8.0 L Magnesium Total Creatine Kinase CK-MB (CK-2) NT-Pro-B Natriuret Pep Total Protein 5.8 L Albumin 2.3 L Urine WBC (Auto) 07/11/16 07/11/16 07/11/16 08:19 11:51 17:04 WBC RBC Hgb Hct MCH Plt Count Lymph % (Auto) [place] % (Auto) Eos % (Auto) Lymph # [place] # Eos # Seg Neutrophils % Seg Neuts % (Manual) Lymphocytes % (Manual) Monocytes % (Manual) Seg Neutrophils # Seg Neutrophils # Man Monocytes # (Manual) POC ABG pH POC ABG pCO2 POC ABG pO2 Sodium Potassium Chloride Carbon Dioxide BUN Creatinine Glucose POC Glucose 375 H 247 H 134 H Hemoglobin A1c Calcium Magnesium Total Creatine Kinase CK-MB (CK-2) NT-Pro-B Natriuret Pep Total Protein Albumin Urine WBC (Auto) 07/11/16 07/12/16 07/12/16 20:24 00:36 04:00 WBC 15.9 H RBC 3.36 L Hgb 9.3 L Hct 28.9 L MCH Plt Count Lymph % (Auto) 6.6 L [place] % (Auto) 10.2 H Eos % (Auto) Lymph # 1.1 L [place] # 1.6 H Eos # Seg Neutrophils % 82.5 H Seg Neuts % (Manual) Lymphocytes % (Manual) Monocytes % (Manual) Seg Neutrophils # 13.1 H Seg Neutrophils # Man Monocytes # (Manual) POC ABG pH POC ABG pCO2 POC ABG pO2 Sodium Potassium Chloride Carbon Dioxide BUN Creatinine Glucose POC Glucose 262 H 183 H Hemoglobin A1c Calcium Magnesium Total Creatine Kinase CK-MB (CK-2) NT-Pro-B Natriuret Pep Total Protein Albumin Urine WBC (Auto) 07/12/16 07/12/16 07/12/16 04:00 05:22 06:18 WBC RBC Hgb Hct MCH Plt Count Lymph % (Auto) [place] % (Auto) Eos % (Auto) Lymph # [place] # Eos # Seg Neutrophils % Seg Neuts % (Manual) Lymphocytes % (Manual) Monocytes % (Manual) Seg Neutrophils # Seg Neutrophils # Man Monocytes # (Manual) POC ABG pH POC ABG pCO2 29.5 L POC ABG pO2 67 L Sodium Potassium Chloride Carbon Dioxide 20 L BUN 37 H Creatinine 3.5 H Glucose 112 H POC Glucose 124 H Hemoglobin A1c Calcium Magnesium Total Creatine Kinase CK-MB (CK-2) NT-Pro-B Natriuret Pep Total Protein Albumin Urine WBC (Auto) 07/12/16 07/12/16 07/12/16 09:10 09:23 11:49 WBC RBC Hgb Hct MCH Plt Count Lymph % (Auto) [place] % (Auto) Eos % (Auto) Lymph # [place] # Eos # Seg Neutrophils % Seg Neuts % (Manual) Lymphocytes % (Manual) Monocytes % (Manual) Seg Neutrophils # Seg Neutrophils # Man Monocytes # (Manual) POC ABG pH 7.452 H POC ABG pCO2 33.2 L POC ABG pO2 74 L Sodium Potassium Chloride Carbon Dioxide BUN Creatinine Glucose POC Glucose 162 H 209 H Hemoglobin A1c Calcium Magnesium Total Creatine Kinase CK-MB (CK-2) NT-Pro-B Natriuret Pep Total Protein Albumin Urine WBC (Auto) 07/12/16 07/12/16 07/13/16 17:45 23:25 04:45 WBC 21.1 H RBC 3.52 L Hgb 9.7 L Hct MCH Plt Count 529 H Lymph % (Auto) [place] % (Auto) Eos % (Auto) Lymph # [place] # Eos # Seg Neutrophils % Seg Neuts % (Manual) 75.0 H Lymphocytes % (Manual) 11.0 L Monocytes % (Manual) 8.0 H Seg Neutrophils # Seg Neutrophils # Man 15.8 H Monocytes # (Manual) 1.7 H POC ABG pH POC ABG pCO2 POC ABG pO2 Sodium Potassium Chloride Carbon Dioxide BUN Creatinine Glucose POC Glucose 126 H 151 H Hemoglobin A1c Calcium Magnesium Total Creatine Kinase CK-MB (CK-2) NT-Pro-B Natriuret Pep Total Protein Albumin Urine WBC (Auto) 07/13/16 07/13/16 07/13/16 04:45 06:02 06:09 WBC RBC Hgb Hct MCH Plt Count Lymph % (Auto) [place] % (Auto) Eos % (Auto) Lymph # [place] # Eos # Seg Neutrophils % Seg Neuts % (Manual) Lymphocytes % (Manual) Monocytes % (Manual) Seg Neutrophils # Seg Neutrophils # Man Monocytes # (Manual) POC ABG pH POC ABG pCO2 POC ABG pO2 Sodium 134 L Potassium Chloride Carbon Dioxide 21 L BUN 31 H Creatinine 2.2 H Glucose 230 H POC Glucose 267 H 257 H Hemoglobin A1c Calcium 7.9 L Magnesium 1.3 L Total Creatine Kinase CK-MB (CK-2) NT-Pro-B Natriuret Pep Total Protein Albumin Urine WBC (Auto) 07/13/16 07/13/16 07/13/16 07:31 11:51 18:17 WBC RBC Hgb Hct MCH Plt Count Lymph % (Auto) [place] % (Auto) Eos % (Auto) Lymph # [place] # Eos # Seg Neutrophils % Seg Neuts % (Manual) Lymphocytes % (Manual) Monocytes % (Manual) Seg Neutrophils # Seg Neutrophils # Man Monocytes # (Manual) POC ABG pH POC ABG pCO2 POC ABG pO2 Sodium Potassium Chloride Carbon Dioxide BUN Creatinine Glucose POC Glucose 223 H 245 H 222 H Hemoglobin A1c Calcium Magnesium Total Creatine Kinase CK-MB (CK-2) NT-Pro-B Natriuret Pep Total Protein Albumin Urine WBC (Auto) 07/13/16 07/14/16 07/14/16 23:02 05:28 05:28 WBC 16.9 H RBC 3.61 L Hgb 10.0 L Hct MCH Plt Count 556 H Lymph % (Auto) 6.6 L [place] % (Auto) 11.8 H Eos % (Auto) Lymph # 1.1 L [place] # 2.0 H Eos # 0.6 H Seg Neutrophils % 77.8 H Seg Neuts % (Manual) Lymphocytes % (Manual) Monocytes % (Manual) Seg Neutrophils # 13.2 H Seg Neutrophils # Man Monocytes # (Manual) POC ABG pH POC ABG pCO2 POC ABG pO2 Sodium Potassium Chloride Carbon Dioxide 21 L BUN 22 H Creatinine 1.3 H Glucose 145 H POC Glucose 221 H Hemoglobin A1c Calcium 8.0 L Magnesium Total Creatine Kinase CK-MB (CK-2) NT-Pro-B Natriuret Pep Total Protein Albumin Urine WBC (Auto) 07/14/16 07/14/16 07/14/16 05:48 17:42 22:47 WBC RBC Hgb Hct MCH Plt Count Lymph % (Auto) [place] % (Auto) Eos % (Auto) Lymph # [place] # Eos # Seg Neutrophils % Seg Neuts % (Manual) Lymphocytes % (Manual) Monocytes % (Manual) Seg Neutrophils # Seg Neutrophils # Man Monocytes # (Manual) POC ABG pH POC ABG pCO2 POC ABG pO2 Sodium Potassium Chloride Carbon Dioxide BUN Creatinine Glucose POC Glucose 156 H 362 H 171 H Hemoglobin A1c Calcium Magnesium Total Creatine Kinase CK-MB (CK-2) NT-Pro-B Natriuret Pep Total Protein Albumin Urine WBC (Auto) 07/15/16 07/15/16 07/15/16 02:45 06:34 06:34 WBC 13.3 H RBC 3.39 L Hgb 9.2 L Hct 29.1 L MCH 27 L Plt Count 520 H Lymph % (Auto) 9.0 L [place] % (Auto) 10.9 H Eos % (Auto) 6.0 H Lymph # [place] # 1.5 H Eos # 0.8 H Seg Neutrophils % 73.7 H Seg Neuts % (Manual) Lymphocytes % (Manual) Monocytes % (Manual) Seg Neutrophils # 9.8 H Seg Neutrophils # Man Monocytes # (Manual) POC ABG pH POC ABG pCO2 POC ABG pO2 Sodium 134 L Potassium 2.6 L* Chloride Carbon Dioxide 21 L BUN 21 H Creatinine Glucose 162 H POC Glucose 204 H Hemoglobin A1c Calcium 7.8 L Magnesium Total Creatine Kinase CK-MB (CK-2) NT-Pro-B Natriuret Pep Total Protein Albumin Urine WBC (Auto) 07/15/16 07/15/16 07/15/16 06:42 12:25 16:44 WBC RBC Hgb Hct MCH Plt Count Lymph % (Auto) [place] % (Auto) Eos % (Auto) Lymph # [place] # Eos # Seg Neutrophils % Seg Neuts % (Manual) Lymphocytes % (Manual) Monocytes % (Manual) Seg Neutrophils # Seg Neutrophils # Man Monocytes # (Manual) POC ABG pH POC ABG pCO2 POC ABG pO2 Sodium Potassium Chloride Carbon Dioxide BUN Creatinine Glucose POC Glucose 164 H 203 H 130 H Hemoglobin A1c Calcium Magnesium Total Creatine Kinase CK-MB (CK-2) NT-Pro-B Natriuret Pep Total Protein Albumin Urine WBC (Auto) 07/16/16 07/16/16 07/16/16 00:33 06:03 06:30 WBC RBC Hgb Hct MCH Plt Count Lymph % (Auto) [place] % (Auto) Eos % (Auto) Lymph # [place] # Eos # Seg Neutrophils % Seg Neuts % (Manual) Lymphocytes % (Manual) Monocytes % (Manual) Seg Neutrophils # Seg Neutrophils # Man Monocytes # (Manual) POC ABG pH POC ABG pCO2 POC ABG pO2 Sodium Potassium Chloride Carbon Dioxide BUN 18 H Creatinine Glucose 156 H POC Glucose 219 H Hemoglobin A1c Calcium 8.3 L Magnesium Total Creatine Kinase CK-MB (CK-2) NT-Pro-B Natriuret Pep 2802 H Total Protein Albumin Urine WBC (Auto) 07/16/16 07/16/16 07/17/16 12:12 16:13 00:48 WBC 13.5 H RBC 3.18 L Hgb 8.8 L Hct 27.0 L MCH Plt Count 590 H Lymph % (Auto) 9.0 L [place] % (Auto) 10.0 H Eos % (Auto) Lymph # [place] # 1.3 H Eos # 0.5 H Seg Neutrophils % 76.2 H Seg Neuts % (Manual) Lymphocytes % (Manual) Monocytes % (Manual) Seg Neutrophils # 10.3 H Seg Neutrophils # Man Monocytes # (Manual) POC ABG pH POC ABG pCO2 POC ABG pO2 Sodium Potassium Chloride Carbon Dioxide BUN Creatinine Glucose POC Glucose 247 H 146 H Hemoglobin A1c Calcium Magnesium Total Creatine Kinase CK-MB (CK-2) NT-Pro-B Natriuret Pep Total Protein Albumin Urine WBC (Auto) 07/17/16 07/17/16 07/17/16 00:48 05:28 07:15 WBC RBC Hgb Hct MCH Plt Count Lymph % (Auto) [place] % (Auto) Eos % (Auto) Lymph # [place] # Eos # Seg Neutrophils % Seg Neuts % (Manual) Lymphocytes % (Manual) Monocytes % (Manual) Seg Neutrophils # Seg Neutrophils # Man Monocytes # (Manual) POC ABG pH POC ABG pCO2 POC ABG pO2 Sodium Potassium Chloride Carbon Dioxide BUN 21 H 21 H Creatinine 0.6 L 0.6 L Glucose 161 H POC Glucose 176 H Hemoglobin A1c Calcium 8.2 L 8.2 L Magnesium Total Creatine Kinase CK-MB (CK-2) NT-Pro-B Natriuret Pep Total Protein 5.8 L Albumin 1.9 L Urine WBC (Auto) 07/17/16 07/17/16 07/18/16 12:52 23:29 06:09 WBC RBC Hgb Hct MCH Plt Count Lymph % (Auto) [place] % (Auto) Eos % (Auto) Lymph # [place] # Eos # Seg Neutrophils % Seg Neuts % (Manual) Lymphocytes % (Manual) Monocytes % (Manual) Seg Neutrophils # Seg Neutrophils # Man Monocytes # (Manual) POC ABG pH POC ABG pCO2 POC ABG pO2 Sodium Potassium Chloride Carbon Dioxide BUN Creatinine 0.5 L Glucose 163 H POC Glucose 162 H 114 H Hemoglobin A1c Calcium 8.1 L Magnesium Total Creatine Kinase CK-MB (CK-2) NT-Pro-B Natriuret Pep Total Protein Albumin Urine WBC (Auto) 07/18/16 07/18/16 07/18/16 06:09 08:25 13:13 WBC 12.9 H RBC 3.06 L Hgb 8.4 L Hct 26.1 L MCH Plt Count 566 H Lymph % (Auto) 7.1 L [place] % (Auto) 8.5 H Eos % (Auto) 5.9 H Lymph # 0.9 L [place] # 1.1 H Eos # 0.8 H Seg Neutrophils % 78.1 H Seg Neuts % (Manual) Lymphocytes % (Manual) Monocytes % (Manual) Seg Neutrophils # 10.0 H Seg Neutrophils # Man Monocytes # (Manual) POC ABG pH POC ABG pCO2 POC ABG pO2 Sodium Potassium Chloride Carbon Dioxide BUN Creatinine Glucose POC Glucose 205 H 148 H Hemoglobin A1c Calcium Magnesium Total Creatine Kinase CK-MB (CK-2) NT-Pro-B Natriuret Pep Total Protein Albumin Urine WBC (Auto) 07/18/16 16:52 WBC RBC Hgb Hct MCH Plt Count Lymph % (Auto) [place] % (Auto) Eos % (Auto) Lymph # [place] # Eos # Seg Neutrophils % Seg Neuts % (Manual) Lymphocytes % (Manual) Monocytes % (Manual) Seg Neutrophils # Seg Neutrophils # Man Monocytes # (Manual) POC ABG pH POC ABG pCO2 POC ABG pO2 Sodium Potassium Chloride Carbon Dioxide BUN Creatinine Glucose POC Glucose 127 H Hemoglobin A1c Calcium Magnesium Total Creatine Kinase CK-MB (CK-2) NT-Pro-B Natriuret Pep Total Protein Albumin Urine WBC (Auto) Chest x-ray: report reviewed, image reviewed
--- NOTE | 2016-07-18 19:08 | XRay Report ---
FINAL REPORT PROCEDURE: Abdomen. TECHNIQUE: Portable AP supine views. HISTORY: Dobhoff tube placement. COMPARISON: Abdomen 07/17/2016. FINDINGS: The Dobhoff tube has been replaced. The new tube courses down the right side of the thorax and terminates in the right side of the abdomen. This may have either entered the bronchial tree or possibly perforated the esophagus. The location of the tube is not consistent with placement within the gastrointestinal tract. Removal of the tube is recommended. IMPRESSION: New Dobhoff tube not within gastrointestinal tract as discussed above.
[2016-07-18] MEDS ORDERED: D50W (25GM) IV ONE ×2 (23:03→23:11)
[2016-07-18] MEDS ORDERED: D5/0.45NS 1,000 ML IV SCH (23:45)
[2016-07-19] MEDS: DUONEB 0.5 MG-3 MG/3 ML SOLN IH SCH ×4 (01:19→20:22)
[2016-07-19] MEDS: NOVOLOG SUB-Q SCH ×4 (06:29→18:00)
[2016-07-19 07:43] LABS: INR 1.05 (0.87-1.13); Partial Thromboplastin Time 22.8 Sec. (24.2-36.6)
[2016-07-19] MEDS ORDERED: APRESOLINE IV ONE (09:00)
[2016-07-19] MEDS: NORVASC FEEDTUBE SCH (10:36)
[2016-07-19] MEDS: PEPCID PO SCH (10:36)
--- NOTE | 2016-07-19 11:21 | Progress Note ---
Assessment and Plan Acute respiratory failure. On [place] oxygen,well tolerated Pneumonia. .Completing ABX. On aspiration precautions Narcotic overdose. Dementia Recommendations Pending PEG Aspiration precautions Chest PT Complete 7-10 days ABX No family available for case discussion. Subjective Date of service: 07/19/16 Principal diagnosis: acute respiratory failure, narcotic overdose, AMS Interval history: No cough Objective Vital Signs - 12hr 07/19/16 07/19/16 07/19/16 00:30 04:35 08:00 Temperature 98.6 F 98.4 F 98.9 F Pulse Rate Pulse Rate [ Anterior Bilateral Throughout] Pulse Rate [ 58 L 85 86 Apical] Respiratory 20 22 18 Rate Respiratory Rate [Anterior Bilateral Throughout] Blood Pressure Blood Pressure 140/72 172/72 171/68 [Right Arm] O2 Sat by Pulse 94 99 96 Oximetry 07/19/16 07/19/16 07/19/16 08:55 08:57 09:06 Temperature Pulse Rate Pulse Rate [ 87 89 Anterior Bilateral Throughout] Pulse Rate [ Apical] Respiratory Rate Respiratory 18 18 Rate [Anterior Bilateral Throughout] Blood Pressure Blood Pressure [Right Arm] O2 Sat by Pulse 98 Oximetry 07/19/16 09:26 Temperature Pulse Rate 84 Pulse Rate [ Anterior Bilateral Throughout] Pulse Rate [ Apical] Respiratory Rate Respiratory Rate [Anterior Bilateral Throughout] Blood Pressure 171/68 Blood Pressure [Right Arm] O2 Sat by Pulse Oximetry Constitutional: no acute distress, alert Eyes: non-icteric Neck: supple Effort: normal Ascultation: Bilateral: clear, diminished breath sounds Percussion: Bilateral: not dull Tactile fremitus: Bilateral: normal Cardiovascular: regular rate and rhythm Gastrointestinal: normoactive bowel sounds, non-tender Extremities: no cyanosis, no edema, pink and warm Neurologic: other (awake, alert, R hemiplegia) Psychiatric: mood appropriate, affect normal CBC and BMP: 07/18/16 06:09 07/18/16 23:23 ABG, PT/INR, D-dimer: ABG POC ABG pH 7.452 (7.35-7.45) H 07/12/16 09:10 POC ABG pCO2 33.2 (35-45) L 07/12/16 09:10 POC ABG pO2 74 (80-105) L 07/12/16 09:10 POC ABG HCO3 23.2 07/12/16 09:10 POC ABG Total CO2 24 03/20/17 09:10 POC ABG O2 Sat 96 07/12/16 09:10 PT/INR, D-dimer PT 13.6 Sec. (12.2-14.9) 07/19/16 06:26 INR 1.05 (0.87-1.13) 07/19/16 06:26 Abnormal lab findings: Abnormal Labs 07/10/16 07/10/16 07/10/16 06:22 06:48 06:48 WBC 14.5 H RBC 3.53 L Hgb 10.0 L Hct MCH Plt Count 484 H Lymph % (Auto) 12.0 L [place] % (Auto) 7.4 H Eos % (Auto) Lymph # [place] # 1.1 H Eos # Seg Neutrophils % 77.4 H Seg Neuts % (Manual) Lymphocytes % (Manual) Monocytes % (Manual) Seg Neutrophils # 11.2 H Seg Neutrophils # Man Monocytes # (Manual) APTT POC ABG pH POC ABG pCO2 POC ABG pO2 Sodium 148 H Potassium Chloride 109.2 H Carbon Dioxide BUN 33 H Creatinine 3.1 H Glucose 111 H POC Glucose 132 H Hemoglobin A1c Calcium Magnesium Total Creatine Kinase CK-MB (CK-2) NT-Pro-B Natriuret Pep Total Protein Albumin Urine WBC (Auto) 07/10/16 07/10/16 07/10/16 08:06 08:18 08:55 WBC RBC Hgb Hct MCH Plt Count Lymph % (Auto) [place] % (Auto) Eos % (Auto) Lymph # [place] # Eos # Seg Neutrophils % Seg Neuts % (Manual) Lymphocytes % (Manual) Monocytes % (Manual) Seg Neutrophils # Seg Neutrophils # Man Monocytes # (Manual) APTT POC ABG pH 7.249 L POC ABG pCO2 54.1 H POC ABG pO2 Sodium Potassium Chloride Carbon Dioxide BUN Creatinine Glucose POC Glucose 141 H Hemoglobin A1c Calcium Magnesium Total Creatine Kinase 334 H CK-MB (CK-2) 5.6 H NT-Pro-B Natriuret Pep Total Protein Albumin Urine WBC (Auto) 07/10/16 07/10/16 07/11/16 13:03 13:10 04:31 WBC 11.6 H RBC 3.49 L Hgb 9.7 L Hct MCH Plt Count 442 H Lymph % (Auto) 9.8 L [place] % (Auto) 9.5 H Eos % (Auto) 5.2 H Lymph # 1.1 L [place] # 1.1 H Eos # 0.6 H Seg Neutrophils % 75.1 H Seg Neuts % (Manual) Lymphocytes % (Manual) Monocytes % (Manual) Seg Neutrophils # 8.7 H Seg Neutrophils # Man Monocytes # (Manual) APTT POC ABG pH 7.330 L POC ABG pCO2 46.6 H POC ABG pO2 142 H Sodium Potassium Chloride Carbon Dioxide BUN Creatinine Glucose POC Glucose Hemoglobin A1c Calcium Magnesium Total Creatine Kinase CK-MB (CK-2) NT-Pro-B Natriuret Pep Total Protein Albumin Urine WBC (Auto) 164.0 H 07/11/16 07/11/16 07/11/16 04:31 04:31 05:21 WBC RBC Hgb Hct MCH Plt Count Lymph % (Auto) [place] % (Auto) Eos % (Auto) Lymph # [place] # Eos # Seg Neutrophils % Seg Neuts % (Manual) Lymphocytes % (Manual) Monocytes % (Manual) Seg Neutrophils # Seg Neutrophils # Man Monocytes # (Manual) APTT POC ABG pH 7.482 H POC ABG pCO2 28.3 L POC ABG pO2 Sodium Potassium Chloride Carbon Dioxide 20 L BUN 36 H Creatinine 3.7 H Glucose 238 H POC Glucose Hemoglobin A1c 8.8 H Calcium 8.0 L Magnesium Total Creatine Kinase CK-MB (CK-2) NT-Pro-B Natriuret Pep Total Protein 5.8 L Albumin 2.3 L Urine WBC (Auto) 07/11/16 07/11/16 07/11/16 08:19 11:51 17:04 WBC RBC Hgb Hct MCH Plt Count Lymph % (Auto) [place] % (Auto) Eos % (Auto) Lymph # [place] # Eos # Seg Neutrophils % Seg Neuts % (Manual) Lymphocytes % (Manual) Monocytes % (Manual) Seg Neutrophils # Seg Neutrophils # Man Monocytes # (Manual) APTT POC ABG pH POC ABG pCO2 POC ABG pO2 Sodium Potassium Chloride Carbon Dioxide BUN Creatinine Glucose POC Glucose 375 H 247 H 134 H Hemoglobin A1c Calcium Magnesium Total Creatine Kinase CK-MB (CK-2) NT-Pro-B Natriuret Pep Total Protein Albumin Urine WBC (Auto) 07/11/16 07/12/16 07/12/16 20:24 00:36 04:00 WBC 15.9 H RBC 3.36 L Hgb 9.3 L Hct 28.9 L MCH Plt Count Lymph % (Auto) 6.6 L [place] % (Auto) 10.2 H Eos % (Auto) Lymph # 1.1 L [place] # 1.6 H Eos # Seg Neutrophils % 82.5 H Seg Neuts % (Manual) Lymphocytes % (Manual) Monocytes % (Manual) Seg Neutrophils # 13.1 H Seg Neutrophils # Man Monocytes # (Manual) APTT POC ABG pH POC ABG pCO2 POC ABG pO2 Sodium Potassium Chloride Carbon Dioxide BUN Creatinine Glucose POC Glucose 262 H 183 H Hemoglobin A1c Calcium Magnesium Total Creatine Kinase CK-MB (CK-2) NT-Pro-B Natriuret Pep Total Protein Albumin Urine WBC (Auto) 07/12/16 07/12/16 07/12/16 04:00 05:22 06:18 WBC RBC Hgb Hct MCH Plt Count Lymph % (Auto) [place] % (Auto) Eos % (Auto) Lymph # [place] # Eos # Seg Neutrophils % Seg Neuts % (Manual) Lymphocytes % (Manual) Monocytes % (Manual) Seg Neutrophils # Seg Neutrophils # Man Monocytes # (Manual) APTT POC ABG pH POC ABG pCO2 29.5 L POC ABG pO2 67 L Sodium Potassium Chloride Carbon Dioxide 20 L BUN 37 H Creatinine 3.5 H Glucose 112 H POC Glucose 124 H Hemoglobin A1c Calcium Magnesium Total Creatine Kinase CK-MB (CK-2) NT-Pro-B Natriuret Pep Total Protein Albumin Urine WBC (Auto) 07/12/16 07/12/16 07/12/16 09:10 09:23 11:49 WBC RBC Hgb Hct MCH Plt Count Lymph % (Auto) [place] % (Auto) Eos % (Auto) Lymph # [place] # Eos # Seg Neutrophils % Seg Neuts % (Manual) Lymphocytes % (Manual) Monocytes % (Manual) Seg Neutrophils # Seg Neutrophils # Man Monocytes # (Manual) APTT POC ABG pH 7.452 H POC ABG pCO2 33.2 L POC ABG pO2 74 L Sodium Potassium Chloride Carbon Dioxide BUN Creatinine Glucose POC Glucose 162 H 209 H Hemoglobin A1c Calcium Magnesium Total Creatine Kinase CK-MB (CK-2) NT-Pro-B Natriuret Pep Total Protein Albumin Urine WBC (Auto) 07/12/16 07/12/16 07/13/16 17:45 23:25 04:45 WBC 21.1 H RBC 3.52 L Hgb 9.7 L Hct MCH Plt Count 529 H Lymph % (Auto) [place] % (Auto) Eos % (Auto) Lymph # [place] # Eos # Seg Neutrophils % Seg Neuts % (Manual) 75.0 H Lymphocytes % (Manual) 11.0 L Monocytes % (Manual) 8.0 H Seg Neutrophils # Seg Neutrophils # Man 15.8 H Monocytes # (Manual) 1.7 H APTT POC ABG pH POC ABG pCO2 POC ABG pO2 Sodium Potassium Chloride Carbon Dioxide BUN Creatinine Glucose POC Glucose 126 H 151 H Hemoglobin A1c Calcium Magnesium Total Creatine Kinase CK-MB (CK-2) NT-Pro-B Natriuret Pep Total Protein Albumin Urine WBC (Auto) 07/13/16 07/13/16 07/13/16 04:45 06:02 06:09 WBC RBC Hgb Hct MCH Plt Count Lymph % (Auto) [place] % (Auto) Eos % (Auto) Lymph # [place] # Eos # Seg Neutrophils % Seg Neuts % (Manual) Lymphocytes % (Manual) Monocytes % (Manual) Seg Neutrophils # Seg Neutrophils # Man Monocytes # (Manual) APTT POC ABG pH POC ABG pCO2 POC ABG pO2 Sodium 134 L Potassium Chloride Carbon Dioxide 21 L BUN 31 H Creatinine 2.2 H Glucose 230 H POC Glucose 267 H 257 H Hemoglobin A1c Calcium 7.9 L Magnesium 1.3 L Total Creatine Kinase CK-MB (CK-2) NT-Pro-B Natriuret Pep Total Protein Albumin Urine WBC (Auto) 07/13/16 07/13/16 07/13/16 07:31 11:51 18:17 WBC RBC Hgb Hct MCH Plt Count Lymph % (Auto) [place] % (Auto) Eos % (Auto) Lymph # [place] # Eos # Seg Neutrophils % Seg Neuts % (Manual) Lymphocytes % (Manual) Monocytes % (Manual) Seg Neutrophils # Seg Neutrophils # Man Monocytes # (Manual) APTT POC ABG pH POC ABG pCO2 POC ABG pO2 Sodium Potassium Chloride Carbon Dioxide BUN Creatinine Glucose POC Glucose 223 H 245 H 222 H Hemoglobin A1c Calcium Magnesium Total Creatine Kinase CK-MB (CK-2) NT-Pro-B Natriuret Pep Total Protein Albumin Urine WBC (Auto) 07/13/16 07/14/16 07/14/16 23:02 05:28 05:28 WBC 16.9 H RBC 3.61 L Hgb 10.0 L Hct MCH Plt Count 556 H Lymph % (Auto) 6.6 L [place] % (Auto) 11.8 H Eos % (Auto) Lymph # 1.1 L [place] # 2.0 H Eos # 0.6 H Seg Neutrophils % 77.8 H Seg Neuts % (Manual) Lymphocytes % (Manual) Monocytes % (Manual) Seg Neutrophils # 13.2 H Seg Neutrophils # Man Monocytes # (Manual) APTT POC ABG pH POC ABG pCO2 POC ABG pO2 Sodium Potassium Chloride Carbon Dioxide 21 L BUN 22 H Creatinine 1.3 H Glucose 145 H POC Glucose 221 H Hemoglobin A1c Calcium 8.0 L Magnesium Total Creatine Kinase CK-MB (CK-2) NT-Pro-B Natriuret Pep Total Protein Albumin Urine WBC (Auto) 07/14/16 07/14/16 07/14/16 05:48 17:42 22:47 WBC RBC Hgb Hct MCH Plt Count Lymph % (Auto) [place] % (Auto) Eos % (Auto) Lymph # [place] # Eos # Seg Neutrophils % Seg Neuts % (Manual) Lymphocytes % (Manual) Monocytes % (Manual) Seg Neutrophils # Seg Neutrophils # Man Monocytes # (Manual) APTT POC ABG pH POC ABG pCO2 POC ABG pO2 Sodium Potassium Chloride Carbon Dioxide BUN Creatinine Glucose POC Glucose 156 H 362 H 171 H Hemoglobin A1c Calcium Magnesium Total Creatine Kinase CK-MB (CK-2) NT-Pro-B Natriuret Pep Total Protein Albumin Urine WBC (Auto) 07/15/16 07/15/16 07/15/16 02:45 06:34 06:34 WBC 13.3 H RBC 3.39 L Hgb 9.2 L Hct 29.1 L MCH 27 L Plt Count 520 H Lymph % (Auto) 9.0 L [place] % (Auto) 10.9 H Eos % (Auto) 6.0 H Lymph # [place] # 1.5 H Eos # 0.8 H Seg Neutrophils % 73.7 H Seg Neuts % (Manual) Lymphocytes % (Manual) Monocytes % (Manual) Seg Neutrophils # 9.8 H Seg Neutrophils # Man Monocytes # (Manual) APTT POC ABG pH POC ABG pCO2 POC ABG pO2 Sodium 134 L Potassium 2.6 L* Chloride Carbon Dioxide 21 L BUN 21 H Creatinine Glucose 162 H POC Glucose 204 H Hemoglobin A1c Calcium 7.8 L Magnesium Total Creatine Kinase CK-MB (CK-2) NT-Pro-B Natriuret Pep Total Protein Albumin Urine WBC (Auto) 03/23/17 03/23/17 03/23/17 06:42 12:25 16:44 WBC RBC Hgb Hct MCH Plt Count Lymph % (Auto) [place] % (Auto) Eos % (Auto) Lymph # [place] # Eos # Seg Neutrophils % Seg Neuts % (Manual) Lymphocytes % (Manual) Monocytes % (Manual) Seg Neutrophils # Seg Neutrophils # Man Monocytes # (Manual) APTT POC ABG pH POC ABG pCO2 POC ABG pO2 Sodium Potassium Chloride Carbon Dioxide BUN Creatinine Glucose POC Glucose 164 H 203 H 130 H Hemoglobin A1c Calcium Magnesium Total Creatine Kinase CK-MB (CK-2) NT-Pro-B Natriuret Pep Total Protein Albumin Urine WBC (Auto) 07/16/16 07/16/16 07/16/16 00:33 06:03 06:30 WBC RBC Hgb Hct MCH Plt Count Lymph % (Auto) [place] % (Auto) Eos % (Auto) Lymph # [place] # Eos # Seg Neutrophils % Seg Neuts % (Manual) Lymphocytes % (Manual) Monocytes % (Manual) Seg Neutrophils # Seg Neutrophils # Man Monocytes # (Manual) APTT POC ABG pH POC ABG pCO2 POC ABG pO2 Sodium Potassium Chloride Carbon Dioxide BUN 18 H Creatinine Glucose 156 H POC Glucose 219 H Hemoglobin A1c Calcium 8.3 L Magnesium Total Creatine Kinase CK-MB (CK-2) NT-Pro-B Natriuret Pep 2802 H Total Protein Albumin Urine WBC (Auto) 07/16/16 07/16/16 07/17/16 12:12 16:13 00:48 WBC 13.5 H RBC 3.18 L Hgb 8.8 L Hct 27.0 L MCH Plt Count 590 H Lymph % (Auto) 9.0 L [place] % (Auto) 10.0 H Eos % (Auto) Lymph # [place] # 1.3 H Eos # 0.5 H Seg Neutrophils % 76.2 H Seg Neuts % (Manual) Lymphocytes % (Manual) Monocytes % (Manual) Seg Neutrophils # 10.3 H Seg Neutrophils # Man Monocytes # (Manual) APTT POC ABG pH POC ABG pCO2 POC ABG pO2 Sodium Potassium Chloride Carbon Dioxide BUN Creatinine Glucose POC Glucose 247 H 146 H Hemoglobin A1c Calcium Magnesium Total Creatine Kinase CK-MB (CK-2) NT-Pro-B Natriuret Pep Total Protein Albumin Urine WBC (Auto) 07/17/16 07/17/1607/17/17 00:48 05:28 07:15 WBC RBC Hgb Hct MCH Plt Count Lymph % (Auto) [place] % (Auto) Eos % (Auto) Lymph # [place] # Eos # Seg Neutrophils % Seg Neuts % (Manual) Lymphocytes % (Manual) Monocytes % (Manual) Seg Neutrophils # Seg Neutrophils # Man Monocytes # (Manual) APTT POC ABG pH POC ABG pCO2 POC ABG pO2 Sodium Potassium Chloride Carbon Dioxide BUN 21 H 21 H Creatinine 0.6 L 0.6 L Glucose 161 H POC Glucose 176 H Hemoglobin A1c Calcium 8.2 L 8.2 L Magnesium Total Creatine Kinase CK-MB (CK-2) NT-Pro-B Natriuret Pep Total Protein 5.8 L Albumin 1.9 L Urine WBC (Auto) 07/17/16 07/17/16 07/18/16 12:52 23:29 06:09 WBC RBC Hgb Hct MCH Plt Count Lymph % (Auto) [place] % (Auto) Eos % (Auto) Lymph # [place] # Eos # Seg Neutrophils % Seg Neuts % (Manual) Lymphocytes % (Manual) Monocytes % (Manual) Seg Neutrophils # Seg Neutrophils # Man Monocytes # (Manual) APTT POC ABG pH POC ABG pCO2 POC ABG pO2 Sodium Potassium Chloride Carbon Dioxide BUN Creatinine 0.5 L Glucose 163 H POC Glucose 162 H 114 H Hemoglobin A1c Calcium 8.1 L Magnesium Total Creatine Kinase CK-MB (CK-2) NT-Pro-B Natriuret Pep Total Protein Albumin Urine WBC (Auto) 07/18/16 07/18/16 07/18/16 06:09 08:25 13:13 WBC 12.9 H RBC 3.06 L Hgb 8.4 L Hct 26.1 L MCH Plt Count 566 H Lymph % (Auto) 7.1 L [place] % (Auto) 8.5 H Eos % (Auto) 5.9 H Lymph # 0.9 L [place] # 1.1 H Eos # 0.8 H Seg Neutrophils % 78.1 H Seg Neuts % (Manual) Lymphocytes % (Manual) Monocytes % (Manual) Seg Neutrophils # 10.0 H Seg Neutrophils # Man Monocytes # (Manual) APTT POC ABG pH POC ABG pCO2 POC ABG pO2 Sodium Potassium Chloride Carbon Dioxide BUN Creatinine Glucose POC Glucose 205 H 148 H Hemoglobin A1c Calcium Magnesium Total Creatine Kinase CK-MB (CK-2) NT-Pro-B Natriuret Pep Total Protein Albumin Urine WBC (Auto) 07/18/16 07/18/16 07/18/16 16:52 23:00 23:21 WBC RBC Hgb Hct MCH Plt Count Lymph % (Auto) [place] % (Auto) Eos % (Auto) Lymph # [place] # Eos # Seg Neutrophils % Seg Neuts % (Manual) Lymphocytes % (Manual) Monocytes % (Manual) Seg Neutrophils # Seg Neutrophils # Man Monocytes # (Manual) APTT POC ABG pH POC ABG pCO2 POC ABG pO2 Sodium Potassium Chloride Carbon Dioxide BUN Creatinine Glucose POC Glucose 127 H < 40 L 220 H Hemoglobin A1c Calcium Magnesium Total Creatine Kinase CK-MB (CK-2) NT-Pro-B Natriuret Pep Total Protein Albumin Urine WBC (Auto) 07/18/16 07/19/16 23:23 06:26 WBC RBC Hgb Hct MCH Plt Count Lymph % (Auto) [place] % (Auto) Eos % (Auto) Lymph # [place] # Eos # Seg Neutrophils % Seg Neuts % (Manual) Lymphocytes % (Manual) Monocytes % (Manual) Seg Neutrophils # Seg Neutrophils # Man Monocytes # (Manual) APTT 22.8 L POC ABG pH POC ABG pCO2 POC ABG pO2 Sodium Potassium Chloride Carbon Dioxide BUN Creatinine Glucose 241 H POC Glucose Hemoglobin A1c Calcium Magnesium Total Creatine Kinase CK-MB (CK-2) NT-Pro-B Natriuret Pep Total Protein Albumin Urine WBC (Auto)
[2016-07-19] MEDS ORDERED: NACL 0.9% 1000 ML 1,000 ML IV SCH (14:00)
[2016-07-19] MEDS ORDERED: ANCEF/STERILE WATER 2 GM/20 ML 2 GM/20 ML SYRINGE IV NR (14:00)
[2016-07-19] MEDS: LEVAQUIN 500MG/100ML 500 MG/100 ML BAG IV SCH (14:50)
--- NOTE | 2016-07-19 16:37 | Progress Note ---
Assessment and Plan Assessment and plan: --Dysphagia/failed swallow evaluation PEG placement today To proceeding per protocol Possible discharge and transfer to penitentiary tomorrow if stable --Toxic metabolic encephalopathy Back to baseline --Recurrent UTI, cultures negative to date Continue current medications --Acute renal failure/resolved -- severe protein calorie malnutrition, nutrition supplements, supportive care --Type 2 diabetes mellitus, moderate control Continue Accu-Chek sliding scale coverage long-acting insulin A1c 8.8 --Hypertension well-controlled --DVT prophylaxis: Hold Lovenox for the procedure Will use SCDs --Full CODE STATUS DC planning. Case management, patient can be discharge and transfer to snf facility tomorrow if stable Patient is medically stable, no contraindication for PEG I discussed patient's condition treatment plan with the patient's son over the phone yesterday History Interval history: Patient seen and evaluated medical records reviewed Scheduled for PEG placement today, no new complaints Patient is alert and noncommunicative not in acute distress No new events reported by the nursing staff Hospitalist Physical - Constitutional Vitals: Temp Pulse Resp BP Pulse Ox 98.9 F 71 18 171/68 98 07/19/16 08:00 07/19/16 14:36 07/19/16 14:36 07/19/16 09:26 07/19/16 08:57 General appearance: Present: no acute distress, well-nourished - EENT Eyes: Present: PERRL, EOM intact - Neck Neck: Present: supple, normal ROM - Respiratory Respiratory effort: normal Respiratory: bilateral: diminished, rhonchi (occasional), negative: rales, wheezing - Cardiovascular Rhythm: regular Heart Sounds: Present: S1 & S2 - Extremities Extremities: no ischemia, pulses intact, pulses symmetrical - Abdominal General gastrointestinal: soft, non-tender, non-distended, normal bowel sounds - Integumentary Integumentary: Present: clear, warm - Psychiatric Psychiatric: other (noncommunicative) - Neurologic Neurologic: other (noncommunicative) Results - Labs CBC & Chem 7: 07/18/16 06:09 07/18/16 23:23 Labs: Laboratory Last Values WBC 12.9 K/mm3 (4.5-11.0) H 07/18/16 06:09 RBC 3.06 M/mm3 (3.65-5.03) L 07/18/16 06:09 Hgb 8.4 gm/dl (10.1-14.3) L 07/18/16 06:09 Hct 26.1 % (30.3-42.9) L 07/18/16 06:09 MCV 85 fl (79-97) 07/18/16 06:09 MCH 28 pg (28-32) 07/18/16 06:09 MCHC 32 % (30-34) 07/18/16 06:09 RDW 14.9 % (13.2-15.2) 07/18/16 06:09 Plt Count 566 K/mm3 (140-440) H 07/18/16 06:09 Lymph % (Auto) 7.1 % (13.4-35.0) L 07/18/16 06:09 [place] % (Auto) 8.5 % (0.0-7.3) H 07/18/16 06:09 Eos % (Auto) 5.9 % (0.0-4.3) H 07/18/16 06:09 Baso % (Auto) 0.4 % (0.0-1.8) 07/18/16 06:09 Lymph # 0.9 K/mm3 (1.2-5.4) L 07/18/16 06:09 [place] # 1.1 K/mm3 (0.0-0.8) H 07/18/16 06:09 Eos # 0.8 K/mm3 (0.0-0.4) H 07/18/16 06:09 Baso # 0.1 K/mm3 (0.0-0.1) 07/18/16 06:09 Add Manual Diff Complete 07/13/16 04:45 Total Counted 100 07/13/16 04:45 Seg Neutrophils % 78.1 % (40.0-70.0) H 07/18/16 06:09 Seg Neuts % (Manual) 75.0 % (40.0-70.0) H 07/13/16 04:45 Band Neutrophils % 3.0 % 07/13/16 04:45 Lymphocytes % (Manual) 11.0 % (13.4-35.0) L 07/13/16 04:45 Reactive Lymphs % (Man) 0 % 07/13/16 04:45 Monocytes % (Manual) 8.0 % (0.0-7.3) H 07/13/16 04:45 Eosinophils % (Manual) 0 % (0.0-4.3) 07/13/16 04:45 Basophils % (Manual) 0 % (0.0-1.8) 07/13/16 04:45 Metamyelocytes % 3.0 % 07/13/16 04:45 Myelocytes % 0 % 07/13/16 04:45 Promyelocytes % 0 % 07/13/16 04:45 Blast Cells % 0 % 07/13/16 04:45 Nucleated RBC % Not Reportable 07/13/16 04:45 Seg Neutrophils # 10.0 K/mm3 (1.8-7.7) H 07/18/16 06:09 Seg Neutrophils # Man 15.8 K/mm3 (1.8-7.7) H 07/13/16 04:45 Band Neutrophils # 0.6 K/mm3 07/13/16 04:45 Lymphocytes # (Manual) 2.3 K/mm3 (1.2-5.4) 07/13/16 04:45 Abs React Lymphs (Man) 0.0 K/mm3 07/13/16 04:45 Monocytes # (Manual) 1.7 K/mm3 (0.0-0.8) H 07/13/16 04:45 Eosinophils # (Manual) 0.0 K/mm3 (0.0-0.4) 07/13/16 04:45 Basophils # (Manual) 0.0 K/mm3 (0.0-0.1) 07/13/16 04:45 Metamyelocytes # 0.6 K/mm3 07/13/16 04:45 Myelocytes # 0.0 K/mm3 07/13/16 04:45 Promyelocytes # 0.0 K/mm3 07/13/16 04:45 Blast Cells # 0.0 K/mm3 07/13/16 04:45 WBC Morphology Not Reportable 07/13/16 04:45 Hypersegmented Neuts Few 07/13/16 04:45 Hyposegmented Neuts Not Reportable 07/13/16 04:45 Hypogranular Neuts Not Reportable 07/13/16 04:45 Smudge Cells Not Reportable 07/13/16 04:45 Toxic Granulation Not Reportable 07/13/16 04:45 Toxic Vacuolation Not Reportable 07/13/16 04:45 Dohle Bodies Not Reportable 07/13/16 04:45 Pelger-Huet Anomaly Not Reportable 07/13/16 04:45 James Rods Not Reportable 07/13/16 04:45 Platelet Estimate Appears increased 07/13/16 04:45 Clumped Platelets Not Reportable 07/13/16 04:45 Plt Clumps, EDTA Not Reportable 07/13/16 04:45 Large Platelets Not Reportable 07/13/16 04:45 Giant Platelets Not Reportable 07/13/16 04:45 Platelet Satelliting Not Reportable 07/13/16 04:45 Plt Morphology Comment Not Reportable 07/13/16 04:45 RBC Morphology Not Reportable 07/13/16 04:45 Dimorphic RBCs Not Reportable 07/13/16 04:45 Polychromasia Not Reportable 07/13/16 04:45 Hypochromasia Not Reportable 07/13/16 04:45 Poikilocytosis Not Reportable 07/13/16 04:45 Anisocytosis 1+ 07/13/16 04:45 Microcytosis Not Reportable 07/13/16 04:45 Macrocytosis Not Reportable 07/13/16 04:45 Spherocytes Not Reportable 07/13/16 04:45 Pappenheimer Bodies Not Reportable 07/13/16 04:45 Sickle Cells Not Reportable 07/13/16 04:45 Target Cells Not Reportable 07/13/16 04:45 Tear Drop Cells Not Reportable 07/13/16 04:45 Ovalocytes Not Reportable 07/13/16 04:45 Helmet Cells Not Reportable 07/13/16 04:45 Mendoza-Reiffton Bodies Not Reportable 07/13/16 04:45 [place] Rings Not Reportable 07/13/16 04:45 [place] Cells Not Reportable 07/13/16 04:45 Bite Cells Not Reportable 07/13/16 04:45 Crenated Cell Not Reportable 07/13/16 04:45 Elliptocytes Not Reportable 07/13/16 04:45 Acanthocytes (Spur) Not Reportable 07/13/16 04:45 Rouleaux Not Reportable 07/13/16 04:45 Hemoglobin C Crystals Not Reportable 07/13/16 04:45 Schistocytes Not Reportable 07/13/16 04:45 Malaria parasites Not Reportable 07/13/16 04:45 [place] Bodies Not Reportable 07/13/16 04:45 Hem Pathologist Commnt No 07/13/16 04:45 PT 13.6 Sec. (12.2-14.9) 07/19/16 06:26 INR 1.05 (0.87-1.13) 07/19/16 06:26 APTT 22.8 Sec. (24.2-36.6) L 07/19/16 06:26 POC ABG pH 7.452 (7.35-7.45) H 07/12/16 09:10 POC ABG pCO2 33.2 (35-45) L 07/12/16 09:10 POC ABG pO2 74 (80-105) L 07/12/16 09:10 POC ABG HCO3 23.2 07/12/16 09:10 POC ABG Total CO2 24 07/12/16 09:10 POC ABG O2 Sat 96 07/12/16 09:10 POC ABG Base Excess -1 07/12/16 09:10 FiO2 30 % 07/12/16 09:10 Sodium 139 mmol/L (137-145) 07/18/16 06:09 Potassium 3.6 mmol/L (3.6-5.0) 07/18/16 06:09 Chloride 100.1 mmol/L (98-107) 07/18/16 06:09 Carbon Dioxide 27 mmol/L (22-30) 07/18/16 06:09 Anion Gap 16 mmol/L 07/18/16 06:09 BUN 16 mg/dL (7-17) 07/18/16 06:09 Creatinine 0.5 mg/dL (0.7-1.2) L 07/18/16 06:09 Estimated GFR > 60 ml/min 07/18/16 06:09 BUN/Creatinine Ratio 32.00 % 07/18/16 06:09 Glucose 241 mg/dL (65-100) H 07/18/16 23:23 POC Glucose 94 (70-105) 07/19/16 06:53 Hemoglobin A1c 8.8 % (4-6) H 07/11/16 04:31 Calcium 8.1 mg/dL (8.4-10.2) L 07/18/16 06:09 Phosphorus 2.7 mg/dL (2.5-4.5) 07/14/16 05:28 Magnesium 1.7 mg/dL (1.7-2.3) 07/15/16 06:34 Total Bilirubin < 0.2 mg/dL (0.1-1.2) 07/17/16 00:48 Direct Bilirubin < 0.2 mg/dL (0-0.2) 07/11/16 04:31 Indirect Bilirubin 0.0 mg/dL 07/11/16 04:31 AST 20 units/L (5-40) 07/17/16 00:48 ALT 12 units/L (7-56) 07/17/16 00:48 Alkaline Phosphatase 73 units/L (35-129) 07/17/16 00:48 Ammonia 48.0 umol/L (25-60) 07/09/16 20:31 Total Creatine Kinase 334 units/L (30-135) H 07/10/16 08:55 CK-MB (CK-2) 5.6 ng/mL (0.0-4.0) H 07/10/16 08:55 CK-MB (CK-2) Rel Index 1.6 (0-4) 07/10/16 08:55 Troponin T 0.016 ng/mL (0.00-0.029) 07/10/16 08:55 NT-Pro-B Natriuret Pep 2802 pg/mL (0-900) H 07/16/16 06:30 Total Protein 5.8 g/dL (6.3-8.2) L 07/17/16 00:48 Albumin 1.9 g/dL (3.9-5) L 07/17/16 00:48 Albumin/Globulin Ratio 0.5 % 07/17/16 00:48 TSH 1.240 mlU/mL (0.270-4.200) 07/09/16 20:31 Free T4 1.40 ng/dL (0.76-1.46) 07/09/16 20:31 Urine Color [place] (Yellow) 07/10/16 13:10 Urine Turbidity Turbid (Clear) 07/10/16 13:10 Urine pH 6.0 (5.0-7.0) 07/10/16 13:10 Ur Specific [place] 1.016 (1.003-1.030) 07/10/16 13:10 Urine Protein 30 mg/dl mg/dL (Negative) 07/10/16 13:10 Urine Glucose (UA) 50 mg/dL (Negative) 07/10/16 13:10 Urine Ketones Neg mg/dL (Negative) 07/10/16 13:10 Urine Blood Sm (Negative) 07/10/16 13:10 Urine Nitrite Neg (Negative) 07/10/16 13:10 Urine Bilirubin Neg (Negative) 07/10/16 13:10 Urine Urobilinogen < 2.0 mg/dL (<2.0) 07/10/16 13:10 Ur Leukocyte Esterase Lg (Negative) 07/10/16 13:10 Urine WBC (Auto) 164.0 /HPF (0.0-6.0) H 07/10/16 13:10 Urine RBC (Auto) 33.0 /HPF (0.0-6.0) 07/10/16 13:10 U Epithel Cells (Auto) 5.0 /HPF (0-13.0) 07/10/16 13:10 Urine Bacteria (Auto) 4+ /HPF (Negative) 07/10/16 13:10 Urine Mucus 3+ /HPF 07/10/16 13:10 Urine Eosinophils 1 (None Seen) 07/11/16 12:50 Urine Creatinine < 4.2 mg/dL (0.1-20.0) 07/11/16 13:03 Urine Sodium 10 mEq/L 07/11/16 13:03
--- NOTE | 2016-07-19 17:13 | Anesthesia Day of Surgery ---
Anesthesia Day of Surgery - Day of Surgery Patient Examined: Yes Patient H&P Reviewed: Yes Patient is NPO: Yes
--- NOTE | 2016-07-19 17:13 | Anesthesia Consultation ---
Anesthesia Consult and Med Hx Date of service: 07/19/16 - Airway Anesthetic Teeth Evaluation: Edentulous ROM Head & Neck: Adequate Mental/Hyoid Distance: Adequate Mallampati Class: Class II Intubation Access Assessment: Probably Good - Pulmonary Exam CTA: Yes - Cardiac Exam Cardiac Exam: RRR - Pre-Operative Health Status ASA Pre-Surgery Classification: ASA3 Proposed Anesthetic Plan: MAC - Cardiovascular System Hx Hypertension: Yes - Central Nervous System CVA: Yes (rt sided weakness) Hx Back Pain: Yes (Chronic) - Endocrine Hx Renal Disease: Yes (admitted with UTI)
--- NOTE | 2016-07-19 18:07 | Event Note ---
Date: 07/19/16 -unable to get in touch with family to schedule peg - reschedule for am
[2016-07-20] MEDS: DUONEB 0.5 MG-3 MG/3 ML SOLN IH SCH ×4 (01:38→20:17)
[2016-07-20 06:46] LABS: Basophils % (Auto) 0.9 % (0.0-1.8); Eosinophils % (Auto) 6.7 % (0.0-4.3); Hematocrit 28.6 % (30.3-42.9); Hemoglobin 9.3 gm/dl (10.1-14.3); Mean Corpuscular HGB Conc 33 % (30-34); Mean Corpuscular Hemoglobin 28 pg (28-32); Mean Corpuscular Volume 85 fl (79-97); Platelet Count 641 K/mm3 (140-440); Red Blood Count 3.37 M/mm3 (3.65-5.03); Red Cell Distribution Width 15.1 % (13.2-15.2); White Blood Count 10.9 K/mm3 (4.5-11.0)
[2016-07-20 07:02] LABS: Anion Gap 16 mmol/L; BUN/Creatinine Ratio 18.33; Blood Urea Nitrogen 11 mg/dL (7-17); Calcium 8.1 mg/dL (8.4-10.2); Carbon Dioxide 26 mmol/L (22-30); Chloride 100.6 mmol/L (98-107); Glucose 146 mg/dL (65-100); Potassium 3.7 mmol/L (3.6-5.0); Sodium 139 mmol/L (137-145)
--- NOTE | 2016-07-20 08:58 | Progress Note ---
Assessment and Plan 86 y/o female with prolonged encephalopathy, now with acute renal failure and acute respiratory failure requiring mechanical ventilation, s/p extubation 1. Pulm status stable 2. Will seen as needed. CCT 31 minutes. Subjective Date of service: 07/20/16 Principal diagnosis: acute respiratory failure, narcotic overdose, AMS Interval history: No acute events Objective Vital Signs - 12hr 07/20/16 07/20/16 00:00 04:00 Temperature 98.9 F 98.4 F Pulse Rate [ 147 H 112 H Right Radial] Respiratory 22 20 Rate Blood Pressure 128/81 159/85 [Right Arm] O2 Sat by Pulse 96 96 Oximetry Constitutional: no acute distress, alert Eyes: non-icteric ENT: other (NGT in place) Neck: supple Effort: normal Ascultation: Bilateral: clear, diminished breath sounds, rhonchi (bilateral coarse) Percussion: Bilateral: not dull Tactile fremitus: Bilateral: normal Cardiovascular: regular rate and rhythm Gastrointestinal: normoactive bowel sounds, non-tender Extremities: no cyanosis, no edema, pink and warm Neurologic: other (awake, alert, R hemiplegia) Psychiatric: mood appropriate, affect normal CBC and BMP: 07/20/16 06:06 07/20/16 06:06 ABG, PT/INR, D-dimer: ABG POC ABG pH 7.452 (7.35-7.45) H 07/12/16 09:10 POC ABG pCO2 33.2 (35-45) L 07/12/16 09:10 POC ABG pO2 74 (80-105) L 07/12/16 09:10 POC ABG HCO3 23.2 07/12/16 09:10 POC ABG Total CO2 24 07/12/16 09:10 POC ABG O2 Sat 96 07/12/16 09:10 PT/INR, D-dimer PT 13.6 Sec. (12.2-14.9) 07/19/16 06:26 INR 1.05 (0.87-1.13) 07/19/16 06:26 Abnormal lab findings: Abnormal Labs 07/10/16 07/10/16 07/10/16 06:22 06:48 06:48 WBC 14.5 H RBC 3.53 L Hgb 10.0 L Hct MCH Plt Count 484 H Lymph % (Auto) 12.0 L [place] % (Auto) 7.4 H Eos % (Auto) Lymph # [place] # 1.1 H Eos # Seg Neutrophils % 77.4 H Seg Neuts % (Manual) Lymphocytes % (Manual) Monocytes % (Manual) Seg Neutrophils # 11.2 H Seg Neutrophils # Man Monocytes # (Manual) APTT POC ABG pH POC ABG pCO2 POC ABG pO2 Sodium 148 H Potassium Chloride 109.2 H Carbon Dioxide BUN 33 H Creatinine 3.1 H Glucose 111 H POC Glucose 132 H Hemoglobin A1c Calcium Magnesium Total Creatine Kinase CK-MB (CK-2) NT-Pro-B Natriuret Pep Total Protein Albumin Urine WBC (Auto) 07/10/16 07/10/16 07/10/16 08:06 08:18 08:55 WBC RBC Hgb Hct MCH Plt Count Lymph % (Auto) [place] % (Auto) Eos % (Auto) Lymph # [place] # Eos # Seg Neutrophils % Seg Neuts % (Manual) Lymphocytes % (Manual) Monocytes % (Manual) Seg Neutrophils # Seg Neutrophils # Man Monocytes # (Manual) APTT POC ABG pH 7.249 L POC ABG pCO2 54.1 H POC ABG pO2 Sodium Potassium Chloride Carbon Dioxide BUN Creatinine Glucose POC Glucose 141 H Hemoglobin A1c Calcium Magnesium Total Creatine Kinase 334 H CK-MB (CK-2) 5.6 H NT-Pro-B Natriuret Pep Total Protein Albumin Urine WBC (Auto) 07/10/16 07/10/16 07/11/16 13:03 13:10 04:31 WBC 11.6 H RBC 3.49 L Hgb 9.7 L Hct MCH Plt Count 442 H Lymph % (Auto) 9.8 L [place] % (Auto) 9.5 H Eos % (Auto) 5.2 H Lymph # 1.1 L [place] # 1.1 H Eos # 0.6 H Seg Neutrophils % 75.1 H Seg Neuts % (Manual) Lymphocytes % (Manual) Monocytes % (Manual) Seg Neutrophils # 8.7 H Seg Neutrophils # Man Monocytes # (Manual) APTT POC ABG pH 7.330 L POC ABG pCO2 46.6 H POC ABG pO2 142 H Sodium Potassium Chloride Carbon Dioxide BUN Creatinine Glucose POC Glucose Hemoglobin A1c Calcium Magnesium Total Creatine Kinase CK-MB (CK-2) NT-Pro-B Natriuret Pep Total Protein Albumin Urine WBC (Auto) 164.0 H 07/11/16 07/11/16 07/11/16 04:31 04:31 05:21 WBC RBC Hgb Hct MCH Plt Count Lymph % (Auto) [place] % (Auto) Eos % (Auto) Lymph # [place] # Eos # Seg Neutrophils % Seg Neuts % (Manual) Lymphocytes % (Manual) Monocytes % (Manual) Seg Neutrophils # Seg Neutrophils # Man Monocytes # (Manual) APTT POC ABG pH 7.482 H POC ABG pCO2 28.3 L POC ABG pO2 Sodium Potassium Chloride Carbon Dioxide 20 L BUN 36 H Creatinine 3.7 H Glucose 238 H POC Glucose Hemoglobin A1c 8.8 H Calcium 8.0 L Magnesium Total Creatine Kinase CK-MB (CK-2) NT-Pro-B Natriuret Pep Total Protein 5.8 L Albumin 2.3 L Urine WBC (Auto) 07/11/16 07/11/16 07/11/16 08:19 11:51 17:04 WBC RBC Hgb Hct MCH Plt Count Lymph % (Auto) [place] % (Auto) Eos % (Auto) Lymph # [place] # Eos # Seg Neutrophils % Seg Neuts % (Manual) Lymphocytes % (Manual) Monocytes % (Manual) Seg Neutrophils # Seg Neutrophils # Man Monocytes # (Manual) APTT POC ABG pH POC ABG pCO2 POC ABG pO2 Sodium Potassium Chloride Carbon Dioxide BUN Creatinine Glucose POC Glucose 375 H 247 H 134 H Hemoglobin A1c Calcium Magnesium Total Creatine Kinase CK-MB (CK-2) NT-Pro-B Natriuret Pep Total Protein Albumin Urine WBC (Auto) 07/11/16 07/12/16 07/12/16 20:24 00:36 04:00 WBC 15.9 H RBC 3.36 L Hgb 9.3 L Hct 28.9 L MCH Plt Count Lymph % (Auto) 6.6 L [place] % (Auto) 10.2 H Eos % (Auto) Lymph # 1.1 L [place] # 1.6 H Eos # Seg Neutrophils % 82.5 H Seg Neuts % (Manual) Lymphocytes % (Manual) Monocytes % (Manual) Seg Neutrophils # 13.1 H Seg Neutrophils # Man Monocytes # (Manual) APTT POC ABG pH POC ABG pCO2 POC ABG pO2 Sodium Potassium Chloride Carbon Dioxide BUN Creatinine Glucose POC Glucose 262 H 183 H Hemoglobin A1c Calcium Magnesium Total Creatine Kinase CK-MB (CK-2) NT-Pro-B Natriuret Pep Total Protein Albumin Urine WBC (Auto) 07/12/16 07/12/16 07/12/16 04:00 05:22 06:18 WBC RBC Hgb Hct MCH Plt Count Lymph % (Auto) [place] % (Auto) Eos % (Auto) Lymph # [place] # Eos # Seg Neutrophils % Seg Neuts % (Manual) Lymphocytes % (Manual) Monocytes % (Manual) Seg Neutrophils # Seg Neutrophils # Man Monocytes # (Manual) APTT POC ABG pH POC ABG pCO2 29.5 L POC ABG pO2 67 L Sodium Potassium Chloride Carbon Dioxide 20 L BUN 37 H Creatinine 3.5 H Glucose 112 H POC Glucose 124 H Hemoglobin A1c Calcium Magnesium Total Creatine Kinase CK-MB (CK-2) NT-Pro-B Natriuret Pep Total Protein Albumin Urine WBC (Auto) 07/12/16 07/12/16 07/12/16 09:10 09:23 11:49 WBC RBC Hgb Hct MCH Plt Count Lymph % (Auto) [place] % (Auto) Eos % (Auto) Lymph # [place] # Eos # Seg Neutrophils % Seg Neuts % (Manual) Lymphocytes % (Manual) Monocytes % (Manual) Seg Neutrophils # Seg Neutrophils # Man Monocytes # (Manual) APTT POC ABG pH 7.452 H POC ABG pCO2 33.2 L POC ABG pO2 74 L Sodium Potassium Chloride Carbon Dioxide BUN Creatinine Glucose POC Glucose 162 H 209 H Hemoglobin A1c Calcium Magnesium Total Creatine Kinase CK-MB (CK-2) NT-Pro-B Natriuret Pep Total Protein Albumin Urine WBC (Auto) 07/12/16 07/12/16 07/13/16 17:45 23:25 04:45 WBC 21.1 H RBC 3.52 L Hgb 9.7 L Hct MCH Plt Count 529 H Lymph % (Auto) [place] % (Auto) Eos % (Auto) Lymph # [place] # Eos # Seg Neutrophils % Seg Neuts % (Manual) 75.0 H Lymphocytes % (Manual) 11.0 L Monocytes % (Manual) 8.0 H Seg Neutrophils # Seg Neutrophils # Man 15.8 H Monocytes # (Manual) 1.7 H APTT POC ABG pH POC ABG pCO2 POC ABG pO2 Sodium Potassium Chloride Carbon Dioxide BUN Creatinine Glucose POC Glucose 126 H 151 H Hemoglobin A1c Calcium Magnesium Total Creatine Kinase CK-MB (CK-2) NT-Pro-B Natriuret Pep Total Protein Albumin Urine WBC (Auto) 07/13/16 07/13/16 07/13/16 04:45 06:02 06:09 WBC RBC Hgb Hct MCH Plt Count Lymph % (Auto) [place] % (Auto) Eos % (Auto) Lymph # [place] # Eos # Seg Neutrophils % Seg Neuts % (Manual) Lymphocytes % (Manual) Monocytes % (Manual) Seg Neutrophils # Seg Neutrophils # Man Monocytes # (Manual) APTT POC ABG pH POC ABG pCO2 POC ABG pO2 Sodium 134 L Potassium Chloride Carbon Dioxide 21 L BUN 31 H Creatinine 2.2 H Glucose 230 H POC Glucose 267 H 257 H Hemoglobin A1c Calcium 7.9 L Magnesium 1.3 L Total Creatine Kinase CK-MB (CK-2) NT-Pro-B Natriuret Pep Total Protein Albumin Urine WBC (Auto) 07/13/16 07/13/16 07/13/16 07:31 11:51 18:17 WBC RBC Hgb Hct MCH Plt Count Lymph % (Auto) [place] % (Auto) Eos % (Auto) Lymph # [place] # Eos # Seg Neutrophils % Seg Neuts % (Manual) Lymphocytes % (Manual) Monocytes % (Manual) Seg Neutrophils # Seg Neutrophils # Man Monocytes # (Manual) APTT POC ABG pH POC ABG pCO2 POC ABG pO2 Sodium Potassium Chloride Carbon Dioxide BUN Creatinine Glucose POC Glucose 223 H 245 H 222 H Hemoglobin A1c Calcium Magnesium Total Creatine Kinase CK-MB (CK-2) NT-Pro-B Natriuret Pep Total Protein Albumin Urine WBC (Auto) 07/13/16 07/14/16 07/14/16 23:02 05:28 05:28 WBC 16.9 H RBC 3.61 L Hgb 10.0 L Hct MCH Plt Count 556 H Lymph % (Auto) 6.6 L [place] % (Auto) 11.8 H Eos % (Auto) Lymph # 1.1 L [place] # 2.0 H Eos # 0.6 H Seg Neutrophils % 77.8 H Seg Neuts % (Manual) Lymphocytes % (Manual) Monocytes % (Manual) Seg Neutrophils # 13.2 H Seg Neutrophils # Man Monocytes # (Manual) APTT POC ABG pH POC ABG pCO2 POC ABG pO2 Sodium Potassium Chloride Carbon Dioxide 21 L BUN 22 H Creatinine 1.3 H Glucose 145 H POC Glucose 221 H Hemoglobin A1c Calcium 8.0 L Magnesium Total Creatine Kinase CK-MB (CK-2) NT-Pro-B Natriuret Pep Total Protein Albumin Urine WBC (Auto) 07/14/16 07/14/16 07/14/16 05:48 17:42 22:47 WBC RBC Hgb Hct MCH Plt Count Lymph % (Auto) [place] % (Auto) Eos % (Auto) Lymph # [place] # Eos # Seg Neutrophils % Seg Neuts % (Manual) Lymphocytes % (Manual) Monocytes % (Manual) Seg Neutrophils # Seg Neutrophils # Man Monocytes # (Manual) APTT POC ABG pH POC ABG pCO2 POC ABG pO2 Sodium Potassium Chloride Carbon Dioxide BUN Creatinine Glucose POC Glucose 156 H 362 H 171 H Hemoglobin A1c Calcium Magnesium Total Creatine Kinase CK-MB (CK-2) NT-Pro-B Natriuret Pep Total Protein Albumin Urine WBC (Auto) 07/15/16 07/15/16 07/15/16 02:45 06:34 06:34 WBC 13.3 H RBC 3.39 L Hgb 9.2 L Hct 29.1 L MCH 27 L Plt Count 520 H Lymph % (Auto) 9.0 L [place] % (Auto) 10.9 H Eos % (Auto) 6.0 H Lymph # [place] # 1.5 H Eos # 0.8 H Seg Neutrophils % 73.7 H Seg Neuts % (Manual) Lymphocytes % (Manual) Monocytes % (Manual) Seg Neutrophils # 9.8 H Seg Neutrophils # Man Monocytes # (Manual) APTT POC ABG pH POC ABG pCO2 POC ABG pO2 Sodium 134 L Potassium 2.6 L* Chloride Carbon Dioxide 21 L BUN 21 H Creatinine Glucose 162 H POC Glucose 204 H Hemoglobin A1c Calcium 7.8 L Magnesium Total Creatine Kinase CK-MB (CK-2) NT-Pro-B Natriuret Pep Total Protein Albumin Urine WBC (Auto) 07/15/16 07/15/16 07/15/16 06:42 12:25 16:44 WBC RBC Hgb Hct MCH Plt Count Lymph % (Auto) [place] % (Auto) Eos % (Auto) Lymph # [place] # Eos # Seg Neutrophils % Seg Neuts % (Manual) Lymphocytes % (Manual) Monocytes % (Manual) Seg Neutrophils # Seg Neutrophils # Man Monocytes # (Manual) APTT POC ABG pH POC ABG pCO2 POC ABG pO2 Sodium Potassium Chloride Carbon Dioxide BUN Creatinine Glucose POC Glucose 164 H 203 H 130 H Hemoglobin A1c Calcium Magnesium Total Creatine Kinase CK-MB (CK-2) NT-Pro-B Natriuret Pep Total Protein Albumin Urine WBC (Auto) 07/16/16 07/16/16 07/16/16 00:33 06:03 06:30 WBC RBC Hgb Hct MCH Plt Count Lymph % (Auto) [place] % (Auto) Eos % (Auto) Lymph # [place] # Eos # Seg Neutrophils % Seg Neuts % (Manual) Lymphocytes % (Manual) Monocytes % (Manual) Seg Neutrophils # Seg Neutrophils # Man Monocytes # (Manual) APTT POC ABG pH POC ABG pCO2 POC ABG pO2 Sodium Potassium Chloride Carbon Dioxide BUN 18 H Creatinine Glucose 156 H POC Glucose 219 H Hemoglobin A1c Calcium 8.3 L Magnesium Total Creatine Kinase CK-MB (CK-2) NT-Pro-B Natriuret Pep 2802 H Total Protein Albumin Urine WBC (Auto) 07/16/16 07/16/16 07/17/16 12:12 16:13 00:48 WBC 13.5 H RBC 3.18 L Hgb 8.8 L Hct 27.0 L MCH Plt Count 590 H Lymph % (Auto) 9.0 L [place] % (Auto) 10.0 H Eos % (Auto) Lymph # [place] # 1.3 H Eos # 0.5 H Seg Neutrophils % 76.2 H Seg Neuts % (Manual) Lymphocytes % (Manual) Monocytes % (Manual) Seg Neutrophils # 10.3 H Seg Neutrophils # Man Monocytes # (Manual) APTT POC ABG pH POC ABG pCO2 POC ABG pO2 Sodium Potassium Chloride Carbon Dioxide BUN Creatinine Glucose POC Glucose 247 H 146 H Hemoglobin A1c Calcium Magnesium Total Creatine Kinase CK-MB (CK-2) NT-Pro-B Natriuret Pep Total Protein Albumin Urine WBC (Auto) 07/17/16 07/17/16 07/17/16 00:48 05:28 07:15 WBC RBC Hgb Hct MCH Plt Count Lymph % (Auto) [place] % (Auto) Eos % (Auto) Lymph # [place] # Eos # Seg Neutrophils % Seg Neuts % (Manual) Lymphocytes % (Manual) Monocytes % (Manual) Seg Neutrophils # Seg Neutrophils # Man Monocytes # (Manual) APTT POC ABG pH POC ABG pCO2 POC ABG pO2 Sodium Potassium Chloride Carbon Dioxide BUN 21 H 21 H Creatinine 0.6 L 0.6 L Glucose 161 H POC Glucose 176 H Hemoglobin A1c Calcium 8.2 L 8.2 L Magnesium Total Creatine Kinase CK-MB (CK-2) NT-Pro-B Natriuret Pep Total Protein 5.8 L Albumin 1.9 L Urine WBC (Auto) 07/17/16 07/17/16 07/18/16 12:52 23:29 06:09 WBC RBC Hgb Hct MCH Plt Count Lymph % (Auto) [place] % (Auto) Eos % (Auto) Lymph # [place] # Eos # Seg Neutrophils % Seg Neuts % (Manual) Lymphocytes % (Manual) Monocytes % (Manual) Seg Neutrophils # Seg Neutrophils # Man Monocytes # (Manual) APTT POC ABG pH POC ABG pCO2 POC ABG pO2 Sodium Potassium Chloride Carbon Dioxide BUN Creatinine 0.5 L Glucose 163 H POC Glucose 162 H 114 H Hemoglobin A1c Calcium 8.1 L Magnesium Total Creatine Kinase CK-MB (CK-2) NT-Pro-B Natriuret Pep Total Protein Albumin Urine WBC (Auto) 07/18/16 07/18/16 07/18/16 06:09 08:25 13:13 WBC 12.9 H RBC 3.06 L Hgb 8.4 L Hct 26.1 L MCH Plt Count 566 H Lymph % (Auto) 7.1 L [place] % (Auto) 8.5 H Eos % (Auto) 5.9 H Lymph # 0.9 L [place] # 1.1 H Eos # 0.8 H Seg Neutrophils % 78.1 H Seg Neuts % (Manual) Lymphocytes % (Manual) Monocytes % (Manual) Seg Neutrophils # 10.0 H Seg Neutrophils # Man Monocytes # (Manual) APTT POC ABG pH POC ABG pCO2 POC ABG pO2 Sodium Potassium Chloride Carbon Dioxide BUN Creatinine Glucose POC Glucose 205 H 148 H Hemoglobin A1c Calcium Magnesium Total Creatine Kinase CK-MB (CK-2) NT-Pro-B Natriuret Pep Total Protein Albumin Urine WBC (Auto) 07/18/16 07/18/16 07/18/16 16:52 23:00 23:21 WBC RBC Hgb Hct MCH Plt Count Lymph % (Auto) [place] % (Auto) Eos % (Auto) Lymph # [place] # Eos # Seg Neutrophils % Seg Neuts % (Manual) Lymphocytes % (Manual) Monocytes % (Manual) Seg Neutrophils # Seg Neutrophils # Man Monocytes # (Manual) APTT POC ABG pH POC ABG pCO2 POC ABG pO2 Sodium Potassium Chloride Carbon Dioxide BUN Creatinine Glucose POC Glucose 127 H < 40 L 220 H Hemoglobin A1c Calcium Magnesium Total Creatine Kinase CK-MB (CK-2) NT-Pro-B Natriuret Pep Total Protein Albumin Urine WBC (Auto) 07/18/16 07/19/16 07/19/16 23:23 06:26 12:05 WBC RBC Hgb Hct MCH Plt Count Lymph % (Auto) [place] % (Auto) Eos % (Auto) Lymph # [place] # Eos # Seg Neutrophils % Seg Neuts % (Manual) Lymphocytes % (Manual) Monocytes % (Manual) Seg Neutrophils # Seg Neutrophils # Man Monocytes # (Manual) APTT 22.8 L POC ABG pH POC ABG pCO2 POC ABG pO2 Sodium Potassium Chloride Carbon Dioxide BUN Creatinine Glucose 241 H POC Glucose 111 H Hemoglobin A1c Calcium Magnesium Total Creatine Kinase CK-MB (CK-2) NT-Pro-B Natriuret Pep Total Protein Albumin Urine WBC (Auto) 07/20/16 07/20/16 07/20/16 00:38 06:06 06:06 WBC RBC 3.37 L Hgb 9.3 L Hct 28.6 L MCH Plt Count 641 H Lymph % (Auto) 10.3 L [place] % (Auto) 11.5 H Eos % (Auto) 6.7 H Lymph # 1.1 L [place] # 1.3 H Eos # 0.7 H Seg Neutrophils % 70.6 H Seg Neuts % (Manual) Lymphocytes % (Manual) Monocytes % (Manual) Seg Neutrophils # Seg Neutrophils # Man Monocytes # (Manual) APTT POC ABG pH POC ABG pCO2 POC ABG pO2 Sodium Potassium Chloride Carbon Dioxide BUN Creatinine 0.6 L Glucose 146 H POC Glucose 146 H Hemoglobin A1c Calcium 8.1 L Magnesium Total Creatine Kinase CK-MB (CK-2) NT-Pro-B Natriuret Pep Total Protein Albumin Urine WBC (Auto)
[2016-07-20] MEDS: NORVASC FEEDTUBE SCH (10:44)
[2016-07-20] MEDS: PEPCID PO SCH (10:45)
[2016-07-20] MEDS: NOVOLOG SUB-Q SCH ×3 (12:43→18:44)
[2016-07-20] MEDS ORDERED: ANCEF/STERILE WATER 2 GM/20 ML 2 GM/20 ML SYRINGE IV NR (13:00)
[2016-07-20] MEDS ORDERED: NACL 0.9% 1000 ML 1,000 ML IV SCH (13:00)
--- NOTE | 2016-07-20 13:49 | Anesthesia Day of Surgery ---
Anesthesia Day of Surgery - Day of Surgery Patient Examined: Yes Patient H&P Reviewed: Yes Patient is NPO: Yes Beta Blockers: No Cardiac Clearance: No Pulmonary Clearance: Yes
[2016-07-20] MEDS ORDERED: DIPRIVAN 10 MG/ML IV ONE ×2 (14:06)
[2016-07-20] MEDS ORDERED: SUBLIMAZE ONE (14:13)
[2016-07-20] MEDS ORDERED: WATER FOR IRRIG STERILE IR ONE (14:18)
--- NOTE | 2016-07-20 14:51 | Post Operative Note ---
Pre-op diagnosis: dysphagia Post-op diagnosis: same Findings: EGD: stenosis g-e junction, scope dilated - hiatal hernia - negative other - 20F pull peg placed, bumper at 3 1/2 cm Procedure: EGD/PEG Anesthesia: MAC Surgeon: SHELLY LEHMAN Estimated blood loss: none Pathology: none Condition: stable Disposition: floor
[2016-07-20] MEDS ORDERED: AMIDATE IV ONE (14:54)
--- NOTE | 2016-07-20 15:20 | Operative Report ---
PROCEDURE: EGD with PEG tube placement. INDICATION: 1. Dysphagia. 2. Nutritional support. 3. Weight loss. MEDICATIONS: Propofol per FILM PAINTER. COMPLICATIONS: None. DESCRIPTION OF PROCEDURE: The patient was brought to procedure suite. The patient had the procedure discussed with her at length. All risks, complications, and benefits discussed after which the patient signed for the procedure to be performed. The patient was placed in left lateral decubitus position. Mouth block was placed in the patient's oral cavity. After adequate sedation medication as above, endoscope placed in the mouth and brought to the level of the second portion of duodenum. Retroflexion view performed. The patient's vital signs remained stable throughout the procedure. FINDINGS: There was noted to be mild stenosis GE junction 38 cm from the gums. This area was empirically dilated with the endoscope and entry gained into the stomach. Medium hiatal hernia at GE junction. The esophagus otherwise appeared to be normal. Mild evidence of gastritis noted. Stomach otherwise appeared to be normal. Duodenum appeared to be normal. Retroflexion view performed in the stomach showed no other pathology other than noted above. After this especially using standard technique and transillumination, area for adequate placement of PEG was found in the gastric body. A 20-[place] pull PEG was then placed. Bump was noted to be at 3.5 cm. Post-procedure, the patient was satisfactory. The patient tolerated the procedure well. No complications during the procedure. IMPRESSION: 1. Stenosis, GE junction, status post empiric dilation with the scope. 2. Hiatal hernia. 3. Otherwise normal EGD. 4. PEG tube placement without obvious complications. RECOMMENDATIONS: 1. Standard PEG tube management, see chart. 2. Nutrition consult. 3. Watch for signs of bleeding or infection. 4. We will follow up in a.m. JOB# [id number] CAB/NTS
--- NOTE | 2016-07-20 16:32 | Post Anesthesia Evaluation ---
- Post Anesthesia Evaluation Patient Participated: Yes Airway Patent: Yes Stable Respiratory Function: Yes Nausea/Vomiting: No Temp > 96.8F: Yes Pain Manageable: Yes Adequeate Hydration: Yes Anesthesia Complications: No Block Receding Appropriately: Not Applicable Patient on Ventilator: No
--- NOTE | 2016-07-20 16:57 | Progress Note ---
Assessment and Plan Assessment and plan: --Dysphagia PEG placement today, tube feeding per protocol --Metabolic encephalopathy Significantly improved, supportive care --History of recurrent urinary tract infection Continue IV antibiotics, total 10 days Cultures negative to date --Acute renal failure/resolved -- severe protein calorie malnutrition, nutrition supplements, supportive care --Type 2 diabetes mellitus, moderate control Continue Accu-Chek sliding scale coverage long-acting insulin A1c 8.8 --Hypertension well-controlled --DVT prophylaxis: lovenox, SCD --Full CODE STATUS DC planning. Case management, patient can be discharge and transfer to intermediate facility tomorrow if stable Will start PEG feeds per protocol tomorrow, nutrition consults Possible discharge tomorrow if stable Plan of care discussed with the patient's nurse, as well as the case management History Interval history: Patient seen and evaluated this morning in her room medical records reviewed Patient is scheduled for PEG placement today per GI No new events reported by the nursing staff, patient is alert and awake, minimally communicative, not in acute distress Vital signs reviewed Hospitalist Physical - Constitutional Vitals: Temp Pulse Resp BP Pulse Ox 99.2 F 97 H 23 136/58 98 07/20/16 14:50 07/20/16 15:20 07/20/16 15:20 07/20/16 15:20 07/20/16 15:20 General appearance: Present: no acute distress, well-nourished - EENT Eyes: Present: PERRL, EOM intact - Neck Neck: Present: supple, normal ROM - Respiratory Respiratory effort: normal Respiratory: bilateral: diminished, negative: rales, rhonchi, wheezing - Cardiovascular Rhythm: regular Heart Sounds: Present: S1 & S2 - Extremities Extremities: no ischemia, pulses intact, pulses symmetrical Extremity abnormal: edema (trace) Peripheral Pulses: within normal limits - Abdominal General gastrointestinal: soft, non-tender, non-distended, normal bowel sounds - Integumentary Integumentary: Present: clear, warm - Psychiatric Psychiatric: other (minimally communicative) - Neurologic Neurologic: moves all extremities Results - Labs CBC & Chem 7: 07/20/16 06:06 07/20/16 06:06 Labs: Laboratory Last Values WBC 10.9 K/mm3 (4.5-11.0) 07/20/16 06:06 RBC 3.37 M/mm3 (3.65-5.03) L 07/20/16 06:06 Hgb 9.3 gm/dl (10.1-14.3) L 07/20/16 06:06 Hct 28.6 % (30.3-42.9) L 07/20/16 06:06 MCV 85 fl (79-97) 07/20/16 06:06 MCH 28 pg (28-32) 07/20/16 06:06 MCHC 33 % (30-34) 07/20/16 06:06 RDW 15.1 % (13.2-15.2) 07/20/16 06:06 Plt Count 641 K/mm3 (140-440) H 07/20/16 06:06 Lymph % (Auto) 10.3 % (13.4-35.0) L 07/20/16 06:06 [place] % (Auto) 11.5 % (0.0-7.3) H 07/20/16 06:06 Eos % (Auto) 6.7 % (0.0-4.3) H 07/20/16 06:06 Baso % (Auto) 0.9 % (0.0-1.8) 07/20/16 06:06 Lymph # 1.1 K/mm3 (1.2-5.4) L 07/20/16 06:06 [place] # 1.3 K/mm3 (0.0-0.8) H 07/20/16 06:06 Eos # 0.7 K/mm3 (0.0-0.4) H 07/20/16 06:06 Baso # 0.1 K/mm3 (0.0-0.1) 07/20/16 06:06 Add Manual Diff Complete 07/13/16 04:45 Total Counted 100 07/13/16 04:45 Seg Neutrophils % 70.6 % (40.0-70.0) H 07/20/16 06:06 Seg Neuts % (Manual) 75.0 % (40.0-70.0) H 07/13/16 04:45 Band Neutrophils % 3.0 % 07/13/16 04:45 Lymphocytes % (Manual) 11.0 % (13.4-35.0) L 07/13/16 04:45 Reactive Lymphs % (Man) 0 % 07/13/16 04:45 Monocytes % (Manual) 8.0 % (0.0-7.3) H 07/13/16 04:45 Eosinophils % (Manual) 0 % (0.0-4.3) 07/13/16 04:45 Basophils % (Manual) 0 % (0.0-1.8) 07/13/16 04:45 Metamyelocytes % 3.0 % 07/13/16 04:45 Myelocytes % 0 % 07/13/16 04:45 Promyelocytes % 0 % 07/13/16 04:45 Blast Cells % 0 % 07/13/16 04:45 Nucleated RBC % Not Reportable 07/13/16 04:45 Seg Neutrophils # 7.7 K/mm3 (1.8-7.7) 07/20/16 06:06 Seg Neutrophils # Man 15.8 K/mm3 (1.8-7.7) H 07/13/16 04:45 Band Neutrophils # 0.6 K/mm3 07/13/16 04:45 Lymphocytes # (Manual) 2.3 K/mm3 (1.2-5.4) 07/13/16 04:45 Abs React Lymphs (Man) 0.0 K/mm3 07/13/16 04:45 Monocytes # (Manual) 1.7 K/mm3 (0.0-0.8) H 07/13/16 04:45 Eosinophils # (Manual) 0.0 K/mm3 (0.0-0.4) 07/13/16 04:45 Basophils # (Manual) 0.0 K/mm3 (0.0-0.1) 07/13/16 04:45 Metamyelocytes # 0.6 K/mm3 07/13/16 04:45 Myelocytes # 0.0 K/mm3 07/13/16 04:45 Promyelocytes # 0.0 K/mm3 07/13/16 04:45 Blast Cells # 0.0 K/mm3 07/13/16 04:45 WBC Morphology Not Reportable 07/13/16 04:45 Hypersegmented Neuts Few 07/13/16 04:45 Hyposegmented Neuts Not Reportable 07/13/16 04:45 Hypogranular Neuts Not Reportable 07/13/16 04:45 Smudge Cells Not Reportable 07/13/16 04:45 Toxic Granulation Not Reportable 07/13/16 04:45 Toxic Vacuolation Not Reportable 07/13/16 04:45 Dohle Bodies Not Reportable 07/13/16 04:45 Pelger-Huet Anomaly Not Reportable 07/13/16 04:45 James Rods Not Reportable 07/13/16 04:45 Platelet Estimate Appears increased 07/13/16 04:45 Clumped Platelets Not Reportable 07/13/16 04:45 Plt Clumps, EDTA Not Reportable 07/13/16 04:45 Large Platelets Not Reportable 07/13/16 04:45 Giant Platelets Not Reportable 07/13/16 04:45 Platelet Satelliting Not Reportable 07/13/16 04:45 Plt Morphology Comment Not Reportable 07/13/16 04:45 RBC Morphology Not Reportable 07/13/16 04:45 Dimorphic RBCs Not Reportable 07/13/16 04:45 Polychromasia Not Reportable 07/13/16 04:45 Hypochromasia Not Reportable 07/13/16 04:45 Poikilocytosis Not Reportable 07/13/16 04:45 Anisocytosis 1+ 07/13/16 04:45 Microcytosis Not Reportable 07/13/16 04:45 Macrocytosis Not Reportable 07/13/16 04:45 Spherocytes Not Reportable 07/13/16 04:45 Pappenheimer Bodies Not Reportable 07/13/16 04:45 Sickle Cells Not Reportable 07/13/16 04:45 Target Cells Not Reportable 07/13/16 04:45 Tear Drop Cells Not Reportable 07/13/16 04:45 Ovalocytes Not Reportable 07/13/16 04:45 Helmet Cells Not Reportable 07/13/16 04:45 [place] Bodies Not Reportable 07/13/16 04:45 [place] Rings Not Reportable 07/13/16 04:45 Yolanda Cells Not Reportable 07/13/16 04:45 Bite Cells Not Reportable 07/13/16 04:45 Crenated Cell Not Reportable 07/13/16 04:45 Elliptocytes Not Reportable 07/13/16 04:45 Acanthocytes (Spur) Not Reportable 07/13/16 04:45 Rouleaux Not Reportable 07/13/16 04:45 Hemoglobin C Crystals Not Reportable 07/13/16 04:45 Schistocytes Not Reportable 07/13/16 04:45 Malaria parasites Not Reportable 07/13/16 04:45 [place] Bodies Not Reportable 07/13/16 04:45 Hem Pathologist Commnt No 07/13/16 04:45 PT 13.6 Sec. (12.2-14.9) 07/19/16 06:26 INR 1.05 (0.87-1.13) 07/19/16 06:26 APTT 22.8 Sec. (24.2-36.6) L 07/19/16 06:26 POC ABG pH 7.452 (7.35-7.45) H 07/12/16 09:10 POC ABG pCO2 33.2 (35-45) L 07/12/16 09:10 POC ABG pO2 74 (80-105) L 07/12/16 09:10 POC ABG HCO3 23.2 07/12/16 09:10 POC ABG Total CO2 24 07/12/16 09:10 POC ABG O2 Sat 96 07/12/16 09:10 POC ABG Base Excess -1 07/12/16 09:10 FiO2 30 % 07/12/16 09:10 Sodium 139 mmol/L (137-145) 07/20/16 06:06 Potassium 3.7 mmol/L (3.6-5.0) 07/20/16 06:06 Chloride 100.6 mmol/L (98-107) 07/20/16 06:06 Carbon Dioxide 26 mmol/L (22-30) 07/20/16 06:06 Anion Gap 16 mmol/L 07/20/16 06:06 BUN 11 mg/dL (7-17) 07/20/16 06:06 Creatinine 0.6 mg/dL (0.7-1.2) L 07/20/16 06:06 Estimated GFR > 60 ml/min 07/20/16 06:06 BUN/Creatinine Ratio 18.33 % 07/20/16 06:06 Glucose 146 mg/dL (65-100) H 07/20/16 06:06 POC Glucose 154 (70-105) H 07/20/16 13:38 Hemoglobin A1c 8.8 % (4-6) H 07/11/16 04:31 Calcium 8.1 mg/dL (8.4-10.2) L 07/20/16 06:06 Phosphorus 2.7 mg/dL (2.5-4.5) 07/14/16 05:28 Magnesium 1.7 mg/dL (1.7-2.3) 07/15/16 06:34 Total Bilirubin < 0.2 mg/dL (0.1-1.2) 07/17/16 00:48 Direct Bilirubin < 0.2 mg/dL (0-0.2) 07/11/16 04:31 Indirect Bilirubin 0.0 mg/dL 07/11/16 04:31 AST 20 units/L (5-40) 07/17/16 00:48 ALT 12 units/L (7-56) 07/17/16 00:48 Alkaline Phosphatase 73 units/L (35-129) 07/17/16 00:48 Ammonia 48.0 umol/L (25-60) 07/09/16 20:31 Total Creatine Kinase 334 units/L (30-135) H 07/10/16 08:55 CK-MB (CK-2) 5.6 ng/mL (0.0-4.0) H 07/10/16 08:55 CK-MB (CK-2) Rel Index 1.6 (0-4) 07/10/16 08:55 Troponin T 0.016 ng/mL (0.00-0.029) 07/10/16 08:55 NT-Pro-B Natriuret Pep 2802 pg/mL (0-900) H 07/16/16 06:30 Total Protein 5.8 g/dL (6.3-8.2) L 07/17/16 00:48 Albumin 1.9 g/dL (3.9-5) L 07/17/16 00:48 Albumin/Globulin Ratio 0.5 % 07/17/16 00:48 TSH 1.240 mlU/mL (0.270-4.200) 07/09/16 20:31 Free T4 1.40 ng/dL (0.76-1.46) 07/09/16 20:31 Urine Color Jennifer (Yellow) 07/10/16 13:10 Urine Turbidity Turbid (Clear) 07/10/16 13:10 Urine pH 6.0 (5.0-7.0) 07/10/16 13:10 Ur Specific [place] 1.016 (1.003-1.030) 07/10/16 13:10 Urine Protein 30 mg/dl mg/dL (Negative) 07/10/16 13:10 Urine Glucose (UA) 50 mg/dL (Negative) 07/10/16 13:10 Urine Ketones Neg mg/dL (Negative) 07/10/16 13:10 Urine Blood Sm (Negative) 07/10/16 13:10 Urine Nitrite Neg (Negative) 07/10/16 13:10 Urine Bilirubin Neg (Negative) 07/10/16 13:10 Urine Urobilinogen < 2.0 mg/dL (<2.0) 07/10/16 13:10 Ur Leukocyte Esterase Lg (Negative) 07/10/16 13:10 Urine WBC (Auto) 164.0 /HPF (0.0-6.0) H 07/10/16 13:10 Urine RBC (Auto) 33.0 /HPF (0.0-6.0) 07/10/16 13:10 U Epithel Cells (Auto) 5.0 /HPF (0-13.0) 07/10/16 13:10 Urine Bacteria (Auto) 4+ /HPF (Negative) 07/10/16 13:10 Urine Mucus 3+ /HPF 07/10/16 13:10 Urine Eosinophils 1 (None Seen) 07/11/16 12:50 Urine Creatinine < 4.2 mg/dL (0.1-20.0) 07/11/16 13:03 Urine Sodium 10 mEq/L 07/11/16 13:03
[2016-07-21] MEDS: NOVOLOG SUB-Q SCH ×7 (00:20→23:06)
[2016-07-21] MEDS: DUONEB 0.5 MG-3 MG/3 ML SOLN IH SCH ×4 (01:35→21:34)
[2016-07-21] MEDS ORDERED: SIMPLE SYRUP FEEDTUBE PRN ×2 (09:00)
[2016-07-21] MEDS ORDERED: SODIUM BICARBONATE FEEDTUBE PRN (09:00)
[2016-07-21] MEDS ORDERED: PANCREAZE DR 10,500 UNIT FEEDTUBE PRN (09:00)
[2016-07-21] MEDS: PEPCID PO SCH (10:29)
[2016-07-21] MEDS: NORVASC FEEDTUBE SCH (10:29)
--- NOTE | 2016-07-21 10:57 | Progress Note ---
Assessment and Plan Assessment and plan: --Dysphagia , s/p PEG placement , tolerating tube feeding per protocol Aspiration precautions --Metabolic encephalopathy the time of admission Significantly improved, supportive care --History of recurrent urinary tract infection Received 10 days of IV antibiotics, --Acute renal failure/resolved -- severe protein calorie malnutrition, nutrition supplements, supportive care --Type 2 diabetes mellitus, moderate control Continue Accu-Chek sliding scale coverage long-acting insulin A1c 8.8 --Hypertension well-controlled --DVT prophylaxis: lovenox, SCD --Full CODE STATUS Patient is medically cleared for discharge and transfer to alf facility today Plan of care discussed with the patient's nurse, as well as the case management History Interval history: Patient seen and evaluated medical records reviewed Patient had becomes too placed, started on tube feeding tolerating well No new complaints, no events reported by the nursing staff [facility] Hospitalist Physical - Constitutional Vitals: Temp Pulse Resp BP Pulse Ox 100.0 F H 124 H 20 155/69 95 07/21/16 08:05 07/21/16 08:05 07/21/16 08:05 07/21/16 08:05 07/21/16 08:05 General appearance: Present: no acute distress, well-nourished - EENT Eyes: Present: PERRL, EOM intact - Neck Neck: Present: supple, normal ROM - Respiratory Respiratory effort: normal Respiratory: bilateral: diminished, negative: rales, rhonchi, wheezing - Cardiovascular Rhythm: regular Heart Sounds: Present: S1 & S2 - Extremities Extremities: no ischemia, pulses intact, pulses symmetrical Peripheral Pulses: within normal limits - Abdominal General gastrointestinal: soft, non-tender, non-distended, normal bowel sounds - Integumentary Integumentary: Present: clear, warm - Psychiatric Psychiatric: appropriate mood/affect, cooperative - Neurologic Neurologic: CNII-XII intact, moves all extremities Results - Labs CBC & Chem 7: 07/20/16 06:06 07/20/16 06:06 Labs: Laboratory Last Values WBC 10.9 K/mm3 (4.5-11.0) 07/20/16 06:06 RBC 3.37 M/mm3 (3.65-5.03) L 07/20/16 06:06 Hgb 9.3 gm/dl (10.1-14.3) L 07/20/16 06:06 Hct 28.6 % (30.3-42.9) L 07/20/16 06:06 MCV 85 fl (79-97) 07/20/16 06:06 MCH 28 pg (28-32) 07/20/16 06:06 MCHC 33 % (30-34) 07/20/16 06:06 RDW 15.1 % (13.2-15.2) 07/20/16 06:06 Plt Count 641 K/mm3 (140-440) H 07/20/16 06:06 Lymph % (Auto) 10.3 % (13.4-35.0) L 07/20/16 06:06 [place] % (Auto) 11.5 % (0.0-7.3) H 07/20/16 06:06 Eos % (Auto) 6.7 % (0.0-4.3) H 07/20/16 06:06 Baso % (Auto) 0.9 % (0.0-1.8) 07/20/16 06:06 Lymph # 1.1 K/mm3 (1.2-5.4) L 07/20/16 06:06 [place] # 1.3 K/mm3 (0.0-0.8) H 07/20/16 06:06 Eos # 0.7 K/mm3 (0.0-0.4) H 07/20/16 06:06 Baso # 0.1 K/mm3 (0.0-0.1) 07/20/16 06:06 Add Manual Diff Complete 07/13/16 04:45 Total Counted 100 07/13/16 04:45 Seg Neutrophils % 70.6 % (40.0-70.0) H 07/20/16 06:06 Seg Neuts % (Manual) 75.0 % (40.0-70.0) H 07/13/16 04:45 Band Neutrophils % 3.0 % 07/13/16 04:45 Lymphocytes % (Manual) 11.0 % (13.4-35.0) L 07/13/16 04:45 Reactive Lymphs % (Man) 0 % 07/13/16 04:45 Monocytes % (Manual) 8.0 % (0.0-7.3) H 07/13/16 04:45 Eosinophils % (Manual) 0 % (0.0-4.3) 07/13/16 04:45 Basophils % (Manual) 0 % (0.0-1.8) 07/13/16 04:45 Metamyelocytes % 3.0 % 07/13/16 04:45 Myelocytes % 0 % 07/13/16 04:45 Promyelocytes % 0 % 07/13/16 04:45 Blast Cells % 0 % 07/13/16 04:45 Nucleated RBC % Not Reportable 07/13/16 04:45 Seg Neutrophils # 7.7 K/mm3 (1.8-7.7) 07/20/16 06:06 Seg Neutrophils # Man 15.8 K/mm3 (1.8-7.7) H 07/13/16 04:45 Band Neutrophils # 0.6 K/mm3 07/13/16 04:45 Lymphocytes # (Manual) 2.3 K/mm3 (1.2-5.4) 07/13/16 04:45 Abs React Lymphs (Man) 0.0 K/mm3 07/13/16 04:45 Monocytes # (Manual) 1.7 K/mm3 (0.0-0.8) H 07/13/16 04:45 Eosinophils # (Manual) 0.0 K/mm3 (0.0-0.4) 07/13/16 04:45 Basophils # (Manual) 0.0 K/mm3 (0.0-0.1) 07/13/16 04:45 Metamyelocytes # 0.6 K/mm3 07/13/16 04:45 Myelocytes # 0.0 K/mm3 07/13/16 04:45 Promyelocytes # 0.0 K/mm3 07/13/16 04:45 Blast Cells # 0.0 K/mm3 07/13/16 04:45 WBC Morphology Not Reportable 07/13/16 04:45 Hypersegmented Neuts Few 07/13/16 04:45 Hyposegmented Neuts Not Reportable 07/13/16 04:45 Hypogranular Neuts Not Reportable 07/13/16 04:45 Smudge Cells Not Reportable 07/13/16 04:45 Toxic Granulation Not Reportable 07/13/16 04:45 Toxic Vacuolation Not Reportable 07/13/16 04:45 Dohle Bodies Not Reportable 07/13/16 04:45 Pelger-Huet Anomaly Not Reportable 07/13/16 04:45 James Rods Not Reportable 07/13/16 04:45 Platelet Estimate Appears increased 07/13/16 04:45 Clumped Platelets Not Reportable 07/13/16 04:45 Plt Clumps, EDTA Not Reportable 07/13/16 04:45 Large Platelets Not Reportable 07/13/16 04:45 Giant Platelets Not Reportable 07/13/16 04:45 Platelet Satelliting Not Reportable 07/13/16 04:45 Plt Morphology Comment Not Reportable 07/13/16 04:45 RBC Morphology Not Reportable 07/13/16 04:45 Dimorphic RBCs Not Reportable 07/13/16 04:45 Polychromasia Not Reportable 07/13/16 04:45 Hypochromasia Not Reportable 07/13/16 04:45 Poikilocytosis Not Reportable 07/13/16 04:45 Anisocytosis 1+ 07/13/16 04:45 Microcytosis Not Reportable 07/13/16 04:45 Macrocytosis Not Reportable 07/13/16 04:45 Spherocytes Not Reportable 07/13/16 04:45 Pappenheimer Bodies Not Reportable 07/13/16 04:45 Sickle Cells Not Reportable 07/13/16 04:45 Target Cells Not Reportable 07/13/16 04:45 Tear Drop Cells Not Reportable 07/13/16 04:45 Ovalocytes Not Reportable 07/13/16 04:45 Helmet Cells Not Reportable 07/13/16 04:45 [place] Bodies Not Reportable 07/13/16 04:45 [place] Rings Not Reportable 07/13/16 04:45 Yolanda Cells Not Reportable 07/13/16 04:45 Bite Cells Not Reportable 07/13/16 04:45 Crenated Cell Not Reportable 07/13/16 04:45 Elliptocytes Not Reportable 07/13/16 04:45 Acanthocytes (Spur) Not Reportable 07/13/16 04:45 Rouleaux Not Reportable 07/13/16 04:45 Hemoglobin C Crystals Not Reportable 07/13/16 04:45 Schistocytes Not Reportable 07/13/16 04:45 Malaria parasites Not Reportable 07/13/16 04:45 [place] Bodies Not Reportable 07/13/16 04:45 Hem Pathologist Commnt No 07/13/16 04:45 PT 13.6 Sec. (12.2-14.9) 07/19/16 06:26 INR 1.05 (0.87-1.13) 07/19/16 06:26 APTT 22.8 Sec. (24.2-36.6) L 07/19/16 06:26 POC ABG pH 7.452 (7.35-7.45) H 07/12/16 09:10 POC ABG pCO2 33.2 (35-45) L 07/12/16 09:10 POC ABG pO2 74 (80-105) L 07/12/16 09:10 POC ABG HCO3 23.2 07/12/16 09:10 POC ABG Total CO2 24 07/12/16 09:10 POC ABG O2 Sat 96 07/12/16 09:10 POC ABG Base Excess -1 07/12/16 09:10 FiO2 30 % 07/12/16 09:10 Sodium 139 mmol/L (137-145) 07/20/16 06:06 Potassium 3.7 mmol/L (3.6-5.0) 07/20/16 06:06 Chloride 100.6 mmol/L (98-107) 07/20/16 06:06 Carbon Dioxide 26 mmol/L (22-30) 07/20/16 06:06 Anion Gap 16 mmol/L 07/20/16 06:06 BUN 11 mg/dL (7-17) 07/20/16 06:06 Creatinine 0.6 mg/dL (0.7-1.2) L 07/20/16 06:06 Estimated GFR > 60 ml/min 07/20/16 06:06 BUN/Creatinine Ratio 18.33 % 07/20/16 06:06 Glucose 146 mg/dL (65-100) H 07/20/16 06:06 POC Glucose 164 (70-105) H 07/21/16 06:44 Hemoglobin A1c 8.8 % (4-6) H 07/11/16 04:31 Calcium 8.1 mg/dL (8.4-10.2) L 07/20/16 06:06 Phosphorus 2.7 mg/dL (2.5-4.5) 07/14/16 05:28 Magnesium 1.7 mg/dL (1.7-2.3) 07/15/16 06:34 Total Bilirubin < 0.2 mg/dL (0.1-1.2) 07/17/16 00:48 Direct Bilirubin < 0.2 mg/dL (0-0.2) 07/11/16 04:31 Indirect Bilirubin 0.0 mg/dL 07/11/16 04:31 AST 20 units/L (5-40) 07/17/16 00:48 ALT 12 units/L (7-56) 07/17/16 00:48 Alkaline Phosphatase 73 units/L (35-129) 07/17/16 00:48 Ammonia 48.0 umol/L (25-60) 07/09/16 20:31 Total Creatine Kinase 334 units/L (30-135) H 07/10/16 08:55 CK-MB (CK-2) 5.6 ng/mL (0.0-4.0) H 07/10/16 08:55 CK-MB (CK-2) Rel Index 1.6 (0-4) 07/10/16 08:55 Troponin T 0.016 ng/mL (0.00-0.029) 07/10/16 08:55 NT-Pro-B Natriuret Pep 2802 pg/mL (0-900) H 07/16/16 06:30 Total Protein 5.8 g/dL (6.3-8.2) L 07/17/16 00:48 Albumin 1.9 g/dL (3.9-5) L 07/17/16 00:48 Albumin/Globulin Ratio 0.5 % 07/17/16 00:48 TSH 1.240 mlU/mL (0.270-4.200) 07/09/16 20:31 Free T4 1.40 ng/dL (0.76-1.46) 07/09/16 20:31 Urine Color Jennifer (Yellow) 07/10/16 13:10 Urine Turbidity Turbid (Clear) 07/10/16 13:10 Urine pH 6.0 (5.0-7.0) 07/10/16 13:10 Ur Specific [place] 1.016 (1.003-1.030) 07/10/16 13:10 Urine Protein 30 mg/dl mg/dL (Negative) 07/10/16 13:10 Urine Glucose (UA) 50 mg/dL (Negative) 07/10/16 13:10 Urine Ketones Neg mg/dL (Negative) 07/10/16 13:10 Urine Blood Sm (Negative) 07/10/16 13:10 Urine Nitrite Neg (Negative) 07/10/16 13:10 Urine Bilirubin Neg (Negative) 07/10/16 13:10 Urine Urobilinogen < 2.0 mg/dL (<2.0) 07/10/16 13:10 Ur Leukocyte Esterase Lg (Negative) 07/10/16 13:10 Urine WBC (Auto) 164.0 /HPF (0.0-6.0) H 07/10/16 13:10 Urine RBC (Auto) 33.0 /HPF (0.0-6.0) 07/10/16 13:10 U Epithel Cells (Auto) 5.0 /HPF (0-13.0) 07/10/16 13:10 Urine Bacteria (Auto) 4+ /HPF (Negative) 07/10/16 13:10 Urine Mucus 3+ /HPF 07/10/16 13:10 Urine Eosinophils 1 (None Seen) 07/11/16 12:50 Urine Creatinine < 4.2 mg/dL (0.1-20.0) 07/11/16 13:03 Urine Sodium 10 mEq/L 07/11/16 13:03
--- NOTE | 2016-07-21 11:16 | Discharge Summary ---
Providers - Providers Date of Admission: 07/09/16 23:05 Date of discharge: 07/21/16 Attending physician: WES PIRES 07/10/16 08:59 Consult to Physician [CONS] Routine Consulting Provider: SAROJ LILLY Reason For Exam: Critical care consult/resp distress,unresponsivene Place consult to:: dr. lilly Notified:: dr avery [place] Time called:: 08:45 07/10/16 11:56 Consult to Dietitian/Nutrition [CONS] Routine Physician Instructions: Reason For Exam: Reason for Consult: Write/Manage Tube Feeding 07/11/16 11:41 Consult to Physician [CONS] Routine Consulting Provider: ANNE MARIE BOUDREAUX Reason For Exam: Worsening Renal Failure Place consult to:: Anne Marie Boudreaux Notified:: yes Phone number called:: [phone] Was contact made?: Yes If yes, spoke with:: dr boudreaux Time called:: 12:48 07/14/16 17:16 Speech Therapy Evaluation and Treat [CONS] Routine Reason For Exam: swallowing evaluation 07/15/16 08:14 Physical Therapy Evaluation and Treat [CONS] Routine Comment: Reason For Exam: debility/s/p extubation 07/16/16 11:56 Consult to Physician [CONS] Routine Consulting Provider: TANMAY CERVANTES Reason For Exam: dysphagia, PEG placement Place consult to:: call or contact centre operator Notified:: yes Was contact made?: Yes Time called:: 12:22 07/20/16 14:51 Consult to Dietitian/Nutrition [CONS] Routine Physician Instructions: Reason For Exam: Reason for Consult: s/p peg, tube feed recommendations Primary care physician: [employer]IL PROCESSING [employer]OCIATE Hospitalization Condition: Stable Disposition: DC/[place] SNF W [facility] CERT Core Measure Documentation - Palliative Care Palliative Care/ Comfort Measures: Not Applicable - Core Measures Any of the following diagnoses?: none Exam - Constitutional Vitals: Temp Pulse Resp BP Pulse Ox 100.0 F H 124 H 20 155/69 95 07/21/16 08:05 07/21/16 08:05 07/21/16 08:05 07/21/16 08:05 07/21/16 08:05 General appearance: Present: no acute distress, well-nourished Plan Activity: advance as tolerated, fall precautions Diet: other (tube feeding per protocol) Follow up with: PRIMARY CARE, [Primary Care Provider] - 7 Days
--- NOTE | 2016-07-21 11:21 | Gastroenterology Progress Note ---
<ABA PERALES - Last Filed: 07/21/16 11:19> Assessment and Plan 1. Dysphagia -S/P PEG placement on 07/20/16. Site benign. Bumper offloaded to skin at 4 cm. No bleeding noted. -Tolerating TF well. -No further GI intervention needed. GI will sign off. Subjective Date of service: 07/21/16 Principal diagnosis: acute respiratory failure, narcotic overdose, AMS Interval history: S/P PEG, No distress noted. Objective - Constitutional Vitals: Temp Pulse Resp BP Pulse Ox 100.0 F H 124 H 20 155/69 95 07/21/16 08:05 07/21/16 08:05 07/21/16 08:05 07/21/16 08:05 07/21/16 08:05 General appearance: no acute distress - EENT ENT: hearing intact - Gastrointestinal General gastrointestinal: Present: soft, non-tender, normal bowel sounds, other (PEG site benign.) - Integumentary Integumentary: Present: warm, dry - Psychiatric Psychiatric: cooperative - Labs CBC & Chem 7: 07/20/16 06:06 07/20/16 06:06 Labs: Laboratory Results - last 24 hr 07/20/16 07/20/16 07/20/16 13:38 17:41 23:31 POC Glucose 154 H 160 H 168 H 07/21/16 06:44 POC Glucose 164 H <SHELLY LEHMAN - Last Filed: 07/21/16 13:54> Subjective Interval history: - will sign off, call if needed Objective - Constitutional Vitals: Temp Pulse Resp BP Pulse Ox 100.0 F H 124 H 20 155/69 95 07/21/16 08:05 07/21/16 08:05 07/21/16 08:05 07/21/16 08:05 07/21/16 08:05 - Labs CBC & Chem 7: 07/20/16 06:06 07/20/16 06:06 Labs: Laboratory Results - last 24 hr 07/20/16 07/20/16 07/21/16 17:41 23:31 06:44 POC Glucose 160 H 168 H 164 H 07/21/16 12:23 POC Glucose 135 H
[2016-07-21] MEDS: APRESOLINE IV PRN (23:40)
[2016-07-21] MEDS: HALDOL IM PRN (23:49)
[2016-07-22] MEDS: DUONEB 0.5 MG-3 MG/3 ML SOLN IH SCH ×4 (02:34→20:00)
[2016-07-22] MEDS: TRIPLE ANTIBIOTIC TP SCH ×2 (03:45→10:27)
--- NOTE | 2016-07-22 08:19 | Progress Note ---
Assessment and Plan Assessment and plan: --Dysphagia , s/p PEG placement , tube feeding per protocol Aspiration precautions --Metabolic encephalopathy the time of admission Significantly improved, patient is more alert and responding appropriately --History of recurrent urinary tract infection Received 10 days of IV antibiotics, --Acute renal failure/resolved -- severe protein calorie malnutrition, nutrition supplements, supportive care --Type 2 diabetes mellitus, moderate control Continue Accu-Chek sliding scale coverage long-acting insulin A1c 8.8 --Hypertension well-controlled --DVT prophylaxis: lovenox, SCD --Full CODE STATUS Awaiting placement Medically stable for discharge Plan of care discussed with the patient's nurse and case management Hospitalist Physical - Constitutional Vitals: Temp Pulse Resp BP Pulse Ox 100.4 F H 89 18 123/65 93 07/22/16 06:00 07/22/16 06:00 07/22/16 06:00 07/22/16 06:00 07/21/16 22:00 General appearance: Present: no acute distress, well-nourished Results - Labs CBC & Chem 7: 07/20/16 06:06 07/20/16 06:06 Labs: Laboratory Last Values WBC 10.9 K/mm3 (4.5-11.0) 07/20/16 06:06 RBC 3.37 M/mm3 (3.65-5.03) L 07/20/16 06:06 Hgb 9.3 gm/dl (10.1-14.3) L 07/20/16 06:06 Hct 28.6 % (30.3-42.9) L 07/20/16 06:06 MCV 85 fl (79-97) 07/20/16 06:06 MCH 28 pg (28-32) 07/20/16 06:06 MCHC 33 % (30-34) 07/20/16 06:06 RDW 15.1 % (13.2-15.2) 07/20/16 06:06 Plt Count 641 K/mm3 (140-440) H 07/20/16 06:06 Lymph % (Auto) 10.3 % (13.4-35.0) L 07/20/16 06:06 [place] % (Auto) 11.5 % (0.0-7.3) H 07/20/16 06:06 Eos % (Auto) 6.7 % (0.0-4.3) H 07/20/16 06:06 Baso % (Auto) 0.9 % (0.0-1.8) 07/20/16 06:06 Lymph # 1.1 K/mm3 (1.2-5.4) L 07/20/16 06:06 [place] # 1.3 K/mm3 (0.0-0.8) H 07/20/16 06:06 Eos # 0.7 K/mm3 (0.0-0.4) H 07/20/16 06:06 Baso # 0.1 K/mm3 (0.0-0.1) 07/20/16 06:06 Add Manual Diff Complete 07/13/16 04:45 Total Counted 100 07/13/16 04:45 Seg Neutrophils % 70.6 % (40.0-70.0) H 07/20/16 06:06 Seg Neuts % (Manual) 75.0 % (40.0-70.0) H 07/13/16 04:45 Band Neutrophils % 3.0 % 07/13/16 04:45 Lymphocytes % (Manual) 11.0 % (13.4-35.0) L 07/13/16 04:45 Reactive Lymphs % (Man) 0 % 07/13/16 04:45 Monocytes % (Manual) 8.0 % (0.0-7.3) H 07/13/16 04:45 Eosinophils % (Manual) 0 % (0.0-4.3) 07/13/16 04:45 Basophils % (Manual) 0 % (0.0-1.8) 07/13/16 04:45 Metamyelocytes % 3.0 % 07/13/16 04:45 Myelocytes % 0 % 07/13/16 04:45 Promyelocytes % 0 % 07/13/16 04:45 Blast Cells % 0 % 07/13/16 04:45 Nucleated RBC % Not Reportable 07/13/16 04:45 Seg Neutrophils # 7.7 K/mm3 (1.8-7.7) 07/20/16 06:06 Seg Neutrophils # Man 15.8 K/mm3 (1.8-7.7) H 07/13/16 04:45 Band Neutrophils # 0.6 K/mm3 07/13/16 04:45 Lymphocytes # (Manual) 2.3 K/mm3 (1.2-5.4) 07/13/16 04:45 Abs React Lymphs (Man) 0.0 K/mm3 07/13/16 04:45 Monocytes # (Manual) 1.7 K/mm3 (0.0-0.8) H 07/13/16 04:45 Eosinophils # (Manual) 0.0 K/mm3 (0.0-0.4) 07/13/16 04:45 Basophils # (Manual) 0.0 K/mm3 (0.0-0.1) 07/13/16 04:45 Metamyelocytes # 0.6 K/mm3 07/13/16 04:45 Myelocytes # 0.0 K/mm3 07/13/16 04:45 Promyelocytes # 0.0 K/mm3 07/13/16 04:45 Blast Cells # 0.0 K/mm3 07/13/16 04:45 WBC Morphology Not Reportable 07/13/16 04:45 Hypersegmented Neuts Few 07/13/16 04:45 Hyposegmented Neuts Not Reportable 07/13/16 04:45 Hypogranular Neuts Not Reportable 07/13/16 04:45 Smudge Cells Not Reportable 07/13/16 04:45 Toxic Granulation Not Reportable 07/13/16 04:45 Toxic Vacuolation Not Reportable 07/13/16 04:45 Dohle Bodies Not Reportable 07/13/16 04:45 Pelger-Huet Anomaly Not Reportable 07/13/16 04:45 James Rods Not Reportable 07/13/16 04:45 Platelet Estimate Appears increased 07/13/16 04:45 Clumped Platelets Not Reportable 07/13/16 04:45 Plt Clumps, EDTA Not Reportable 07/13/16 04:45 Large Platelets Not Reportable 07/13/16 04:45 Giant Platelets Not Reportable 07/13/16 04:45 Platelet Satelliting Not Reportable 07/13/16 04:45 Plt Morphology Comment Not Reportable 07/13/16 04:45 RBC Morphology Not Reportable 07/13/16 04:45 Dimorphic RBCs Not Reportable 07/13/16 04:45 Polychromasia Not Reportable 07/13/16 04:45 Hypochromasia Not Reportable 07/13/16 04:45 Poikilocytosis Not Reportable 07/13/16 04:45 Anisocytosis 1+ 07/13/16 04:45 Microcytosis Not Reportable 07/13/16 04:45 Macrocytosis Not Reportable 07/13/16 04:45 Spherocytes Not Reportable 07/13/16 04:45 Pappenheimer Bodies Not Reportable 07/13/16 04:45 Sickle Cells Not Reportable 07/13/16 04:45 Target Cells Not Reportable 07/13/16 04:45 Tear Drop Cells Not Reportable 07/13/16 04:45 Ovalocytes Not Reportable 07/13/16 04:45 Helmet Cells Not Reportable 07/13/16 04:45 Mendoza-[place] Bodies Not Reportable 07/13/16 04:45 [place] Rings Not Reportable 07/13/16 04:45 [place] Cells Not Reportable 07/13/16 04:45 Bite Cells Not Reportable 07/13/16 04:45 Crenated Cell Not Reportable 07/13/16 04:45 Elliptocytes Not Reportable 07/13/16 04:45 Acanthocytes (Spur) Not Reportable 07/13/16 04:45 Rouleaux Not Reportable 07/13/16 04:45 Hemoglobin C Crystals Not Reportable 07/13/16 04:45 Schistocytes Not Reportable 07/13/16 04:45 Malaria parasites Not Reportable 07/13/16 04:45 [place] Bodies Not Reportable 07/13/16 04:45 Hem Pathologist Commnt No 07/13/16 04:45 PT 13.6 Sec. (12.2-14.9) 07/19/16 06:26 INR 1.05 (0.87-1.13) 07/19/16 06:26 APTT 22.8 Sec. (24.2-36.6) L 07/19/16 06:26 POC ABG pH 7.452 (7.35-7.45) H 07/12/16 09:10 POC ABG pCO2 33.2 (35-45) L 07/12/16 09:10 POC ABG pO2 74 (80-105) L 07/12/16 09:10 POC ABG HCO3 23.2 07/12/16 09:10 POC ABG Total CO2 24 07/12/16 09:10 POC ABG O2 Sat 96 07/12/16 09:10 POC ABG Base Excess -1 07/12/16 09:10 FiO2 30 % 07/12/16 09:10 Sodium 139 mmol/L (137-145) 07/20/16 06:06 Potassium 3.7 mmol/L (3.6-5.0) 07/20/16 06:06 Chloride 100.6 mmol/L (98-107) 07/20/16 06:06 Carbon Dioxide 26 mmol/L (22-30) 07/20/16 06:06 Anion Gap 16 mmol/L 07/20/16 06:06 BUN 11 mg/dL (7-17) 07/20/16 06:06 Creatinine 0.6 mg/dL (0.7-1.2) L 07/20/16 06:06 Estimated GFR > 60 ml/min 07/20/16 06:06 BUN/Creatinine Ratio 18.33 % 07/20/16 06:06 Glucose 146 mg/dL (65-100) H 07/20/16 06:06 POC Glucose 135 (70-105) H 07/21/16 12:23 Hemoglobin A1c 8.8 % (4-6) H 07/11/16 04:31 Calcium 8.1 mg/dL (8.4-10.2) L 07/20/16 06:06 Phosphorus 2.7 mg/dL (2.5-4.5) 07/14/16 05:28 Magnesium 1.7 mg/dL (1.7-2.3) 07/15/16 06:34 Total Bilirubin < 0.2 mg/dL (0.1-1.2) 07/17/16 00:48 Direct Bilirubin < 0.2 mg/dL (0-0.2) 07/11/16 04:31 Indirect Bilirubin 0.0 mg/dL 07/11/16 04:31 AST 20 units/L (5-40) 07/17/16 00:48 ALT 12 units/L (7-56) 07/17/16 00:48 Alkaline Phosphatase 73 units/L (35-129) 07/17/16 00:48 Ammonia 48.0 umol/L (25-60) 07/09/16 20:31 Total Creatine Kinase 334 units/L (30-135) H 07/10/16 08:55 CK-MB (CK-2) 5.6 ng/mL (0.0-4.0) H 07/10/16 08:55 CK-MB (CK-2) Rel Index 1.6 (0-4) 07/10/16 08:55 Troponin T 0.016 ng/mL (0.00-0.029) 07/10/16 08:55 NT-Pro-B Natriuret Pep 2802 pg/mL (0-900) H 07/16/16 06:30 Total Protein 5.8 g/dL (6.3-8.2) L 07/17/16 00:48 Albumin 1.9 g/dL (3.9-5) L 07/17/16 00:48 Albumin/Globulin Ratio 0.5 % 07/17/16 00:48 TSH 1.240 mlU/mL (0.270-4.200) 07/09/16 20:31 Free T4 1.40 ng/dL (0.76-1.46) 07/09/16 20:31 Urine Color Jennifer (Yellow) 07/10/16 13:10 Urine Turbidity Turbid (Clear) 07/10/16 13:10 Urine pH 6.0 (5.0-7.0) 07/10/16 13:10 Ur Specific [place] 1.016 (1.003-1.030) 07/10/16 13:10 Urine Protein 30 mg/dl mg/dL (Negative) 07/10/16 13:10 Urine Glucose (UA) 50 mg/dL (Negative) 07/10/16 13:10 Urine Ketones Neg mg/dL (Negative) 07/10/16 13:10 Urine Blood Sm (Negative) 07/10/16 13:10 Urine Nitrite Neg (Negative) 07/10/16 13:10 Urine Bilirubin Neg (Negative) 07/10/16 13:10 Urine Urobilinogen < 2.0 mg/dL (<2.0) 07/10/16 13:10 Ur Leukocyte Esterase Lg (Negative) 07/10/16 13:10 Urine WBC (Auto) 164.0 /HPF (0.0-6.0) H 07/10/16 13:10 Urine RBC (Auto) 33.0 /HPF (0.0-6.0) 07/10/16 13:10 U Epithel Cells (Auto) 5.0 /HPF (0-13.0) 07/10/16 13:10 Urine Bacteria (Auto) 4+ /HPF (Negative) 07/10/16 13:10 Urine Mucus 3+ /HPF 07/10/16 13:10 Urine Eosinophils 1 (None Seen) 07/11/16 12:50 Urine Creatinine < 4.2 mg/dL (0.1-20.0) 07/11/16 13:03 Urine Sodium 10 mEq/L 07/11/16 13:03
[2016-07-22] MEDS ORDERED: TRIPLE ANTIBIOTIC TP SCH (10:00)
[2016-07-22] MEDS: NORVASC FEEDTUBE SCH (10:29)
[2016-07-22] MEDS: NOVOLOG SUB-Q SCH ×3 (10:38→17:33)
[2016-07-22] MEDS ORDERED: TYLENOL PO PRN (17:04)
[2016-07-22] MEDS ORDERED: D50W (25GM) IV ONE (17:26)
[2016-07-22] MEDS: PEPCID PO SCH (17:33)
[2016-07-23] MEDS: NOVOLOG SUB-Q SCH ×4 (01:09→22:10)
[2016-07-23] MEDS: DUONEB 0.5 MG-3 MG/3 ML SOLN IH SCH ×4 (02:35→20:06)
--- NOTE | 2016-07-23 09:14 | Progress Note ---
Assessment and Plan Assessment and plan: --Dysphagia , s/p PEG placement , tube feeding per protocol Aspiration precautions --Metabolic encephalopathy the time of admission Significantly improved, patient is more alert and responding appropriately --History of recurrent urinary tract infection Received 10 days of IV antibiotics, --Acute renal failure/resolved -- severe protein calorie malnutrition, nutrition supplements, supportive care --Type 2 diabetes mellitus, moderate control Continue Accu-Chek sliding scale coverage long-acting insulin A1c 8.8 --Hypertension well-controlled --DVT prophylaxis: lovenox, SCD --Full CODE STATUS Agitation medically stable for discharge when SNIF placement is set up On of care discussed with the patient's nurse family as well as the case management History Interval history: Patient seen and evaluated medical records reviewed No new complaints Alert and awake responding to simple questions Tolerating tube feeding Awaiting placement Hospitalist Physical - Constitutional Vitals: Temp Pulse Resp BP Pulse Ox 99.4 F 100 H 20 142/60 92 07/22/16 21:18 07/23/16 02:43 07/23/16 02:43 07/22/16 21:18 07/23/16 04:00 General appearance: Present: no acute distress, well-nourished - EENT Eyes: Present: PERRL, EOM intact - Neck Neck: Present: supple, normal ROM - Respiratory Respiratory effort: normal Respiratory: bilateral: diminished, negative: rales, rhonchi, wheezing - Cardiovascular Rhythm: regular Heart Sounds: Present: S1 & S2 - Extremities Extremities: no ischemia, pulses intact, pulses symmetrical Peripheral Pulses: within normal limits - Abdominal General gastrointestinal: soft, non-tender, non-distended, normal bowel sounds - Integumentary Integumentary: Present: clear, warm - Psychiatric Psychiatric: appropriate mood/affect, other (confused at times) - Neurologic Neurologic: moves all extremities Results - Labs CBC & Chem 7: 07/20/16 06:06 07/20/16 06:06 Labs: Laboratory Last Values WBC 10.9 K/mm3 (4.5-11.0) 07/20/16 06:06 RBC 3.37 M/mm3 (3.65-5.03) L 07/20/16 06:06 Hgb 9.3 gm/dl (10.1-14.3) L 07/20/16 06:06 Hct 28.6 % (30.3-42.9) L 07/20/16 06:06 MCV 85 fl (79-97) 07/20/16 06:06 MCH 28 pg (28-32) 07/20/16 06:06 MCHC 33 % (30-34) 07/20/16 06:06 RDW 15.1 % (13.2-15.2) 07/20/16 06:06 Plt Count 641 K/mm3 (140-440) H 07/20/16 06:06 Lymph % (Auto) 10.3 % (13.4-35.0) L 07/20/16 06:06 [place] % (Auto) 11.5 % (0.0-7.3) H 07/20/16 06:06 Eos % (Auto) 6.7 % (0.0-4.3) H 07/20/16 06:06 Baso % (Auto) 0.9 % (0.0-1.8) 07/20/16 06:06 Lymph # 1.1 K/mm3 (1.2-5.4) L 07/20/16 06:06 [place] # 1.3 K/mm3 (0.0-0.8) H 07/20/16 06:06 Eos # 0.7 K/mm3 (0.0-0.4) H 07/20/16 06:06 Baso # 0.1 K/mm3 (0.0-0.1) 07/20/16 06:06 Add Manual Diff Complete 07/13/16 04:45 Total Counted 100 07/13/16 04:45 Seg Neutrophils % 70.6 % (40.0-70.0) H 07/20/16 06:06 Seg Neuts % (Manual) 75.0 % (40.0-70.0) H 07/13/16 04:45 Band Neutrophils % 3.0 % 07/13/16 04:45 Lymphocytes % (Manual) 11.0 % (13.4-35.0) L 07/13/16 04:45 Reactive Lymphs % (Man) 0 % 07/13/16 04:45 Monocytes % (Manual) 8.0 % (0.0-7.3) H 07/13/16 04:45 Eosinophils % (Manual) 0 % (0.0-4.3) 07/13/16 04:45 Basophils % (Manual) 0 % (0.0-1.8) 07/13/16 04:45 Metamyelocytes % 3.0 % 07/13/16 04:45 Myelocytes % 0 % 07/13/16 04:45 Promyelocytes % 0 % 07/13/16 04:45 Blast Cells % 0 % 07/13/16 04:45 Nucleated RBC % Not Reportable 07/13/16 04:45 Seg Neutrophils # 7.7 K/mm3 (1.8-7.7) 07/20/16 06:06 Seg Neutrophils # Man 15.8 K/mm3 (1.8-7.7) H 07/13/16 04:45 Band Neutrophils # 0.6 K/mm3 07/13/16 04:45 Lymphocytes # (Manual) 2.3 K/mm3 (1.2-5.4) 07/13/16 04:45 Abs React Lymphs (Man) 0.0 K/mm3 07/13/16 04:45 Monocytes # (Manual) 1.7 K/mm3 (0.0-0.8) H 07/13/16 04:45 Eosinophils # (Manual) 0.0 K/mm3 (0.0-0.4) 07/13/16 04:45 Basophils # (Manual) 0.0 K/mm3 (0.0-0.1) 07/13/16 04:45 Metamyelocytes # 0.6 K/mm3 07/13/16 04:45 Myelocytes # 0.0 K/mm3 07/13/16 04:45 Promyelocytes # 0.0 K/mm3 07/13/16 04:45 Blast Cells # 0.0 K/mm3 07/13/16 04:45 WBC Morphology Not Reportable 07/13/16 04:45 Hypersegmented Neuts Few 07/13/16 04:45 Hyposegmented Neuts Not Reportable 07/13/16 04:45 Hypogranular Neuts Not Reportable 07/13/16 04:45 Smudge Cells Not Reportable 07/13/16 04:45 Toxic Granulation Not Reportable 07/13/16 04:45 Toxic Vacuolation Not Reportable 07/13/16 04:45 Dohle Bodies Not Reportable 07/13/16 04:45 Pelger-Huet Anomaly Not Reportable 07/13/16 04:45 James Rods Not Reportable 07/13/16 04:45 Platelet Estimate Appears increased 07/13/16 04:45 Clumped Platelets Not Reportable 07/13/16 04:45 Plt Clumps, EDTA Not Reportable 07/13/16 04:45 Large Platelets Not Reportable 07/13/16 04:45 Giant Platelets Not Reportable 07/13/16 04:45 Platelet Satelliting Not Reportable 07/13/16 04:45 Plt Morphology Comment Not Reportable 07/13/16 04:45 RBC Morphology Not Reportable 07/13/16 04:45 Dimorphic RBCs Not Reportable 07/13/16 04:45 Polychromasia Not Reportable 07/13/16 04:45 Hypochromasia Not Reportable 07/13/16 04:45 Poikilocytosis Not Reportable 07/13/16 04:45 Anisocytosis 1+ 07/13/16 04:45 Microcytosis Not Reportable 07/13/16 04:45 Macrocytosis Not Reportable 07/13/16 04:45 Spherocytes Not Reportable 07/13/16 04:45 Pappenheimer Bodies Not Reportable 07/13/16 04:45 Sickle Cells Not Reportable 07/13/16 04:45 Target Cells Not Reportable 07/13/16 04:45 Tear Drop Cells Not Reportable 07/13/16 04:45 Ovalocytes Not Reportable 07/13/16 04:45 Helmet Cells Not Reportable 07/13/16 04:45 [place] Bodies Not Reportable 07/13/16 04:45 [place] Rings Not Reportable 07/13/16 04:45 [place] Cells Not Reportable 07/13/16 04:45 Bite Cells Not Reportable 07/13/16 04:45 Crenated Cell Not Reportable 07/13/16 04:45 Elliptocytes Not Reportable 07/13/16 04:45 Acanthocytes (Spur) Not Reportable 07/13/16 04:45 Rouleaux Not Reportable 07/13/16 04:45 Hemoglobin C Crystals Not Reportable 07/13/16 04:45 Schistocytes Not Reportable 07/13/16 04:45 Malaria parasites Not Reportable 07/13/16 04:45 [place] Bodies Not Reportable 07/13/16 04:45 Hem Pathologist Commnt No 07/13/16 04:45 PT 13.6 Sec. (12.2-14.9) 07/19/16 06:26 INR 1.05 (0.87-1.13) 07/19/16 06:26 APTT 22.8 Sec. (24.2-36.6) L 07/19/16 06:26 POC ABG pH 7.452 (7.35-7.45) H 07/12/16 09:10 POC ABG pCO2 33.2 (35-45) L 07/12/16 09:10 POC ABG pO2 74 (80-105) L 07/12/16 09:10 POC ABG HCO3 23.2 07/12/16 09:10 POC ABG Total CO2 24 07/12/16 09:10 POC ABG O2 Sat 96 07/12/16 09:10 POC ABG Base Excess -1 07/12/16 09:10 FiO2 30 % 07/12/16 09:10 Sodium 139 mmol/L (137-145) 07/20/16 06:06 Potassium 3.7 mmol/L (3.6-5.0) 07/20/16 06:06 Chloride 100.6 mmol/L (98-107) 07/20/16 06:06 Carbon Dioxide 26 mmol/L (22-30) 07/20/16 06:06 Anion Gap 16 mmol/L 07/20/16 06:06 BUN 11 mg/dL (7-17) 07/20/16 06:06 Creatinine 0.6 mg/dL (0.7-1.2) L 07/20/16 06:06 Estimated GFR > 60 ml/min 07/20/16 06:06 BUN/Creatinine Ratio 18.33 % 07/20/16 06:06 Glucose 146 mg/dL (65-100) H 07/20/16 06:06 POC Glucose 112 (70-105) H 07/22/16 22:15 Hemoglobin A1c 8.8 % (4-6) H 07/11/16 04:31 Calcium 8.1 mg/dL (8.4-10.2) L 07/20/16 06:06 Phosphorus 2.7 mg/dL (2.5-4.5) 07/14/16 05:28 Magnesium 1.7 mg/dL (1.7-2.3) 07/15/16 06:34 Total Bilirubin < 0.2 mg/dL (0.1-1.2) 07/17/16 00:48 Direct Bilirubin < 0.2 mg/dL (0-0.2) 07/11/16 04:31 Indirect Bilirubin 0.0 mg/dL 07/11/16 04:31 AST 20 units/L (5-40) 07/17/16 00:48 ALT 12 units/L (7-56) 07/17/16 00:48 Alkaline Phosphatase 73 units/L (35-129) 07/17/16 00:48 Ammonia 48.0 umol/L (25-60) 07/09/16 20:31 Total Creatine Kinase 334 units/L (30-135) H 07/10/16 08:55 CK-MB (CK-2) 5.6 ng/mL (0.0-4.0) H 07/10/16 08:55 CK-MB (CK-2) Rel Index 1.6 (0-4) 07/10/16 08:55 Troponin T 0.016 ng/mL (0.00-0.029) 07/10/16 08:55 NT-Pro-B Natriuret Pep 2802 pg/mL (0-900) H 07/16/16 06:30 Total Protein 5.8 g/dL (6.3-8.2) L 07/17/16 00:48 Albumin 1.9 g/dL (3.9-5) L 07/17/16 00:48 Albumin/Globulin Ratio 0.5 % 07/17/16 00:48 TSH 1.240 mlU/mL (0.270-4.200) 07/09/16 20:31 Free T4 1.40 ng/dL (0.76-1.46) 07/09/16 20:31 Urine Color Jennifer (Yellow) 07/10/16 13:10 Urine Turbidity Turbid (Clear) 07/10/16 13:10 Urine pH 6.0 (5.0-7.0) 07/10/16 13:10 Ur Specific [place] 1.016 (1.003-1.030) 07/10/16 13:10 Urine Protein 30 mg/dl mg/dL (Negative) 07/10/16 13:10 Urine Glucose (UA) 50 mg/dL (Negative) 07/10/16 13:10 Urine Ketones Neg mg/dL (Negative) 07/10/16 13:10 Urine Blood Sm (Negative) 07/10/16 13:10 Urine Nitrite Neg (Negative) 07/10/16 13:10 Urine Bilirubin Neg (Negative) 07/10/16 13:10 Urine Urobilinogen < 2.0 mg/dL (<2.0) 07/10/16 13:10 Ur Leukocyte Esterase Lg (Negative) 07/10/16 13:10 Urine WBC (Auto) 164.0 /HPF (0.0-6.0) H 07/10/16 13:10 Urine RBC (Auto) 33.0 /HPF (0.0-6.0) 07/10/16 13:10 U Epithel Cells (Auto) 5.0 /HPF (0-13.0) 07/10/16 13:10 Urine Bacteria (Auto) 4+ /HPF (Negative) 07/10/16 13:10 Urine Mucus 3+ /HPF 07/10/16 13:10 Urine Eosinophils 1 (None Seen) 07/11/16 12:50 Urine Creatinine < 4.2 mg/dL (0.1-20.0) 07/11/16 13:03 Urine Sodium 10 mEq/L 07/11/16 13:03
[2016-07-23] MEDS: PEPCID PO SCH (11:16)
[2016-07-23] MEDS: TRIPLE ANTIBIOTIC TP SCH ×2 (11:16→23:13)
[2016-07-23] MEDS: NORVASC FEEDTUBE SCH (11:16)
--- NOTE | 2016-07-23 12:32 | Discharge Summary ---
Providers - Providers Date of Admission: 07/09/16 23:05 Date of discharge: 07/23/16 Attending physician: WES PIRES 07/10/16 08:59 Consult to Physician [CONS] Routine Consulting Provider: SAROJ LILLY Reason For Exam: Critical care consult/resp distress,unresponsivene Place consult to:: dr. lilly Notified:: dr avery [place] Time called:: 08:45 07/10/16 11:56 Consult to Dietitian/Nutrition [CONS] Routine Physician Instructions: Reason For Exam: Reason for Consult: Write/Manage Tube Feeding 07/11/16 11:41 Consult to Physician [CONS] Routine Consulting Provider: ANNE MARIE BOUDREAUX Reason For Exam: Worsening Renal Failure Place consult to:: Anne Marie Boudreaux Notified:: yes Phone number called:: [phone] Was contact made?: Yes If yes, spoke with:: dr boudreaux Time called:: 12:48 07/14/16 17:16 Speech Therapy Evaluation and Treat [CONS] Routine Reason For Exam: swallowing evaluation 07/15/16 08:14 Physical Therapy Evaluation and Treat [CONS] Routine Comment: Reason For Exam: debility/s/p extubation 07/16/16 11:56 Consult to Physician [CONS] Routine Consulting Provider: TANMAY CERVANTES Reason For Exam: dysphagia, PEG placement Place consult to:: confidential investigator Notified:: yes Was contact made?: Yes Time called:: 12:22 07/20/16 14:51 Consult to Dietitian/Nutrition [CONS] Routine Physician Instructions: Reason For Exam: Reason for Consult: s/p peg, tube feed recommendations Primary care physician: CERAMIC SPRAYER Hospitalization Condition: Stable Disposition: DC/TX SNF W [facility] CERT Core Measure Documentation - Palliative Care Palliative Care/ Comfort Measures: Not Applicable - Core Measures Any of the following diagnoses?: none Exam - Constitutional Vitals: Temp Pulse Resp BP Pulse Ox 99.4 F 96 H 18 142/60 92 07/22/16 21:18 07/23/16 11:16 07/23/16 09:46 07/22/16 21:18 07/23/16 04:00 Plan Activity: advance as tolerated, fall precautions Diet: other (Tube feeding per protocol) Follow up with: PRIMARY CARE, [Primary Care Provider] - 7 Days
[2016-07-23] MEDS ORDERED: SODIUM BICARBONATE FEEDTUBE PRN (14:57)
[2016-07-23] MEDS ORDERED: PANCREAZE DR 10,500 UNIT FEEDTUBE PRN (14:57)
[2016-07-23] MEDS ORDERED: SIMPLE SYRUP FEEDTUBE PRN ×2 (14:57)
[2016-07-24] MEDS: DUONEB 0.5 MG-3 MG/3 ML SOLN IH SCH ×2 (02:06→09:55)
--- NOTE | 2016-07-24 09:11 | Progress Note ---
Assessment and Plan Assessment and plan: --Dysphagia , s/p PEG placement , tube feeding per protocol Aspiration precautions --Metabolic encephalopathy the time of admission Resolved back to baseline --History of recurrent urinary tract infection Received 10 days of IV antibiotics, --Acute renal failure resolved -- severe protein calorie malnutrition, nutrition supplements --Type 2 diabetes mellitus Continue Accu-Chek sliding scale coverage long-acting insulin A1c 8.8 --Hypertension well-controlled --DVT prophylaxis: lovenox, SCD --Full CODE STATUS Patient medically stable for discharge Awaiting placement versus home with home health Plan of care discussed with the patient and her nurse History Interval history: Patient seen and evaluated, medical records reviewed No new events reported by the nursing staff Medically stable, awaiting discharge to alf facility versus home with home health Alert and awake not in acute distress Vital signs reviewed stable Hospitalist Physical - Constitutional Vitals: Temp Pulse Resp BP Pulse Ox 98.1 F 83 16 131/43 91 07/24/16 02:22 07/24/16 02:22 07/24/16 02:22 07/24/16 02:22 07/24/16 02:22 General appearance: Present: no acute distress, well-nourished - EENT Eyes: Present: PERRL, EOM intact - Neck Neck: Present: supple, normal ROM - Respiratory Respiratory effort: normal Respiratory: bilateral: diminished, negative: rales, rhonchi, wheezing - Cardiovascular Rhythm: regular Heart Sounds: Present: S1 & S2 - Extremities Extremities: no ischemia, pulses intact, pulses symmetrical Peripheral Pulses: within normal limits - Abdominal General gastrointestinal: soft, non-tender, non-distended, normal bowel sounds, other ( PEG in place) - Integumentary Integumentary: Present: clear, warm - Psychiatric Psychiatric: appropriate mood/affect, other (minimally communicative) - Neurologic Neurologic: moves all extremities Results - Labs CBC & Chem 7: 07/20/16 06:06 07/20/16 06:06 Labs: Laboratory Last Values WBC 10.9 K/mm3 (4.5-11.0) 07/20/16 06:06 RBC 3.37 M/mm3 (3.65-5.03) L 07/20/16 06:06 Hgb 9.3 gm/dl (10.1-14.3) L 07/20/16 06:06 Hct 28.6 % (30.3-42.9) L 07/20/16 06:06 MCV 85 fl (79-97) 07/20/16 06:06 MCH 28 pg (28-32) 07/20/16 06:06 MCHC 33 % (30-34) 07/20/16 06:06 RDW 15.1 % (13.2-15.2) 07/20/16 06:06 Plt Count 641 K/mm3 (140-440) H 07/20/16 06:06 Lymph % (Auto) 10.3 % (13.4-35.0) L 07/20/16 06:06 [place] % (Auto) 11.5 % (0.0-7.3) H 07/20/16 06:06 Eos % (Auto) 6.7 % (0.0-4.3) H 07/20/16 06:06 Baso % (Auto) 0.9 % (0.0-1.8) 07/20/16 06:06 Lymph # 1.1 K/mm3 (1.2-5.4) L 07/20/16 06:06 [place] # 1.3 K/mm3 (0.0-0.8) H 07/20/16 06:06 Eos # 0.7 K/mm3 (0.0-0.4) H 07/20/16 06:06 Baso # 0.1 K/mm3 (0.0-0.1) 07/20/16 06:06 Add Manual Diff Complete 07/13/16 04:45 Total Counted 100 07/13/16 04:45 Seg Neutrophils % 70.6 % (40.0-70.0) H 07/20/16 06:06 Seg Neuts % (Manual) 75.0 % (40.0-70.0) H 07/13/16 04:45 Band Neutrophils % 3.0 % 07/13/16 04:45 Lymphocytes % (Manual) 11.0 % (13.4-35.0) L 07/13/16 04:45 Reactive Lymphs % (Man) 0 % 07/13/16 04:45 Monocytes % (Manual) 8.0 % (0.0-7.3) H 07/13/16 04:45 Eosinophils % (Manual) 0 % (0.0-4.3) 07/13/16 04:45 Basophils % (Manual) 0 % (0.0-1.8) 07/13/16 04:45 Metamyelocytes % 3.0 % 07/13/16 04:45 Myelocytes % 0 % 07/13/16 04:45 Promyelocytes % 0 % 07/13/16 04:45 Blast Cells % 0 % 07/13/16 04:45 Nucleated RBC % Not Reportable 07/13/16 04:45 Seg Neutrophils # 7.7 K/mm3 (1.8-7.7) 07/20/16 06:06 Seg Neutrophils # Man 15.8 K/mm3 (1.8-7.7) H 07/13/16 04:45 Band Neutrophils # 0.6 K/mm3 07/13/16 04:45 Lymphocytes # (Manual) 2.3 K/mm3 (1.2-5.4) 07/13/16 04:45 Abs React Lymphs (Man) 0.0 K/mm3 07/13/16 04:45 Monocytes # (Manual) 1.7 K/mm3 (0.0-0.8) H 07/13/16 04:45 Eosinophils # (Manual) 0.0 K/mm3 (0.0-0.4) 07/13/16 04:45 Basophils # (Manual) 0.0 K/mm3 (0.0-0.1) 07/13/16 04:45 Metamyelocytes # 0.6 K/mm3 07/13/16 04:45 Myelocytes # 0.0 K/mm3 07/13/16 04:45 Promyelocytes # 0.0 K/mm3 07/13/16 04:45 Blast Cells # 0.0 K/mm3 07/13/16 04:45 WBC Morphology Not Reportable 07/13/16 04:45 Hypersegmented Neuts Few 07/13/16 04:45 Hyposegmented Neuts Not Reportable 07/13/16 04:45 Hypogranular Neuts Not Reportable 07/13/16 04:45 Smudge Cells Not Reportable 07/13/16 04:45 Toxic Granulation Not Reportable 07/13/16 04:45 Toxic Vacuolation Not Reportable 07/13/16 04:45 Dohle Bodies Not Reportable 07/13/16 04:45 Pelger-Huet Anomaly Not Reportable 07/13/16 04:45 James Rods Not Reportable 07/13/16 04:45 Platelet Estimate Appears increased 07/13/16 04:45 Clumped Platelets Not Reportable 07/13/16 04:45 Plt Clumps, EDTA Not Reportable 07/13/16 04:45 Large Platelets Not Reportable 07/13/16 04:45 Giant Platelets Not Reportable 07/13/16 04:45 Platelet Satelliting Not Reportable 07/13/16 04:45 Plt Morphology Comment Not Reportable 07/13/16 04:45 RBC Morphology Not Reportable 07/13/16 04:45 Dimorphic RBCs Not Reportable 07/13/16 04:45 Polychromasia Not Reportable 07/13/16 04:45 Hypochromasia Not Reportable 07/13/16 04:45 Poikilocytosis Not Reportable 07/13/16 04:45 Anisocytosis 1+ 07/13/16 04:45 Microcytosis Not Reportable 07/13/16 04:45 Macrocytosis Not Reportable 07/13/16 04:45 Spherocytes Not Reportable 07/13/16 04:45 Pappenheimer Bodies Not Reportable 07/13/16 04:45 Sickle Cells Not Reportable 07/13/16 04:45 Target Cells Not Reportable 07/13/16 04:45 Tear Drop Cells Not Reportable 07/13/16 04:45 Ovalocytes Not Reportable 07/13/16 04:45 Helmet Cells Not Reportable 07/13/16 04:45 Mendoza-[place] Bodies Not Reportable 07/13/16 04:45 [place] Rings Not Reportable 07/13/16 04:45 Yolanda Cells Not Reportable 07/13/16 04:45 Bite Cells Not Reportable 07/13/16 04:45 Crenated Cell Not Reportable 07/13/16 04:45 Elliptocytes Not Reportable 07/13/16 04:45 Acanthocytes (Spur) Not Reportable 07/13/16 04:45 Rouleaux Not Reportable 07/13/16 04:45 Hemoglobin C Crystals Not Reportable 07/13/16 04:45 Schistocytes Not Reportable 07/13/16 04:45 Malaria parasites Not Reportable 07/13/16 04:45 [place] Bodies Not Reportable 07/13/16 04:45 Hem Pathologist Commnt No 07/13/16 04:45 PT 13.6 Sec. (12.2-14.9) 07/19/16 06:26 INR 1.05 (0.87-1.13) 07/19/16 06:26 APTT 22.8 Sec. (24.2-36.6) L 07/19/16 06:26 POC ABG pH 7.452 (7.35-7.45) H 07/12/16 09:10 POC ABG pCO2 33.2 (35-45) L 07/12/16 09:10 POC ABG pO2 74 (80-105) L 07/12/16 09:10 POC ABG HCO3 23.2 07/12/16 09:10 POC ABG Total CO2 24 07/12/16 09:10 POC ABG O2 Sat 96 07/12/16 09:10 POC ABG Base Excess -1 07/12/16 09:10 FiO2 30 % 07/12/16 09:10 Sodium 139 mmol/L (137-145) 07/20/16 06:06 Potassium 3.7 mmol/L (3.6-5.0) 07/20/16 06:06 Chloride 100.6 mmol/L (98-107) 07/20/16 06:06 Carbon Dioxide 26 mmol/L (22-30) 07/20/16 06:06 Anion Gap 16 mmol/L 07/20/16 06:06 BUN 11 mg/dL (7-17) 07/20/16 06:06 Creatinine 0.6 mg/dL (0.7-1.2) L 07/20/16 06:06 Estimated GFR > 60 ml/min 07/20/16 06:06 BUN/Creatinine Ratio 18.33 % 07/20/16 06:06 Glucose 146 mg/dL (65-100) H 07/20/16 06:06 POC Glucose 199 (70-105) H 07/24/16 06:33 Hemoglobin A1c 8.8 % (4-6) H 07/11/16 04:31 Calcium 8.1 mg/dL (8.4-10.2) L 07/20/16 06:06 Phosphorus 2.7 mg/dL (2.5-4.5) 07/14/16 05:28 Magnesium 1.7 mg/dL (1.7-2.3) 07/15/16 06:34 Total Bilirubin < 0.2 mg/dL (0.1-1.2) 07/17/16 00:48 Direct Bilirubin < 0.2 mg/dL (0-0.2) 07/11/16 04:31 Indirect Bilirubin 0.0 mg/dL 07/11/16 04:31 AST 20 units/L (5-40) 07/17/16 00:48 ALT 12 units/L (7-56) 07/17/16 00:48 Alkaline Phosphatase 73 units/L (35-129) 07/17/16 00:48 Ammonia 48.0 umol/L (25-60) 07/09/16 20:31 Total Creatine Kinase 334 units/L (30-135) H 07/10/16 08:55 CK-MB (CK-2) 5.6 ng/mL (0.0-4.0) H 07/10/16 08:55 CK-MB (CK-2) Rel Index 1.6 (0-4) 07/10/16 08:55 Troponin T 0.016 ng/mL (0.00-0.029) 07/10/16 08:55 NT-Pro-B Natriuret Pep 2802 pg/mL (0-900) H 07/16/16 06:30 Total Protein 5.8 g/dL (6.3-8.2) L 07/17/16 00:48 Albumin 1.9 g/dL (3.9-5) L 07/17/16 00:48 Albumin/Globulin Ratio 0.5 % 07/17/16 00:48 TSH 1.240 mlU/mL (0.270-4.200) 07/09/16 20:31 Free T4 1.40 ng/dL (0.76-1.46) 07/09/16 20:31 Urine Color [place] (Yellow) 07/10/16 13:10 Urine Turbidity Turbid (Clear) 07/10/16 13:10 Urine pH 6.0 (5.0-7.0) 07/10/16 13:10 Ur Specific [place] 1.016 (1.003-1.030) 07/10/16 13:10 Urine Protein 30 mg/dl mg/dL (Negative) 07/10/16 13:10 Urine Glucose (UA) 50 mg/dL (Negative) 07/10/16 13:10 Urine Ketones Neg mg/dL (Negative) 07/10/16 13:10 Urine Blood Sm (Negative) 07/10/16 13:10 Urine Nitrite Neg (Negative) 07/10/16 13:10 Urine Bilirubin Neg (Negative) 07/10/16 13:10 Urine Urobilinogen < 2.0 mg/dL (<2.0) 07/10/16 13:10 Ur Leukocyte Esterase Lg (Negative) 07/10/16 13:10 Urine WBC (Auto) 164.0 /HPF (0.0-6.0) H 07/10/16 13:10 Urine RBC (Auto) 33.0 /HPF (0.0-6.0) 07/10/16 13:10 U Epithel Cells (Auto) 5.0 /HPF (0-13.0) 07/10/16 13:10 Urine Bacteria (Auto) 4+ /HPF (Negative) 07/10/16 13:10 Urine Mucus 3+ /HPF 07/10/16 13:10 Urine Eosinophils 1 (None Seen) 07/11/16 12:50 Urine Creatinine < 4.2 mg/dL (0.1-20.0) 07/11/16 13:03 Urine Sodium 10 mEq/L 07/11/16 13:03
[2016-07-24] MEDS ORDERED: PROVENTIL IH PRN (10:29)
[2016-07-24] MEDS: PEPCID PO SCH (11:12)
[2016-07-24] MEDS: NORVASC FEEDTUBE SCH (11:13)
[2016-07-24] MEDS: TRIPLE ANTIBIOTIC TP SCH (11:16)
[2016-07-24] MEDS: NOVOLOG SUB-Q SCH (11:45)
[2016-07-24] MEDS ORDERED: DUONEB 0.5 MG-3 MG/3 ML SOLN IH PRN (14:00)
[2016-07-25] MEDS: TRIPLE ANTIBIOTIC TP SCH (09:51)
[2016-07-25] MEDS: PEPCID PO SCH (09:51)
[2016-07-25] MEDS: NORVASC FEEDTUBE SCH (09:55)
[2016-07-25] MEDS: NOVOLOG SUB-Q SCH ×2 (11:50→18:00)
--- NOTE | 2016-07-25 17:27 | Progress Note ---
Assessment and Plan Assessment and plan: --Dysphagia , s/p PEG placement , tube feeding per protocol Aspiration precautions --Metabolic encephalopathy the time of admission Resolved back to baseline --History of recurrent urinary tract infection Received 10 days of IV antibiotics, --Acute renal failure resolved -- severe protein calorie malnutrition, nutrition supplements --Type 2 diabetes mellitus Continue Accu-Chek sliding scale coverage long-acting insulin A1c 8.8 --Hypertension well-controlled --DVT prophylaxis: lovenox, SCD --Full CODE STATUS Medically stable for discharge Awaiting placement Plan of care discussed with the nurse History Interval history: Patient is comfortable no new complaints Tolerating tube feeding Awaiting placement, but awake responding to very simple questions not in acute distress Hospitalist Physical - Constitutional Vitals: Temp Pulse Resp BP Pulse Ox 99.8 F H 70 20 169/61 96 07/25/16 08:00 07/25/16 09:55 07/25/16 08:00 07/25/16 09:55 07/25/16 08:06 General appearance: Present: no acute distress, well-nourished - EENT Eyes: Present: PERRL, EOM intact - Neck Neck: Present: supple, normal ROM - Respiratory Respiratory effort: normal Respiratory: negative: rales, rhonchi, wheezing - Cardiovascular Rhythm: regular Heart Sounds: Present: S1 & S2 - Extremities Extremities: no ischemia, pulses intact, pulses symmetrical - Abdominal General gastrointestinal: soft, non-tender, non-distended, normal bowel sounds, other (PEG in place) - Integumentary Integumentary: Present: clear, warm - Psychiatric Psychiatric: appropriate mood/affect, cooperative - Neurologic Neurologic: moves all extremities Results - Labs CBC & Chem 7: 07/20/16 06:06 07/20/16 06:06 Labs: Laboratory Last Values WBC 10.9 K/mm3 (4.5-11.0) 07/20/16 06:06 RBC 3.37 M/mm3 (3.65-5.03) L 07/20/16 06:06 Hgb 9.3 gm/dl (10.1-14.3) L 07/20/16 06:06 Hct 28.6 % (30.3-42.9) L 07/20/16 06:06 MCV 85 fl (79-97) 07/20/16 06:06 MCH 28 pg (28-32) 07/20/16 06:06 MCHC 33 % (30-34) 07/20/16 06:06 RDW 15.1 % (13.2-15.2) 07/20/16 06:06 Plt Count 641 K/mm3 (140-440) H 07/20/16 06:06 Lymph % (Auto) 10.3 % (13.4-35.0) L 07/20/16 06:06 [place] % (Auto) 11.5 % (0.0-7.3) H 07/20/16 06:06 Eos % (Auto) 6.7 % (0.0-4.3) H 07/20/16 06:06 Baso % (Auto) 0.9 % (0.0-1.8) 07/20/16 06:06 Lymph # 1.1 K/mm3 (1.2-5.4) L 07/20/16 06:06 [place] # 1.3 K/mm3 (0.0-0.8) H 07/20/16 06:06 Eos # 0.7 K/mm3 (0.0-0.4) H 07/20/16 06:06 Baso # 0.1 K/mm3 (0.0-0.1) 07/20/16 06:06 Add Manual Diff Complete 07/13/16 04:45 Total Counted 100 07/13/16 04:45 Seg Neutrophils % 70.6 % (40.0-70.0) H 07/20/16 06:06 Seg Neuts % (Manual) 75.0 % (40.0-70.0) H 07/13/16 04:45 Band Neutrophils % 3.0 % 07/13/16 04:45 Lymphocytes % (Manual) 11.0 % (13.4-35.0) L 07/13/16 04:45 Reactive Lymphs % (Man) 0 % 07/13/16 04:45 Monocytes % (Manual) 8.0 % (0.0-7.3) H 07/13/16 04:45 Eosinophils % (Manual) 0 % (0.0-4.3) 07/13/16 04:45 Basophils % (Manual) 0 % (0.0-1.8) 07/13/16 04:45 Metamyelocytes % 3.0 % 07/13/16 04:45 Myelocytes % 0 % 07/13/16 04:45 Promyelocytes % 0 % 07/13/16 04:45 Blast Cells % 0 % 07/13/16 04:45 Nucleated RBC % Not Reportable 07/13/16 04:45 Seg Neutrophils # 7.7 K/mm3 (1.8-7.7) 07/20/16 06:06 Seg Neutrophils # Man 15.8 K/mm3 (1.8-7.7) H 07/13/16 04:45 Band Neutrophils # 0.6 K/mm3 07/13/16 04:45 Lymphocytes # (Manual) 2.3 K/mm3 (1.2-5.4) 07/13/16 04:45 Abs React Lymphs (Man) 0.0 K/mm3 07/13/16 04:45 Monocytes # (Manual) 1.7 K/mm3 (0.0-0.8) H 07/13/16 04:45 Eosinophils # (Manual) 0.0 K/mm3 (0.0-0.4) 07/13/16 04:45 Basophils # (Manual) 0.0 K/mm3 (0.0-0.1) 07/13/16 04:45 Metamyelocytes # 0.6 K/mm3 07/13/16 04:45 Myelocytes # 0.0 K/mm3 07/13/16 04:45 Promyelocytes # 0.0 K/mm3 07/13/16 04:45 Blast Cells # 0.0 K/mm3 07/13/16 04:45 WBC Morphology Not Reportable 07/13/16 04:45 Hypersegmented Neuts Few 07/13/16 04:45 Hyposegmented Neuts Not Reportable 07/13/16 04:45 Hypogranular Neuts Not Reportable 07/13/16 04:45 Smudge Cells Not Reportable 07/13/16 04:45 Toxic Granulation Not Reportable 07/13/16 04:45 Toxic Vacuolation Not Reportable 07/13/16 04:45 Dohle Bodies Not Reportable 07/13/16 04:45 Pelger-Huet Anomaly Not Reportable 07/13/16 04:45 James Rods Not Reportable 07/13/16 04:45 Platelet Estimate Appears increased 07/13/16 04:45 Clumped Platelets Not Reportable 07/13/16 04:45 Plt Clumps, EDTA Not Reportable 07/13/16 04:45 Large Platelets Not Reportable 07/13/16 04:45 Giant Platelets Not Reportable 07/13/16 04:45 Platelet Satelliting Not Reportable 07/13/16 04:45 Plt Morphology Comment Not Reportable 07/13/16 04:45 RBC Morphology Not Reportable 07/13/16 04:45 Dimorphic RBCs Not Reportable 07/13/16 04:45 Polychromasia Not Reportable 07/13/16 04:45 Hypochromasia Not Reportable 07/13/16 04:45 Poikilocytosis Not Reportable 07/13/16 04:45 Anisocytosis 1+ 07/13/16 04:45 Microcytosis Not Reportable 07/13/16 04:45 Macrocytosis Not Reportable 07/13/16 04:45 Spherocytes Not Reportable 07/13/16 04:45 Pappenheimer Bodies Not Reportable 07/13/16 04:45 Sickle Cells Not Reportable 07/13/16 04:45 Target Cells Not Reportable 07/13/16 04:45 Tear Drop Cells Not Reportable 07/13/16 04:45 Ovalocytes Not Reportable 07/13/16 04:45 Helmet Cells Not Reportable 07/13/16 04:45 [place]endo[place] Bodies Not Reportable 07/13/16 04:45 [place] Rings Not Reportable 07/13/16 04:45 Yolanda Cells Not Reportable 07/13/16 04:45 Bite Cells Not Reportable 07/13/16 04:45 Crenated Cell Not Reportable 07/13/16 04:45 Elliptocytes Not Reportable 07/13/16 04:45 Acanthocytes (Spur) Not Reportable 07/13/16 04:45 Rouleaux Not Reportable 07/13/16 04:45 Hemoglobin C Crystals Not Reportable 07/13/16 04:45 Schistocytes Not Reportable 07/13/16 04:45 Malaria parasites Not Reportable 07/13/16 04:45 [place] Bodies Not Reportable 07/13/16 04:45 Hem Pathologist Commnt No 07/13/16 04:45 PT 13.6 Sec. (12.2-14.9) 07/19/16 06:26 INR 1.05 (0.87-1.13) 07/19/16 06:26 APTT 22.8 Sec. (24.2-36.6) L 07/19/16 06:26 POC ABG pH 7.452 (7.35-7.45) H 07/12/16 09:10 POC ABG pCO2 33.2 (35-45) L 07/12/16 09:10 POC ABG pO2 74 (80-105) L 07/12/16 09:10 POC ABG HCO3 23.2 07/12/16 09:10 POC ABG Total CO2 24 07/12/16 09:10 POC ABG O2 Sat 96 07/12/16 09:10 POC ABG Base Excess -1 07/12/16 09:10 FiO2 30 % 07/12/16 09:10 Sodium 139 mmol/L (137-145) 07/20/16 06:06 Potassium 3.7 mmol/L (3.6-5.0) 07/20/16 06:06 Chloride 100.6 mmol/L (98-107) 07/20/16 06:06 Carbon Dioxide 26 mmol/L (22-30) 07/20/16 06:06 Anion Gap 16 mmol/L 07/20/16 06:06 BUN 11 mg/dL (7-17) 07/20/16 06:06 Creatinine 0.6 mg/dL (0.7-1.2) L 07/20/16 06:06 Estimated GFR > 60 ml/min 07/20/16 06:06 BUN/Creatinine Ratio 18.33 % 07/20/16 06:06 Glucose 146 mg/dL (65-100) H 07/20/16 06:06 POC Glucose 204 (70-105) H 07/25/16 11:39 Hemoglobin A1c 8.8 % (4-6) H 07/11/16 04:31 Calcium 8.1 mg/dL (8.4-10.2) L 07/20/16 06:06 Phosphorus 2.7 mg/dL (2.5-4.5) 07/14/16 05:28 Magnesium 1.7 mg/dL (1.7-2.3) 07/15/16 06:34 Total Bilirubin < 0.2 mg/dL (0.1-1.2) 07/17/16 00:48 Direct Bilirubin < 0.2 mg/dL (0-0.2) 07/11/16 04:31 Indirect Bilirubin 0.0 mg/dL 07/11/16 04:31 AST 20 units/L (5-40) 07/17/16 00:48 ALT 12 units/L (7-56) 07/17/16 00:48 Alkaline Phosphatase 73 units/L (35-129) 07/17/16 00:48 Ammonia 48.0 umol/L (25-60) 07/09/16 20:31 Total Creatine Kinase 334 units/L (30-135) H 07/10/16 08:55 CK-MB (CK-2) 5.6 ng/mL (0.0-4.0) H 07/10/16 08:55 CK-MB (CK-2) Rel Index 1.6 (0-4) 07/10/16 08:55 Troponin T 0.016 ng/mL (0.00-0.029) 07/10/16 08:55 NT-Pro-B Natriuret Pep 2802 pg/mL (0-900) H 07/16/16 06:30 Total Protein 5.8 g/dL (6.3-8.2) L 07/17/16 00:48 Albumin 1.9 g/dL (3.9-5) L 07/17/16 00:48 Albumin/Globulin Ratio 0.5 % 07/17/16 00:48 TSH 1.240 mlU/mL (0.270-4.200) 07/09/16 20:31 Free T4 1.40 ng/dL (0.76-1.46) 07/09/16 20:31 Urine Color Jennifer (Yellow) 07/10/16 13:10 Urine Turbidity Turbid (Clear) 07/10/16 13:10 Urine pH 6.0 (5.0-7.0) 07/10/16 13:10 Ur Specific [place] 1.016 (1.003-1.030) 07/10/16 13:10 Urine Protein 30 mg/dl mg/dL (Negative) 07/10/16 13:10 Urine Glucose (UA) 50 mg/dL (Negative) 07/10/16 13:10 Urine Ketones Neg mg/dL (Negative) 07/10/16 13:10 Urine Blood Sm (Negative) 07/10/16 13:10 Urine Nitrite Neg (Negative) 07/10/16 13:10 Urine Bilirubin Neg (Negative) 07/10/16 13:10 Urine Urobilinogen < 2.0 mg/dL (<2.0) 07/10/16 13:10 Ur Leukocyte Esterase Lg (Negative) 07/10/16 13:10 Urine WBC (Auto) 164.0 /HPF (0.0-6.0) H 07/10/16 13:10 Urine RBC (Auto) 33.0 /HPF (0.0-6.0) 07/10/16 13:10 U Epithel Cells (Auto) 5.0 /HPF (0-13.0) 07/10/16 13:10 Urine Bacteria (Auto) 4+ /HPF (Negative) 07/10/16 13:10 Urine Mucus 3+ /HPF 07/10/16 13:10 Urine Eosinophils 1 (None Seen) 07/11/16 12:50 Urine Creatinine < 4.2 mg/dL (0.1-20.0) 07/11/16 13:03 Urine Sodium 10 mEq/L 07/11/16 13:03
[2016-07-26] MEDS: NOVOLOG SUB-Q SCH ×4 (06:59→12:08)
[2016-07-26] MEDS: NORVASC FEEDTUBE SCH (11:02)
[2016-07-26] MEDS: PEPCID PO SCH (11:02)
[2016-07-26] MEDS: TRIPLE ANTIBIOTIC TP SCH (11:02)
--- NOTE | 2016-07-26 15:47 | Progress Note ---
Assessment and Plan Assessment and plan: --Dysphagia , s/p PEG placement , tube feeding per protocol Aspiration precautions --Metabolic encephalopathy the time of admission Resolved back to baseline --History of recurrent urinary tract infection Received 10 days of IV antibiotics, --Acute renal failure resolved -- severe protein calorie malnutrition, nutrition supplements --Type 2 diabetes mellitus Continue Accu-Chek sliding scale coverage long-acting insulin A1c 8.8 --Hypertension well-controlled --DVT prophylaxis: lovenox, SCD --Full CODE STATUS stable for discharge,Awaiting placement Plan of care discussed with the nurse and case management History Interval history: Patient seen and evaluated this morning medical records reviewed Patient is clinically stable awaiting placement No new events reported by the nursing staff, alert and awake minimally communicative not in acute distress Hospitalist Physical - Constitutional Vitals: Temp Pulse Resp BP Pulse Ox 99.2 F 70 16 127/38 95 07/25/16 19:48 07/26/16 11:02 07/26/16 00:44 07/26/16 11:02 07/25/16 19:48 General appearance: Present: no acute distress, well-nourished - EENT Eyes: Present: PERRL, EOM intact - Neck Neck: Present: supple, normal ROM - Respiratory Respiratory effort: normal Respiratory: bilateral: diminished, negative: rales, rhonchi, wheezing - Cardiovascular Rhythm: regular Heart Sounds: Present: S1 & S2 - Extremities Extremities: no ischemia, pulses intact, pulses symmetrical Peripheral Pulses: within normal limits - Abdominal General gastrointestinal: soft, non-tender, non-distended, normal bowel sounds - Integumentary Integumentary: Present: clear, warm - Psychiatric Psychiatric: appropriate mood/affect, cooperative - Neurologic Neurologic: moves all extremities Results - Labs CBC & Chem 7: 07/20/16 06:06 07/20/16 06:06 Labs: Laboratory Last Values WBC 10.9 K/mm3 (4.5-11.0) 07/20/16 06:06 RBC 3.37 M/mm3 (3.65-5.03) L 07/20/16 06:06 Hgb 9.3 gm/dl (10.1-14.3) L 07/20/16 06:06 Hct 28.6 % (30.3-42.9) L 07/20/16 06:06 MCV 85 fl (79-97) 07/20/16 06:06 MCH 28 pg (28-32) 07/20/16 06:06 MCHC 33 % (30-34) 07/20/16 06:06 RDW 15.1 % (13.2-15.2) 07/20/16 06:06 Plt Count 641 K/mm3 (140-440) H 07/20/16 06:06 Lymph % (Auto) 10.3 % (13.4-35.0) L 07/20/16 06:06 [place] % (Auto) 11.5 % (0.0-7.3) H 07/20/16 06:06 Eos % (Auto) 6.7 % (0.0-4.3) H 07/20/16 06:06 Baso % (Auto) 0.9 % (0.0-1.8) 07/20/16 06:06 Lymph # 1.1 K/mm3 (1.2-5.4) L 07/20/16 06:06 [place] # 1.3 K/mm3 (0.0-0.8) H 07/20/16 06:06 Eos # 0.7 K/mm3 (0.0-0.4) H 07/20/16 06:06 Baso # 0.1 K/mm3 (0.0-0.1) 07/20/16 06:06 Add Manual Diff Complete 07/13/16 04:45 Total Counted 100 07/13/16 04:45 Seg Neutrophils % 70.6 % (40.0-70.0) H 07/20/16 06:06 Seg Neuts % (Manual) 75.0 % (40.0-70.0) H 07/13/16 04:45 Band Neutrophils % 3.0 % 07/13/16 04:45 Lymphocytes % (Manual) 11.0 % (13.4-35.0) L 07/13/16 04:45 Reactive Lymphs % (Man) 0 % 07/13/16 04:45 Monocytes % (Manual) 8.0 % (0.0-7.3) H 07/13/16 04:45 Eosinophils % (Manual) 0 % (0.0-4.3) 07/13/16 04:45 Basophils % (Manual) 0 % (0.0-1.8) 07/13/16 04:45 Metamyelocytes % 3.0 % 07/13/16 04:45 Myelocytes % 0 % 07/13/16 04:45 Promyelocytes % 0 % 07/13/16 04:45 Blast Cells % 0 % 07/13/16 04:45 Nucleated RBC % Not Reportable 07/13/16 04:45 Seg Neutrophils # 7.7 K/mm3 (1.8-7.7) 07/20/16 06:06 Seg Neutrophils # Man 15.8 K/mm3 (1.8-7.7) H 07/13/16 04:45 Band Neutrophils # 0.6 K/mm3 07/13/16 04:45 Lymphocytes # (Manual) 2.3 K/mm3 (1.2-5.4) 07/13/16 04:45 Abs React Lymphs (Man) 0.0 K/mm3 07/13/16 04:45 Monocytes # (Manual) 1.7 K/mm3 (0.0-0.8) H 07/13/16 04:45 Eosinophils # (Manual) 0.0 K/mm3 (0.0-0.4) 07/13/16 04:45 Basophils # (Manual) 0.0 K/mm3 (0.0-0.1) 07/13/16 04:45 Metamyelocytes # 0.6 K/mm3 07/13/16 04:45 Myelocytes # 0.0 K/mm3 07/13/16 04:45 Promyelocytes # 0.0 K/mm3 07/13/16 04:45 Blast Cells # 0.0 K/mm3 07/13/16 04:45 WBC Morphology Not Reportable 07/13/16 04:45 Hypersegmented Neuts Few 07/13/16 04:45 Hyposegmented Neuts Not Reportable 07/13/16 04:45 Hypogranular Neuts Not Reportable 07/13/16 04:45 Smudge Cells Not Reportable 07/13/16 04:45 Toxic Granulation Not Reportable 07/13/16 04:45 Toxic Vacuolation Not Reportable 07/13/16 04:45 Dohle Bodies Not Reportable 07/13/16 04:45 Pelger-Huet Anomaly Not Reportable 07/13/16 04:45 James Rods Not Reportable 07/13/16 04:45 Platelet Estimate Appears increased 07/13/16 04:45 Clumped Platelets Not Reportable 07/13/16 04:45 Plt Clumps, EDTA Not Reportable 07/13/16 04:45 Large Platelets Not Reportable 07/13/16 04:45 Giant Platelets Not Reportable 07/13/16 04:45 Platelet Satelliting Not Reportable 07/13/16 04:45 Plt Morphology Comment Not Reportable 07/13/16 04:45 RBC Morphology Not Reportable 07/13/16 04:45 Dimorphic RBCs Not Reportable 07/13/16 04:45 Polychromasia Not Reportable 07/13/16 04:45 Hypochromasia Not Reportable 07/13/16 04:45 Poikilocytosis Not Reportable 07/13/16 04:45 Anisocytosis 1+ 07/13/16 04:45 Microcytosis Not Reportable 07/13/16 04:45 Macrocytosis Not Reportable 07/13/16 04:45 Spherocytes Not Reportable 07/13/16 04:45 Pappenheimer Bodies Not Reportable 07/13/16 04:45 Sickle Cells Not Reportable 07/13/16 04:45 Target Cells Not Reportable 07/13/16 04:45 Tear Drop Cells Not Reportable 07/13/16 04:45 Ovalocytes Not Reportable 07/13/16 04:45 Helmet Cells Not Reportable 07/13/16 04:45 [place] Bodies Not Reportable 07/13/16 04:45 [place] Rings Not Reportable 07/13/16 04:45 [place] Cells Not Reportable 07/13/16 04:45 Bite Cells Not Reportable 07/13/16 04:45 Crenated Cell Not Reportable 07/13/16 04:45 Elliptocytes Not Reportable 07/13/16 04:45 Acanthocytes (Spur) Not Reportable 07/13/16 04:45 Rouleaux Not Reportable 07/13/16 04:45 Hemoglobin C Crystals Not Reportable 07/13/16 04:45 Schistocytes Not Reportable 07/13/16 04:45 Malaria parasites Not Reportable 07/13/16 04:45 [place] Bodies Not Reportable 07/13/16 04:45 Hem Pathologist Commnt No 07/13/16 04:45 PT 13.6 Sec. (12.2-14.9) 07/19/16 06:26 INR 1.05 (0.87-1.13) 07/19/16 06:26 APTT 22.8 Sec. (24.2-36.6) L 07/19/16 06:26 POC ABG pH 7.452 (7.35-7.45) H 07/12/16 09:10 POC ABG pCO2 33.2 (35-45) L 07/12/16 09:10 POC ABG pO2 74 (80-105) L 07/12/16 09:10 POC ABG HCO3 23.2 07/12/16 09:10 POC ABG Total CO2 24 07/12/16 09:10 POC ABG O2 Sat 96 07/12/16 09:10 POC ABG Base Excess -1 07/12/16 09:10 FiO2 30 % 07/12/16 09:10 Sodium 139 mmol/L (137-145) 07/20/16 06:06 Potassium 3.7 mmol/L (3.6-5.0) 07/20/16 06:06 Chloride 100.6 mmol/L (98-107) 07/20/16 06:06 Carbon Dioxide 26 mmol/L (22-30) 07/20/16 06:06 Anion Gap 16 mmol/L 07/20/16 06:06 BUN 11 mg/dL (7-17) 07/20/16 06:06 Creatinine 0.6 mg/dL (0.7-1.2) L 07/20/16 06:06 Estimated GFR > 60 ml/min 07/20/16 06:06 BUN/Creatinine Ratio 18.33 % 07/20/16 06:06 Glucose 146 mg/dL (65-100) H 07/20/16 06:06 POC Glucose 96 (70-105) 07/25/16 17:34 Hemoglobin A1c 8.8 % (4-6) H 07/11/16 04:31 Calcium 8.1 mg/dL (8.4-10.2) L 07/20/16 06:06 Phosphorus 2.7 mg/dL (2.5-4.5) 07/14/16 05:28 Magnesium 1.7 mg/dL (1.7-2.3) 07/15/16 06:34 Total Bilirubin < 0.2 mg/dL (0.1-1.2) 07/17/16 00:48 Direct Bilirubin < 0.2 mg/dL (0-0.2) 07/11/16 04:31 Indirect Bilirubin 0.0 mg/dL 07/11/16 04:31 AST 20 units/L (5-40) 07/17/16 00:48 ALT 12 units/L (7-56) 07/17/16 00:48 Alkaline Phosphatase 73 units/L (35-129) 07/17/16 00:48 Ammonia 48.0 umol/L (25-60) 07/09/16 20:31 Total Creatine Kinase 334 units/L (30-135) H 07/10/16 08:55 CK-MB (CK-2) 5.6 ng/mL (0.0-4.0) H 07/10/16 08:55 CK-MB (CK-2) Rel Index 1.6 (0-4) 07/10/16 08:55 Troponin T 0.016 ng/mL (0.00-0.029) 07/10/16 08:55 NT-Pro-B Natriuret Pep 2802 pg/mL (0-900) H 07/16/16 06:30 Total Protein 5.8 g/dL (6.3-8.2) L 07/17/16 00:48 Albumin 1.9 g/dL (3.9-5) L 07/17/16 00:48 Albumin/Globulin Ratio 0.5 % 07/17/16 00:48 TSH 1.240 mlU/mL (0.270-4.200) 07/09/16 20:31 Free T4 1.40 ng/dL (0.76-1.46) 07/09/16 20:31 Urine Color Jennifer (Yellow) 07/10/16 13:10 Urine Turbidity Turbid (Clear) 07/10/16 13:10 Urine pH 6.0 (5.0-7.0) 07/10/16 13:10 Ur Specific [place] 1.016 (1.003-1.030) 07/10/16 13:10 Urine Protein 30 mg/dl mg/dL (Negative) 07/10/16 13:10 Urine Glucose (UA) 50 mg/dL (Negative) 07/10/16 13:10 Urine Ketones Neg mg/dL (Negative) 07/10/16 13:10 Urine Blood Sm (Negative) 07/10/16 13:10 Urine Nitrite Neg (Negative) 07/10/16 13:10 Urine Bilirubin Neg (Negative) 07/10/16 13:10 Urine Urobilinogen < 2.0 mg/dL (<2.0) 07/10/16 13:10 Ur Leukocyte Esterase Lg (Negative) 07/10/16 13:10 Urine WBC (Auto) 164.0 /HPF (0.0-6.0) H 07/10/16 13:10 Urine RBC (Auto) 33.0 /HPF (0.0-6.0) 07/10/16 13:10 U Epithel Cells (Auto) 5.0 /HPF (0-13.0) 07/10/16 13:10 Urine Bacteria (Auto) 4+ /HPF (Negative) 07/10/16 13:10 Urine Mucus 3+ /HPF 07/10/16 13:10 Urine Eosinophils 1 (None Seen) 07/11/16 12:50 Urine Creatinine < 4.2 mg/dL (0.1-20.0) 07/11/16 13:03 Urine Sodium 10 mEq/L 07/11/16 13:03
[2016-07-27] MEDS: NOVOLOG SUB-Q SCH ×3 (00:46→13:36)
[2016-07-27] MEDS: PEPCID PO SCH (10:30)
[2016-07-27 10:40] VITALS: BP 162/60
[2016-07-27] MEDS: NORVASC FEEDTUBE SCH (12:17)
--- NOTE | 2016-07-27 13:20 | Progress Note ---
Hospitalist Physical - Constitutional Vitals: Temp Pulse Resp BP Pulse Ox 99.1 F 74 20 162/60 96 07/27/16 08:00 07/27/16 08:00 07/27/16 08:00 07/27/16 08:00 07/27/16 09:18 General appearance: Present: no acute distress, well-nourished Results - Labs CBC & Chem 7: 07/20/16 06:06 07/20/16 06:06 Labs: Laboratory Last Values WBC 10.9 K/mm3 (4.5-11.0) 07/20/16 06:06 RBC 3.37 M/mm3 (3.65-5.03) L 07/20/16 06:06 Hgb 9.3 gm/dl (10.1-14.3) L 07/20/16 06:06 Hct 28.6 % (30.3-42.9) L 07/20/16 06:06 MCV 85 fl (79-97) 07/20/16 06:06 MCH 28 pg (28-32) 07/20/16 06:06 MCHC 33 % (30-34) 07/20/16 06:06 RDW 15.1 % (13.2-15.2) 07/20/16 06:06 Plt Count 641 K/mm3 (140-440) H 07/20/16 06:06 Lymph % (Auto) 10.3 % (13.4-35.0) L 07/20/16 06:06 [place] % (Auto) 11.5 % (0.0-7.3) H 07/20/16 06:06 Eos % (Auto) 6.7 % (0.0-4.3) H 07/20/16 06:06 Baso % (Auto) 0.9 % (0.0-1.8) 07/20/16 06:06 Lymph # 1.1 K/mm3 (1.2-5.4) L 07/20/16 06:06 [place] # 1.3 K/mm3 (0.0-0.8) H 07/20/16 06:06 Eos # 0.7 K/mm3 (0.0-0.4) H 07/20/16 06:06 Baso # 0.1 K/mm3 (0.0-0.1) 07/20/16 06:06 Add Manual Diff Complete 07/13/16 04:45 Total Counted 100 07/13/16 04:45 Seg Neutrophils % 70.6 % (40.0-70.0) H 07/20/16 06:06 Seg Neuts % (Manual) 75.0 % (40.0-70.0) H 07/13/16 04:45 Band Neutrophils % 3.0 % 07/13/16 04:45 Lymphocytes % (Manual) 11.0 % (13.4-35.0) L 07/13/16 04:45 Reactive Lymphs % (Man) 0 % 07/13/16 04:45 Monocytes % (Manual) 8.0 % (0.0-7.3) H 07/13/16 04:45 Eosinophils % (Manual) 0 % (0.0-4.3) 07/13/16 04:45 Basophils % (Manual) 0 % (0.0-1.8) 07/13/16 04:45 Metamyelocytes % 3.0 % 07/13/16 04:45 Myelocytes % 0 % 07/13/16 04:45 Promyelocytes % 0 % 07/13/16 04:45 Blast Cells % 0 % 07/13/16 04:45 Nucleated RBC % Not Reportable 07/13/16 04:45 Seg Neutrophils # 7.7 K/mm3 (1.8-7.7) 07/20/16 06:06 Seg Neutrophils # Man 15.8 K/mm3 (1.8-7.7) H 07/13/16 04:45 Band Neutrophils # 0.6 K/mm3 07/13/16 04:45 Lymphocytes # (Manual) 2.3 K/mm3 (1.2-5.4) 07/13/16 04:45 Abs React Lymphs (Man) 0.0 K/mm3 07/13/16 04:45 Monocytes # (Manual) 1.7 K/mm3 (0.0-0.8) H 07/13/16 04:45 Eosinophils # (Manual) 0.0 K/mm3 (0.0-0.4) 07/13/16 04:45 Basophils # (Manual) 0.0 K/mm3 (0.0-0.1) 07/13/16 04:45 Metamyelocytes # 0.6 K/mm3 07/13/16 04:45 Myelocytes # 0.0 K/mm3 07/13/16 04:45 Promyelocytes # 0.0 K/mm3 07/13/16 04:45 Blast Cells # 0.0 K/mm3 07/13/16 04:45 WBC Morphology Not Reportable 07/13/16 04:45 Hypersegmented Neuts Few 07/13/16 04:45 Hyposegmented Neuts Not Reportable 07/13/16 04:45 Hypogranular Neuts Not Reportable 07/13/16 04:45 Smudge Cells Not Reportable 07/13/16 04:45 Toxic Granulation Not Reportable 07/13/16 04:45 Toxic Vacuolation Not Reportable 07/13/16 04:45 Dohle Bodies Not Reportable 07/13/16 04:45 Pelger-Huet Anomaly Not Reportable 07/13/16 04:45 James Rods Not Reportable 07/13/16 04:45 Platelet Estimate Appears increased 07/13/16 04:45 Clumped Platelets Not Reportable 07/13/16 04:45 Plt Clumps, EDTA Not Reportable 07/13/16 04:45 Large Platelets Not Reportable 07/13/16 04:45 Giant Platelets Not Reportable 07/13/16 04:45 Platelet Satelliting Not Reportable 07/13/16 04:45 Plt Morphology Comment Not Reportable 07/13/16 04:45 RBC Morphology Not Reportable 07/13/16 04:45 Dimorphic RBCs Not Reportable 07/13/16 04:45 Polychromasia Not Reportable 07/13/16 04:45 Hypochromasia Not Reportable 07/13/16 04:45 Poikilocytosis Not Reportable 07/13/16 04:45 Anisocytosis 1+ 07/13/16 04:45 Microcytosis Not Reportable 07/13/16 04:45 Macrocytosis Not Reportable 07/13/16 04:45 Spherocytes Not Reportable 07/13/16 04:45 Pappenheimer Bodies Not Reportable 07/13/16 04:45 Sickle Cells Not Reportable 07/13/16 04:45 Target Cells Not Reportable 07/13/16 04:45 Tear Drop Cells Not Reportable 07/13/16 04:45 Ovalocytes Not Reportable 07/13/16 04:45 Helmet Cells Not Reportable 07/13/16 04:45 [place] Bodies Not Reportable 07/13/16 04:45 [place] Rings Not Reportable 07/13/16 04:45 [place] Cells Not Reportable 07/13/16 04:45 Bite Cells Not Reportable 07/13/16 04:45 Crenated Cell Not Reportable 07/13/16 04:45 Elliptocytes Not Reportable 07/13/16 04:45 Acanthocytes (Spur) Not Reportable 07/13/16 04:45 Rouleaux Not Reportable 07/13/16 04:45 Hemoglobin C Crystals Not Reportable 07/13/16 04:45 Schistocytes Not Reportable 07/13/16 04:45 Malaria parasites Not Reportable 07/13/16 04:45 [place] Bodies Not Reportable 07/13/16 04:45 Hem Pathologist Commnt No 07/13/16 04:45 PT 13.6 Sec. (12.2-14.9) 07/19/16 06:26 INR 1.05 (0.87-1.13) 07/19/16 06:26 APTT 22.8 Sec. (24.2-36.6) L 07/19/16 06:26 POC ABG pH 7.452 (7.35-7.45) H 07/12/16 09:10 POC ABG pCO2 33.2 (35-45) L 07/12/16 09:10 POC ABG pO2 74 (80-105) L 07/12/16 09:10 POC ABG HCO3 23.2 07/12/16 09:10 POC ABG Total CO2 24 07/12/16 09:10 POC ABG O2 Sat 96 07/12/16 09:10 POC ABG Base Excess -1 07/12/16 09:10 FiO2 30 % 07/12/16 09:10 Sodium 139 mmol/L (137-145) 07/20/16 06:06 Potassium 3.7 mmol/L (3.6-5.0) 07/20/16 06:06 Chloride 100.6 mmol/L (98-107) 07/20/16 06:06 Carbon Dioxide 26 mmol/L (22-30) 07/20/16 06:06 Anion Gap 16 mmol/L 07/20/16 06:06 BUN 11 mg/dL (7-17) 07/20/16 06:06 Creatinine 0.6 mg/dL (0.7-1.2) L 07/20/16 06:06 Estimated GFR > 60 ml/min 07/20/16 06:06 BUN/Creatinine Ratio 18.33 % 07/20/16 06:06 Glucose 146 mg/dL (65-100) H 07/20/16 06:06 POC Glucose 163 (70-105) H 07/27/16 06:02 Hemoglobin A1c 8.8 % (4-6) H 07/11/16 04:31 Calcium 8.1 mg/dL (8.4-10.2) L 07/20/16 06:06 Phosphorus 2.7 mg/dL (2.5-4.5) 07/14/16 05:28 Magnesium 1.7 mg/dL (1.7-2.3) 07/15/16 06:34 Total Bilirubin < 0.2 mg/dL (0.1-1.2) 07/17/16 00:48 Direct Bilirubin < 0.2 mg/dL (0-0.2) 07/11/16 04:31 Indirect Bilirubin 0.0 mg/dL 07/11/16 04:31 AST 20 units/L (5-40) 07/17/16 00:48 ALT 12 units/L (7-56) 07/17/16 00:48 Alkaline Phosphatase 73 units/L (35-129) 07/17/16 00:48 Ammonia 48.0 umol/L (25-60) 07/09/16 20:31 Total Creatine Kinase 334 units/L (30-135) H 07/10/16 08:55 CK-MB (CK-2) 5.6 ng/mL (0.0-4.0) H 07/10/16 08:55 CK-MB (CK-2) Rel Index 1.6 (0-4) 07/10/16 08:55 Troponin T 0.016 ng/mL (0.00-0.029) 07/10/16 08:55 NT-Pro-B Natriuret Pep 2802 pg/mL (0-900) H 07/16/16 06:30 Total Protein 5.8 g/dL (6.3-8.2) L 07/17/16 00:48 Albumin 1.9 g/dL (3.9-5) L 07/17/16 00:48 Albumin/Globulin Ratio 0.5 % 07/17/16 00:48 TSH 1.240 mlU/mL (0.270-4.200) 07/09/16 20:31 Free T4 1.40 ng/dL (0.76-1.46) 07/09/16 20:31 Urine Color Jennifer (Yellow) 07/10/16 13:10 Urine Turbidity Turbid (Clear) 07/10/16 13:10 Urine pH 6.0 (5.0-7.0) 07/10/16 13:10 Ur Specific [place] 1.016 (1.003-1.030) 07/10/16 13:10 Urine Protein 30 mg/dl mg/dL (Negative) 07/10/16 13:10 Urine Glucose (UA) 50 mg/dL (Negative) 07/10/16 13:10 Urine Ketones Neg mg/dL (Negative) 07/10/16 13:10 Urine Blood Sm (Negative) 07/10/16 13:10 Urine Nitrite Neg (Negative) 07/10/16 13:10 Urine Bilirubin Neg (Negative) 07/10/16 13:10 Urine Urobilinogen < 2.0 mg/dL (<2.0) 07/10/16 13:10 Ur Leukocyte Esterase Lg (Negative) 07/10/16 13:10 Urine WBC (Auto) 164.0 /HPF (0.0-6.0) H 07/10/16 13:10 Urine RBC (Auto) 33.0 /HPF (0.0-6.0) 07/10/16 13:10 U Epithel Cells (Auto) 5.0 /HPF (0-13.0) 07/10/16 13:10 Urine Bacteria (Auto) 4+ /HPF (Negative) 07/10/16 13:10 Urine Mucus 3+ /HPF 07/10/16 13:10 Urine Eosinophils 1 (None Seen) 07/11/16 12:50 Urine Creatinine < 4.2 mg/dL (0.1-20.0) 07/11/16 13:03 Urine Sodium 10 mEq/L 07/11/16 13:03
--- NOTE | 2016-07-27 13:41 | Discharge Summary ---
Providers - Providers Date of Admission: 07/09/16 23:05 Date of discharge: 07/27/16 Attending physician: WES PIRES 07/10/16 08:59 Consult to Physician [CONS] Routine Consulting Provider: SAROJ LILLY Reason For Exam: Critical care consult/resp distress,unresponsivene Place consult to:: dr. lilly Notified:: dr avery quezada Time called:: 08:45 07/10/16 11:56 Consult to Dietitian/Nutrition [CONS] Routine Physician Instructions: Reason For Exam: Reason for Consult: Write/Manage Tube Feeding 07/11/16 11:41 Consult to Physician [CONS] Routine Consulting Provider: ANNE MARIE BOUDREAUX Reason For Exam: Worsening Renal Failure Place consult to:: Anne Marie Boudreaux Notified:: yes Phone number called:: [phone] Was contact made?: Yes If yes, spoke with:: dr boudreaux Time called:: 12:48 07/14/16 17:16 Speech Therapy Evaluation and Treat [CONS] Routine Reason For Exam: swallowing evaluation 07/15/16 08:14 Physical Therapy Evaluation and Treat [CONS] Routine Comment: Reason For Exam: debility/s/p extubation 07/16/16 11:56 Consult to Physician [CONS] Routine Consulting Provider: TANMAY CERVANTES Reason For Exam: dysphagia, PEG placement 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 Notified:: yes Was contact made?: Yes Time called:: 12:22 07/20/16 14:51 Consult to Dietitian/Nutrition [CONS] Routine Physician Instructions: Reason For Exam: Reason for Consult: s/p peg, tube feed recommendations Primary care physician: [employer] Hospitalization Reason for admission: unresponsiveness/metabolic encephalopathy Condition: Stable Pertinent studies: Consults; Pulmonary critical Nephrology GI Procedures: CT head without contrast Multiple chest x-rays Abdominal x-ray EGD with PEG placement Intubation and mechanical ventilation Status post extubation Echocardiogram normal left ventricular function Hospital course: 85-year-old female patient , custodial resident with significant past medical history of hypertension CVA with right-sided hemiparesis chronic back pain was sent to the emergency room with unresponsiveness. Patient was on antibiotics for UTI along with morphine for pain, patient patient received 2 not In the emergency room, and 2 more in ICU Patient was promptly intubated in ICU for airway protection, treated with empiric antibiotics for her chronic UTI Stabilized, extubated after weaning and patient was transferred to the medical floor Patient failed swallowing evaluation, and speech and swallow recommended PEG placement GI evaluated in consultation and PEG tube was placed, and feedings were started per protocol, patient completed the antibiotics for UTI Continue to improve, became more responsive, and responding to simple commands back to baseline Case management stated with DC planning, and today patient was comfortable in bed alert awake responding to simple questions not in acute distress Vital signs reviewed [id number] evaluation and physical examination done by me prior to discharge did not show any new changes as detailed below Hemodynamically and clinically stable for discharge and transfer to group home facility today Discharge plan discussed in detail with the patient's family members, caregivers as well as the case management here final diagnosis: Unresponsiveness/toxic metabolic encephalopathy resolved Dysphagia, status post PEG placement Chronic UTI, received full treatment Dementia Acute renal failure secondary to ATN resolved Type 2 diabetes mellitus Severe protein calorie malnutrition Hypertension Disposition: DC/TX SNF W [facility] Time spent for discharge: 33 min Core Measure Documentation - Palliative Care Palliative Care/ Comfort Measures: Not Applicable - Core Measures Any of the following diagnoses?: none Exam - Constitutional Vitals: Temp Pulse Resp BP Pulse Ox 99.1 F 74 20 162/60 96 07/27/16 08:00 07/27/16 08:00 07/27/16 08:00 07/27/16 08:00 07/27/16 09:18 General appearance: Present: no acute distress, well-nourished - EENT Eyes: Present: PERRL, EOM intact - Neck Neck: Present: supple, normal ROM - Respiratory Respiratory effort: normal Respiratory: bilateral: diminished, negative: rales, rhonchi, wheezing - Cardiovascular Rhythm: regular Heart Sounds: Present: S1 & S2 - Extremities Extremities: no ischemia, pulses intact, pulses symmetrical Peripheral Pulses: within normal limits - Abdominal General gastrointestinal: Present: soft, non-tender, non-distended, normal bowel sounds, other (PEG in place) - Integumentary Integumentary: Present: clear, warm - Musculoskeletal Musculoskeletal: strength equal bilaterally - Psychiatric Psychiatric: appropriate mood/affect, cooperative - Neurologic Neurologic: moves all extremities Plan Activity: advance as tolerated Diet: other (tube feeding per protocol) Special Instructions: physical therapy Additional Instructions: aspiration precautions Follow up with: PRIMARY MD RYLIE [Primary Care Provider] - 7 Days
== END 2016-07-27 16:10 | DRG 871 ==
LOC: ED 20:05 → 3A 23:05 → CC1 07-10 09:23 → 4A 07-14 06:58 → CC2 07-21 14:14
PROVIDERS: ADMIT Internal Medicine; ATTEND Internal Medicine
PROC: 5A1945Z Respiratory Ventilation, 24-96 Consecutive Hours (ICD-10-PCS; principal; 2016-07-09)
PROC: 0BH17EZ Insertion of Endotracheal Airway into Trachea, Via Natural or Artificial Opening (ICD-10-PCS; 2016-07-09)
PROC: 4A033R1 Measurement of Arterial Saturation, Peripheral, Percutaneous Approach (ICD-10-PCS; 2016-07-09)
PROC: 0DH63UZ Insertion of Feeding Device into Stomach, Percutaneous Approach (ICD-10-PCS; 2016-07-20)
PROC: 0DJ08ZZ Inspection of Upper Intestinal Tract, Via Natural or Artificial Opening Endoscopic (ICD-10-PCS; 2016-07-20)
DX: A41.9 Sepsis, unspecified organism (principal); N17.0 Acute kidney failure with tubular necrosis; G92 Toxic encephalopathy; E43 Unspecified severe protein-calorie malnutrition; J96.01 Acute respiratory failure with hypoxia; J96.02 Acute respiratory failure with hypercapnia; N39.0 Urinary tract infection, site not specified; E87.0 Hyperosmolality and hypernatremia; T40.601A Poisoning by unspecified narcotics, accidental (unintentional), initial encounter; I10 Essential (primary) hypertension; M54.9 Dorsalgia, unspecified; G89.29 Other chronic pain; E87.6 Hypokalemia; F03.90 Unspecified dementia, unspecified severity, without behavioral disturbance, psychotic disturbance, mood disturbance, and anxiety; R13.12 Dysphagia, oropharyngeal phase; K44.9 Diaphragmatic hernia without obstruction or gangrene; Z86.73 Personal history of transient ischemic attack (TIA), and cerebral infarction without residual deficits; Z82.49 Family history of ischemic heart disease and other diseases of the circulatory system; Z98.49 Cataract extraction status, unspecified eye; Z68.20 Body mass index [BMI] 20.0-20.9, adult
CPT/HCPCS: 31500; 36415; 36600; 70450; 71010; 74000; 76770; 80048; 80053; 80074; 81001; 82140; 82550; 82553; 82570; 82803; 82947; 82962; 83036; 83735; 83880; 84100; 84300; 84439; 84443; 84484; 85007; 85025; 85610; 85730; 87040; 87086; 89050; 90686; 90732; 93005; 93010; 93306; 94002; 94003; 94640; 94660; 94667; 94760; 96365; A6250; G8978-GP; G8979-GP; G8980-GP; G8996-GN; G8997-GN; J0360; J0690; J0696; J1630; J1650; J1815; J1940; J1956; J2250; J2310; J2704; J3010; J3475; J3480; J7030